=== PATIENT | male | born 1935 | race Caucasian/White ===

== ENCOUNTER → 2017-06-16 | Day surgery (SDC) | payer OTHER ==
[2017-05-12 09:24] VITALS: Ht 172.7 cm; Wt 84.1 kg
[~2017-06-16] VITALS: Ht 172.7 cm; Wt 84.1 kg
[~2017-06-16] MED LIST: 500ML BSS 0.3ML EPI 1:1000PF IRRIG ONE; ACETAMINOPHEN 325 MG TAB PO PRN; AMOX875T PO; AMVISC PLUS 0.8ML SYRINGE INT OCU ONE; ASPI-461 PO; ATROPINE SULFATE 0.1 MG/ML 5ML SYR IV PRN; BRIMONIDINE TART 0.2% OP SOLN PER DROP CHARGE ONE; BSS FLUSH ONE; CHOL1CAP57 PO; DICL0.1S OPR; ENDOCOAT 0.85ML SYRINGE INT OCU ONE; EpHEDrine SULFATE INJ 50 MG/ML AMP IV PRN; EpINEphrine INJ 1MG/ML AMP 1 MG/ML AMP ONE; FLM4 PO; LACTATED RINGER'S 1000ML 500 ML IV SCH; LEVO25TA5 PO; LIDOCAINE 4% OP SOLN DROP CHARGE ONE; LIDOCAINE 4% OP SOLN DROP CHARGE OPL SCH; LIDOCAINE HCL 1% MPF 2 ML VIAL ONE; LISI-725 PO; METO50TA16 PO; MIDAZOLAM HCL 1 MG/ML 2ML VIAL ONE; MIX: 3ML BSS AND 1ML EPI(PF) TOP ONE; MOXIFLOXACIN OPH SOLN PER DROP CHARGE ONE; NTRGSL/4 UT; POLYSOL3 OPL; POLYSOL4 OPB; POVIDONE-IODINE OP SOLN 30 ML BTL ONE; PRED1SUS3 OPL; PROPARACAINE 0.5% OP SOLN PER DROP CHARGE OPL SCH; SIMV80TA2 PO; TOBRAMYCIN/DEXAMETHASONE OPH OINT PER APPLN CHARGE ONE
[2017-06-16] MEDS: PHENYLEPHRINE HCL 2.5% OP SOLN PER DROP CHARGE OPL SCH ×2 (12:36→12:41)
[2017-06-16] MEDS: TROPICAMIDE 1% OP SOLN PER DROP CHARGE OPL SCH ×2 (12:37→12:42)
[2017-06-16] MEDS: CYCLOPENTOLATE HCL 1% OP SOLN PER DROP CHARGE OPL SCH ×2 (12:38→12:43)
[2017-06-16] MEDS: KETOROLAC 0.5% OP SOLN PER DROP CHARGE OPL SCH ×2 (12:39→12:44)
[2017-06-16] MEDS: MOXIFLOXACIN OPH SOLN PER DROP CHARGE OPL SCH ×2 (12:40→12:50)
--- NOTE | 2017-06-16 13:24 | History & Physical Bridge - [place] ---
H&P Re-Evaluation Bridge Note: I have examined the patient, reviewed the History & Physical and in the interval since the performance of the History & Physical I have noted the following changes of clinical significance: No changes noted
[2017-06-16 14:21] VITALS: TEMP 36.3
--- NOTE | 2017-06-16 14:21 | Discharge Instructions-SurgCtr ---
Discharge Instructions Date of Service Jun 16, 2017. Visit Reason for Visit: Cataract Left Eye Discharge Discharge Diagnosis / Problem: cataract left eye Discharge Goals Goal(s): Improve function Activity Recommendations Activity Limitations: per Instructions/Follow-up section Lifting Limitations: no more than 5 pounds Anesthesia . Post Anesthesia Instructions: If you have had General Anesthesia or IV Sedation: * Do not drive today. * Resume driving when surgeon permits. * Do not make important decisions or sign legal documents today. * Call surgeon for: 1. Temperature elevations greater than 101 degrees F. 2. Uncontrollable pain. 3. Excessive bleeding. 4. Persistent nausea and vomiting. 5. Medication intolerance (nausea, vomiting or rash). * For nausea and vomiting use only clear liquids such as: tea, soda, bouillon until nausea subsides, then gradually increase diet as tolerated. * If you have any concerns or questions, call your surgeon's office. If physician is unavailable and it is an emergency, call 911 or go to the nearest emergency room. . Instructions / Follow-Up Instructions / Follow-Up ACTIVITY RECOMMENDATIONS: * Light activities * You may walk outside, read, watch television. * Mild irritation and blurred vision are common for the first few days, redness around the white part of the eye is common. MEDICATIONS: Resume previous medications unless instructed otherwise by your surgeon. Eye drops (today and tomorrow): Polytrim - one drop in operative eye every 2 hours while awake Prednisolone 1% - one drop in operative eye every 2 hours while awake Diclofenac - one drop operative eye 4 times daily SPECIAL CARE INSTRUCTIONS: * If any problems or concerns, please call Dr. Vo's office at . * Keep plastic shield taped over eye to sleep at night. * Keep plastic shield taped over eye except to administer eye drops. * Keep plastic shield on until office visit the following day. FOLLOW UP VISIT: Follow-up with Dr. Vo in the [place] office as scheduled. If not already scheduled, please call the office at . Diet Recommendations Home Diet: resume previous diet Procedures Procedures Performed: Left Cataract Phacoemulsification With Intraocular Lens Implant Pending Studies Studies pending at discharge: no Medical Emergencies . Who to Call and When: Medical Emergencies: If at any time you feel your situation is an emergency, please call 911 immediately. . Non-Emergent Contact Non-Emergency issues call your: New Car Inspector . . "Provider Documentation" section prepared by Kirill Vo. .
--- NOTE | 2017-06-16 14:24 | [facility] Operative Report ---
Operative Report Operative Date Jun 16, 2017. Pre-Operative Diagnosis Left Eye Cataract Post-Operative Diagnosis same Procedure(s) Performed Left Cataract Phacoemulsification With Intraocular Lens Implant Surgeon Dr. Lynda Vo Boardmarker Surgeon(s) 0 Estimated Blood Loss 0 Findings cataract left eye Fluids (cc crystalloids) see anesthesia record Specimens none Drains none Anesthesia local with sedation Complication(s) None Disposition Recovery Room / PACU Implants [id number] 22.0 Indications decreased vision left eye Description of Procedure After informed consent was obtained in the holding area the patient was wheeled back to the operating room where cardiac monitoring leads and oxygen by nasal cannula was administered by Anesthesia. Gentle IV sedation was given, and the patient's left eye was prepped and draped in usual sterile fashion. A wire lid speculum was placed into the left eye and the operating microscope was swung into position. Using 0.12 forceps and a Supersharp blade a paracentesis port was made 2 o'clock hours away from the 3 o'clock position of the patient's left eye. 1% non-preserved Lidocaine was then injected into the anterior chamber for anesthesia. A 2.0 mm keratotome blade was then used to make a shelved clear corneal incision at the 3 o'clock position of the left eye. Amvisc was injected into the anterior chamber and a cystotome and Utrata forceps were used to perform a curvilinear capsulorrhexis. BSS on a hydrodissection cannula was used to hydrodissect the lens nucleus away from the capsular bag. The phacoemulsification handpiece was then used in a stop and chop fashion to remove the lens nucleus. A mixture of Nonpreserved epi and bss was injected into the eye to aid in pupillary dilation in this floppy iris patient. The irrigation and aspiration handpiece was then used to remove the residual cortical material. Amvisc was injected into the capsular bag and anterior chamber and a [employer]ch [employer] Lomb MX60 22.0 Diopter intraocular lens was injected into the capsular bag. Irrigation and aspiration handpiece was used to remove the residual viscoelastic material. The wounds were hydrated and noted to be watertight. The wire lid speculum was removed from the eye. Vigamox, Brimonidine, and TobraDex ointment were placed on the eye and it was shielded. It should be noted that EndoCoat was used extensively during the case to protect the cornea endothelium. DISPOSITION: The patient tolerated the procedure well and was wheeled to the post anesthesia care unit in stable condition. I attest to the content of the Intraoperative Record and any orders documented therein. Any exceptions are noted below. I attest to the content of the Intraoperative Record and any orders documented therein. Any exceptions are noted below.
[2017-06-16 14:39] VITALS: BP 159/85; PULSE 65; O2SAT 100
--- NOTE | 2017-06-16 14:45 | Anesthesia Progress Nt - [facility] ---
Anesthesia Post Op Note Date & Time Jun 16, 2017 at 14:45 Vital Signs Pain Intensity: 0 Vital Signs Past 12 Hours Date Time Temp Pulse Resp B/P (MAP) Pulse Ox O2 Delivery O2 Flow Rate FiO2 06/16/17 14:39 65 16 159/85 (109) 100 Room Air 06/16/17 14:21 36.3 54 16 123/74 (90) 98 Room Air 06/16/17 12:30 36.5 60 18 157/96 (116) 96 Room Air Notes Mental Status: alert / awake / arousable, participated in evaluation Pt Amnestic to Procedure: Yes Nausea / Vomiting: adequately controlled Pain: adequately controlled Airway Patency, RR, SpO2: stable & adequate BP & HR: stable & adequate Hydration State: stable & adequate Anesthetic Complications: no major complications apparent
== END | disposition home or self-care (01) ==
LOC: X.SURG 12:14
PROVIDERS: ATTEND Ophthalmology
DX: H26.9 Unspecified cataract (principal); I10 Essential (primary) hypertension; I25.10 Atherosclerotic heart disease of native coronary artery without angina pectoris; I25.2 Old myocardial infarction; I73.9 Peripheral vascular disease, unspecified; Z90.89 Acquired absence of other organs; Z68.28 Body mass index [BMI] 28.0-28.9, adult

== ENCOUNTER 2019-02-20 21:40 | Observation (INO) ==
[2019-02-20] MEDS ORDERED: NITROGLYCERIN 2% OINTMENT 30GM TUBE EXT STA (22:22)
[2019-02-20 22:42] LABS: Basophils # (auto) 0.01 K/uL (0-0.2); Basophils % (auto) 0.2 %; Eosinophils # (auto) 0.06 K/uL (0-0.5); Eosinophils % (auto) 0.9 %; Hematocrit (blood only) 32.9 % (42-52); Hemoglobin 11.1 g/dL (14.0-18.0); Immature Granulocytes # (auto) 0.02 K/uL (0.00-0.02); Immature Granulocytes % (auto) 0.3 %; Lymphocytes # (auto) 1.19 K/uL (1.2-3.4); Lymphocytes % (auto) 18.3 %; Mean Corpuscular Hgb Conc 33.7 g/dL (32-36); Mean Platelet Volume 10.5 fL (7.4-10.4); Monocytes # (auto) 0.72 K/uL (0.11-0.59); Neutrophils # (auto) 4.52 K/uL (1.4-6.5); Neutrophils % (auto) 69.3 %; Platelet Count 211 K/uL (130-400); RDW Coefficient of Variation 13.3 % (11.5-14.5); RDW Standard Deviation 41.3 fL (36.4-46.3); Red Blood Count 3.87 M/uL (4.7-6.1); White Blood Count 6.52 K/uL (4.8-10.8)
[2019-02-20 22:49] LABS: Albumin Level 3.1 gm/dl (3.4-5.0); BUN Creatinine Ratio 13.5 (10-20); Calcium 8.5 mg/dl (8.5-10.1); Creatinine Clr Calc Pharmacy 23.7 ml/min; Est GFR (African American) 27.8; Potassium 3.7 mmol/L (3.5-5.1)
[2019-02-20 22:54] LABS: Albumin Globulin Ratio 0.8 (0.9-2); Bilirubin,Total 0.4 mg/dl (0.2-1); Globulin 3.8 gm/dl (2.5-4.0); Total Protein 6.9 gm/dl (6.4-8.2); Troponin I 0.021 ng/ml (0-0.045)
--- NOTE | 2019-02-20 23:03 | XRay Report ---
SINGLE VIEW CHEST CLINICAL HISTORY: Atypical chest pain. FINDINGS: 2 AP, portable, upright chest radiographs are obtained. No prior studies are available for comparison at the time of dictation. The examination is degraded by portable technique and patient ro tation. The heart is enlarged and there is atherosclerotic calcification of the thoracic aorta. The pulmonary vasculature is noncongested. Enlargement of the central pulmonary arteries suggests pulmona ry artery hypertension. There is mild bibasilar scarring/atelectasis. No airspace consolidation or la rge pleural effusion is identified. No pneumothorax is seen. The skeletal structures are osteopenic. The bony thorax is grossly intact. IMPRESSION: Cardiomegaly with no acute cardiopulmonary abnormality. Electronically signed by: Jevon Tovar M.D. 02/20/2019 11:01 PM
[2019-02-21] MEDS ORDERED: POLYETHYLENE (MIRALAX) 17 GM PACK PO PRN (01:37)
[2019-02-21] MEDS ORDERED: NITROGLYCERIN SL 0.4 MG/TAB TAB SL PRN ×2 (01:37)
[2019-02-21] MEDS ORDERED: ONDANSETRON INJ 2 MG/ML 2 ML VIAL IV PRN (01:37)
[2019-02-21] MEDS ORDERED: ACETAMINOPHEN 325 MG TAB PO PRN (01:37)
--- NOTE | 2019-02-21 01:46 | Emergency Department Note ---
Entered by Renetta English acting as a scribe for Galileo Eng MD ED Provider Note CHIEF COMPLAINT: Chest pain HISTORY OF PRESENT ILLNESS: The patient is a 83 year old male who presents to the Emergency Room with complaints of substernal chest pain that began this evening after he got out of the shower. He notes that the pain is dull, rating it as a 1/10 in severity. The patient complains of SOB and lower extremity swelling. Pt denies LOC, headache, fevers, chills, diaphoresis, visual changes, neck pain, chest pain, nausea, vomiting, abdominal pain, back pain, melena, hematochezia, urinary symptoms, numbness, weakness, lymphadenopathy, rash, or other complaints. The patient denies any radiation of the pain. 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 He complains of recent congestion, noting that he is currently on antibiotics. The patient denies any recent long trips or travel. REVIEW OF SYSTEMS: See HPI for pertinent positives and negatives. A total of ten systems were reviewed and were otherwise negative. PMHx/PSHx: Cardiac stents, abdominal aortic aneurysm SOCIAL HISTORY: Patient lives at home. PHYSICAL EXAM: GENERAL: Awake, alert, well-appearing, in no distress HENT: Normocephalic, atraumatic. Oropharynx unremarkable. EYES: PERRL. Normal conjunctiva. Sclera non-icteric. NECK: Inspection normal. Non-tender. Supple. No nuchal rigidity. FROM. No masses. RESPIRATORY: Clear to auscultation. No wheezes. No rales. Normal respiratory effort. CARDIAC: Normal rate. Normal rhythm. No murmurs. No rubs. Extremities warm and well perfused. Pulses equal. No JVD. GI: Soft, non-distended. No tenderness to palpation. No rebound or guarding. No masses. RECTAL: Deferred. MUSCULOSKELETAL: Atraumatic. Chest examination reveals no tenderness. The back is symmetrical on inspection without obvious abnormality. There is no CVA tenderness to palpation. No joint edema. LOWER EXTREMITIES: Calves are equal size bilaterally and non-tender. 1+ edema bilaterally. No discoloration. NEURO: Normal sensorium. No sensory or motor deficits noted. SKIN: No rash or jaundice noted. EMERGENCY DEPARTMENT COURSE: 2211: Past medical records reviewed. The patient was evaluated in room A11B, and a complete history and physical examination were performed. 2201: I reassessed the patient, and he stated that he feels well. 2213: I spoke with Dr. Deshpande, [facility] hospitalist, about the patients case. He will further evaluate the patient. MEDICAL DECISION MAKING: Triage Nursing notes reviewed and agree them. Additional history obtained from the family. The patient's history was concerning for chest pain. Differential diagnosis: Etiologies such as cardiac ischemia, aortic dissection, pulmonary embolism, pneumonia, pneumothorax, musculoskeletal, infections, pericarditis, myocarditis, esophageal rupture, gastrointestinal, as well as others were entertained. Physical examination: As above. ER treatment provided: Cardiac monitoring Nitropaste On reassessment the patient felt better. Diagnostic interpretation by me: The electrocardiogram was negative for pathologic change. The labs revealed an unremarkable CBC and chemistry panel except for an elevated creatinine. Troponin within normal limits although not 0. Imaging studies: Chest x-ray negative for acute disease. The patient has a strong cardiac history given his previous stents. He had ch est pain this evening that was concerning. He will need further management in the hospital. Consultation: A consultation was placed with the [facility] hospitalist. The case was discussed and diagnostics were reviewed. The patient was evaluated in the ER for further treatment. IMPRESSION: Substernal chest pain PLAN: Evaluation by hospitalist The scribe's documentation has been prepared under my direction and personally reviewed by me in its entirety. I confirm that the note above accurately reflects all work, treatment, procedures, and medical decision making performed by me. Impression & Plan Substernal chest pain Past Med/Surg History Medical History Aortic aneurysm, abdominal Surgical History H/O heart artery stent Social History Feels Safe at Home: Yes Smoking Status: Never smoker Results & Data Vital Signs Vital Signs - 24 hr 02/20/19 21:52 02/20/19 22:00 02/20/19 22:29 Temperature 36.8 C Temperature Source Oral Sepsis Recent Fever Within 48 Hours No Sepsis Action Taken by Nursing No Action Required Pulse Rate 100 H 83 Pulse Rate from SpO2 Sensor 83 Respiratory Rate 18 27 H Respiratory Effort / Characteristics Non-Labored Respiratory Depth Normal Blood Pressure 186/89 H 160/85 H Blood Pressure Mean 121 110 Pulse Oximetry 95 96 96 Oxygen Delivery Method Room Air Room Air Room Air 02/20/19 22:30 02/20/19 23:00 Temperature Temperature Source Sepsis Recent Fever Within 48 Hours Sepsis Action Taken by Nursing Pulse Rate 78 72 Pulse Rate from SpO2 Sensor 78 Respiratory Rate 21 37 H Respiratory Effort / Characteristics Respiratory Depth Blood Pressure 159/75 H 157/72 H Blood Pressure Mean 103 100 Pulse Oximetry 97 Oxygen Delivery Method Room Air Home Medications Current Medication List: was personally reviewed by me Laboratory Data Attestation: I reviewed the patient's lab results. Result diagrams: 02/20/19 21:55 02/20/19 21:55 Lab Results 02/20/19 02/20/19 Range/Units 21:55 21:55 WBC 6.52 (4.8-10.8) K/uL RBC 3.87 L (4.7-6.1) M/uL Hgb 11.1 L (14.0-18.0) g/dL Hct 32.9 L (42-52) % MCV 85.0 (80-100) fL MCH 28.7 (25-34) pg MCHC 33.7 (32-36) g/dL RDW Std Deviation 41.3 (36.4-46.3) fL RDW Coeff of Collins 13.3 (11.5-14.5) % Plt Count 211 (130-400) K/uL MPV 10.5 H (7.4-10.4) fL Immature Gran % (Auto) 0.3 % Neut % (Auto) 69.3 % Lymph % (Auto) 18.3 % [place] % (Auto) 11.0 % Eos % (Auto) 0.9 % Baso % (Auto) 0.2 % Immature Gran # (Auto) 0.02 (0.00-0.02) K/uL Neut # (Auto) 4.52 (1.4-6.5) K/uL Lymph # (Auto) 1.19 L (1.2-3.4) K/uL [place] # (Auto) 0.72 H (0.11-0.59) K/uL Eos # (Auto) 0.06 (0-0.5) K/uL Baso # (Auto) 0.01 (0-0.2) K/uL Sodium 141 (136-145) mmol/L Potassium 3.7 (3.5-5.1) mmol/L Chloride 108 H (98-107) mmol/L Carbon Dioxide 26 (21-32) mmol/L Anion Gap 8.0 (3-11) BUN 32 H (7-18) mg/dl Creatinine 2.39 H (0.6-1.4) mg/dl Est Cr Clr Drug Dosing 23.7 ml/min Est GFR ( Amer) 27.8 Est GFR (Non-Af Amer) 24.0 BUN/Creatinine Ratio 13.5 (10-20) Glucose 190 H (70-99) mg/dl Calcium 8.5 (8.5-10.1) mg/dl Total Bilirubin 0.4 (0.2-1) mg/dl AST 25 (15-37) U/L ALT 27 (12-78) U/L Alkaline Phosphatase 79 (45-117) U/L Troponin I 0.021 (0-0.045) ng/ml Total Protein 6.9 (6.4-8.2) gm/dl Albumin 3.1 L (3.4-5.0) gm/dl Globulin 3.8 (2.5-4.0) gm/dl Albumin/Globulin Ratio 0.8 L (0.9-2) Lipase 324 (73-393) U/L Administered Medications Discontinued Medications Nitroglycerin (Nitro-Bid 2%) 0.5 inch EXT NOW STA Stop: 02/20/19 22:23 Last Admin: 02/20/19 22:38 Dose: 0.5 inch Documented by: [id number] Imaging Data Radiologist's Impression: Radiology results as stated below per my review and the radiologist's interpretation: SINGLE VIEW CHEST CLINICAL HISTORY: Atypical chest pain. FINDINGS: 2 AP, portable, upright chest radiographs are obtained. No prior studies are available for comparison at the time of dictation. The examination is degraded by portable technique and patient rotation. The heart is enlarged and there is atherosclerotic calcification of the thoracic aorta. The pulmonary vasculature is noncongested. Enlargement of the central pulmonary arteries suggests pulmonary artery hypertension. There is mild bibasilar scarring/atelectasis. No airspace consolidation or large pleural effusion is identified. No pneumothorax is seen. The skeletal structures are osteopenic. The bony thorax is grossly intact. IMPRESSION: Cardiomegaly with no acute cardiopulmonary abnormality. Electronically signed by: Jevon Tovar M.D. 02/20/2019 11:01 PM ECG Data Attestation: I personally reviewed and interpreted this ECG as follows: Indication: chest pain Rate (beats per minute): 89 Rhythm: normal sinus Findings: + other (left axis deviation) and + LBBB; no PVC and no ST elevation Comparison ECG Date: from (09/02/18) Change: no significant change (LBBB is not new) Blood Pressure Blood Pressure Findings: Elevated blood pressure Blood Pressure Disposition: further management by hospitalist Discharge Plan Visit Data Chief Complaint: Chest Pain Stated Complaint: CHEST PAIN ED Provider: Galileo Eng Discharge Problem: Substernal chest pain Patient Disposition: Being Evaluated by Hospitalist Discharge Instructions Interventions: ED Discharge Assessment Last Done: 02/21/19 00:56 The scribe's documentation has been prepared under my direction and personally reviewed by me in its entirety. I confirm that the note above accurately reflects all work, treatment, procedures, and medical decision making performed by me.
[2019-02-21] MEDS ORDERED: Heparin Adult LOW DOSE Wt-Based Dextrose 5% 25,000 units/500 mL IV SCH (03:30)
[2019-02-21] MEDS: Heparin IV Low Dose *NO* Bolus IV SCH ×2 (03:30→03:31)
[2019-02-21 03:46] LABS: Partial Thromboplastin Time 26.8 Seconds (21.0-31.0)
--- NOTE | 2019-02-21 06:11 | History and Physical Report ---
DATE OF ADMISSION: 02/21/2019 CHIEF COMPLAINT: Chest pain. HISTORY OF PRESENT ILLNESS: This is an 83-year-old male with past medical history significant for CAD status post stent, abdominal aortic aneurysm status post repair, chronic kidney disease stage IV, hypertension, chronic left bundle branch block, peripheral vascular disease, prediabetes, hypothyroidism, hyperlipidemia, generalized osteoarthritis, recently having unsteady gait, presents with chest pain. The patient recently saw on 02/16/2019 family doctor for probable sinus infection. He was started on Biaxin and that seems to be getting better. At that time he also has ambulatory dysfunction. Family doctor thought the patient might have had stroke and ordered MRI scan, but that was not scheduled yet. The patient's ambulatory disorder is slightly better. He is walking without any help, but has to drag his legs and on Friday evening 9:00 p.m. after shower, he started to have chest pain all over the chest about 8/10 in severity, pressure like feeling. Not associated with any shortness of breath, no nausea, no sweating, no dizziness. It slowly subsided on its own and when he came to the ER the pain started to come back and was given nitro paste and the patient is chest pain free. Denies any headaches, no blurred vision, no earache, no sore throat, no difficulty swallowing. Appetite is okay, sleeping okay. No abdominal pain. Normal bowel and bladder movements. No burning micturition. No black stools or blood in the stools. No cough, no fevers. Currently, resting comfortable and hemodynamically stable. ALLERGIES: No known drugs. PAST MEDICAL HISTORY: As mentioned above. PAST SURGICAL HISTORY: Cardiac catheterization, colonoscopy, status post stent placement, endovascular repair of abdominal aortic aneurysm in 2016, appendectomy, tonsillectomy and inguinal hernia repair. MEDICATIONS: The patient currently on clarithromycin 500 mg p.o. b.i.d., Nitrostat 0.4 mg sublingual p.r.n., Flomax 0.4 mg p.o. daily, levothyroxine 25 mcg p.o. daily, vitamin D 1000 units p.o. daily, aspirin 81 mg p.o. daily, metoprolol tartrate 25 mg once daily in a.m. and Zocor 80 mg p.o. daily. FAMILY HISTORY: Significant for father at age of 70. Mother at age of 91. SOCIAL HISTORY: and lives with his . Former smoker, quit in 1986. Alcohol occasional. No drug use. REVIEW OF SYMPTOMS: As per HPI. Rest of review of symptoms negative. PHYSICAL EXAMINATION: GENERAL: The patient is of moderate build, not in acute distress. VITAL SIGNS: Temperature 36.8, pulse 72, respiratory rate 21, blood pressure 157/72, oxygen 97% on room air. HEENT: No pallor, no icterus. Pupils equal, round, and reactive to light. Extraocular muscles intact. NECK: No JVD, no neck masses, no carotid bruit. CARDIOVASCULAR: S1, S2 heard, regular rate and rhythm, no murmur, no gallop. RESPIRATORY SYSTEM: Normal AP diameter. No accessory muscle use. No wheezing, no crackles. ABDOMEN: Soft, bowel sounds present. Nontender. No distention. CENTRAL NERVOUS SYSTEM: Cranial nerves II-XII grossly intact. Coordination of movements normal. No pronator drift. EXTREMITIES: No edema, no erythema. LABORATORY DATA: WBC 6.5, hemoglobin 11.1, hematocrit 32.9, platelets 211. Sodium 141, potassium 3.7, chloride 108, bicarbonate 26, BUN 32, creatinine 2.39, serum glucose 190, calcium 8.5, total bilirubin 0.4, AST 25, ALT 27, alkaline phosphatase is 79. Troponin I 0.02, lipase 324. Chest x-ray: Cardiomegaly with no acute cardiopulmonary findings. EKG: Normal sinus rhythm, rate of 89, left bundle branch block. ASSESSMENT AND PLAN: This is an 83-year-old male who presents with chest pain. 1. Chest pain, rule out acute coronary syndrome, history of coronary artery disease status post stent. Initial workup is negative. EKG has chronic left bundle branch block. We will do serial cardiac enzymes, echocardiogram. Monitor and observe in tele floor. Consult Cardiology and keep n.p.o. until seen by Cardiology. 2. History of coronary artery disease status post stent. Continue home medication of aspirin, metoprolol and Lipitor. 3. Ambulatory dysfunction,Having it for some time now. There is question of stroke, cerebrovascular accident. Family doctor ordered MRI, but is not schedule yet. We will get a CT of the head. The patient is already on aspirin and statin. We will follow the CAT scan. 4. 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 We will check CPK levels. 5. History of sinus infection. The patient is started on Biaxin, but seems its contraindicated with statin. We will change to Augmentin. 6. CKD stage 4.MO? Baseline Cr 2.1 . presented with Cr 2.3. Will follow repeat labs. 7. Hyperlipidemia. Continue statin for now. 8. Hypothyroidism. Continue levothyroxine. 9. Benign prostatic hypertrophy. Continue Flomax. 10. Peripheral vascular disease, on aspirin and statin. 11. Prediabetes. Current n.p.o. We will check his HbA1c levels. 12. Status post abdominal aortic aneurysm repair . 13. Deep venous thrombosis prophylaxis. Sequential compression devices for now. 14. Disposition: Observation in tele floor. Expect to discharge home and follow with his family doctor. PT and OT prior to discharge. Social Service to help with discharge planning. Addendum: Patient next troponin was 0.4. Asymptomatic. Starting on low dose iV heparin for now. MTDD
[2019-02-21] MEDS ORDERED: LEVOTHYROXINE SODIUM 25 MCG TABLET PO SCH (06:30)
--- NOTE | 2019-02-21 06:56 | CT Scan Report ---
CT head/brain wo con CLINICAL HISTORY: Strokelike symptoms COMPARISON STUDY: No previous studies for comparison. TECHNIQUE: Axial CT of the brain is performed from the vertex to the skull base. IV contrast was not administered for this examination. A dose lowering technique was utilized adhering to the principles of ALARA. CT DOSE: 614.27 mGy.cm FINDINGS: No intra or extra-axial mass lesions are visualized. There is no CT evidence of acute cortical infarc tion. There is no evidence of midline shift. There is no acute hemorrhage. No calvarial fractures ar e visualized. There are minor white matter hypodensities likely on a small vessel basis. There is moderate ventricular prominence, likely secondary to volume loss There is mucosal thickening/fluid within both maxillary sinuses. There is a small amount of fluid in the sphenoid sinus. Multiple ethmoid sinuses are opacified. IMPRESSION: 1. No acute intracranial findings 2. Moderate paranasal sinus disease Electronically signed by: Osmany Fong M.D. 02/21/2019 6:54 AM
[2019-02-21 07:47] LABS: Basophils # (auto) 0.01 K/uL (0-0.2); Basophils % (auto) 0.2 %; Eosinophils # (auto) 0.07 K/uL (0-0.5); Eosinophils % (auto) 1.1 %; Hematocrit (blood only) 28.9 % (42-52); Immature Granulocytes # (auto) 0.01 K/uL (0.00-0.02); Immature Granulocytes % (auto) 0.2 %; Lymphocytes # (auto) 1.34 K/uL (1.2-3.4); Lymphocytes % (auto) 21.2 %; Mean Corpuscular Hgb Conc 34.6 g/dL (32-36); Mean Corpuscular Volume 85.3 fL (80-100); Mean Platelet Volume 10.3 fL (7.4-10.4); Monocytes # (auto) 0.83 K/uL (0.11-0.59); Monocytes % (auto) 13.1 %; Neutrophils # (auto) 4.06 K/uL (1.4-6.5); Neutrophils % (auto) 64.2 %; Platelet Count 178 K/uL (130-400); RDW Coefficient of Variation 13.4 % (11.5-14.5); RDW Standard Deviation 41.5 fL (36.4-46.3); Red Blood Count 3.39 M/uL (4.7-6.1); White Blood Count 6.32 K/uL (4.8-10.8)
[2019-02-21] MEDS ORDERED: AMOXICILLIN/CLAVULANATE 500 MG TAB PO SCH (08:00)
[2019-02-21 08:04] LABS: BUN Creatinine Ratio 14.4 (10-20); Calcium 8.4 mg/dl (8.5-10.1); Creatinine Clr Calc Pharmacy 26.8 ml/min; Est GFR (African American) 32.7; Est GFR (Non-African American) 28.2; Magnesium 2.3 mg/dl (1.8-2.4); Potassium 3.7 mmol/L (3.5-5.1)
[2019-02-21] MEDS ORDERED: METOPROLOL TARTRATE 25 MG TAB PO SCH (09:00)
[2019-02-21] MEDS ORDERED: CYANOCOBALAMIN 500 MCG TABLET (VITAMIN B-12) PO SCH (09:00)
[2019-02-21] MEDS ORDERED: CHOLECALCIFEROL 1,000 UNITS TAB PO SCH (09:00)
[2019-02-21] MEDS ORDERED: TAMSULOSIN HCL 0.4 MG CAP PO SCH (09:00)
[2019-02-21] MEDS ORDERED: ASPIRIN 81 MG ECTAB PO SCH (09:00)
[2019-02-21 10:33] LABS: Partial Thromboplastin Ratio 1.9
[2019-02-21 10:34] LABS: Partial Thromboplastin Time 50.8 Seconds (21.0-31.0)
--- NOTE | 2019-02-21 13:52 | Consultation Report ---
DATE OF CONSULTATION: 02/21/2019 INPATIENT CARDIOLOGY CONSULTATION CONSULTATION REQUESTED BY: Mariano Deshpande MD. REASON FOR CONSULTATION: Chest pain. HISTORY OF PRESENT ILLNESS: Mr. Valencia is an 83-year-old gentleman who only recently established with our cardiology practice in [place] after moving back to the area. He presented to [facility] late in the evening of 02/20/2019 with complaints of lower extremity weakness and chest pain. The patient states that he has been having a lot of issues with lower extremity weakness lately and has been seen by his family physician and a workup has begun. He states he was started on antibiotic and his weakness actually improved. On the evening of 02/20/2019, the patient took a shower and getting out of the shower, he noticed his legs were dragging a little bit more and he developed chest discomfort. He described it as a pressure sensation radiating underneath his bilateral breasts. He states it was rather severe in nature and he called his and sat down. He denied any associated symptoms with it. Specifically, denied any associated diaphoresis, shortness of breath, nausea, lightheadedness, dizziness, or syncope. He took 2 sublingual nitroglycerin at home without relief and came into the Emergency Department. Upon arrival, his initial troponin was unremarkable. His EKG showed a chronic left bundle branch block without change. He was started on nitroglycerin paste without improvement, but he states that the discomfort slowly resolved later on in the evening, but again reiterates that the nitroglycerin did not help at all. He has not had any recurrence of the discomfort since and his main concern today is his ongoing leg weakness. PAST SURGICAL HISTORY: 1. PCI to the LAD in 1997 in the setting of anterior wall myocardial infarction. 2. AAA repair. 3. Colonoscopies. 4. Appendectomy. 5. Hernia repair. 6. Tonsillectomy as a child. MEDICAL ILLNESSES: 1. Coronary artery disease, status post PCI to the LAD with a resultant LAD distribution scar. 2. Mild ischemic cardiomyopathy. 3. Hypertension. 4. Hyperlipidemia. 5. Chronic left bundle branch block. 6. Abdominal aortic aneurysm, status post repair. 7. Stage III-IV chronic kidney disease. 8. Peripheral vascular disease. FAMILY HISTORY: Noncontributory. SOCIAL HISTORY: The patient is a former smoker, quit in 1996. Denies any alcohol or recreational drug use. REVIEW OF SYSTEMS: As per HPI, all other review of systems reviewed and negative at this time. ALLERGIES: No known drug allergies. MEDICATIONS AN OUTPATIENT: 1. Aspirin 81 mg daily. 2. Metoprolol tartrate 25 mg daily. 3. Simvastatin 80 mg daily. 4. Flomax. 5. Levoxyl. PHYSICAL EXAMINATION: VITAL SIGNS: Temperature 36.5, pulse 61, respiratory rate 12, blood pressure 115/73. GENERAL: Awake, alert, oriented x3, in no acute distress. HEENT: Normocephalic, atraumatic. Pupils equal, round, reactive to light and accommodation. Extraocular muscles intact. Anicteric sclerae. Moist mucous membranes. NECK: No JVD, no bruit. CARDIOVASCULAR: Regular. Positive S4. Normal S1 and S2. No S3. 3/6 mid to late systolic ejection murmur greatest at the right sternal border second intercostal space with radiation to the bilateral carotids. No rubs. PULMONARY: Clear to auscultation bilaterally. No rales, rhonchi, or wheezing. ABDOMEN: Bowel sounds x4, soft. No rebound, guarding, or tenderness. No organomegaly. EXTREMITIES: No clubbing, cyanosis or edema. +2 pedal pulses bilaterally. SKIN: Warm and dry. MUSCULOSKELETAL: Deep palpation of his bilateral sternal borders was able to reproduce pain; however, he states it feels a little different than the pain that brought him into the Emergency Department. TEST RESULTS: A 2D echocardiogram was read as no new wall motion abnormalities compared to myocardial perfusion scan from 06/17/2013, mildly dilated LV chamber size with moderate concentric LVH, mildly reduced LV systolic function, EF 40%-45%, akinesis and wall thinning of the mid to apical anterior septal, anterior and anterolateral wright along with apical inferior wall consistent with old LAD infarct. Grade 1 diastolic dysfunction, moderate aortic valve sclerosis without stenosis, mild aortic regurgitation, mild mitral regurgitation, severe left atrial enlargement. Laboratory studies of significance shows sodium 142, potassium 3.7, BUN 30, creatinine 2.1, initial troponin of 0.02, then 0.5, then 1. CPK of 155. A 12-lead EKG performed in the Emergency Department independently reviewed at this time shows normal sinus rhythm at 89 beats per minute, left bundle branch block with left axis deviation. No significant change compared to previous studies. IMPRESSION: 1. Chest pain. 2. Minimal troponin elevation in the setting of chronic kidney disease, nonischemic. 3. Mild ischemic cardiomyopathy, unchanged since 2013. 4. Gait abnormalities. 5. Chronic left bundle branch block. RECOMMENDATIONS: It was my pleasure to see Mr. Valencia in consultation today. From a cardiac standpoint, I believe the patient's chest pain is musculoskeletal in nature given the fact that he has been having leg weakness and having to support himself to walk with his arms. The pain was somewhat reproducible on examination and his echocardiogram shows unchanged wall motion abnormalities since 2013. So, at this time, I will discontinue his heparin and I believe the most prudent course of action will be to complete an ischemic workup as an outpatient with an outpatient Lexiscan nuclear stress test. Otherwise, he will be continued on his current doses of aspirin and metoprolol. I agree the statin should be held at this time given the leg weakness; however, doubt that he is suffering from any myalgias. He will then need a cardiac followup in approximately 2-4 weeks. Otherwise, it is okay to discharge the patient home from a cardiac standpoint.
--- NOTE | 2019-02-21 14:06 | Hospitalist Progress Note ---
Date of Service February 21, 2019 Assessment & Plan (1) Substernal chest pain: Presented with reproducible chest wall discomfort, no exertional dyspnea on exertion or orthopnea no palpitation Echocardiogram shows no new wall motion abnormality compared to prior myocardial perfusion scan on 06/17/2013 Appreciate input from cardiology No evidence of acute coronary symptoms, no evidence of angina No change in medication recommended Stable to be discharged home with current meds Outpatient follow-up with cardiology, patient follows with Dr. Marmolejo, Cardiac nuclear Lexiscan stress test will be scheduled in outpatient (2) Elevated troponin: Mild elevation of troponin, without any acute change of EKG: Chronic LBBB No evidence of angina No new wall motion abnormality noted in echo, evidence of prior LAD distribution TN scar Echocardiogram 02/21/2019: No new wall motion abnormalities compared to myocardial perfusion scan from 06/17/2013. Mildly dilated LV chamber size with moderate concentric LVH. Mildly reduced LV systolic function, EF 40-45% A kinases and wall thickening of the mid to apical anteroseptal, anterior and anterolateral wright along with apical inferior wall, consistent with old LAD infarct. Grade 1 diastolic dysfunction. Aortic valve sclerosis moderate, without significant aortic valvular stenosis. Mild aortic regurgitation Mild mitral regurgitation. Severe left atrial enlargement. Troponin 0 [id number] In the setting of CKD stage III4 Appreciate input from cardiology No evidence of ACS No cardiac intervention indicated IV heparin discontinued Stable to be discharged home, Outpatient Lexiscan cardiac nuclear stress test will be scheduled (3) Coronary artery disease: History of coronary artery disease, with PCI to LAD in 1987 in the setting of anterior wall TN with resulted LAD distribution scar (4) Ambulatory dysfunction: Report of shuffling gait, loss of balance and fall few weeks ago CT head noncontrast shows no acute change Patient noted to be ambulating independently room, no loss of balance, or shuffling gait noted Patient will benefit with home physical therapy Uses a cane occasionally Recommend to use rolling walker for added balance Prescription for rolling walker given to patient Management made for home health and home physical therapy (5) Sinusitis, acute: Incidental finding in his CT head noncontrast study patient denies of any headache No fever Started on Augmentin, complete 5 days course (6) Benign hypertension with CKD (chronic kidney disease) stage III: Creatinine at baseline (7) Hypertension: Blood pressure stable continue outpatient meds CODE STATUS: Full code DVT prophylaxis: Subcu heparin Disposition: Stable to be discharged home today, Hospital follow-up scheduled with family physician in a week Cardiology follow-up in 4 to 6-week Patient will have outpatient cardiac stress test Subjective No complaint of chest pain or shortness of breath, Ambulating independently in the room, no loss of balance, no shuffling gait noted No complaint of shortness of breath of orthopnea Eager to be discharged home today Patient was evaluated by cardiology earlier, Stable to be discharged home from cardiology standpoint, Patient will have outpatient cardiology follow-up and nuclear stress test scheduled in few weeks Physical Exam Constitutional: WD/WN, vitals as above no acute distress Eyes: PERRL, conjunctivae normal, anicteric sclerae ENMT: external ear and nose normal, oropharynx normal Neck: trachea midline, no thyromegaly Respiratory: normal respiratory effort, lungs clear to auscultation Cardiovascular: RRR, no murmur, no edema Gastrointestinal (Abdomen): normal bowel sounds, soft, nontender, no h epatosplenomegaly Musculoskeletal: no cyanosis or clubbing, extremities motor strength 5/5 Skin: no rashes, warm and dry Neurologic: PERRL, EOMI, accommodation nl, no face palsy, no dysarthria Psychiatric: A+Ox3, euthymic affect Results & Data Vital Signs (Past 12 Hours) Vital Signs Temp Pulse Resp BP Pulse Ox 02/21/19 12:00 36.5 C 61 18 115/73 95 02/21/19 04:10 36.5 C 69 18 120/57 [address] head noncontrast: IMPRESSION: 1. No acute intracranial findings 2. Moderate paranasal sinus disease Medications Administered Current Inpatient Medications Acetaminophen (Tylenol) 650 mg PO Q4H PRN PRN Reason: Pain or Fever Stop: 03/23/19 01:36 Amoxicillin/Clavulanate Potassium (Augmentin 500mg) 1 tab PO BIDM [facility] Stop: 03/03/19 07:59 Last Admin: 02/21/19 08:56 Dose: 1 tab Documented by: Aspirin (Ecotrin Ectab) 81 mg PO QAM [facility] Stop: 03/23/19 08:59 Last Admin: 02/21/19 08:57 Dose: 81 mg Documented by: Cyanocobalamin (Vitamin B-12) 1,000 mcg PO DAILY [facility] Stop: 03/23/19 08:59 Last Admin: 02/21/19 08:57 Dose: 1,000 mcg Documented by: Levothyroxine Sodium (Synthroid) 25 mcg PO DAILYBB [facility] Stop: 03/23/19 06:29 Last Admin: 02/21/19 06:16 Dose: 25 mcg Documented by: Metoprolol Tartrate (Lopressor) 50 mg PO DAILY [facility] Stop: 03/23/19 08:59 Last Admin: 02/21/19 08:57 Dose: 50 mg Documented by: Nitroglycerin (Nitrostat) 0.4 mg SL UD PRN PRN Reason: Chest Pain Stop: 03/23/19 01:36 Polyethylene Glycol (Miralax Powder Packet) 17 gm PO DAILY PRN PRN Reason: Constipation Stop: 03/23/19 01:36 Simvastatin (Zocor) 80 mg PO PM [facility] Stop: 03/23/19 20:59 Tamsulosin HCl (Flomax) 0.4 mg PO DAILY [facility] Stop: 03/23/19 08:59 Last Admin: 02/21/19 08:58 Dose: 0.4 mg Documented by: Vitamin D (Vitamin D3) 1,000 units PO DAILY [facility] Stop: 03/23/19 08:59 Last Admin: 02/21/19 08:58 Dose: 1,000 units Documented by: (1) Sinusitis, acute Recurrence: not specified as recurrent Sinusitis location: pansinusitis Qualified Code(s): J01.40 - Acute pansinusitis, unspecified (2) Coronary artery disease Associated angina: without angina Coronary Disease-Associated Artery/Lesion type: [place] artery [place] vs. transplanted heart: [place] heart Qualified Code(s): I25.10 - Atherosclerotic heart disease of [place] coronary artery without angina pectoris (3) Hypertension Hypertension type: essential hypertension Qualified Code(s): I10 - Essential (primary) hypertension
--- NOTE | 2019-02-21 16:02 | Discharge Summary ---
Date of Service February 21, 2019 Principal Diagnosis Chest pain, noncardiac, ambulatory dysfunction, CKD stage III, sinusitis-acute Discharge Exam Constitutional WD/WN, vitals as above no acute distress Eyes PERRL, conjunctivae normal, anicteric sclerae ENMT external ear and nose normal, oropharynx normal Neck trachea midline, no thyromegaly Respiratory normal respiratory effort, lungs clear to auscultation Cardiovascular RRR, no murmur, no edema Gastrointestinal (Abdomen) normal bowel sounds, soft, nontender, no hepatosplenomegaly Musculoskeletal no cyanosis or clubbing, extremities motor strength 5/5 Skin no rashes, warm and dry Neurologic PERRL, EOMI, accommodation nl, no face palsy, no dysarthria Psychiatric A+Ox3, euthymic affect Discharge Data Allergies Allergy/AdvReac Type Severity Reaction Status Date / Time No Known Allergies Allergy Unverified 02/20/19 23:34 Consultations 02/20/19 23:10 ED Decision to Admit Stat 02/21/19 01:37 Consult Case Management - Discharge Planning Routine 02/21/19 08:00 Consult Cardiology Routine Ordered Studies 02/21/19 01:37 CT head/brain wo con Urgent Hospital Course (1) Substernal chest pain: Presented with reproducible chest wall discomfort, no exertional dyspnea on exertion or orthopnea no palpitation Echocardiogram shows no new wall motion abnormality compared to prior myocardial perfusion scan on 06/17/2013 Appreciate input from cardiology No evidence of acute coronary symptoms, no evidence of angina No change in medication recommended Stable to be discharged home with current meds Outpatient follow-up with cardiology, patient follows with Dr. Marmolejo, Cardiac nuclear Lexiscan stress test will be scheduled in outpatient (2) Elevated troponin: Mild elevation of troponin, without any acute change of EKG: Chronic LBBB No evidence of angina No new wall motion abnormality noted in echo, evidence of prior LAD distribution [place] scar Echocardiogram 02/21/2019: No new wall motion abnormalities compared to myocardial perfusion scan from 06/17/2013. Mildly dilated LV chamber size with moderate concentric LVH. Mildly reduced LV systolic function, EF 40-45% A kinases and wall thickening of the mid to apical anteroseptal, anterior and anterolateral wright along with apical inferior wall, consistent with old LAD infarct. Grade 1 diastolic dysfunction. Aortic valve sclerosis moderate, without significant aortic valvular stenosis. Mild aortic regurgitation Mild mitral regurgitation. Severe left atrial enlargement. Troponin 0 [id number] In the setting of CKD stage III4 Appreciate input from cardiology No evidence of ACS No cardiac intervention indicated IV heparin discontinued Stable to be discharged home, Outpatient Lexiscan cardiac nuclear stress test will be scheduled (3) Coronary artery disease: History of coronary artery disease, with PCI to LAD in 1987 in the setting of anterior wall MD with resulted LAD distribution scar (4) Ambulatory dysfunction: Report of shuffling gait, loss of balance and fall few weeks ago CT head noncontrast shows no acute change Patient noted to be ambulating independently room, no loss of balance, or shuffling gait noted Patient will benefit with home physical therapy Uses a cane occasionally Recommend to use rolling walker for added balance Prescription for rolling walker given to patient Management made for home health and home physical therapy (5) Sinusitis, acute: Incidental finding in his CT head noncontrast study patient denies of any headache No fever Started on Augmentin, complete 5 days course (6) Benign hypertension with CKD (chronic kidney disease) stage III: Creatinine at baseline (7) Hypertension: Blood pressure stable continue outpatient meds CODE STATUS: Full code DVT prophylaxis: Subcu heparin Disposition: Stable to be discharged home today, Hospital follow-up scheduled with family physician in a week Cardiology follow-up in 4 to 6-week Patient will have outpatient cardiac stress test Total Time Total Time Spent Total Time Spent (In Minutes): Approximate 35 minutes Total Time Includes: Examination of the Patient, Discharge Planning and Medication Reconciliation Discharge Plan Discharge Items Patient Disposition: Home - Home Health Services Reason For Visit: CHEST PAIN Discharge Diagnosis: Substernal chest pain: Noncardiac/fall/ambulatory dysfunction, acute sinusitis Discharge Goals: Decrease discomfort and Diagnostic testing Activity: Resume your previous activity Non-emergency contact: Primary Care Provider Call non-emergency contact if: you have any medication questions Follow-up/Referrals: Reagan Marmolejo DO [[employer]] - 03/29/19 8:45 am Mika Hemhpill DO [Primary Care Provider] - 02/26/19 11:05 am Diet: Carb Consistent or DM2 and Heart Healthy Addtl Provider Instructions: Hospital follow-up with Dr. Hemphill on February 26, 2019 at 11:05 AM Cardiology follow-up with Dr. Marmolejo on March 29, 2019 at 8:45 AM You will need outpatient nuclear cardiac stress test, cardiology office will schedule you the appointment New medications: Augmentin(amoxicillin/clavulanate ) 1 tablet by mouth twice daily for 5 days for acute sinusitis noted in CT head Prescriptions: New amoxicillin-pot clavulanate 500-125 mg Tablet 1 tab PO BIDM 5 Days Qty: 10 RF: 0 Continued aspirin 81 mg tablet,delayed release (DR/EC) 81 mg PO QAM RF: 0 levothyroxine 25 mcg tablet 25 mcg PO DAILY RF: 0 metoprolol tartrate 25 mg tablet 50 mg PO DAILY RF: 0 cholecalciferol (vitamin D3) [Vitamin D3] 1,000 unit Tablet 1,000 unit PO DAILY RF: 0 clarithromycin 500 mg Tablet 500 mg PO BID RF: 0 cyanocobalamin (vitamin B-12) [Vitamin B-12] 1,000 mcg Tablet 1,000 mcg PO DAILY RF: 0 simvastatin 80 mg Tablet 80 mg PO PM RF: 0 tamsulosin 0.4 mg Capsule 0.4 mg PO DAILY RF: 0 nitroglycerin [Nitrostat] 0.4 mg Tablet, Sublingual 0.4 mg sublingual UD PRN (Reason: Chest Pain) RF: 0 Stand-Alone Forms: [facility] Discharge Orders: Discharge Order (Routine); Ordered 02/21/19 Ordered By: Emily Tolentino Admission Data Admit Date/Time: 02/21/19 00:37 Attending Provider: Emily Tolentino Admit Provider: Mariano Deshpande Primary Care Provider: Miak Hemphill Other Providers: Mariano Deshpande ; Attila Santos ; Reagan Marmolejo ; Lazaro Taylor ; Crescencio Snyder ; Adonis Rouse ; Greg Ames ; Vanessa Jauregui ; Ashleigh Rodrigues ; [facility], [facility],Home Health Service: Telemetry Medical Other Interventions: Discharge Summary Assessment (RN) Last Done: 02/21/19 15:47
[2019-02-21] MEDS ORDERED: SIMVASTATIN 80 MG TAB PO SCH (21:00)
[2019-02-22 06:48] LABS: Estimated Average Glucose 128 mg/dl; Hemoglobin A1C 6.1 % (4.5-5.6)
== END 2019-02-21 16:33 | disposition home health service (06) ==
LOC: 2W 21:50 → ED 21:50 → 2W 02-21 00:56

== ENCOUNTER 2019-07-26 03:22 | Observation (INO) ==
[2019-07-26 03:59] LABS: Basophils # (auto) 0.01 K/uL (0-0.2); Basophils % (auto) 0.1 %; Eosinophils % (auto) 1.4 %; Hematocrit (blood only) 31.6 % (42-52); Hemoglobin 10.5 g/dL (14.0-18.0); Immature Granulocytes # (auto) 0.03 K/uL (0.00-0.02); Immature Granulocytes % (auto) 0.4 %; Lymphocytes # (auto) 1.97 K/uL (1.2-3.4); Lymphocytes % (auto) 27.1 %; Mean Corpuscular Hemoglobin 29.4 pg (25-34); Mean Corpuscular Hgb Conc 33.2 g/dL (32-36); Mean Corpuscular Volume 88.5 fL (80-100); Mean Platelet Volume 10.6 fL (7.4-10.4); Monocytes # (auto) 0.78 K/uL (0.11-0.59); Monocytes % (auto) 10.7 %; Neutrophils # (auto) 4.38 K/uL (1.4-6.5); Neutrophils % (auto) 60.3 %; Platelet Count 195 K/uL (130-400); RDW Coefficient of Variation 13.3 % (11.5-14.5); RDW Standard Deviation 43.1 fL (36.4-46.3); Red Blood Count 3.57 M/uL (4.7-6.1); White Blood Count 7.27 K/uL (4.8-10.8)
[2019-07-26] MEDS ORDERED: SODIUM CHLORIDE 0.9% 500 ML IV ONE (03:59)
[2019-07-26] MEDS ORDERED: SODIUM CHLORIDE 0.9% 500 ML IV SCH (04:00)
[2019-07-26 04:06] LABS: Alanine Aminotransferase 22 U/L (12-78); Albumin Level 3.1 gm/dl (3.4-5.0); Aspartate Aminotransferase 14 U/L (15-37); BUN Creatinine Ratio 13.5 (10-20); Blood Urea Nitrogen 31 mg/dl (7-18); Calcium 8.9 mg/dl (8.5-10.1); Carbon Dioxide 28 mmol/L (21-32); Chloride 108 mmol/L (98-107); Est GFR (African American) 29.6; Est GFR (Non-African American) 25.5; Glucose 147 mg/dl (70-99); Lipase 282 U/L (73-393); Potassium 3.6 mmol/L (3.5-5.1); Sodium 142 mmol/L (136-145)
[2019-07-26 04:11] LABS: Albumin Globulin Ratio 0.9 (0.9-2); Alkaline Phosphatase 71 U/L (45-117); Bilirubin,Total 0.3 mg/dl (0.2-1); Globulin 3.4 gm/dl (2.5-4.0); Total Protein 6.5 gm/dl (6.4-8.2); Troponin I 0.023 ng/ml (0-0.045)
[2019-07-26 04:13] LABS: iSTAT Creatinine 2.2 mg/dl (0.6-1.3); iSTAT Hemoglobin 9.2 g/dl (14.0-18.0); iSTAT Ionized Calcium 1.17 mmol/l (1.12-1.32); iSTAT Potassium 3.4 mEq/L (3.3-5.0)
[2019-07-26] MEDS ORDERED: OPTIRAY 320 125ml IV PRN (04:32)
[2019-07-26] MEDS ORDERED: fentaNYL citrate 100 MCG/2 ML VIAL IV STA (04:49)
[2019-07-26] MEDS ORDERED: LEVOTHYROXINE SODIUM 25 MCG TABLET PO SCH (06:30)
--- NOTE | 2019-07-26 07:01 | XRay Report ---
SINGLE VIEW CHEST CLINICAL HISTORY: Atypical chest pain. FINDINGS: An AP, portable, upright chest radiograph is compared to study dated 02/20/2019. The examina tion is degraded by portable technique and patient rotation. The heart is enlarged noting atheroscler otic calcification of the thoracic aorta. The pulmonary vasculature is noncongested. Enlargement of t he central pulmonary arteries suggests pulmonary artery hypertension. There is elevation of the left hemidiaphragm and bibasilar atelectasis. No airspace consolidation, large pleural effusion, or pneumo thorax is seen. The skeletal structures are osteopenic. The bony thorax is grossly intact. No evidenc e of intraperitoneal free air is seen below the diaphragm. IMPRESSION: Cardiomegaly with no acute cardiopulmonary abnormality. Electronically signed by: Jevon Tovar M.D. 07/26/2019 7:00 AM
--- NOTE | 2019-07-26 07:14 | Emergency Department Note ---
Entered by Ta Ann acting as a scribe for Palmira Stallworth DO History of Present Illness General Chief complaint: Chest Pain Stated complaint: Chest Pain Time Seen by Provider: 07/26/19 03:28 Source: patient and other (nurse) History of Present Illness Onset (ago): day(s) (0200 this morning) Location: abdomen (upper) Pain Consistency: + constant Quality: + other (pressure) Associated symptoms: + other (Positive for chest pain and diaphoresis. Negative or SOB, nausea, headache, cough, fever, and chills.) The patient is an 83 year old male who presents to the emergency department with complaints of constant upper abdominal pain beginning at 0200 this morning. The patient states that he woke up this morning at 0200 with chest pain and upper abdominal pain. He notes that it felt like gas pain. Per nurse, the patient received 324mg Aspirin and 3 doses of nitroglycerin with no relief of his symptoms. The patient reports that his pain feels more like a pressure now. He also complains of diaphoresis. He denies any SOB, nausea, headache, cough, fever, and chills. He states that he has a history of an NE and a previous abdominal aortic aneurysm repair. He notes that he has had an appendectomy. He reports that he does not drink alcohol. The patient states that he recently started taking AREDS Home Medications Home Medications Medication Instructions Recorded Confirmed Type aspirin 81 mg PO QAM 02/20/19 07/26/19 History cholecalciferol (vitamin D3) 1,000 unit PO DAILY 02/20/19 07/26/19 History [Vitamin D3] levothyroxine 25 mcg PO DAILY 02/20/19 07/26/19 History nitroglycerin [Nitrostat] 0.4 mg SUBLINGUAL UD PRN 02/20/19 07/26/19 History simvastatin 80 mg PO PM 02/20/19 07/26/19 History tamsulosin 0.4 mg PO DAILY 02/20/19 07/26/19 History metoprolol succinate [Toprol XL] 25 mg PO DAILY 07/26/19 07/26/19 History vit C,E-Nf-ftjal-lutein-zeaxan 1 tab PO AMPM 07/26/19 07/26/19 History [PreserVision AREDS-2] Allergies Allergy/AdvReac Type Severity Reaction Status Date / Time No Known Allergies Allergy Unverified 07/26/19 04:22 Past Med/Surg History Medical History (Updated 07/26/19 @ 05:26 by Ta Ann) Aortic aneurysm, abdominal Benign hypertension with CKD (chronic kidney disease) stage III Coronary artery disease Hypertension Myocardial infarction Surgical History (Updated 07/26/19 @ 03:40 by Ta Ann) H/O heart artery stent History of abdominal aortic aneurysm repair History of appendectomy Family History (Updated 07/26/19 @ 03:41 by Ta Ann) Other No significant family history Social History (Updated 07/26/19 @ 03:41 by Ta Ann) Preferred Language: Brazilian Communication Ability: Effective [employer] Required: No Beliefs That Will Affect Care: None marital status: Current Living Situation: Spouse Feels Safe at Home: Yes Smoking Status: Former smoker Hx Alcohol Use: No Hx Substance Use: No Review of Systems See HPI for pertinent positives & negatives. and A total of 10 systems reviewed and were otherwise negative Physical Exam Vital Signs Vital Signs - 24 hr 07/26/19 03:28 07/26/19 04:21 07/26/19 04:30 Temperature 36.5 C Temperature Source Oral Pulse Rate 56 L 61 62 Pulse Rate from SpO2 Sensor 56 L 61 60 Respiratory Rate 20 20 19 Respiratory Effort / Characteristics Non-Labored Spontaneous Respiratory Depth Normal Respiratory Pattern Regular Blood Pressure 123/60 131/63 141/72 H Blood Pressure Mean 76 90 107 Blood Pressure Position Sitting Pulse Oximetry 93 97 97 Oxygen Delivery Method Room Air Room Air Room Air Sepsis Recent Fever Within 48 Hours No Sepsis New/Unexplained Change in Mental Status No Sepsis Action Taken by Nursing No Action Required 07/26/19 04:40 07/26/19 05:00 07/26/19 05:30 Temperature Temperature Source Pulse Rate 63 57 L Pulse Rate from SpO2 Sensor 63 57 L Respiratory Rate 16 14 Respiratory Effort / Characteristics Respiratory Depth Respiratory Pattern Blood Pressure 129/65 131/68 Blood Pressure Mean 90 89 Blood Pressure Position Pulse Oximetry 98 94 98 Oxygen Delivery Method Room Air Room Air Room Air Sepsis Recent Fever Within 48 Hours Sepsis New/Unexplained Change in Mental Status Sepsis Action Taken by Nursing 07/26/19 06:00 07/26/19 06:30 Temperature Temperature Source Pulse Rate 60 63 Pulse Rate from SpO2 Sensor 60 63 Respiratory Rate 17 18 Respiratory Effort / Characteristics Respiratory Depth Respiratory Pattern Blood Pressure 133/65 136/62 Blood Pressure Mean 97 91 Blood Pressure Position Pulse Oximetry 97 98 Oxygen Delivery Method Room Air Room Air Sepsis Recent Fever Within 48 Hours Sepsis New/Unexplained Change in Mental Status Sepsis Action Taken by Nursing HEENT: Head - normocephalic and atraumatic Pupils are equal, round, and reactive to light. Extraocular eye muscles are intact, and sclera are anicteric. Nose - moist nasal mucosa without discharge. Mouth - moist buccal mucosa. Oropharynx is nonerythematous and there is no tonsillar exudate or edema noted. Neck: Supple; no JVD, nuchal rigidity, cervical lymphadenopathy, or auscultated bruits. Heart: Regular rate and rhythm. There is a normal S1 and S2 with no murmurs, clicks, or gallops appreciated. Lungs: Clear to auscultation bilaterally with no wheezes, rales, or rhonchi. Abdomen: Soft, nondistended, with good bowel sounds. There are no palpable pulsatile masses or hepatosplenomegaly. There is no guarding, rigidity, or rebound noted. Epigastric pain with palpation. Extremities: No evidence of cyanosis, clubbing, or edema. There are easily palpable peripheral pulses. Skin: warm and dry with good turgor and no rashes, pale. Course Course 0330: The patient was evaluated in room A11. A complete history and physical examination were performed. Nursing notes and previous electronic medical records were reviewed. IV lock was established and labs were drawn as above. I- STAT labs were performed and his creatinine was at baseline. The patient will go for CT scan of the chest, abdomen, and pelvis to evaluate the aorta. 0403: I rechecked the patient. I reviewed concerns with him and his family who are at bedside. 0442: Sodium Chloride 500 mls @ 999 mls/hr IV 0454: Sodium Chloride 500 mls @ 999 mls/hr IV. the patient complained of increasing gastric abdominal pain. I ordered fentanyl Citrate 50mcg IV 0519: Upon reevaluation, the patient is stable. He feels better after fentanyl. I discussed the findings and the treatment plan with the patient. He expresses agreement and understanding. I spoke with Dr. Deshpande of the [facility]. The patient will be evaluated for further management. 0551: The patient's rhythm strip looked different on the monitor. Nursing will repeat the patient's EKG. Consultations Consultation #1: I reviewed the patient's case with Dr. Deshpadne - [facility]. He will evaluate the patient for further management. Time: 05:19 Administered Medications Sodium Chloride (Nss) 500 mls @ 125 mls/hr IV .Q4H ALEXANDER Stop: 08/25/19 03:59 Last Admin: 07/26/19 04:54 Dose: 125 mls/hr Documented by: [id number] Ioversol (Optiray 320 125ml) 125 ml IV ONCE PRN PRN Reason: Interaction Checking Stop: 07/30/19 04:31 Last Admin: 07/26/19 04:33 Dose: 118 ml Documented by: [id number] Discontinued Medications Fentanyl Citrate (Fentanyl Citrate) 50 mcg IV NOW STA Stop: 07/26/19 04:50 Last Admin: 07/26/19 04:54 Dose: 50 mcg Documented by: [id number] Sodium Chloride (Nss) 500 mls @ 999 mls/hr IV .Q31M ONE Stop: 07/26/19 04:29 Last Infusion: 07/26/19 05:35 Dose: 0 mls/hr Documented by: [id number] Admin: 07/26/19 04:42 Dose: 999 mls/hr Documented by: [id number] Medical Decision Making Differential Diagnosis Differential diagnoses include: SBO, pancreatitis, perforated viscus, abdominal aortic dissection, and gastritis. Medical Records Attestation: I reviewed the patient's medical records. Home Medications Current Medication List: was personally reviewed by me Laboratory Data Attestation: I reviewed the patient's lab results. Result diagrams: 07/26/19 03:31 07/26/19 03:31 Lab Results 07/26/19 07/26/19 07/26/19 Range/Units 03:31 03:31 03:57 WBC 7.27 (4.8-10.8) K/uL RBC 3.57 L (4.7-6.1) M/uL Hgb 10.5 L (14.0-18.0) g/dL POC Hgb 9.2 L (14.0-18.0) g/dl Hct 31.6 L (42-52) % POC Hct 27 L (42-52) % MCV 88.5 (80-100) fL MCH 29.4 (25-34) pg MCHC 33.2 (32-36) g/dL RDW Std Deviation 43.1 (36.4-46.3) fL RDW Coeff of Collins 13.3 (11.5-14.5) % Plt Count 195 (130-400) K/uL MPV 10.6 H (7.4-10.4) fL Immature Gran % (Auto) 0.4 % Neut % (Auto) 60.3 % Lymph % (Auto) 27.1 % [place] % (Auto) 10.7 % Eos % (Auto) 1.4 % Baso % (Auto) 0.1 % Immature Gran # (Auto) 0.03 H (0.00-0.02) K/uL Neut # (Auto) 4.38 (1.4-6.5) K/uL Lymph # (Auto) 1.97 (1.2-3.4) K/uL [place] # (Auto) 0.78 H (0.11-0.59) K/uL Eos # (Auto) 0.10 (0-0.5) K/uL Baso # (Auto) 0.01 (0-0.2) K/uL POC Sodium 141 (135-144) mEq/L Sodium 142 (136-145) mmol/L POC Potassium 3.4 (3.3-5.0) mEq/L Potassium 3.6 (3.5-5.1) mmol/L POC Chloride 105 (101-112) mEq/L Chloride 108 H (98-107) mmol/L Carbon Dioxide 28 (21-32) mmol/L POC Total CO2 25 (24-31) mEq/l Anion Gap 6.0 (3-11) POC Anion Gap 16.0 (16-25) mmol/L POC BUN 29 H (7-18) mg/dl BUN 31 H (7-18) mg/dl Creatinine 2.27 H (0.6-1.4) mg/dl POC Creatinine 2.2 H (0.6-1.3) mg/dl Est Cr Clr Drug Dosing Not Reportable Est GFR ( Amer) 29.6 Est GFR (Non-Af Amer) 25.5 BUN/Creatinine Ratio 13.5 (10-20) Glucose 147 H (70-99) mg/dl POC Glucose (other) 166 H (70-99) mg/dl Calcium 8.9 (8.5-10.1) mg/dl POC Ioniz Calcium Gerber 1.17 (1.12-1.32) mmol/l Total Bilirubin 0.3 (0.2-1) mg/dl AST 14 L (15-37) U/L ALT 22 (12-78) U/L Alkaline Phosphatase 71 (45-117) U/L Troponin I 0.023 (0-0.045) ng/ml Total Protein 6.5 (6.4-8.2) gm/dl Albumin 3.1 L (3.4-5.0) gm/dl Globulin 3.4 (2.5-4.0) gm/dl Albumin/Globulin Ratio 0.9 (0.9-2) Lipase 282 (73-393) U/L Imaging Data Attestation: I personally reviewed and interpreted this imaging study as follows: My Impression: CHEST X-RAY: No free air under diaphragm. Widened mediastinum with tortuous aorta. Radiologist's Impression: Radiology results as stated below per my review and the radiologist's interpretation: CT chest without contrast: The lungs are clear. No pleural effusion. Unremarkable appearance of the remainder of the soft tissues. No acute osseous abnormality. CTA chest: Normal caliber aorta without acute aortic syndrome. No pulmonary embolism. Advanced coronary artery calcifications. Cardiomegaly. Radiologist: Daquan Browne MD. CTA ABDOMEN & PELVIS With Contrast: Infrarenal abdominal aortic aneurysm measuring 5.3 x 6.2 cm status post aortobiliac endograft repair. Stent is widely patent. No visualized endoleak. Mild stenosis in the proximal celiac and SMA. Occluded ANGELA with distal reconstitution. Moderate stenosis at the origin of the right profunda. Moderate volume stool within the rectum and sigmoid colon. Correlate for impaction. No mucosal inflammatory changes. Sigmoid diverticulosis. Cholelithiasis without cholecystitis. Radiologist: Daquan Browne MD. ECG Data Attestation: I personally reviewed and interpreted this ECG as follows: Indication: + chest pain Rate (beats per minute): 54 Rhythm: + sinus bradycardia ECG Intervals/blocks: + First degree AV block and + Left bundle branch block Comparison ECG Date: from (02/20/2019) Change: no significant change Additional Comments: EKG #2: Normal sinus, 61, 1st degree AV block, LBBB, no acute change. Blood Pressure Blood Pressure Findings: Elevated blood pressure Blood Pressure Disposition: further management by hospitalist TONY Narrative The patient is an 83 year old male who presents to the emergency department with complaints of constant upper abdominal pain beginning at 0200 this morning. The patient explains that he felt fine before going to bed. He awoke with sudden severe epigastric abdominal pain that was radiating into his chest. He had some associated nausea and severe diaphoresis. The patient took 2 nitroglycerin at home with no relief of his symptoms. Patient has a history of an abdominal aortic aneurysm with stent placement. Chest x-ray showed a tortuous aorta with a widened mediastinum although the patient was somewhat rotated on exam. He went for angiogram of the chest, abdomen/pelvis. There were no new acute findings with regards to the aorta. The patient did have a significant fecal impaction. The patient states that he started taking medication recently for his macular degeneration which causes him to become constipated. The patient's EKG was unchanged from previous EKGs. Troponin was negative. Lipase was normal. I discussed the case with the hospitalist because of the epigastric pain that radiated into the mid chest. I felt the patient will require further evaluation and to rule out an acute ischemic cardiac event. The patient had moderate relief of his symptoms after receiving IV fentanyl. He remained hemodynamically stable while here in the emergency department. Impression & Plan Epigastric pain, Substernal chest pain, Fecal impaction Discharge Plan Visit Data *Final* Discharge Date/Time: 07/26/19 06:44 Chief Complaint: Chest Pain Stated Complaint: Chest Pain ED Provider: Palmira Stallworth Discharge Problem: Epigastric pain, Substernal chest pain, Fecal impaction Patient Disposition: Admitted As Inpatient Discharge Instructions Interventions: ED Discharge Assessment Last Done: 07/26/19 06:44 The scribe's documentation has been prepared under my direction and personally reviewed by me in its entirety. I confirm that the note above accurately reflec ts all work, treatment, procedures, and medical decision making performed by me.
[2019-07-26] MEDS ORDERED: ACETAMINOPHEN 325 MG TAB PO PRN (07:16)
[2019-07-26] MEDS ORDERED: MoRPHine SULFATE 4 MG/ML 1 ML CARP\\VIAL IV PRN (07:16)
[2019-07-26] MEDS ORDERED: POLYETHYLENE (MIRALAX) 17 GM PACK PO PRN (07:16)
[2019-07-26] MEDS ORDERED: ONDANSETRON INJ 2 MG/ML 2 ML VIAL IV PRN (07:16)
[2019-07-26] MEDS ORDERED: NITROGLYCERIN SL 0.4 MG/TAB TAB SL PRN (07:16)
--- NOTE | 2019-07-26 07:23 | CT Scan Report ---
CHEST, ABDOMEN, AND PELVIS CTA for AORTIC DISSECTION CT DOSE: 1568.15 mGy.cm HISTORY: Epigastric pain. eval for aortic dissection TECHNIQUE: Multiaxial CT images of the chest, abdomen, pelvis were performed both before and after th e intravenous administration of contrast to evaluate the aorta. Maximal intensity projection images w ere also obtained. A dose lowering technique was utilized adhering to the principles of ALARA. COMPARISON STUDY: None. FINDINGS: Noncontrast imaging through the chest shows no evidence for an intramural hematoma within t he thoracic aorta. Normal caliber thoracic aorta with no evidence for dissection. The heart is mildly enlarged. 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 Advanced coronary artery calcific ations are noted. The central pulmonary arteries are patent. No pleural or pericardial effusions. No suspicious lytic or blastic osseous lesions. Normal esophagus. No mediastinal or hilar lymphadenopath y. No pneumothorax. Calcified granuloma within the base of the left lower lobe. There are calcified l eft hilar lymph nodes. A few scattered small linear densities within the lungs suggestive of scarring or subsegmental atelectasis. Status post aortobiiliac stent graft repair of abdominal aortic aneurysm. No evidence for endoleak. T he proximal ANGELA is occluded with distal reconstitution. Mild narrowing at the takeoff of the celiac a nd superior mesenteric arteries. The aneurysm sac currently measures 6.0 x 5.0 cm. No hepatic or sple nehemiah masses. A few punctate calcified granulomas within the spleen. The adrenal glands and pancreas ar e unremarkable. Multiple gallstones are noted with the largest in the neck measuring 1.8 cm. No gallb ladder wall thickening. Moderate bilateral cortical renal thinning. No hydronephrosis. No retroperito aydee lymphadenopathy. There is a 3 mm stone within the right posterior bladder. This is adjacent to t he ureterovesical junction. However, no evidence for obstruction. No bladder wall thickening. The pro state gland is mildly enlarged. Colonic diverticulosis. No evidence for diverticulitis. No bowel wall thickening or obstruction. Moderate stool within the colon. No suspicious lytic or blastic osseous l esions. No pneumoperitoneum. No pneumatosis. IMPRESSION: 1. No evidence for an aortic dissection. 2. Status post aortobiiliac stent graft repair of an abdominal aortic aneurysm. No evidence for endol eak. The aneurysm sac measures 6.0 x 5.0 cm. 3. Cholelithiasis. 4. Mild cardiomegaly. 5. A 3 mm stone within the right posterior bladder. No ureteral stones. No hydronephrosis. 6. Additional findings as described above. Electronically signed by: Sunny Chavez M.D. 07/26/2019 7:22 AM
[2019-07-26] MEDS ORDERED: HEPARIN SODIUM/DEXTROSE 25,000 UNITS/500 ML BAG IV SCH (07:45)
[2019-07-26] MEDS ORDERED: CHOLECALCIFEROL 1,000 UNITS TAB PO SCH (09:00)
[2019-07-26] MEDS ORDERED: CEROVITE ADV FORMULA TAB PO SCH (09:00)
[2019-07-26] MEDS ORDERED: TAMSULOSIN HCL 0.4 MG CAP PO SCH (09:00)
[2019-07-26] MEDS ORDERED: METOPROLOL SUCC 25MG EXT REL TAB PO SCH (09:00)
[2019-07-26] MEDS ORDERED: ASPIRIN 81 MG ECTAB PO SCH (09:00)
--- NOTE | 2019-07-26 09:00 | History and Physical Report ---
DATE OF ADMISSION: 07/26/2019 CHIEF COMPLAINT: Chest pain. HISTORY OF PRESENT ILLNESS: This is an 83-year-old male with past medical history significant for CAD, status post stent to the LAD, chronic kidney disease stage IV, hypertension, chronic left bundle branch block, peripheral vascular disease, hypothyroidism, hyperlipidemia, prediabetes, generalized osteoarthritis, status post abdominal aortic aneurysm repair, unsteady gait. Lives with his , comes in because of chest pain. He woke up at around 2:00 a.m. with significant pain in his lower part of the chest and epigastric region. No radiation. Pressure-like feeling. Was diffusely sweating. He took 2 nitroglycerins at home that did not relieve the pain. He came to the ER and he was given fentanyl and the pain is almost gone, but still has some mild discomfort in the lower part of the chest. In the ER, because of history of aortic aneurysm and because of significant pain, CTA of the chest, abdomen and pelvis was done; unofficial report, no aortic dissection. Currently resting comfortably and hemodynamically stable. Initial EKG with no significant change, but repeat EKG showed some T-wave inversions in the inferior leads. The patient has no nausea, no shortness of breath, no cough. Has some dry mouth. Has macular degeneration. No headaches, no lightheadedness, no earache, no runny nose, no sore throat. Appetite is okay. No difficulty swallowing. No abdominal pain. He says he was taking some mgdl-yms-hmvblje medication for his macular degeneration which is causing some constipation. He moved his bowels yesterday, which was hard, but brown in color, no blood in stools or black stools, no hematuria, no burning. Normal bladder movements. Has some swelling in the lower extremities, which is chronic. Has some ambulatory dysfunction, he walks slowly without any help in the house. ALLERGIES: No known drug allergies. PAST MEDICAL HISTORY: As mentioned above. PAST SURGICAL HISTORY: Cardiac cath, status post stent placement, abdominal aortic aneurysm repair, colonoscopy, tonsillectomy, appendectomy, inguinal hernia repair. MEDICATIONS: The patient is on multivitamins with minerals 2 capsules daily, Toprol-XL 25 mg p.o. daily, nitroglycerin p.r.n., Flomax 0.4 mg p.o. daily, levothyroxine 25 mcg p.o. daily, vitamin D 1000 units p.o. daily, aspirin 81 mg p.o. daily, Zocor 80 mg p.o. daily. FAMILY HISTORY: Significant for father had CABG, suicide. Mother had macular degeneration. Maternal grandfather had stroke. Uncle had heart disorder, abdominal aortic aneurysm repair and alcoholism. SOCIAL HISTORY: . Former smoker, quit in 1986. Alcohol occasional. No drug use. REVIEW OF SYMPTOMS: As per HPI. Rest of the review of systems is negative. PHYSICAL EXAMINATION: GENERAL: The patient is of moderate build, not in acute distress. VITAL SIGNS: Temperature 36.5, pulse 60, respiratory rate 17, blood pressure 133/65, oxygen 97% on room air. HEENT: No pallor, no icterus. Pupils equal, round, and reactive to light. NECK: No JVD, no neck masses, no carotid bruits. CARDIOVASCULAR: S1, S2 heard, regular rate and rhythm, no murmur, no gallop. RESPIRATORY SYSTEM: Normal AP diameter. No accessory muscle use. No wheezing, no crackles. ABDOMEN: Soft, bowel sounds present, nontender. No distention. CENTRAL NERVOUS SYSTEM: Cranial nerves II-XII grossly intact. Nonfocal. EXTREMITIES: +1 pedal edema present, no erythema seen. LABORATORIES DATA: WBC 7.2, hemoglobin 10.5, hematocrit 31.6, platelets 195. Sodium 142, potassium 3.6, chloride 108, bicarbonate 28, BUN 31, creatinine 2.2, serum glucose 147, calcium 8.9, total bilirubin 0.3, AST 14, ALT 22, alkaline phosphatase 71. Troponin I 0.023. Lipase 282. Chest x-ray: No acute findings. CT of the chest, abdomen and pelvis, official reading pending. EKG: Initial EKG showed sinus rhythm with first degree AV block at a rate of 61, left bundle branch block, no significant change from previous EKG. Repeat EKG shows sinus bradycardia with first degree AV block at a rate of 54, left bundle branch block, T-wave inversion in the inferior leads. ASSESSMENT AND PLAN: This is an 83-year-old male who presents with chest pain. 1. Chest pain in the lower part of the chest with diaphoresis, not relieved by nitroglycerin. Received fentanyl in the Emergency Room, currently improved, but still with some chest discomfort. Initial EKG is unremarkable. Repeat EKG showed some T-wave inversions in the inferior leads and has chronic left bundle branch block. Continue his home medications of aspirin, statin and Toprol-XL. We will start him on IV heparin. Follow serial cardiac enzymes and echocardiogram. We will keep him n.p.o. and consult cardiology for further recommendations and follow echocardiogram. 2. Coronary artery disease, status post stent. Continue his Toprol-XL, simvastatin and aspirin. 3. Hypothyroidism. Continue Synthroid. 4. Hyperlipidemia. Continue statin. 5. Benign prostatic hypertrophy. Continue Flomax. 6. Chronic kidney disease stage IV, baseline creatinine 2.1, currently creatinine of 2.2. We will follow the laboratories. 7. Prediabetes, currently n.p.o. We will follow HbA1c levels. 8. Hypertension, on Toprol-XL. We will monitor the blood pressure. 9. Peripheral vascular disease, on aspirin and statin. 10. Deep venous thrombosis prophylaxis, on IV heparin. DISPOSITION: Monitor on tele floor. Level 1, full code. MTDD
[2019-07-26] MEDS: Heparin IV Low Dose *NO* Bolus IV SCH ×2 (09:45→09:46)
--- NOTE | 2019-07-26 10:18 | Cardiology Consultation ---
Date of Consultation July 26, 2019 Assessment & Plan (1) Epigastric pain: Improved after 2 large BMs Negative cardiac enzymes x2 EKG with knonw chronic LBBB, unchnaged. 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 Marmolejo. Likely discharge later today pending hospitalist evaluation Supervising Physician Co-Signing Physician Notes Cardiology Attending Note: I personally performed a history and physical examination on the patient. Case discussed with Ciarra Jauregui PA-C. Agree with her findings , assessment , and plan with additions as docummented. Pt states feels much improved since having two bowel movements. Data: Echo , chronic LAD scar , LVEF 35-40%. EKG: chronic LBBB. Trop: negative Impression: No anginal , non cardiac epigastric discomfort. CKD. h/o AAA repair Recommendations: Stable for discharge on TRACTOR OPERATOR cardiac medications. No additional cardiac testing at present. Will need BMP in 48 hrs as outpt for follow up of renal function given contrast received for CTA results to PCP. History of Present Illness Reason for Consultation: Chest pain Requesting Physician: Dr. Bonilla Attending Physician: Dr. Marmolejo History of Present Illness Patient is an 83-year-old male known to [facility] cardiology, following with Dr. Reagan Marmolejo as an outpatient with history of coronary artery disease status post acute anterior wall CO in 1997 treated with a bare-metal stent to the mid LAD, prior echo in January 2019 with area of scar to the anterior wall with mildly reduced LV systolic function at 40-45%. Nuclear stress testing in February 2019 demonstrated area of old scar without inducible ischemia. He has known chronic LBBB, hypertension, dyslipidemia, and 6.2 cm AAA treated with endovascular repair with stent graft in 05/2016 at [facility]. Patient reports he was in normal state of health until awakening from sleep last night around 2 AM with epigastric pain, shortness of breath and diaphoresis. He tried taking 2 sublingual nitro without improvement. EMS was summoned by family. He was transported to the emergency department for evaluation. On arrival EKG was completed which demonstrated chronic known left bundle branch block with first-degree AV block without significant change. Initial cardiac enzymes were negative. Patient started on heparin drip due to concerns for NSTEMI. He underwent CT scan of of abdomen and chest due to known AAA repair. No endovascular leak noted. After admission patient reports he had 2 large bowel movements with improvement in his epigastric pain and discomfort. Repeat cardiac enzymes also negative this morning. At time of consult, patient reports mild "tenderness" in the epigastric region but improved from admission. NO chest pain or SOB. No sense of palpitations or tachypalpitations. No dizziness, syncope or near syncope. No orthopnea PND or edema. Family by his side. He voices no complaints at this time. Allergies Allergy/AdvReac Type Severity Reaction Status Date / Time No Known Allergies Allergy Unverified 07/26/19 04:22 Home Medications Home Medications Medication Instructions Recorded Confirmed Type aspirin 81 mg PO QAM 02/20/19 07/26/19 History cholecalciferol (vitamin D3) 1,000 unit PO DAILY 02/20/19 07/26/19 History [Vitamin D3] levothyroxine 25 mcg PO DAILY 02/20/19 07/26/19 History nitroglycerin [Nitrostat] 0.4 mg SUBLINGUAL UD PRN 02/20/19 07/26/19 History simvastatin 80 mg PO PM 02/20/19 07/26/19 History tamsulosin 0.4 mg PO DAILY 02/20/19 07/26/19 History metoprolol succinate [Toprol XL] 25 mg PO DAILY 07/26/19 07/26/19 History vit C,Y-Kv-nbghy-lutein-zeaxan 1 tab PO AMPM 07/26/19 07/26/19 History [PreserVision AREDS-2] Patient History Social History (Updated 07/26/19 @ 03:41 by Ta Ann) Preferred Language: Kiswahili Communication Ability: Effective Distribution Supervisor Required: No Beliefs That Will Affect Care: None marital status: Current Living Situation: Spouse and Family Other Information That Helps Us Care for You: No Feels Safe at Home: Yes Safety Concerns: Feels Safe At This Time Smoking Status: Never smoker Hx Alcohol Use: Yes Alcohol type: wine Hx Substance Use: No Physical Exam 2 Constitutional: WD/WN, vitals as above ENMT: external ear and nose normal, oropharynx normal Neck: normal visual inspection Respiratory: normal respiratory effort, lungs clear to auscultation Cardiovascular: RRR, no murmur, no edema Gastrointestinal (Abdomen): Inspection/Auscultation: normal bowel sounds Percussion/Palpation: + abdomen tender (mild epigastric tenderness) Neurologic: PERRL, EOMI, accommodation nl, no face palsy, no dysarthria Psychiatric: A+Ox3, euthymic affect Results & Data Vital Signs (Past 12 Hours) Vital Signs Temp Pulse Pulse Resp BP BP Pulse Ox 07/26/19 07:18 71 07/26/19 07:14 36.4 C L 73 20 153/90 H 98 07/26/19 06:30 63 18 136/62 98 07/26/19 06:00 60 17 133/65 97 07/26/19 05:30 57 L 14 131/68 98 07/26/19 05:00 63 16 129/65 94 07/26/19 04:40 98 07/26/19 04:30 62 19 141/72 H 97 07/26/19 04:21 61 20 131/63 97 07/26/19 03:28 36.5 C 56 L 20 123/60 93 Laboratory Results 07/26/19 07/26/19 07/26/19 Range/Units 08:10 03:57 03:31 WBC (4.8-10.8) K/uL RBC (4.7-6.1) M/uL Hgb (14.0-18.0) g/dL POC Hgb 9.2 L (14.0-18.0) g/dl Hct (42-52) % POC Hct 27 L (42-52) % MCV (80-100) fL MCH (25-34) pg MCHC (32-36) g/dL RDW Std Deviation (36.4-46.3) fL RDW Coeff of Collins (11.5-14.5) % Plt Count (130-400) K/uL MPV (7.4-10.4) fL Immature Gran % (Auto) % Neut % (Auto) % Lymph % (Auto) % [place] % (Auto) % Eos % (Auto) % Baso % (Auto) % Immature Gran # (Auto) (0.00-0.02) K/uL Neut # (Auto) (1.4-6.5) K/uL Lymph # (Auto) (1.2-3.4) K/uL [place] # (Auto) (0.11-0.59) K/uL Eos # (Auto) (0-0.5) K/uL Baso # (Auto) (0-0.2) K/uL POC Sodium 141 (135-144) mEq/L Sodium 142 (136-145) mmol/L POC Potassium 3.4 (3.3-5.0) mEq/L Potassium 3.6 (3.5-5.1) mmol/L POC Chloride 105 (101-112) mEq/L Chloride 108 H (98-107) mmol/L Carbon Dioxide 28 (21-32) mmol/L POC Total CO2 25 (24-31) mEq/l Anion Gap 6.0 (3-11) POC Anion Gap 16.0 (16-25) mmol/L POC BUN 29 H (7-18) mg/dl BUN 31 H (7-18) mg/dl Creatinine 2.27 H (0.6-1.4) mg/dl POC Creatinine 2.2 H (0.6-1.3) mg/dl Est Cr Clr Drug Dosing Not Reportable Est GFR ( Amer) 29.6 Est GFR (Non-Af Amer) 25.5 BUN/Creatinine Ratio 13.5 (10-20) Glucose 147 H (70-99) mg/dl POC Glucose (other) 166 H (70-99) mg/dl Calcium 8.9 (8.5-10.1) mg/dl POC Ioniz Calcium Gerber 1.17 (1.12-1.32) mmol/l Total Bilirubin 0.3 (0.2-1) mg/dl AST 14 L (15-37) U/L ALT 22 (12-78) U/L Alkaline Phosphatase 71 (45-117) U/L Troponin I < 0.015 0.023 (0-0.045) ng/ml Total Protein 6.5 (6.4-8.2) gm/dl Albumin 3.1 L (3.4-5.0) gm/dl Globulin 3.4 (2.5-4.0) gm/dl Albumin/Globulin Ratio 0.9 (0.9-2) Lipase 282 (73-393) U/L 07/26/19 Range/Units 03:31 WBC 7.27 (4.8-10.8) K/uL RBC 3.57 L (4.7-6.1) M/uL Hgb 10.5 L (14.0-18.0) g/dL POC Hgb (14.0-18.0) g/dl Hct 31.6 L (42-52) % POC Hct (42-52) % MCV 88.5 (80-100) fL MCH 29.4 (25-34) pg MCHC 33.2 (32-36) g/dL RDW Std Deviation 43.1 (36.4-46.3) fL RDW Coeff of Collins 13.3 (11.5-14.5) % Plt Count 195 (130-400) K/uL MPV 10.6 H (7.4-10.4) fL Immature Gran % (Auto) 0.4 % Neut % (Auto) 60.3 % Lymph % (Auto) 27.1 % [place] % (Auto) 10.7 % Eos % (Auto) 1.4 % Baso % (Auto) 0.1 % Immature Gran # (Auto) 0.03 H (0.00-0.02) K/uL Neut # (Auto) 4.38 (1.4-6.5) K/uL Lymph # (Auto) 1.97 (1.2-3.4) K/uL [place] # (Auto) 0.78 H (0.11-0.59) K/uL Eos # (Auto) 0.10 (0-0.5) K/uL Baso # (Auto) 0.01 (0-0.2) K/uL POC Sodium (135-144) mEq/L Sodium (136-145) mmol/L POC Potassium (3.3-5.0) mEq/L Potassium (3.5-5.1) mmol/L POC Chloride (101-112) mEq/L Chloride (98-107) mmol/L Carbon Dioxide (21-32) mmol/L POC Total CO2 (24-31) mEq/l Anion Gap (3-11) POC Anion Gap (16-25) mmol/L POC BUN (7-18) mg/dl BUN (7-18) mg/dl Creatinine (0.6-1.4) mg/dl POC Creatinine (0.6-1.3) mg/dl Est Cr Clr Drug Dosing Est GFR ( Amer) Est GFR (Non-Af Amer) BUN/Creatinine Ratio (10-20) Glucose (70-99) mg/dl POC Glucose (other) (70-99) mg/dl Calcium (8.5-10.1) mg/dl POC Ioniz Calcium Gerber (1.12-1.32) mmol/l Total Bilirubin (0.2-1) mg/dl AST (15-37) U/L ALT (12-78) U/L Alkaline Phosphatase (45-117) U/L Troponin I (0-0.045) ng/ml Total Protein (6.4-8.2) gm/dl Albumin (3.4-5.0) gm/dl Globulin (2.5-4.0) gm/dl Albumin/Globulin Ratio (0.9-2) Lipase (73-393) U/L Diagnostic Findings Telemetry reviewed - NSR with PVC's. No arrhythmias EKG on arrival to ER 07/26: Sinus bradycardia with 1st degree A-V block Left bundle branch block Repeat EKG on 07/26 Sinus rhythm with 1st degree A-V block Left axis deviation Left bundle branch block Chest x-ray completed on admission, report reviewed: IMPRESSION: Cardiomegaly with no acute cardiopulmonary abnormality. Abdominal and chest CT report reviewed: IMPRESSION: 1. No evidence for an aortic dissection. 2. Status post aortobiiliac stent graft repair of an abdominal aortic aneurysm. No evidence for endoleak. The aneurysm sac measures 6.0 x 5.0 cm. 3. Cholelithiasis. 4. Mild cardiomegaly. 5. A 3 mm stone within the right posterior bladder. No ureteral stones. No hydronephrosis. 6. Additional findings as described above. Medications Administered Current Inpatient Medications Acetaminophen (Tylenol) 650 mg PO Q4H PRN PRN Reason: Pain or Fever Stop: 08/25/19 07:15 Aspirin ([facility]rin [facility]ctab) [facility] Stop: 08/25/19 08:59 Last Admin: 07/26/19 08:00 Dose: 81 mg Documented by: Heparin Sodium/Dextrose (Heparin Sodium/Dextrose) 25,000 units in 500 mls @ 17 mls/hr IV .Q24H [facility]; Protocol Stop: 08/25/19 07:44 Last Admin: 07/26/19 08:01 Dose: 850 units/hr, 17 mls/hr Documented by: Levothyroxine Sodium (Synthroid) 25 mcg PO DAILYBB [facility] Stop: 08/25/19 06:29 Last Admin: 07/26/19 08:00 Dose: 25 mcg Documented by: Metoprolol Succinate (Toprol Xl) 25 mg PO DAILY [facility] Stop: 08/25/19 08:59 Last Admin: 07/26/19 07:59 Dose: 25 mg Documented by: Morphine Sulfate (Morphine Sulfate) 3 mg IV Q3H PRN PRN Reason: Pain Stop: 08/09/19 07:15 Multivitamins/Minerals (Multivitamin W/ Minerals Tab) 1 tab PO BID [facility] Stop: 08/25/19 08:59 Last Admin: 07/26/19 08:00 Dose: 1 tab Documented by: Nitroglycerin (Nitrostat) 0.4 mg SL UD PRN PRN Reason: Chest Pain Stop: 08/25/19 07:15 Ondansetron HCl (Zofran) 4 mg IV Q6H PRN PRN Reason: Nausea Stop: 08/25/19 07:15 Polyethylene Glycol (Miralax Powder Packet) 17 gm PO DAILY PRN PRN Reason: Constipation Stop: 08/25/19 07:15 Simvastatin (Zocor) 80 mg PO PM [facility] Stop: 08/25/19 20:59 Tamsulosin HCl (Flomax) 0.4 mg PO DAILY [facility] Stop: 08/25/19 08:59 Last Admin: 07/26/19 08:00 Dose: 0.4 mg Documented by: Vitamin D (Vitamin D3) 1,000 units PO DAILY [facility] Stop: 08/25/19 08:59 Last Admin: 07/26/19 07:59 Dose: 1,000 units Documented by: (1) Coronary artery disease Associated angina: without angina Coronary Disease-Associated Artery/Lesion type: k[place]ia artery [place] vs. transplanted heart: kashia heart Qualified Code(s): I25.10 - Atherosclerotic heart disease of kashia coronary artery without angina pectoris (2) Hypertension Hypertension type: essential hypertension Qualified Code(s): I10 - Essential (primary) hypertension
--- NOTE | 2019-07-26 14:30 | Discharge Summary ---
Date of Service July 26, 2019 Admission HPI Per Admitting Provider his is an 83-year-old male with past medical history significant for CAD, status post stent to the LAD, chronic kidney disease stage IV, hypertension, chronic left bundle branch block, peripheral vascular disease, hypothyroidism, hyperlipidemia, prediabetes, generalized osteoarthritis, status post abdominal aortic aneurysm repair, unsteady gait. Lives with his , comes in because of chest pain. He woke up at around 2:00 a.m. with significant pain in his lower part of the chest and epigastric region. No radiation. Pressure-like feeling. Positive for diffuse sweating. He took 2 nitroglycerins at home that did not relieve the pain. He came to the ER and he was given fentanyl and the pain is almost gone, but still has some mild discomfort in the lower part of the chest. In the ER, because of history of aortic aneurysm and because of significant pain, CTA of the chest, abdomen and pelvis was done; unofficial report, no aortic dissection. Currently resting comfortably and hemodynamically stable. Initial EKG with no significant change, but repeat EKG showed some T-wave inversions in the inferior leads. The patient has no nausea, no shortness of breath, no cough. Has some dry mouth. Has macular degeneration. No headaches, no lightheadedness, no earache, no runny nose, no sore throat. Appetite is okay. No difficulty swallowing. No abdominal pain. He says he was taking some [id number] medication for his ____ is causing some constipation. He moved his bowels yesterday, which was little odd, but brown in color, no blood in stools or black stools, no hematuria, no burning. Normal bladder movements. Has some swelling in the lower extremities, which is chronic. Has some ambulatory dysfunction, but he walks slowly without any help in the house. Admission Exam Per Admitting Provider GENERAL: The patient is of moderate build, not in acute distress. VITAL SIGNS: Temperature 36.5, pulse 60, respiratory rate 17, blood pressure 133/65, oxygen 97% on room air. HEENT: No pallor, no icterus. Pupils equal, round, and reactive to light. NECK: No JVD, no neck masses, no carotid bruits. CARDIOVASCULAR: S1, S2 heard, regular rate and rhythm, no murmur, no gallop. RESPIRATORY SYSTEM: Normal AP diameter. No accessory muscle use. No wheezing, no crackles. ABDOMEN: Soft, bowel sounds present, nontender. No distention. CENTRAL NERVOUS SYSTEM: Cranial nerves II-XII grossly intact. Nonfocal. EXTREMITIES: +1 pedal edema present, no erythema seen. Principal Diagnosis Epigastric pain Discharge Exam General: Well nourished, no acute distress Eyes: PERRL, conjunctivae normal, EOM intact bilaterally ENMT: External ear and nose normal, oropharynx normal Neck: Normal visual inspection, no tracheal deviation, no swelling noted Respiratory: Normal respiratory effort, no respiratory distress, lungs clear to auscultation, no crackles and no wheezes Cardiovascular: Pulse is RRR. S1 S2. no edema Gastrointestinal (Abdomen): Abdomen is not distended, soft, non-tender to palpation, no guarding, no palpable hepatosplenomegaly, normal bowel sounds Genitourinary: No CVA tenderness Skin: No rash noted on gross inspection, No ulcers noted Neurologic: Alert and oriented x 3, No focal weakness, sensation grossly intact Psychiatric: Alert and oriented x 3, euthymic affect, no depressed affect Discharge Data Allergies Allergy/AdvReac Type Severity Reaction Status Date / Time No Known Allergies Allergy Unverified 07/26/19 04:22 Consultations 07/26/19 05:19 ED Decision to Admit Stat 07/26/19 07:16 Consult Case Management - Discharge Planning Routine 07/26/19 08:00 Consult Cardiology Routine Ordered Studies 07/26/19 03:56 CT angio abdomen pelvis w con Urgent CT angio chest dissec wo/w con Urgent 1. No evidence for an aortic dissection. 2. Status post aortobiiliac stent graft repair of an abdominal aortic aneurysm. No evidence for endoleak. The aneurysm sac measures 6.0 x 5.0 cm. 3. Cholelithiasis. 4. Mild cardiomegaly. 5. A 3 mm stone within the right posterior bladder. No ureteral stones. No hydronephrosis. Hospital Course (1) Epigastric pain: Likely GI related Resolved completely after bowel movement Troponins were negative EKG showed chronic LBBB Echo unchanged from prior CT dissection study was negative for dissection (2) Hypertension: Controlled Continue home medications (3) Coronary artery disease: Continue home aspirin and statin (4) CKD (chronic kidney disease) stage 4, GFR 15-29 ml/min: Cr stable at baseline Need repeat BMP in 2 days to monitor kidney function considering patient got contrast with CT dissection study Total Time Total Time Spent Total Time Spent (In Minutes): 20 Total Time Includes: Examination of the Patient, Discharge Planning, Medication Reconciliation and Communication With Other Providers Discharge Plan Discharge Items Patient Disposition: Home - Self-Care Reason For Visit: Chest Pain Discharge Diagnosis: Epigastric pain Condition on Discharge: Good Activity: Resume your previous activity Non-emergency contact: Primary Care Provider Call non-emergency contact if: you have any medication questions Follow-up/Referrals: Mika Ortiz DO [Primary Care Provider] - Diet: Heart Healthy Ambulatory Orders: Basic Metabolic Panel (Routine) Timeframe: 2 Days Location: Determined by Patient Ordered By: Mary Wright Attending Provider Instructions: Mr Valencia. You came to the hospital complaining of chest pain. Due to your cardiac and aneurysm history, you were extensively evaluated for possible heart attack or dissection. These were negative and your chest pain resolved after bowel movement. Please do the test BMP (Basic metabolic panel) to monitor your kidney function as you got contrast with the CT scan. 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 Continue your home medications. It was a pleasure taking care of you. Pending Studies at Discharge: No Stand-Alone Forms: [employer], Smoking Cessation Medications and DC Order Prescriptions: Continued aspirin 81 mg tablet,delayed release (DR/EC) 81 mg PO QAM RF: 0 levothyroxine 25 mcg tablet 25 mcg PO DAILY RF: 0 cholecalciferol (vitamin D3) [Vitamin D3] 1,000 unit Tablet 1,000 unit PO DAILY RF: 0 simvastatin 80 mg Tablet 80 mg PO PM RF: 0 tamsulosin 0.4 mg Capsule 0.4 mg PO DAILY RF: 0 nitroglycerin [Nitrostat] 0.4 mg Tablet, Sublingual 0.4 mg sublingual UD PRN (Reason: Chest Pain) RF: 0 PreserVision AREDS-2 [id number] xv-mqhn-[id number]-mg capsule 1 tab PO AMPM RF: 0 metoprolol succinate [Toprol XL] 25 mg Tablet Extended Release 24 Hr 25 mg PO DAILY RF: 0 Discharge Orders: Discharge Order (Routine); Ordered 07/26/19 Ordered By: Mary Lopez Admission Data Admit Date/Time: 07/26/19 06:29 Attending Provider: Mary Lopez I. Admit Provider: Mariano Deshpande Primary Care Provider: Mika Ortiz Other Providers: Emily Tolentino ; Mariano Deshpande ; Reagan Marmolejo Other Interventions: Discharge Summary Assessment (RN) Last Done: 07/26/19 14:41 DC Date/Time DO NOT enter until pt leaves facility: 07/26/19 15:50
[2019-07-26] MEDS ORDERED: SIMVASTATIN 80 MG TAB PO SCH (21:00)
== END 2019-07-26 15:50 | disposition home or self-care (01) ==
LOC: ED 03:22 → 2E 03:22 → SUATTDRO 06:29 → 2E 06:44

== ENCOUNTER 2022-01-12 03:41 | Inpatient (IN) ==
[2022-01-12] MEDS ORDERED: ONDANSETRON INJ 2 MG/ML 2 ML VIAL IV STA (03:57)
[2022-01-12] MEDS ORDERED: fentaNYL citrate 100 MCG/2 ML VIAL IV STA ×2 (03:57→04:41)
[2022-01-12 04:13] LABS: Basophils # (auto) 0.01 K/uL (0-0.2); Basophils % (auto) 0.1 %; Eosinophils # (auto) 0.07 K/uL (0-0.5); Eosinophils % (auto) 0.8 %; Hematocrit (blood only) 30.1 % (42-52); Hemoglobin 10.1 g/dL (14.0-18.0); Immature Granulocytes # (auto) 0.04 K/uL (0.00-0.02); Immature Granulocytes % (auto) 0.4 %; Lymphocytes # (auto) 1.24 K/uL (1.2-3.4); Lymphocytes % (auto) 13.9 %; Mean Corpuscular Hemoglobin 29.7 pg (25-34); Mean Corpuscular Hgb Conc 33.6 g/dL (32-36); Mean Corpuscular Volume 88.5 fL (80-100); Mean Platelet Volume 10.4 fL (7.4-10.4); Monocytes # (auto) 0.81 K/uL (0.11-0.59); Monocytes % (auto) 9.1 %; Neutrophils # (auto) 6.75 K/uL (1.4-6.5); Neutrophils % (auto) 75.7 %; Platelet Count 201 K/uL (130-400); RDW Coefficient of Variation 13.7 % (11.5-14.5); RDW Standard Deviation 44.7 fL (36.4-46.3); White Blood Count 8.92 K/uL (4.8-10.8)
[2022-01-12] MEDS ORDERED: NITROGLYCERIN SL 0.4 MG/TAB TAB SL STA (04:30)
--- NOTE | 2022-01-12 05:00 | Emergency Department Note ---
Impression & Plan Chest pain, midsternal Admit to the [facility] service ED Provider Note NAME: QUINCY SKELTON AGE: 86 SEX: M ARRIVES VIA: Ambulance INFORMANT: Patient EMS ED PROVIDER(S): Palmira Stallworth DO CHIEF COMPLAINT: Midsternal chest heaviness PLAN: Disposition: Admit to the [facility] service Condition: [Good] MEDICAL DECISION MAKING: This is an 86-year-old male patient who awoke from sleep with midsternal chest heaviness. The patient took his own nitroglycerin at home with no relief of his discomfort. EMS provided subsequent nitroglycerin and aspirin with some relief to his pain. Upon presentation to the ER, he still had discomfort and was provided IV fentanyl and additional nitroglycerin. Patient's EKG showed no evidence of ischemia and the troponin was negative. However, I remain concerned about the patient's presentation and he will be evaluated by the [facility] service. Triage Nursing notes reviewed and agree with them. Prior medical records reviewed Vital Signs: reviewed and remarkable for bradycardia which the patient states is not unusual for him. Differential diagnosis: Aortic dissection, NSTEMI, STEMI, GERD, cardiac dysrhythmia ER treatment provided: IV fentanyl IV Zofran Sublingual nitroglycerin IV fentanyl Diagnostics interpreted by me: ECG: Sinus bradycardia at a rate of 50 with a first-degree AV block and left bundle branch block. There are deep T wave inversions in leads I, aVL, V5, and V6. This is unchanged from previous EKGs other than the rate is slightly slower. Cardiac Monitoring: Sinus bradycardia at a rate of 47 Laboratory studies: See below Imaging studies: As per my interpretation Portable chest x-ray: The aorta appears tortuous but there are no acute pulmonary findings. This chest x-ray was compared to previous x-rays and is unchanged. HPI: 86/M arrives for evaluation of midsternal chest heaviness. The patient woke from sleep at 1:30 AM with heaviness in his mid sternum that he rated as an 8/10. He denies having symptoms like this in the past. He took 2 sublingual nitroglycerin with no improvement in his symptoms. He called 911. Upon EMS arrival, they administered 1 additional nitroglycerin and gave 4 baby aspirin. This did not relieve the patient's symptoms. He was transported here for evaluation. ROS: See above HPI for pertinent positives & negatives. A total of 10 systems reviewed and were otherwise negative. PAST MEDICAL HISTORY:See Below PAST SURGICAL HISTORY:See Below FAMILY HISTORY:See Below SOCIAL HISTORY:See Below HOME MEDICATIONS:See list ALLERGIES:None VITALS:See Below PHYSICAL EXAMINATION: HEENT: Head - normocephalic and atraumatic Pupils are equal, round, and reactive to light. Extraocular eye muscles are intact, and sclera are anicteric. Nose - moist nasal mucosa without discharge. Mouth - moist buccal mucosa. Oropharynx is nonerythematous and there is no tonsillar exudate or edema noted. Neck: Supple; no JVD or cervical lymphadenopathy Heart: Bradycardic rate with a regular rhythm. there is a normal S1 and S2 with no murmurs, clicks, or gallops appreciated. Lungs: Clear to auscultation bilaterally with no wheezes, rales, or rhonchi. Abdomen: Soft, completely nontender, nondistended, with good bowel sounds. There are no palpable pulsatile masses or hepatosplenomegaly. There is no guarding, rigidity, or rebound noted. Extremities: No evidence of cyanosis, clubbing, or edema. There are easily palpable peripheral pulses. Skin: Pale, warm and dry with good turgor and no rashes. ED COURSE: Times/Reassessments: 345: The patient was evaluated in room A9. A complete history and physical was performed. Laboratory studies were drawn as above. An order was placed for continuous cardiac monitoring. The patient was in a sinus bradycardia at a rate of 47. A twelve-lead EKG was obtained. Patient had a portable chest x-ray performed which was unremarkable. The patient was given IV fentanyl and IV Zofran for the pain. This took the pain from an 8 down to a 6 out of 10. The patient then was given 1 sublingual nitroglycerin which did not affect his discomfort in his chest at all. He was then given an additional dose of IV fentanyl. This significantly reduced the patient's chest discomfort. I discussed the case with the [facility] hospitalist and they will evaluate for further management. Palmira Stallworth DO Past Med/Surg History Medical History Chronic back pain CKD (chronic kidney disease) stage 4, GFR 15-29 ml/min follows with Dr. Collins Coronary artery disease follows with Dr. Marmolejo GERD (gastroesophageal reflux disease) HLD (hyperlipidemia) Hypertension Hypothyroidism Macular degeneration Myocardial infarction 1987 Osteoarthritis Prediabetes Surgical History H/O heart artery stent x 1 History of AAA (abdominal aortic aneurysm) repair 2016 History of appendectomy History of cardiac catheterization 1987 - [place] - 1 stent History of colonoscopy Family History Other No family history of adverse response to anesthesia No significant family history Social History Smoking Status: Never smoker Second Hand Exposure: No; Hx Alcohol Use: No Hx Substance Use: No Preferred Language: Egyptian 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 Beliefs That Will Affect Care: None marital status: Current Living Situation: Spouse Feels Safe at Home: Yes Safety Concerns: Feels Safe At This Time Assistive Devices: Cane and Walker Allergies Allergies Allergy/AdvReac Type Severity Reaction Status Date / Time No Known Allergies Allergy Verified 07/10/21 12:52 Home Meds Home Medications Medication Instructions Recorded Confirmed aspirin 81 mg tablet,delayed 81 mg PO QAM 02/20/19 01/12/22 release cholecalciferol (vitamin D3) 25 1,000 unit PO QAM 02/20/19 01/12/22 mcg (1,000 unit) tablet (Vitamin D3) levothyroxine 25 mcg tablet 25 mcg PO QAM 02/20/19 01/12/22 nitroglycerin 0.4 mg sublingual 0.4 mg SUBLINGUAL UD PRN 02/20/19 01/12/22 tablet (Nitrostat) simvastatin 80 mg tablet 80 mg PO PM 02/20/19 01/12/22 tamsulosin 0.4 mg capsule 0.4 mg PO QAM 02/20/19 01/12/22 metoprolol succinate 25 mg 25 mg PO QAM 07/26/19 01/12/22 tablet,extended release 24 hr (Toprol XL) lutein 20 mg tablet 20 mg PO QAM 03/14/21 01/12/22 omeprazole 20 mg capsule,delayed 20 mg PO QAM 03/14/21 01/12/22 release polyethylene glycol 3350 17 gram 17 g PO QAM 03/14/21 01/12/22 oral powder packet (Miralax) furosemide 20 mg tablet 20 mg PO DAILY PRN 01/12/22 01/12/22 miconazole nitrate 2 % topical 1 applic TOPICAL BID 01/12/22 01/12/22 powder vitamin K2 100 mcg capsule 100 mcg PO DAILY 01/12/22 01/12/22 Results & Data (ED) Vital Signs Vital Signs - 24 hr 01/12/22 15:12 Temperature 36.6 C Temperature Source Oral Pulse Rate [Right Finger] 56 L Respiratory Rate 16 Blood Pressure [Left Arm] 122/61 Blood Pressure Mean [Left Arm] 81 Blood Pressure Position [Left Arm] Lying Pulse Oximetry 95 Oxygen Delivery Method Room Air Laboratory Data Result diagrams: 01/13/22 07:08 01/13/22 07:08 Lab Results 01/12/22 01/12/22 01/12/22 Range/Units 03:46 03:46 03:46 WBC 8.92 (4.8-10.8) K/uL RBC 3.40 L (4.7-6.1) M/uL Hgb 10.1 L (14.0-18.0) g/dL Hct 30.1 L (42-52) % MCV 88.5 (80-100) fL MCH 29.7 (25-34) pg MCHC 33.6 (32-36) g/dL RDW Std Deviation 44.7 (36.4-46.3) fL RDW Coeff of Collins 13.7 (11.5-14.5) % Plt Count 201 (130-400) K/uL MPV 10.4 (7.4-10.4) fL Immature Gran % (Auto) 0.4 % Neut % (Auto) 75.7 % Lymph % (Auto) 13.9 % Isabella % (Auto) 9.1 % Eos % (Auto) 0.8 % Baso % (Auto) 0.1 % Neut # (Auto) 6.75 H (1.4-6.5) K/uL Lymph # (Auto) 1.24 (1.2-3.4) K/uL Isabella # (Auto) 0.81 H (0.11-0.59) K/uL Eos # (Auto) 0.07 (0-0.5) K/uL Baso # (Auto) 0.01 (0-0.2) K/uL Immature Gran # (Auto) 0.04 H (0.00-0.02) K/uL APTT (21.0-31.0) Seconds PTT Ratio Sodium 138 (136-145) mmol/L Potassium 3.8 (3.5-5.1) mmol/L Chloride 107 (98-107) mmol/L Carbon Dioxide 23 (21-32) mmol/L Anion Gap 8 (3-11) BUN 39 H (6-23) mg/dl Creatinine 3.29 H (0.6-1.4) mg/dl Est Cr Clr Drug Dosing 15.3 ml/min Est GFR ( Amer) 18.5 ml/min Est GFR (Non-Af Amer) 16.0 ml/min BUN/Creatinine Ratio 11.9 (10-20) Glucose 150 H (70-99(Fasting)) mg/dl Calcium 8.6 (8.5-10.1) mg/dl Magnesium (1.7-2.4) mg/dl Total Bilirubin 0.3 (0.2-1.0) mg/dl AST 12 L (13-39) U/L ALT 10 (7-52) U/L Alkaline Phosphatase 51 (34-104) U/L Troponin I High Sens 19.2 (0-20) pg/ml Total Protein 5.9 L (6.0-8.3) gm/dl Albumin 3.4 (3.4-5.0) gm/dl Globulin 2.5 (2.5-4.0) gm/dl Albumin/Globulin Ratio 1.4 (0.9-2) Lipase 47 (11-82) U/L TSH (0.300-4.500) uIu/ml Free T4 (0.61-1.60) ng/dl SARS-CoV-2, RNA, NAAT (NEGATIVE) 01/12/22 01/12/22 01/12/22 Range/Units 03:46 03:46 03:46 WBC (4.8-10.8) K/uL RBC (4.7-6.1) M/uL Hgb (14.0-18.0) g/dL Hct (42-52) % MCV (80-100) fL MCH (25-34) pg MCHC (32-36) g/dL RDW Std Deviation (36.4-46.3) fL RDW Coeff of Collins (11.5-14.5) % Plt Count (130-400) K/uL MPV (7.4-10.4) fL Immature Gran % (Auto) % Neut % (Auto) % Lymph % (Auto) % Isabella % (Auto) % Eos % (Auto) % Baso % (Auto) % Neut # (Auto) (1.4-6.5) K/uL Lymph # (Auto) (1.2-3.4) K/uL Isabella # (Auto) (0.11-0.59) K/uL Eos # (Auto) (0-0.5) K/uL Baso # (Auto) (0-0.2) K/uL Immature Gran # (Auto) (0.00-0.02) K/uL APTT 22.2 (21.0-31.0) Seconds PTT Ratio 0.8 Sodium (136-145) mmol/L Potassium (3.5-5.1) mmol/L Chloride (98-107) mmol/L Carbon Dioxide (21-32) mmol/L Anion Gap (3-11) BUN (6-23) mg/dl Creatinine (0.6-1.4) mg/dl Est Cr Clr Drug Dosing ml/min Est GFR ( Amer) ml/min Est GFR (Non-Af Amer) ml/min BUN/Creatinine Ratio (10-20) Glucose (70-99(Fasting)) mg/dl Calcium (8.5-10.1) mg/dl Magnesium 2.0 (1.7-2.4) mg/dl Total Bilirubin (0.2-1.0) mg/dl AST (13-39) U/L ALT (7-52) U/L Alkaline Phosphatase (34-104) U/L Troponin I High Sens (0-20) pg/ml Total Protein (6.0-8.3) gm/dl Albumin (3.4-5.0) gm/dl Globulin (2.5-4.0) gm/dl Albumin/Globulin Ratio (0.9-2) Lipase (11-82) U/L TSH 4.590 H (0.300-4.500) uIu/ml Free T4 1.09 (0.61-1.60) ng/dl SARS-CoV-2, RNA, NAAT (NEGATIVE) 01/12/22 01/12/22 Range/Units 04:05 07:18 WBC (4.8-10.8) K/uL RBC (4.7-6.1) M/uL Hgb (14.0-18.0) g/dL Hct (42-52) % MCV (80-100) fL MCH (25-34) pg MCHC (32-36) g/dL RDW Std Deviation (36.4-46.3) fL RDW Coeff of Collins (11.5-14.5) % Plt Count (130-400) K/uL MPV (7.4-10.4) fL Immature Gran % (Auto) % Neut % (Auto) % Lymph % (Auto) % Isabella % (Auto) % Eos % (Auto) % Baso % (Auto) % Neut # (Auto) (1.4-6.5) K/uL Lymph # (Auto) (1.2-3.4) K/uL Isabella # (Auto) (0.11-0.59) K/uL Eos # (Auto) (0-0.5) K/uL Baso # (Auto) (0-0.2) K/uL Immature Gran # (Auto) (0.00-0.02) K/uL APTT (21.0-31.0) Seconds PTT Ratio Sodium (136-145) mmol/L Potassium (3.5-5.1) mmol/L Chloride (98-107) mmol/L Carbon Dioxide (21-32) mmol/L Anion Gap (3-11) BUN (6-23) mg/dl Creatinine (0.6-1.4) mg/dl Est Cr Clr Drug Dosing ml/min Est GFR ( Amer) ml/min Est GFR (Non-Af Amer) ml/min BUN/Creatinine Ratio (10-20) Glucose (70-99(Fasting)) mg/dl Calcium (8.5-10.1) mg/dl Magnesium (1.7-2.4) mg/dl Total Bilirubin (0.2-1.0) mg/dl AST (13-39) U/L ALT (7-52) U/L Alkaline Phosphatase (34-104) U/L Troponin I High Sens 18.5 (0-20) pg/ml Total Protein (6.0-8.3) gm/dl Albumin (3.4-5.0) gm/dl Globulin (2.5-4.0) gm/dl Albumin/Globulin Ratio (0.9-2) Lipase (11-82) U/L TSH (0.300-4.500) uIu/ml Free T4 (0.61-1.60) ng/dl SARS-CoV-2, RNA, NAAT NEGATIVE (NEGATIVE) Administered Medications Acetaminophen (Acetaminophen 325 Mg Tab) 650 mg PO Q4H PRN PRN Reason: Pain or Fever Stop: 02/11/22 06:12 Last Admin: 01/12/22 23:28 Dose: 650 mg Documented by: [id number] Admin: 01/12/22 13:37 Dose: 650 mg Documented by: [id number] Aspirin (Aspirin 81 Mg Ectab) [facility] [place]: 02/11/22 08:59 Last Admin: 01/13/22 08:32 Dose: 81 mg Documented by: [id number] Admin: 01/12/22 08:57 Dose: 81 mg Documented by: [id number] Calcium Carbonate (Calcium Carbonate 500 Mg Chewable Tab) 1,500 mg PO BID PRN PRN Reason: Indigestion Stop: 02/11/22 11:24 Last Admin: 01/12/22 11:47 Dose: 1,500 mg Documented by: [id number] Sodium Chloride (Nss 1000ml) 1,000 mls @ 50 mls/hr IV .Q20H [facility] Stop: 01/14/22 10:14 Last Admin: 01/12/22 18:41 Dose: 50 mls/hr Documented by: [id number] Piperacillin Sod/Tazobactam (Sod 3.375 gm/ Dextrose) 115 mls @ 28.75 mls/hr IV Q12H [facility]; Protocol Stop: 01/23/22 03:59 Last Infusion: 01/13/22 08:31 Dose: 0 mls/hr Documented by: [id number] Admin: 01/13/22 04:20 Dose: 28.8 mls/hr Documented by: [id number] Levothyroxine Sodium (Levothyroxine Sodium 25 Mcg Tablet) [facility] Stop: 02/11/22 08:59 Last Admin: 01/13/22 05:20 Dose: 25 mcg Documented by: [id number] Admin: 01/12/22 09:54 Dose: 25 mcg Documented by: [id number] Pantoprazole Sodium (Pantoprazole 40 Mg Tab) 40 mg PO [facility] Stop: 02/11/22 08:59 Last Admin: 01/13/22 08:32 Dose: 40 mg Documented by: [id number] Admin: 01/12/22 08:57 Dose: 40 mg Documented by: [id number] Polyethylene Glycol (Polyethylene (Miralax) 17 Gm Pack) 17 gm PO [facility] Stop: 02/11/22 08:59 Last Admin: 01/12/22 08:57 Dose: 17 gm Documented by: [id number] Simvastatin (Simvastatin 80 Mg Tab) 80 mg PO PM [facility] Stop: 02/11/22 20:59 Last Admin: 01/12/22 19:51 Dose: 80 mg Documented by: [id number] Tamsulosin HCl (Tamsulosin Hcl 0.4 Mg Cap) 0.4 mg PO [facility] Stop: 02/11/22 08:59 Last Admin: 01/13/22 08:32 Dose: 0.4 mg Documented by: [id number] Admin: 01/12/22 08:57 Dose: 0.4 mg Documented by: [id number] Discontinued Medications Atropine Sulfate (Atropine Sulfate 0.1 Mg/Ml 10ml Syr) 1 mg IV NOW STA Stop: 01/12/22 06:08 Last Admin: 01/12/22 06:41 Dose: Not Given Documented by: [id number] Bupivacaine HCl (Bupivacaine 0.5 % 5 Mg/1 Ml Mpf 30ml Vial) Confirm Administered Dose 30 ml .ROUTE .STK-MED ONE Stop: 01/13/22 12:22 Last Admin: 01/13/22 13:24 Dose: 15 ml Documented by: [id number] Fentanyl Citrate (Fentanyl Citrate 100 Mcg/2 Ml Vial) 50 mcg IV NOW STA Stop: 01/12/22 03:58 Last Admin: 01/12/22 04:01 Dose: 50 mcg Documented by: [id number] Fentanyl Citrate (Fentanyl Citrate 100 Mcg/2 Ml Vial) 50 mcg IV NOW STA Stop: 01/12/22 04:42 Last Admin: 01/12/22 04:53 Dose: 50 mcg Documented by: [id number] Heparin Sodium (Porcine) (Heparin Sod 5,000 Unit/0.5 Ml Vial) 5,000 units SQ Q8 [facility] Stop: 01/13/22 01:59 Last Admin: 01/12/22 21:32 Dose: 5,000 units Documented by: [id number] Admin: 01/12/22 14:05 Dose: 5,000 units Documented by: [id number] Albumin Human (Albumin 25% 100 Ml) 25 gm in 100 mls @ 50 mls/hr IV ONE ONE Stop: 01/12/22 07:24 Last Infusion: 01/12/22 08:52 Dose: 0 mls/hr Documented by: [id number] Admin: 01/12/22 05:48 Dose: 50 mls/hr Documented by: [id number] Piperacillin Sod/Tazobactam (Sod 3.375 gm/ Dextrose) 115 mls @ 230 mls/hr IV NOW ONE; Protocol Stop: 01/12/22 19:18 Last Infusion: 01/12/22 20:32 Dose: 0 mls/hr Documented by: [id number] Admin: 01/12/22 19:48 Dose: 230 mls/hr Documented by: [id number] Acetaminophen (Ofirmev) 1,000 mg in 100 mls @ 400 mls/hr IV NOW ONE Stop: 01/13/22 13:42 Last Admin: 01/13/22 12:45 Dose: 400 mls/hr Documented by: [id number] Miscellaneous ( Floseal Hemostatic Matrix 10ml) 10 ml TOP ONCE ONE Stop: 01/13/22 13:15 Last Admin: 01/13/22 13:14 Dose: 10 ml Documented by: [id number] Nitroglycerin (Nitroglycerin Sl 0.4 Mg/Tab Tab) 0.4 mg SL NOW STA Stop: 01/12/22 04:31 Last Admin: 01/12/22 04:34 Dose: 0.4 mg Documented by: [id number] Ondansetron HCl (Ondansetron Inj 2 Mg/Ml 2 Ml Vial) 4 mg IV NOW STA Stop: 01/12/22 03:58 Last Admin: 01/12/22 04:00 Dose: 4 mg Documented by: [id number] Oxycodone HCl (Oxycodone Hcl Ir 5 Mg Tab (Immediate Release)) 5 mg PO NOW STA Stop: 01/12/22 06:08 Last Admin: 01/12/22 06:48 Dose: Not Given Documented by: [id number] Potassium Chloride (Potassium Chloride Crtab 20 Meq Tabcr) 20 meq PO NOW STA Stop: 01/12/22 05:24 Last Admin: 01/12/22 05:48 Dose: 20 meq Documented by: [id number] Tramadol HCl (Tramadol Hcl 50 Mg Tablet) 25 mg PO NOW STA Stop: 01/12/22 06:12 Last Admin: 01/12/22 06:46 Dose: 25 mg Documented by: [id number] Discharge Plan Visit Data Chief Complaint: Chest Pain ED Provider: Palmira Stallworth Discharge Problem: Chest pain, midsternal Patient Disposition: Admitted As Inpatient Discharge Instructions Interventions: ED Discharge Assessment Last Done: 01/12/22 07:58
[2022-01-12 05:05] LABS: Albumin Globulin Ratio 1.4 (0.9-2); Albumin Level 3.4 gm/dl (3.4-5.0); BUN Creatinine Ratio 11.9 (10-20); Bilirubin,Total 0.3 mg/dl (0.2-1.0); Calcium 8.6 mg/dl (8.5-10.1); Creatinine Clr Calc Pharmacy 15.3 ml/min; Est GFR (African American) 18.5 ml/min; Globulin 2.5 gm/dl (2.5-4.0); Potassium 3.8 mmol/L (3.5-5.1); Total Protein 5.9 gm/dl (6.0-8.3)
[2022-01-12] MEDS ORDERED: POTASSIUM CHLORIDE CRTAB 20 MEQ TABCR PO STA (05:23)
[2022-01-12] MEDS ORDERED: ALBUMIN 25% 100 mL 25 GM/100 ML VIAL IV ONE (05:25)
--- NOTE | 2022-01-12 05:59 | History & Physical Report ---
Date of Service January 12, 2022 Assessment & Plan (1) Substernal chest pain: Plan: Somewhat atypical given incomplete response to nitro ? Symptomatic bradycardia (heart rate noted to be 40s at the ER) Rule out ACS, hx CAD status post stent chronic systolic heart failure (EF 35 to 40%, TTE 2020), some signs of fluid retention Leg swelling secondary to above rule out DVT chronic LBBB AAA status post surgery hypertension, stable hyperlipidemia on statin Rx CRI, creatinine at baseline chronic anemia, hemoglobin at baseline prediabetes, hemoglobin A1c of 5.8 2020 past tobacco abuse OBS PCU Follow troponin TTE, cardiology consult Re: Chest pain, hx CAD, bradycardia Hold beta-vasu for now Atropine as needed for symptomatic bradycardia LE venous Dopplers rule out DVT Update hemoglobin A1c DVT prophylaxis. Heparin subcu Full code Patient requesting updates from providers. Ms. Bob Valencia, contact #[phone]. Text document was generated using [employer] voice recognition software. It may contain grammatical or spelling errors. Kindly contact undersigned for clarification of any documentation item in question. History of Present Illness Chief Complaint: Chest pain Primary Care Provider: Mika Ortiz DO History obtained from patient, family, and records. Medical history significant for chronic systolic heart failure (EF 35 to 40%, TTE 2020), CAD status post stent, chronic LBBB, AAA status post surgery, hypertension, hyperlipidemia, CRI (baseline creatinine 3), chronic anemia (baseline hemoglobin 10-11), prediabetes, BPH, past tobacco abuse. Last confinement January 2019 for noncardiac chest pain. Patient woke up from sleep around 2 AM with substernal heaviness without radiation. Some shortness of breath with diaphoresis. No cough symptoms. Chest pain not pleuritic. Different from heart attack before which was more of back pain as per patient. Legs more swollen than usual 2 days ago. No relief with nitroglycerin intake at home. No recent tick bites. Incomplete relief with Fentanyl and nitroglycerin administration by EMS and at the ER. 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 Allergies Allergy/AdvReac Type Severity Reaction Status Date / Time No Known Allergies Allergy Verified 07/10/21 12:52 Home Medications Medication Instructions Recorded Confirmed Type aspirin 81 mg tablet,delayed 81 mg PO QAM 02/20/19 01/12/22 History release cholecalciferol (vitamin D3) 25 1,000 unit PO QAM 02/20/19 01/12/22 History mcg (1,000 unit) tablet (Vitamin D3) levothyroxine 25 mcg tablet 25 mcg PO QAM 02/20/19 01/12/22 History nitroglycerin 0.4 mg sublingual 0.4 mg SUBLINGUAL UD PRN 02/20/19 01/12/22 History tablet (Nitrostat) simvastatin 80 mg tablet 80 mg PO PM 02/20/19 01/12/22 History tamsulosin 0.4 mg capsule 0.4 mg PO QAM 02/20/19 01/12/22 History metoprolol succinate 25 mg 25 mg PO QAM 07/26/19 01/12/22 History tablet,extended release 24 hr (Toprol XL) lutein 20 mg tablet 20 mg PO QAM 03/14/21 01/12/22 History omeprazole 20 mg capsule,delayed 20 mg PO QAM 03/14/21 01/12/22 History release polyethylene glycol 3350 17 gram 17 g PO QAM 03/14/21 01/12/22 History oral powder packet (Miralax) furosemide 20 mg tablet 20 mg PO DAILY PRN 01/12/22 01/12/22 History miconazole nitrate 2 % topical 1 applic TOPICAL BID 01/12/22 01/12/22 History powder vitamin K2 100 mcg capsule 100 mcg PO DAILY 01/12/22 01/12/22 History Past Med/Surg History Medical History Chronic back pain CKD (chronic kidney disease) stage 4, GFR 15-29 ml/min follows with Dr. Collins Coronary artery disease follows with Dr. Marmolejo GERD (gastroesophageal reflux disease) HLD (hyperlipidemia) Hypertension Hypothyroidism Macular degeneration Myocardial infarction 1987 Osteoarthritis Prediabetes Surgical History H/O heart artery stent x 1 History of AAA (abdominal aortic aneurysm) repair 2016 History of appendectomy History of cardiac catheterization 1987 - [place] - 1 stent History of colonoscopy Family History Other No family history of adverse response to anesthesia No significant family history Social History Smoking Status: Never smoker Second Hand Exposure: No; Hx Alcohol Use: No Hx Substance Use: No Preferred Language: Bulgarian Communication Ability: Effective 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 Beliefs That Will Affect Care: None marital status: Current Living Situation: Spouse Feels Safe at Home: Yes Safety Concerns: Feels Safe At This Time Assistive Devices: Cane and Walker Review of Systems Review of Systems: As per HPI, all other systems reviewed and negative Physical Exam Physical Exam: GENERAL: Slightly uncomfortable, no respiratory distress SKIN: Pallor, warm HEENT: Alopecia, pale palpebral conjunctivae, no ptosis, dry buccal mucosa NECK : Supple, no tenderness CHEST : CTA, no tenderness HEART : Bradycardic, no obvious murmurs ABDOMEN: Some distention, nontender EXTREMITIES : Minimal LE swelling, no LE tenderness, no other conspicuous deformities noted NEUROLOGIC : Coherent, no facial asymmetry, no other gross focality Results & Data Results & Data ([facility]) Vital Signs (Past 12 Hours) Vital Signs Temp Pulse Resp BP Pulse Ox 01/12/22 05:30 44 L 18 127/53 L 100 01/12/22 05:00 51 L 16 123/66 97 01/12/22 04:39 47 L 16 141/62 H 99 01/12/22 04:30 45 L 18 123/44 L 99 01/12/22 04:15 87 L 01/12/22 04:08 95 01/12/22 04:00 48 L 20 122/63 98 01/12/22 03:45 36.6 C 46 L 18 134/62 97 Laboratory Results Laboratory Results WBC 8.92 K/uL (4.8-10.8) 01/12/22 03:46 RBC 3.40 M/uL (4.7-6.1) L 01/12/22 03:46 Hgb 10.1 g/dL (14.0-18.0) L 01/12/22 03:46 Hct 30.1 % (42-52) L 01/12/22 03:46 MCV 88.5 fL (80-100) 01/12/22 03:46 MCH 29.7 pg (25-34) 01/12/22 03:46 MCHC 33.6 g/dL (32-36) 01/12/22 03:46 RDW Std Deviation 44.7 fL (36.4-46.3) 01/12/22 03:46 RDW Coeff of Collins 13.7 % (11.5-14.5) 01/12/22 03:46 Plt Count 201 K/uL (130-400) 01/12/22 03:46 MPV 10.4 fL (7.4-10.4) 01/12/22 03:46 Immature Gran % (Auto) 0.4 % 01/12/22 03:46 Neut % (Auto) 75.7 % 01/12/22 03:46 Lymph % (Auto) 13.9 % 01/12/22 03:46 Gillespie % (Auto) 9.1 % 01/12/22 03:46 Eos % (Auto) 0.8 % 01/12/22 03:46 Baso % (Auto) 0.1 % 01/12/22 03:46 Neut # (Auto) 6.75 K/uL (1.4-6.5) H 01/12/22 03:46 Lymph # (Auto) 1.24 K/uL (1.2-3.4) 01/12/22 03:46 Gillespie # (Auto) 0.81 K/uL (0.11-0.59) H 01/12/22 03:46 Eos # (Auto) 0.07 K/uL (0-0.5) 01/12/22 03:46 Baso # (Auto) 0.01 K/uL (0-0.2) 01/12/22 03:46 Immature Gran # (Auto) 0.04 K/uL (0.00-0.02) H 01/12/22 03:46 Sodium 138 mmol/L (136-145) 01/12/22 03:46 Potassium 3.8 mmol/L (3.5-5.1) 01/12/22 03:46 Chloride 107 mmol/L (98-107) 01/12/22 03:46 Carbon Dioxide 23 mmol/L (21-32) 01/12/22 03:46 Anion Gap 8 (3-11) 01/12/22 03:46 BUN 39 mg/dl (6-23) H 01/12/22 03:46 Creatinine 3.29 mg/dl (0.6-1.4) H 01/12/22 03:46 Est Cr Clr Drug Dosing 15.3 ml/min 01/12/22 03:46 Est GFR ( Amer) 18.5 ml/min 01/12/22 03:46 Est GFR (Non-Af Amer) 16.0 ml/min 01/12/22 03:46 BUN/Creatinine Ratio 11.9 (10-20) 01/12/22 03:46 Glucose 150 mg/dl (70-99(Fasting)) H 01/12/22 03:46 Calcium 8.6 mg/dl (8.5-10.1) 01/12/22 03:46 Total Bilirubin 0.3 mg/dl (0.2-1.0) 01/12/22 03:46 AST 12 U/L (13-39) L 01/12/22 03:46 ALT 10 U/L (7-52) 01/12/22 03:46 Alkaline Phosphatase 51 U/L (34-104) 01/12/22 03:46 Troponin I High Sens 19.2 pg/ml (0-20) 01/12/22 03:46 Total Protein 5.9 gm/dl (6.0-8.3) L 01/12/22 03:46 Albumin 3.4 gm/dl (3.4-5.0) 01/12/22 03:46 Globulin 2.5 gm/dl (2.5-4.0) 01/12/22 03:46 Albumin/Globulin Ratio 1.4 (0.9-2) 01/12/22 03:46 Lipase 47 U/L (11-82) 01/12/22 03:46 SARS-CoV-2, RNA, NAAT NEGATIVE (NEGATIVE) 01/12/22 04:05 Diagnostic Findings Chest x-ray as per my interpretation cardiomegaly, atelectasis EKG as per my interpretation : Rate 50, sinus bradycardia, 1 AVB, LAD, LAFB, LBBB
[2022-01-12 06:03] LABS: Partial Thromboplastin Ratio 0.8; Partial Thromboplastin Time 22.2 Seconds (21.0-31.0)
[2022-01-12] MEDS ORDERED: oxyCODONE HCL IR 5 MG TAB (IMMEDIATE RELEASE) PO STA (06:07)
[2022-01-12] MEDS ORDERED: ATROPINE SULFATE 0.1 MG/ML 10ML SYR IV STA (06:07)
[2022-01-12] MEDS ORDERED: traMADol HCL 50 MG TABLET PO STA (06:11)
[2022-01-12] MEDS ORDERED: traMADol HCL 50 MG TABLET PO PRN (06:13)
[2022-01-12] MEDS ORDERED: HYDROmorphone INJ 0.5 MG/0.5 ML SYR IV PRN (06:13)
[2022-01-12] MEDS ORDERED: PROMETHAZINE HCL 6.25 MG in SODIUM CHLORIDE 0.9% 50 ML IV PRN (06:13)
[2022-01-12 06:23] LABS: Thyroid Stimulating Hormone 4.59 uIu/ml (0.300-4.500)
[2022-01-12] MEDS ORDERED: ATROPINE SULFATE 0.1 MG/ML 10ML SYR IV PRN (06:40)
--- NOTE | 2022-01-12 07:28 | XRay Report ---
XR chest 1V portable CLINICAL HISTORY: Midsternal chest pain. COMPARISON STUDY: Chest radiograph and chest CT July 26, 2019. FINDINGS: Lung volumes are mildly diminished, unchanged. No pneumothorax or pleural effusion is noted . Cardiomegaly is similar to prior exam. There is no evidence for pulmonary edema. Linear left midlun g opacity is unchanged and reflects scarring or atelectasis. Apparent right infrahilar opacity is sim ilar to prior exam. This likely reflects pulmonary vessels. There has been no change in appearance of the chest. IMPRESSION: No acute cardiopulmonary findings. No change in appearance of the chest. ACT 112: Negative or not required by law. Electronically signed by: Antonio Ly M.D. 01/12/2022 7:26 AM
[2022-01-12] MEDS: TAMSULOSIN HCL 0.4 MG CAP PO SCH (08:57)
[2022-01-12] MEDS: ASPIRIN 81 MG ECTAB PO SCH (08:57)
[2022-01-12] MEDS: POLYETHYLENE (MIRALAX) 17 GM PACK PO SCH (08:57)
[2022-01-12] MEDS: PANTOprazole 40 MG TAB PO SCH (08:57)
--- NOTE | 2022-01-12 08:59 | Cardiology Consultation ---
Date of Consultation January 12, 2022 Assessment & Plan (1) CKD (chronic kidney disease) stage 4, GFR 15-29 ml/min: (2) Atypical chest pain: (3) Abdominal pain: (4) Constipation: I believe this is likely noncardiac chest pain. Despite having hours and hours of discomfort his cardiac markers are negative. EKG shows his baseline left bundle branch block. He is heading for ultrasound of his lower extremities to rule out DVT. You may want to consider imaging of the abdomen such as a CT or ultrasound as well. History of Present Illness Attending Physician: Renato Arellano MD History of Present Illness This is an 86-year-old male patient with a previous cardiac history as outlined below. He has been in his usual state of health and feeling well. He is active around his apartment building and has not experienced any activity related chest pain or unusual shortness of breath. He went to bed last night feeling well and then awoke early this morning with abdominal pain. Mostly upper quadrants. No real chest pain. No shortness of breath. No nausea or vomiting. No change in bowel habits. He did take 1 sublingual nitroglycerin at home with no relief. He presented to the emergency department and was admitted. He has had more or less continuous bilateral upper abdominal pain which at times radiates into his lower abdomen. Despite having hours of chest pain his cardiac markers are negative. His EKG shows an old left bundle branch block and no other new changes. He is mildly anemic which is most likely due to chronic stage IV kidney disease. Cardiology History / Problem list: CAD with acute anterior wall ME in 1997 treated at [facility] with a Multilink bare metal stent in the mid LAD Hypertension Hyperlipidemia LBBB 6.2 cm AAA treated with endovascular repair with a Medtronic stent graft in May, in [place] Stage IV CKD Allergies Allergy/AdvReac Type Severity Reaction Status Date / Time No Known Allergies Allergy Verified 07/10/21 12:52 Home Medications Medication Instructions Recorded Confirmed Type aspirin 81 mg tablet,delayed 81 mg PO QAM 02/20/19 01/12/22 History release cholecalciferol (vitamin D3) 25 1,000 unit PO QAM 02/20/19 01/12/22 History mcg (1,000 unit) tablet (Vitamin D3) levothyroxine 25 mcg tablet 25 mcg PO QAM 02/20/19 01/12/22 History nitroglycerin 0.4 mg sublingual 0.4 mg SUBLINGUAL UD PRN 02/20/19 01/12/22 History tablet (Nitrostat) simvastatin 80 mg tablet 80 mg PO PM 02/20/19 01/12/22 History tamsulosin 0.4 mg capsule 0.4 mg PO QAM 02/20/19 01/12/22 History metoprolol succinate 25 mg 25 mg PO QAM 07/26/19 01/12/22 History tablet,extended release 24 hr (Toprol XL) lutein 20 mg tablet 20 mg PO QAM 03/14/21 01/12/22 History omeprazole 20 mg capsule,delayed 20 mg PO QAM 03/14/21 01/12/22 History release polyethylene glycol 3350 17 gram 17 g PO QAM 03/14/21 01/12/22 History oral powder packet (Miralax) furosemide 20 mg tablet 20 mg PO DAILY PRN 01/12/22 01/12/22 History miconazole nitrate 2 % topical 1 applic TOPICAL BID 01/12/22 01/12/22 History powder vitamin K2 100 mcg capsule 100 mcg PO DAILY 01/12/22 01/12/22 History Patient History Medical History Chronic back pain CKD (chronic kidney disease) stage 4, GFR 15-29 ml/min follows with Dr. Collins Coronary artery disease follows with Dr. Marmolejo GERD (gastroesophageal reflux disease) HLD (hyperlipidemia) Hypertension Hypothyroidism Macular degeneration Myocardial infarction 1987 Osteoarthritis Prediabetes Surgical History H/O heart artery stent x 1 History of AAA (abdominal aortic aneurysm) repair 2015 History of appendectomy History of cardiac catheterization 1987 - [place] - 1 stent History of colonoscopy Family History Other No family history of adverse response to anesthesia No significant family history Social History Smoking Status: Never smoker Second Hand Exposure: No; Hx Alcohol Use: No Hx Substance Use: No Preferred Language: Tristanian Communication Ability: Effective Cafe [employer] Required: No Beliefs That Will Affect Care: None marital status: Current Living Situation: Spouse Feels Safe at Home: Yes Safety Concerns: Feels Safe At This Time Assistive Devices: Cane and Walker Review of Systems Review of Systems: Review of Systems: See HPI for pertinent positives. All other 10 point review of systems are negative. Physical Exam Physical Exam: General: no acute distress and stated age Head: normocephalic, no masses, lesions, tenderness or abnormalities Eyes: conjunctiva are pink and non-injected, sclera clear Neck: supple, no adenopathy, no bruits, normal jugular venous pulse, no hepatojugular reflux Chest: normal shape and normal respiratory effort Lungs: clear to auscultation and percussion Cardiac Exam: - regular rate & rhythm, no murmurs gallops or rubs - normal S1, normal S2 Pulses: 2(+) throughout Abdomen: abdomen soft, non-tender, no abnormal masses and no hepatosplenomegaly Musculoskeletal: no gait disturbance, no joint inflammation, no deforming arthritis Extremities: no edema and no cyanosis Neuro: grossly normal exam Results & Data ([facility]) Vital Signs (Past 12 Hours) Vital Signs Temp Pulse Pulse Resp BP BP Pulse Ox 01/12/22 08:19 36.4 C L 50 L 18 146/71 H 100 01/12/22 07:58 49 L 17 100 01/12/22 07:50 48 L 16 100 01/12/22 07:40 63 19 100 01/12/22 07:31 46 L 16 142/60 H 100 01/12/22 07:30 46 L 18 99 01/12/22 07:20 50 L 20 100 01/12/22 07:11 49 L 16 145/58 H 100 01/12/22 07:10 57 L 27 H 100 01/12/22 07:00 48 L 17 145/58 H 100 01/12/22 06:50 52 L 15 98 01/12/22 06:30 55 L 18 153/76 H 100 01/12/22 06:02 66 20 143/52 H 100 01/12/22 05:30 44 L 18 127/53 L 100 01/12/22 05:00 51 L 16 123/66 97 01/12/22 04:39 47 L 16 141/62 H 99 01/12/22 04:30 45 L 18 123/44 L 99 01/12/22 04:15 87 L 01/12/22 04:08 95 01/12/22 04:00 48 L 20 122/63 98 01/12/22 03:45 36.6 C 46 L 18 134/62 97 Laboratory Results Laboratory Results - last 24 hr 01/12/22 01/12/22 01/12/22 03:46 03:46 03:46 WBC 8.92 RBC 3.40 L Hgb 10.1 L Hct 30.1 L MCV 88.5 MCH 29.7 MCHC 33.6 RDW Std Deviation 44.7 RDW Coeff of Collins 13.7 Plt Count 201 MPV 10.4 Immature Gran % (Auto) 0.4 Neut % (Auto) 75.7 Lymph % (Auto) 13.9 Reagan % (Auto) 9.1 Eos % (Auto) 0.8 Baso % (Auto) 0.1 Neut # (Auto) 6.75 H Lymph # (Auto) 1.24 Reagan # (Auto) 0.81 H Eos # (Auto) 0.07 Baso # (Auto) 0.01 Immature Gran # (Auto) 0.04 H APTT PTT Ratio Sodium 138 Potassium 3.8 Chloride 107 Carbon Dioxide 23 Anion Gap 8 BUN 39 H Creatinine 3.29 H Est Cr Clr Drug Dosing 15.3 Est GFR ( Amer) 18.5 Est GFR (Non-Af Amer) 16.0 BUN/Creatinine Ratio 11.9 Glucose 150 H Estimat Average Glucose Hemoglobin A1c Calcium 8.6 Magnesium Total Bilirubin 0.3 AST 12 L ALT 10 Alkaline Phosphatase 51 Troponin I High Sens 19.2 Total Protein 5.9 L Albumin 3.4 Globulin 2.5 Albumin/Globulin Ratio 1.4 Lipase 47 TSH Free T4 SARS-CoV-2, RNA, NAAT 01/12/22 01/12/22 01/12/22 03:46 03:46 03:46 WBC RBC Hgb Hct MCV MCH MCHC RDW Std Deviation RDW Coeff of Collins Plt Count MPV Immature Gran % (Auto) Neut % (Auto) Lymph % (Auto) Reagan % (Auto) Eos % (Auto) Baso % (Auto) Neut # (Auto) Lymph # (Auto) Reagan # (Auto) Eos # (Auto) Baso # (Auto) Immature Gran # (Auto) APTT 22.2 PTT Ratio 0.8 Sodium Potassium Chloride Carbon Dioxide Anion Gap BUN Creatinine Est Cr Clr Drug Dosing Est GFR ( Amer) Est GFR (Non-Af Amer) BUN/Creatinine Ratio Glucose Estimat Average Glucose Hemoglobin A1c Calcium Magnesium 2.0 Total Bilirubin AST ALT Alkaline Phosphatase Troponin I High Sens Total Protein Albumin Globulin Albumin/Globulin Ratio Lipase TSH 4.590 H Free T4 1.09 SARS-CoV-2, RNA, NAAT 01/12/22 01/12/22 01/12/22 04:05 07:18 Unknown WBC RBC Hgb Hct MCV MCH MCHC RDW Std Deviation RDW Coeff of Collins Plt Count MPV Immature Gran % (Auto) Neut % (Auto) Lymph % (Auto) Reagan % (Auto) Eos % (Auto) Baso % (Auto) Neut # (Auto) Lymph # (Auto) Reagan # (Auto) Eos # (Auto) Baso # (Auto) Immature Gran # (Auto) APTT PTT Ratio Sodium Potassium Chloride Carbon Dioxide Anion Gap BUN Creatinine Est Cr Clr Drug Dosing Est GFR ( Amer) Est GFR (Non-Af Amer) BUN/Creatinine Ratio Glucose Estimat Average Glucose Pending Hemoglobin A1c Pending Calcium Magnesium Total Bilirubin AST ALT Alkaline Phosphatase Troponin I High Sens 18.5 Total Protein Albumin Globulin Albumin/Globulin Ratio Lipase TSH Free T4 SARS-CoV-2, RNA, NAAT NEGATIVE Medications Administered Current Inpatient Medications Acetaminophen (Acetaminophen 325 Mg Tab) 650 mg PO Q4H PRN PRN Reason: Pain or Fever Stop: 02/11/22 06:12 Aspirin (Aspirin 81 Mg Ectab) 81 mg PO QAM [facility] Stop: 02/11/22 08:59 Last Admin: 01/12/22 08:57 Dose: 81 mg Documented by: Atropine Sulfate (Atropine Sulfate 0.1 Mg/Ml 10ml Syr) 1 mg IV Q3M PRN PRN Reason: symptomatic bradycardia Stop: 02/11/22 06:39 Heparin Sodium (Porcine) (Heparin Sod 5,000 Unit/0.5 Ml Vial) 5,000 units SQ Q8 [facility] Stop: 02/11/22 13:59 Hydromorphone HCl (Hydromorphone Inj 0.5 Mg/0.5 Ml Syr) 0.25 mg IV Q3H PRN PRN Reason: Pain Stop: 01/26/22 06:12 Promethazine HCl 6.25 mg/ (Sodium Chloride) 50.25 mls @ 201 mls/hr IV Q6H PRN PRN Reason: Nausea And Vomiting Stop: 02/11/22 06:12 Levothyroxine Sodium (Levothyroxine Sodium 25 Mcg Tablet) [facility] 02/11/22 08:59 Last Admin: 01/12/22 09:54 Dose: 25 mcg Documented by: Pantoprazole Sodium (Pantoprazole 40 Mg Tab) [facility] Stop: 02/11/22 08:59 Last Admin: 01/12/22 08:57 Dose: 40 mg Documented by: Polyethylene Glycol (Polyethylene (Miralax) 17 Gm Pack) [facility] Stop: 02/11/22 08:59 Last Admin: 01/12/22 08:57 Dose: 17 gm Documented by: Simvastatin (Simvastatin 80 Mg Tab) 80 mg PO PM [facility] Stop: 02/11/22 20:59 Tamsulosin HCl (Tamsulosin Hcl 0.4 Mg Cap) 0.4 mg [facility] Stop: 02/11/22 08:59 Last Admin: 01/12/22 08:57 Dose: 0.4 mg Documented by: Tramadol HCl (Tramadol Hcl 50 Mg Tablet) 25 - 50 mg PO Q4H PRN PRN Reason: Pain Stop: 02/11/22 06:12
[2022-01-12 09:35] LABS: T4 Free Thyroxine 1.09 ng/dl (0.61-1.60)
[2022-01-12] MEDS: LEVOTHYROXINE SODIUM 25 MCG TABLET PO SCH (09:54)
--- NOTE | 2022-01-12 10:35 | Ultrasound Report ---
BILATERAL LOWER EXTREMITY VENOUS DOPPLER CLINICAL HISTORY: Bilateral leg swelling. Evaluate for deep venous thrombus. COMPARISON STUDY: No previous studies for comparison. TECHNIQUE: Sonography of the deep venous system of the bilateral lower extremities was performed. Co mpression and augmentation were evaluated. FINDINGS: The bilateral common femoral, superficial femoral and popliteal veins were compressible. A ugmentation was normal. Flow was shown within the deep calf vessels. IMPRESSION: No evidence of deep venous thrombus within the bilateral lower extremities. ACT 112: Negative or not required by law. Electronically signed by: Antonio Ly M.D. 01/12/2022 10:33 AM
[2022-01-12 10:39] LABS: Estimated Average Glucose 123 mg/dl; Hemoglobin A1C 5.9 % (4.5-5.6)
[2022-01-12] MEDS ORDERED: CALCIUM CARBONATE 500 MG CHEWABLE TAB PO PRN (11:25)
--- NOTE | 2022-01-12 13:19 | Electrocardiogram Report ---
Test Reason : Blood Pressure : / mmHG Vent. Rate : 050 BPM Atrial Rate : 050 BPM P-R Int : 266 ms QRS Dur : 160 ms QT Int : 490 ms P-R-T Axes : 079 -45 167 degrees QTc Int : 446 ms Sinus bradycardia with 1st degree A-V block Left axis deviation Left bundle branch block Abnormal ECG When compared with ECG of 26-MAR-2021 11:21, No significant change was found Confirmed by Tiago Nguyen ([id number]) on 01/12/2022 1:19:04 PM Referred By: REFERRED SELF Confirmed By:Tiago Nguyen
--- NOTE | 2022-01-12 13:25 | Electrocardiogram Report ---
Test Reason : Blood Pressure : / mmHG Vent. Rate : 050 BPM Atrial Rate : 050 BPM P-R Int : 246 ms QRS Dur : 168 ms QT Int : 514 ms P-R-T Axes : 083 -35 188 degrees QTc Int : 468 ms Sinus bradycardia with 1st degree A-V block Left axis deviation Left bundle branch block Abnormal ECG When compared with ECG of 12-JAN-2022 03:45, (unconfirmed) No significant change was found Confirmed by Tiago Nguyen ([id number]) on 01/12/2022 1:25:30 PM Referred By: REFERRED SELF Confirmed By:Tiago Nguyen
[2022-01-12] MEDS: ACETAMINOPHEN 325 MG TAB PO PRN ×2 (13:37→23:28)
[2022-01-12] MEDS: HEPARIN SOD 5,000 UNIT/0.5 ML VIAL SQ SCH ×2 (14:05→21:32)
--- NOTE | 2022-01-12 16:31 | Hospitalist Progress Note ---
Date of Service January 12, 2022 Assessment & Plan (1) Atypical chest pain: Plan: 86 yo M w/ PMH of chronic systolic heart failure (EF 35 to 40%, TTE 2020), CAD status post stent, chronic LBBB, AAA status post surgery, hypertension, hyperlipidemia, CRI (baseline creatinine 3), chronic anemia (baseline hemoglobin 10-11), prediabetes, BPH, past tobacco abuse Presented 01/12 to our ED w/ upper belly discomfort w/o radiation a/w some SOB w/ diaphoresis. Incomplete relief with Fentanyl and nitroglycerin administration by EMS and at the ER. He is being managed for the following: #. Atypical chest pain Patient presents with upper belly discomfort/pain 01/12 [see above] Troponin trends negative. Admitting EKG with no acute ST or T changes, significant for sinus bradycardia (50 bpm) with first-degree AV block. Admitting echo: EF 35 to 40%, mild to moderate MR. Admitting CXR: No acute findings. Discussed with cardiology, less likely cardiac origin. Tums trial, CTAP ??, Follow-up imaging. c/t monitor tele. #. Sinus bradycardia Presenting EKG, see above Continue to monitor over telemetry, discussed with cardiology. Atropine for symptomatic sinus bradycardia. Holding beta-vasu for now. #. Other chronic medical conditions: HFrEF, chronic LBBB, AAA status post surgery, HTN, HLD, CKD, chronic anemia, prediabetes, past tobacco abuse Continue with/resume home meds as and when appropriate. Lasix as needed for swelling. DVT prophylaxis. Heparin subcu Full code Patient Ms. Bob Valencia, contact #[phone]. Admission and Anticipated Discharge Date Admission Date: January 12, 2022 Subjective Patient was seen and examined at bedside as a follow-up of her typical chest pain and bradycardia. Patient was lying in bed, on room air, NAD, reports ongoing upper belly pain, denies any headache or dizziness or feeling of heart racing. Patient reports eating okay. Patient denies any belly pain or acute changes in bowel or bladder habit. Physical Exam Physical Exam: GENERAL: Alert and oriented x3. NAD, on RA. HEENT: No pallor, no icterus. Pupils equal, round and reactive to light. Oral mucosa moist. NECK: No JVD, no neck masses. HEART: S1 and S2 heard. Regular rate and rhythm. No murmur, no gallop. RESPIRATORY SYSTEM: Normal AP diameter. No accessory muscle use. No wheezing, no crackles. ABDOMEN: Soft, bowel sounds present, nontender, no distention. CENTRAL NERVOUS SYSTEM: No facial droop. Speech is clear. Obeys simple commands. Moves extremities. EXTREMITIES: Trace edema, no erythema seen. Results & Data Results & Data ([facility]) Vital Signs (Past 12 Hours) Vital Signs Temp Pulse Pulse Resp BP BP Pulse Ox 01/12/22 15:12 36.6 C 56 L 16 122/61 95 01/12/22 13:42 36.3 C L 53 L 18 139/74 98 01/12/22 08:19 36.4 C L 50 L 18 146/71 H 100 01/12/22 07:58 49 L 17 100 01/12/22 07:50 48 L 16 100 01/12/22 07:40 63 19 100 01/12/22 07:31 46 L 16 142/60 H 100 01/12/22 07:30 46 L 18 99 01/12/22 07:20 50 L 20 100 01/12/22 07:11 49 L 16 145/58 H 100 01/12/22 07:10 57 L 27 H 100 01/12/22 07:00 48 L 17 145/58 H 100 01/12/22 06:50 52 L 15 98 01/12/22 06:30 55 L 18 153/76 H 100 01/12/22 06:02 66 20 143/52 H 100 01/12/22 05:30 44 L 18 127/53 L 100 01/12/22 05:00 51 L 16 123/66 97 01/12/22 04:39 47 L 16 141/62 H 99 01/12/22 04:30 45 L 18 123/44 L 99
--- NOTE | 2022-01-12 18:04 | CT Scan Report ---
CT OF THE ABDOMEN AND PELVIS WITHOUT CONTRAST CLINICAL HISTORY: Upper abdominal pain. COMPARISON STUDY: CTA of the abdomen and pelvis July 26, 2019 TECHNIQUE: Axial images of the abdomen and pelvis were obtained without IV contrast. Images were revi ewed in the axial, sagittal, and coronal planes. Automated exposure control was utilized for the joe dy. A dose lowering technique was utilized adhering to the principles of ALARA. FINDINGS: Lung bases are unremarkable. No pneumatosis, free air or portal venous gas is present. Ther e is trace perihepatic ascites. There are several calcified gallstones within the gallbladder neck. A small amount of pericholecystic stranding and fluid is present. This finding is new since prior CT. No significant biliary ductal dilatation is identified on this unenhanced exam. Nodularity of the devin er surface suggests cirrhosis There are calcific granulomas within the spleen. No hydronephrosis is p resent. Moderate bilateral renal cortical thinning is present. Unenhanced images of the adrenal gland s and pancreas are unremarkable. The appendix is not visualized. Note is made of extensive colonic di verticulosis without evidence for acute diverticulitis. Aortoiliac endovascular stent graft is in ameena ce. This is suboptimally assessed on this unenhanced exam however aneurysm sac size is similar to CTA of July 26, 2019, measuring 6.1 x 5.2 cm. There is no evidence for rupture. No lymphadenopathy is present. No suspicious osseous lesions are present. Prostate is enlarged. IMPRESSION: 1. Findings suggestive of acute cholecystitis. Findings discussed with Dr. Zamorano at time of dictation . 2. Status post aorto iliac stent graft placement. No change in aneurysm sac size. No rupture. 3. Extensive colonic diverticulosis. No evidence for acute diverticulitis. ACT 112: Negative or not required by law. Electronically signed by: Antonio Ly M.D. 01/12/2022 6:02 PM
[2022-01-12] MEDS: SODIUM CHLORIDE 0.9% 1000ML 1,000 ML IV SCH (18:41)
[2022-01-12] MEDS ORDERED: PIPERACILLIN/TAZOBACTAM 3.375 GM in DEXTROSE 5% 100 ML IV ONE (18:49)
--- NOTE | 2022-01-12 19:00 | Surgery Consultation ---
Date of Consultation January 12, 2022 Assessment & Plan (1) Acute cholecystitis: Patient with evidence of acute cholecystitis Consistent with his atypical chest pain He is at risk for developing necrotizing cholecystitis Best course is to proceed with laparoscopic cholecystectomy in the next 24 to 48 hours Plan will be tomorrow morning if possible We will keep him n.p.o. and he is on IV antibiotics I have discussed this with his History of Present Illness Attending Physician: Iqra Zamorano MD History of Present Illness 86-year-old male who was admitted to the hospital with substernal chest pain which was somewhat atypical and found to have acute cholecystitis His CT scan shows a dilated thickened gallbladder with stones in the neck of the gallbladder and stranding All consistent with acute cholecystitis Patient's white blood cell count is normal his LFTs are normal his creatinine is 3.29 and has a history of chronic kidney disease He has been seen by cardiology who felt that this was noncardiac in origin and actually felt it may be his gallbladder Allergies Allergy/AdvReac Type Severity Reaction Status Date / Time No Known Allergies Allergy Verified 07/10/21 12:52 Home Medications Medication Instructions Recorded Confirmed Type aspirin 81 mg tablet,delayed 81 mg PO QAM 02/20/19 01/12/22 History release cholecalciferol (vitamin D3) 25 1,000 unit PO QAM 02/20/19 01/12/22 History mcg (1,000 unit) tablet (Vitamin D3) levothyroxine 25 mcg tablet 25 mcg PO QAM 02/20/19 01/12/22 History nitroglycerin 0.4 mg sublingual 0.4 mg SUBLINGUAL UD PRN 02/20/19 01/12/22 History tablet (Nitrostat) simvastatin 80 mg tablet 80 mg PO PM 02/20/19 01/12/22 History tamsulosin 0.4 mg capsule 0.4 mg PO QAM 02/20/19 01/12/22 History metoprolol succinate 25 mg 25 mg PO QAM 07/26/19 01/12/22 History tablet,extended release 24 hr (Toprol XL) lutein 20 mg tablet 20 mg PO QAM 03/14/21 01/12/22 History omeprazole 20 mg capsule,delayed 20 mg PO QAM 03/14/21 01/12/22 History release polyethylene glycol 3350 17 gram 17 g PO QAM 03/14/21 01/12/22 History oral powder packet (Miralax) furosemide 20 mg tablet 20 mg PO DAILY PRN 01/12/22 01/12/22 History miconazole nitrate 2 % topical 1 applic TOPICAL BID 01/12/22 01/12/22 History powder vitamin K2 100 mcg capsule 100 mcg PO DAILY 01/12/22 01/12/22 History Patient History Medical History Chronic back pain CKD (chronic kidney disease) stage 4, GFR 15-29 ml/min follows with Dr. Collins Coronary artery disease follows with Dr. Marmolejo GERD (gastroesophageal reflux disease) HLD (hyperlipidemia) Hypertension Hypothyroidism Macular degeneration Myocardial infarction 1987 Osteoarthritis Prediabetes Surgical History H/O heart artery stent x 1 History of AAA (abdominal aortic aneurysm) repair 2015 History of appendectomy History of cardiac catheterization 1987 - [place] - stent History of colonoscopy Family History Other No family history of adverse response to anesthesia No significant family history Social History Smoking Status: Never smoker Second Hand Exposure: No; Hx Alcohol Use: No Hx Substance Use: No Preferred Language: Andorran Communication Ability: Effective Email Marketer Required: No Beliefs That Will Affect Care: None marital status: Current Living Situation: Spouse Feels Safe at Home: Yes Safety Concerns: Feels Safe At This Time Assistive Devices: Cane and Walker Review of Systems Review of Systems: All systems reviewed & are unremarkable except as noted in HPI & below Physical Exam Physical Exam: His abdomen is relatively soft he does have some discomfort to deep palpation in the upper abdomen Constitutional: well nourished; no acute distress Eyes: + anicteric sclerae Respiratory: normal respiratory effort; no respiratory distress Cardiovascular: Rate/Rhythm: regular rate Gastrointestinal (Abdomen): Inspection/Auscultation: abdomen not distended Musculoskeletal: Head/Neck/Chest: head atraumatic Skin: no rashes, warm and dry Neurologic: awake Results & Data ([facility]) Vital Signs (Past 12 Hours) Vital Signs Temp Pulse Pulse Resp BP BP Pulse Ox 01/12/22 15:12 36.6 C 56 L 16 122/61 95 01/12/22 13:42 36.3 C L 53 L 18 139/74 98 01/12/22 08:19 36.4 C L 50 L 18 146/71 H 100 01/12/22 07:58 49 L 17 100 01/12/22 07:50 48 L 16 100 01/12/22 07:40 63 19 100 01/12/22 07:31 46 L 16 142/60 H 100 01/12/22 07:30 46 L 18 99 01/12/22 07:20 50 L 20 100 01/12/22 07:11 49 L 16 145/58 H 100 01/12/22 07:10 57 L 27 H 100 01/12/22 07:00 48 L 17 145/58 H 100 Laboratory Results I reviewed his laboratories Diagnostic Findings I reviewed his imaging studies PG Care Time/CCT Total # of Minutes Spent Total Time Spent with Patient: Total time spent is greater than 50% in coordination of care (as documented) at patient's floor/unit and/or counseling patient: Coding Level of Care Code 93623 Initial Inpt Care Lvl 3 Diagnoses Acute cholecystitis K81.0
[2022-01-12] MEDS: SIMVASTATIN 80 MG TAB PO SCH (19:51)
[2022-01-12] MEDS ORDERED: PIPERACILL/TAZOBAC CONSULT ACTIVE PRN (20:00)
[2022-01-13] MEDS: PIPERACILLIN/TAZOBACTAM 3.375 GM in DEXTROSE 5% 100 ML IV SCH ×2 (04:20→16:48)
[2022-01-13] MEDS: LEVOTHYROXINE SODIUM 25 MCG TABLET PO SCH (05:20)
--- NOTE | 2022-01-13 06:33 | Surgery Progress Note ---
Date of Service January 13, 2022 Assessment & Plan (1) Acute cholecystitis: Plan: Patient stable overnight No acute changes Plan for laparoscopic cholecystectomy today Continue IV antibiotics Admission and Anticipated Discharge Date Admission Date: January 12, 2022 Results & Data ([facility]) Vital Signs (Past 12 Hours) Vital Signs Temp Pulse Pulse Resp BP Pulse Ox 01/13/22 04:02 36.7 C 65 16 147/79 H 94 01/13/22 00:03 62 01/12/22 23:25 37.2 C 68 16 147/74 H 95 01/12/22 19:13 36.9 C 62 18 154/81 H 95 PG Care Time/CCT Total # of Minutes Spent Total Time Spent with Patient: Total time spent is greater than 50% in coordination of care (as documented) at patient's floor/unit and/or counseling patient: Coding Level of Care Code None Diagnoses Acute cholecystitis K81.0
[2022-01-13 07:28] LABS: Hematocrit (blood only) 32.6 % (42-52); Hemoglobin 10.8 g/dL (14.0-18.0); Mean Corpuscular Hemoglobin 29.8 pg (25-34); Mean Corpuscular Hgb Conc 33.1 g/dL (32-36); Mean Corpuscular Volume 89.8 fL (80-100); Mean Platelet Volume 10.6 fL (7.4-10.4); Platelet Count 181 K/uL (130-400); RDW Coefficient of Variation 13.8 % (11.5-14.5); RDW Standard Deviation 45.6 fL (36.4-46.3); Red Blood Count 3.63 M/uL (4.7-6.1); White Blood Count 14.43 K/uL (4.8-10.8)
[2022-01-13 07:58] LABS: ALC (manual) 0.88 K/uL (1.2-3.4); ANC (manual) 12.67 K/uL (1.4-6.5); BUN Creatinine Ratio 11.5 (10-20); Calcium 9.2 mg/dl (8.5-10.1); Est GFR (African American) 19.6 ml/min; Est GFR (Non-African American) 16.9 ml/min; Lymphocytes # (manual) 0.88 K/uL (1.2-3.4); Lymphocytes % (manual) 6.1 %; Monocytes # (manual) 0.88 K/uL (0.11-0.59); Monocytes % (manual) 6.1 %; Neutrophils # (manual) 12.67 K/uL (1.4-6.5); Neutrophils % (manual) 87.8 %; Potassium 4.4 mmol/L (3.5-5.1)
[2022-01-13] MEDS: ASPIRIN 81 MG ECTAB PO SCH (08:32)
[2022-01-13] MEDS: TAMSULOSIN HCL 0.4 MG CAP PO SCH (08:32)
[2022-01-13] MEDS: POLYETHYLENE (MIRALAX) 17 GM PACK PO SCH ×2 (08:32→16:49)
[2022-01-13] MEDS: PANTOprazole 40 MG TAB PO SCH (08:32)
--- NOTE | 2022-01-13 09:21 | Cardiology Progress Note ---
Date of Service January 13, 2022 Assessment & Plan (1) CKD (chronic kidney disease) stage 4, GFR 15-29 ml/min: (2) Atypical chest pain: (3) Abdominal pain: (4) Constipation: (5) Acute cholecystitis: Plan: Surgical note appreciated. The patient is to have surgery later this morning for acute cholecystitis. The patient has no ongoing cardiac issues and is currently optimally medically managed. For the past 24 hours on telemetry he has had no significant arrhythmias. He should proceed with surgery. Admission and Anticipated Discharge Date Admission Date: January 12, 2022 Subjective The patient is waiting for surgery today. No current cardiac complaints. Review of Systems Review of Systems: Review of Systems: See HPI for pertinent positives. All other 10 point review of systems are negative. Physical Exam Physical Exam: General: no acute distress and stated age Head: normocephalic, no masses, lesions, tenderness or abnormalities Eyes: conjunctiva are pink and non-injected, sclera clear Neck: supple, no adenopathy, no bruits, normal jugular venous pulse, no hepatojugular reflux Chest: normal shape and normal respiratory effort Lungs: clear to auscultation and percussion Cardiac Exam: - regular rate & rhythm, no murmurs gallops or rubs - normal S1, normal S2 Pulses: 2(+) throughout Abdomen: abdomen soft, non-tender, no abnormal masses and no hepatosplenomegaly Musculoskeletal: no gait disturbance, no joint inflammation, no deforming arthritis Extremities: no edema and no cyanosis Neuro: grossly normal exam Results & Data ([facility]) Vital Signs (Past 12 Hours) Vital Signs Temp Pulse Pulse Resp BP Pulse Ox 01/13/22 07:39 36.9 C 65 17 149/76 H 97 01/13/22 04:02 36.7 C 65 16 147/79 H 94 01/13/22 00:03 62 01/12/22 23:25 37.2 C 68 16 147/74 H 95 Laboratory Results Laboratory Results - last 24 hr 01/12/22 01/12/22 01/13/22 03:46 Unknown 07:08 WBC 14.43 H RBC 3.63 L Hgb 10.8 L Hct 32.6 L MCV 89.8 MCH 29.8 MCHC 33.1 RDW Std Deviation 45.6 RDW Coeff of Collins 13.8 Plt Count 181 MPV 10.6 H Neutrophils % (Manual) 87.8 Lymphocytes % (Manual) 6.1 Monocytes % (Manual) 6.1 Neutrophils # (Manual) 12.67 H Total Absolute Neuts 12.67 H Lymphocytes # (Manual) 0.88 L Total Abs Lymphocytes 0.88 L Monocytes # (Manual) 0.88 H Sodium Potassium Chloride Carbon Dioxide Anion Gap BUN Creatinine Est Cr Clr Drug Dosing Est GFR ( Amer) Est GFR (Non-Af Amer) BUN/Creatinine Ratio Glucose Estimat Average Glucose 123 Hemoglobin A1c 5.9 H Calcium Free T4 1.09 01/13/22 07:08 WBC RBC Hgb Hct MCV MCH MCHC RDW Std Deviation RDW Coeff of Collins Plt Count MPV Neutrophils % (Manual) Lymphocytes % (Manual) Monocytes % (Manual) Neutrophils # (Manual) Total Absolute Neuts Lymphocytes # (Manual) Total Abs Lymphocytes Monocytes # (Manual) Sodium 138 Potassium 4.4 Chloride 106 Carbon Dioxide 25 Anion Gap 7 BUN 36 H Creatinine 3.14 H Est Cr Clr Drug Dosing 16.0 Est GFR ( Amer) 19.6 Est GFR (Non-Af Amer) 16.9 BUN/Creatinine Ratio 11.5 Glucose 127 H Estimat Average Glucose Hemoglobin A1c Calcium 9.2 Free T4 Medications Administered Current Inpatient Medications Acetaminophen (Acetaminophen 325 Mg Tab) 650 mg PO Q4H PRN PRN Reason: Pain or Fever Stop: 02/11/22 06:12 Last Admin: 01/12/22 23:28 Dose: 650 mg Documented by: Aspirin (Aspirin 81 Mg Ectab) 81 mg PO QAM ALEXANDER Stop: 02/11/22 08:59 Last Admin: 01/13/22 08:32 Dose: 81 mg Documented by: Atropine Sulfate (Atropine Sulfate 0.1 Mg/Ml 10ml Syr) 1 mg IV Q3M PRN PRN Reason: symptomatic bradycardia Stop: 02/11/22 06:39 Calcium Carbonate (Calcium Carbonate 500 Mg Chewable Tab) 1,500 mg PO BID PRN PRN Reason: Indigestion Stop: 02/11/22 11:24 Last Admin: 01/12/22 11:47 Dose: 1,500 mg Documented by: Hydromorphone HCl (Hydromorphone Inj 0.5 Mg/0.5 Ml Syr) 0.25 mg IV Q3H PRN PRN Reason: Pain Stop: 01/26/22 06:12 Promethazine HCl 6.25 mg/ (Sodium Chloride) 50.25 mls @ 201 mls/hr IV Q6H PRN PRN Reason: Nausea And Vomiting Stop: 02/11/22 06:12 Sodium Chloride (Nss 1000ml) 1,000 mls @ 50 mls/hr IV .Q20H [facility] Stop: 01/14/22 10:14 Last Admin: 01/12/22 18:41 Dose: 50 mls/hr Documented by: Piperacillin Sod/Tazobactam (Sod 3.375 gm/ Dextrose) 115 mls @ 28.75 mls/hr IV Q12H [facility]; Protocol Stop: 01/23/22 03:59 Last Infusion: 01/13/22 08:31 Dose: Infused Documented by: Levothyroxine Sodium (Levothyroxine Sodium 25 Mcg Tablet) 25 mcg PO DAILYBB [facility] Stop: 02/11/22 08:59 Last Admin: 01/13/22 05:20 Dose: 25 mcg Documented by: Miscellaneous Information (Piperacill/Tazobac Consult Active) 1 ea N/A UD PRN PRN Reason: Consult Stop: 02/11/22 19:59 Pantoprazole Sodium (Pantoprazole 40 Mg Tab) [facility] Stop: 02/11/22 08:59 Last Admin: 01/13/22 08:32 Dose: 40 mg Documented by: Polyethylene Glycol (Polyethylene (Miralax) 17 Gm Pack) 17 gm PO QAM [facility] Stop: 02/11/22 08:59 Last Admin: 01/13/22 08:32 Dose: 17 gm Documented by: Simvastatin (Simvastatin 80 Mg Tab) 80 mg PO PM [facility] Stop: 02/11/22 20:59 Last Admin: 01/12/22 19:51 Dose: 80 mg Documented by: Tamsulosin HCl (Tamsulosin Hcl 0.4 Mg Cap) 0.4 mg PO QAM [facility] Stop: 02/11/22 08:59 Last Admin: 01/13/22 08:32 Dose: 0.4 mg Documented by: Tramadol HCl (Tramadol Hcl 50 Mg Tablet) 25 - 50 mg PO Q4H PRN PRN Reason: Pain Stop: 02/11/22 06:12
[2022-01-13] MEDS ORDERED: DEXAMETHASONE SOD INJ 4 MG/ML VIAL ONE (10:48)
[2022-01-13] MEDS ORDERED: PROPOFOL IV EMULSION 10 MG/ML 20 ML VIAL IV ONE (10:48)
[2022-01-13] MEDS ORDERED: fentaNYL citrate 100 MCG/2 ML VIAL ONE ×2 (10:48→13:10)
[2022-01-13] MEDS ORDERED: ROCURONIUM BROMIDE 10 MG/ML 5 ML VIAL IV ONE (10:48)
[2022-01-13] MEDS ORDERED: ONDANSETRON INJ 2 MG/ML 2 ML VIAL ONE (10:48)
[2022-01-13] MEDS ORDERED: LIDOCAINE 2% 2 ML VIAL/AMP(20MG/ML) INFIL ONE (10:48)
[2022-01-13] MEDS ORDERED: ACETAMINOPHEN 1000 MG/100 ML IV IV ONE (12:05)
[2022-01-13] MEDS ORDERED: BUPIVACAINE 0.5 % 5 MG/1 ML MPF 30ML VIAL ONE (12:21)
--- NOTE | 2022-01-13 12:28 | Anesthesiology Consultation ---
Date of Service January 13, 2022 Assessment & Plan ASA ASA3 Proposed Anesthesia Anesthesia Type: General Risk / Benefits Reviewed With: PT / POA / Parent / Guardian, Accepts Plan and Informed Consent Obtained History Surgery Operation Date: 01/13/22 10:00 Proposed Procedures p Laparoscopic Cholecystectomy - Rafi Gann MD, FACS Height/Weight Height: 5 ft 8 in Weight: 75.2 kg Allergies Allergy/AdvReac Type Severity Reaction Status Date / Time No Known Allergies Allergy Verified 07/10/21 12:52 Medications Home Medications Medication Instructions Recorded Confirmed Last Taken aspirin 81 mg tablet,delayed 81 mg PO QAM 02/20/19 01/12/22 06/13/21 release cholecalciferol (vitamin D3) 25 1,000 unit PO QAM 02/20/19 01/12/22 06/13/21 mcg (1,000 unit) tablet (Vitamin D3) levothyroxine 25 mcg tablet 25 mcg PO QAM 02/20/19 01/12/22 06/13/21 nitroglycerin 0.4 mg sublingual 0.4 mg SUBLINGUAL UD PRN 02/20/19 01/12/22 Unknown tablet (Nitrostat) simvastatin 80 mg tablet 80 mg PO PM 02/20/19 01/12/22 06/12/21 tamsulosin 0.4 mg capsule 0.4 mg PO QAM 02/20/19 01/12/22 06/13/21 metoprolol succinate 25 mg 25 mg PO QAM 07/26/19 01/12/22 06/13/21 tablet,extended release 24 hr (Toprol XL) lutein 20 mg tablet 20 mg PO QAM 03/14/21 01/12/22 06/13/21 omeprazole 20 mg capsule,delayed 20 mg PO QAM 03/14/21 01/12/22 06/13/21 release polyethylene glycol 3350 17 gram 17 g PO QAM 03/14/21 01/12/22 06/13/21 oral powder packet (Miralax) furosemide 20 mg tablet 20 mg PO DAILY PRN 01/12/22 01/12/22 Unknown miconazole nitrate 2 % topical 1 applic TOPICAL BID 01/12/22 01/12/22 Unknown powder vitamin K2 100 mcg capsule 100 mcg PO DAILY 01/12/22 01/12/22 Unknown Active Medications Generic Name Dose Route Start Last Admin Trade Name Freq PRN Reason Stop Dose Admin Acetaminophen 650 mg 01/12/22 06:13 01/12/22 23:28 Acetaminophen 325 Mg Tab PO 02/11/22 06:12 650 mg Q4H PRN Administration Pain or Fever Aspirin 81 mg 01/12/22 09:00 01/13/22 08:32 Aspirin 81 Mg Ectab PO 02/11/22 08:59 81 mg QAM ALEXANDER Administration Calcium Carbonate 1,500 mg 01/12/22 11:25 01/12/22 11:47 Calcium Carbonate 500 Mg Chewable Tab PO 02/11/22 11:24 1,500 mg BID PRN Administration Indigestion Sodium Chloride 1,000 mls @ 50 mls/hr 01/12/22 18:15 01/12/22 18:41 Nss 1000ml IV 01/14/22 10:14 50 mls/hr .Q20H ALEXANDER Administration Piperacillin Sod/Tazobactam 115 mls @ 28.75 mls/hr 01/13/22 04:00 01/13/22 08:31 Sod 3.375 gm/ Dextrose IV 01/23/22 03:59 Infused Q12H ALEXANDER Infusion Protocol Levothyroxine Sodium 25 mcg 01/12/22 09:00 01/13/22 05:20 Levothyroxine Sodium 25 Mcg Tablet PO 02/11/22 08:59 25 mcg DAILYBB ALEXANDER Administration Pantoprazole Sodium 40 mg 01/12/22 09:00 01/13/22 08:32 Pantoprazole 40 Mg Tab PO 02/11/22 08:59 40 mg QAM ALEXANDER Administration Polyethylene Glycol 17 gm 01/12/22 09:00 01/12/22 08:57 Polyethylene (Miralax) 17 Gm Pack PO 02/11/22 08:59 17 gm QAM ALEXANDER Administration Simvastatin 80 mg 01/12/22 21:00 01/12/22 19:51 Simvastatin 80 Mg Tab PO 02/11/22 20:59 80 mg PM ALEXANDER Administration Tamsulosin HCl 0.4 mg 01/12/22 09:00 01/13/22 08:32 Tamsulosin Hcl 0.4 Mg Cap PO 02/11/22 08:59 0.4 mg QAM ALEXANDER Administration NPO Date Last Intake of Fluids: 01/13/22 Time Last Intake of Fluids: 00:00 Date Last Intake of Solids: 01/13/22 Time Last Intake of Solids: 00:00 Past Medical History Medical History Chronic back pain CKD (chronic kidney disease) stage 4, GFR 15-29 ml/min follows with Dr. Collins Coronary artery disease follows with Dr. Marmolejo GERD (gastroesophageal reflux disease) HLD (hyperlipidemia) Hypertension Hypothyroidism Macular degeneration Myocardial infarction 1987 Osteoarthritis Prediabetes Exercise / Class Metabolic Activity II 4-5 Yardwork/Stairs/Walk up hill Past Family History Family History Other No family history of adverse response to anesthesia No significant family history Past Surgical History Surgical History H/O heart artery stent x 1 History of AAA (abdominal aortic aneurysm) repair 2015 History of appendectomy History of cardiac catheterization 1987 - [place] - 1 stent History of colonoscopy Past Anesthesia History No Hx of Anesthesia Complications and No Family Hx of Anesthesia Complications History of PONV No Hx of PONV and No Hx of Motion Sickness Social History Smoking Status: Never smoker Hx Alcohol Use: No Alcohol type: wine alcohol intake frequency: holidays/special occasions only Hx Substance Use: No substance use type: does not use Review of Systems denies fever/cough/ colds/ chest pain/ SOB/ LEVAR denies LEVAR Physical Exam Vital Signs Last Vital Signs Temp 37.5 C 01/13/22 11:42 Pulse 80 01/13/22 11:42 Resp 18 01/13/22 11:42 BP 150/69 H 01/13/22 11:42 Pulse Ox 98 01/13/22 11:42 ENMT Mouth: no TMJ abnormality and no dentition abnormality Thyromental Distance: > or= 3.5 Finger Breadths Mallampati Class: II Neck neck extension not limited Respiratory normal respiratory effort; no respiratory distress Auscultation: lungs clear to auscultation bilaterally Cardiovascular Rate/Rhythm: regular rate and regular rhythm Neurologic moves all extremities Psychiatric Orientation: alert and oriented x 3 Testing Laboratory Results 01/13/22 07:08 01/13/22 07:08 APTT 22.2 Seconds (21.0-31.0) 01/12/22 03:46 Hemoglobin A1c 5.9 % (4.5-5.6) H 01/12/22 Unknown
[2022-01-13] MEDS ORDERED: ONDANSETRON INJ 2 MG/ML 2 ML VIAL IV PRN ×2 (12:29→14:48)
[2022-01-13] MEDS ORDERED: fentaNYL citrate 100 MCG/2 ML VIAL IV PRN (12:29)
[2022-01-13] MEDS ORDERED: ATROPINE SULFATE 0.1 MG/ML 10ML SYR IV PRN (12:29)
[2022-01-13] MEDS ORDERED: ePHEDrine sulfate 50 MG/ML AMP IV PRN (12:29)
[2022-01-13] MEDS ORDERED: HYDROmorphone INJ 2 MG/ML SYR/VIAL IV PRN (12:29)
[2022-01-13] MEDS ORDERED: NEOSTIGMINE METHYLSULFATE 1 MG/ML 10ML VIAL ONE (13:11)
[2022-01-13] MEDS ORDERED: GLYCOPYRROLATE 0.2 MG/ML VIAL ONE (13:11)
[2022-01-13] MEDS ORDERED: FLOSEAL HEMOSTATIC MATRIX 10ML TOP ONE (13:14)
[2022-01-13] MEDS ORDERED: ACETAMINOPHEN 1,000 MG/100 ML VIAL IV ONE (13:28)
--- NOTE | 2022-01-13 13:28 | Post Operative Brief Note ---
PG Immediate Post Op with CF Date of Surgery January 13, 2022 Pre & Post Diagnosis Operation Date: 01/13/22 10:00 Pre-Op Diagnosis: Acute cholecystitis Post-Op Diagnosis: Acute Gangrenous cholecystitis, adhesions I identified the patient and participated in the time-out.: Yes Procedure Operation Date: 01/13/22 10:00 Actual Procedures p Laparoscopic Cholecystectomy(Not Applicable) - Rafi Gann MD, FACS And lysis of adhesions Surgeon Rafi Gann MD, FACS [employer] Mariama Campos Estimated Blood Loss 10 Findings Consistent with Post-Op Diagnosis Patient had chronic adhesions and gangrenous/necrotizing cholecystitis Specimens Specimen Description: permanent specimen: A) Gallbladder Drains Hayes Catheter and Piero-Singh Drain (15fr)
--- NOTE | 2022-01-13 14:17 | Anesthesiology Progress Note ---
Date of Service January 13, 2022 Anesthesia Post Procedure Vital Signs Vital Signs: Temp Pulse Pulse Pulse Pulse Resp BP 01/13/22 14:15 76 14 143/58 H 01/13/22 14:05 36.9 C 77 12 129/54 L 01/13/22 13:55 75 14 144/60 H 01/13/22 13:45 76 12 148/60 H 01/13/22 13:38 36.5 C 79 12 153/69 H 01/13/22 11:42 37.5 C 80 18 150/69 H 01/13/22 07:39 36.9 C 65 17 149/76 H 01/13/22 04:02 36.7 C 65 16 147/79 H 01/13/22 00:03 62 01/12/22 23:25 37.2 C 68 16 147/74 H 01/12/22 19:13 36.9 C 62 18 154/81 H 01/12/22 15:12 36.6 C 56 L 16 122/61 Pulse Ox 01/13/22 14:15 95 01/13/22 14:05 95 01/13/22 13:55 99 01/13/22 13:45 99 01/13/22 13:38 99 01/13/22 11:42 98 01/13/22 07:39 97 01/13/22 04:02 94 01/13/22 00:03 01/12/22 23:25 95 01/12/22 19:13 95 01/12/22 15:12 95 Pain Intensity Back: Pain Intensity: 5 Medial Chest: Pain Intensity: 4 Transfer of Care Handoff Completed per policy Notes Mental Status: alert / awake / arousable and participated in evaluation Patient Amnestic to Procedure: Yes Nausea / Vomiting: adequately controlled Pain: adequately controlled Airway Patency, RR, SpO2: stable & adequate BP & HR: stable & adequate Hydration State: stable & adequate Anesthetic Complications: no major complications apparent and Pt Satisfied with anesthetic care
[2022-01-13] MEDS ORDERED: oxyCODONE HCL IR 5 MG TAB (IMMEDIATE RELEASE) PO PRN (14:48)
[2022-01-13] MEDS ORDERED: MoRPHine SULFATE 2 MG/ML CARP IV PRN (14:48)
[2022-01-13] MEDS ORDERED: PROMETHAZINE HCL 12.5 MG in SODIUM CHLORIDE 0.9% 50 ML IV PRN (14:48)
[2022-01-13] MEDS ORDERED: ACETAMINOPHEN 325 MG TAB PO PRN (14:48)
--- NOTE | 2022-01-13 16:29 | Operative Report (OR) ---
DATE OF OPERATION: 01/13/2022. NAME OF OPERATION: Laparoscopic cholecystectomy with lysis of adhesions. STAFF SURGEON: Rafi Gann MD. GOAT DRIVER: Sourav Campos PA-C. ANESTHESIA: General. DESCRIPTION OF PROCEDURE: The patient was brought in the operating room and placed on the operating table in supine position. Pneumatic stockings, Hayes catheter and orogastric tube were placed. His abdomen was prepped and draped in the usual fashion. A 0.5% plain Marcaine was used to anesthetize a ll incisions. Incision was made above the umbilicus, carrying dissection down to the fascia, placing a Veress needle producing pneumoperitoneum. 11 mm port placed in this level and under visualization, three 5 mm ports were placed, one cephalad and two laterally. My assistant operations manager helped with prepping, dr aping, removal of the gallbladder, lysis of adhesions and closure of the wounds. The gallbladder was identified. There were dense adhesions to the gallbladder from the omentum. These were chronic adh esions. The gallbladder was also gangrenous. It was aspirated of bile, which was sludge-like. The a dhesions were taken down. Dissection carried out to the ashley hepatis, identifying the cystic duct a nd cystic artery. These were clipped and transected, then the gallbladder dissected away from the li allison bed in the usual fashion; however, it was very edematous and acutely inflamed. Gallbladder was pl aced in an Endobag. After appropriate hemostasis and irrigation, FloSeal was placed into the subhepa tic space and then a 15 round Piero-Singh drain placed through the lateral 5 mm port site into the subhepatic space. The drain was secured using 3-0 nylon suture. Using a 5 mm scope, the gallbladder was placed initially into an Endobag and then the Endobag removed through the umbilical site. I did have to enlarge the umbilical fascial defect to remove the large gallbladder. The fascia at the umbi licus then closed using 0 PDS suture. All ports were removed and then the skin reapproximated using 4-0 nylon suture. A drain was placed to suction bulb. The patient was transferred to the [facility] in stable condition. Job ID: [id number]
[2022-01-13] MEDS: SODIUM CHLORIDE 0.9% 1000ML 1,000 ML IV SCH (16:55)
--- NOTE | 2022-01-13 19:20 | Hospitalist Progress Note ---
Date of Service January 13, 2022 Assessment & Plan (1) Atypical chest pain: Plan: 86 yo M w/ PMH of chronic systolic heart failure (EF 35 to 40%, TTE 2020), CAD status post stent, chronic LBBB, AAA status post surgery, hypertension, hyperlipidemia, CRI (baseline creatinine 3), chronic anemia (baseline hemoglobin 10-11), prediabetes, BPH, past tobacco abuse Presented 01/12 to our ED w/ upper belly discomfort w/o radiation a/w some SOB w/ diaphoresis. Incomplete relief with Fentanyl and nitroglycerin administration by EMS and at the ER. He is being managed for the following: #. Atypical chest pain #. Acute gangrenous cholecystitis Patient presents with upper belly discomfort/pain 01/12 [see above] Troponin trends negative. Admitting EKG with no acute ST or T changes, significant for sinus bradycardia (50 bpm) with first-degree AV block. Admitting echo: EF 35 to 40%, mild to moderate MR. Admitting CXR: No acute findings. Patient seen and examined prior to OT, patient doing well with no complaints. Status post lap crow by Dr. Gann [01/13/2022] Continue with Zosyn 01/12. #. Sinus bradycardia Presenting EKG, see above Continue to monitor over telemetry, discussed with cardiology 01/12. Atropine for symptomatic sinus bradycardia. Holding beta-vasu for now. Heart rate is improving. #. Other chronic medical conditions: HFrEF, chronic LBBB, AAA status post surgery, HTN, HLD, CKD, chronic anemia, prediabetes, past tobacco abuse Continue with/resume home meds as and when appropriate. Lasix as needed for swelling. DVT prophylaxis. Heparin subcu Full code Patient Ms. Bob Valencia, contact #[phone]. Admission and Anticipated Discharge Date Admission Date: January 12, 2022 Subjective Patient was seen and examined at bedside as a follow-up of atypical chest pain/acute cholecystitis and bradycardia. Patient was lying in bed, on room air, NAD, reports improvement in his belly pain, n.p.o. for surgery today, denies any headache or dizziness or feeling of heart racing. Patient denies any belly pain or acute changes in bowel or bladder habit. Physical Exam Physical Exam: GENERAL: Alert and oriented x3. NAD, on RA. HEENT: No pallor, no icterus. Pupils equal, round and reactive to light. Oral mucosa moist. NECK: No JVD, no neck masses. HEART: S1 and S2 heard. Regular rate and rhythm. No murmur, no gallop. RESPIRATORY SYSTEM: Normal AP diameter. No accessory muscle use. No wheezing, no crackles. ABDOMEN: Soft, bowel sounds present, nontender, no distention. CENTRAL NERVOUS SYSTEM: No facial droop. Speech is clear. Obeys simple commands. Moves extremities. EXTREMITIES: Trace edema, no erythema seen. Results & Data Results & Data ([facility]) Vital Signs (Past 12 Hours) Vital Signs Temp Pulse Pulse Resp BP BP Pulse Ox 01/13/22 18:00 65 18 123/66 98 01/13/22 17:00 71 110/55 L 97 01/13/22 16:30 64 18 124/66 95 01/13/22 16:00 67 18 121/65 96 01/13/22 15:30 62 18 116/62 94 01/13/22 15:15 64 18 120/63 90 01/13/22 14:56 63 18 132/66 96 01/13/22 14:37 36.4 C L 63 18 146/68 H 93 01/13/22 14:15 76 14 143/58 H 95 01/13/22 14:05 36.9 C 77 12 129/54 L 95 01/13/22 13:55 75 14 144/60 H 99 01/13/22 13:45 76 12 148/60 H 99 01/13/22 13:38 36.5 C 79 12 153/69 H 99 01/13/22 11:42 37.5 C 80 18 150/69 H 98 01/13/22 07:39 36.9 C 65 17 149/76 H 97
[2022-01-13] MEDS: SIMVASTATIN 80 MG TAB PO SCH (20:42)
[2022-01-14] MEDS: PIPERACILLIN/TAZOBACTAM 3.375 GM in DEXTROSE 5% 100 ML IV SCH ×2 (03:15→16:42)
--- NOTE | 2022-01-14 05:53 | Surgery Progress Note ---
Date of Service January 14, 2022 Assessment & Plan (1) Status post laparoscopic cholecystectomy: Plan: Patient with necrotizing/gangrenous cholecystitis Taking no pain medication Drain serosanguineousexpected Advance diet as tolerated Should ambulate as much as possible Continue IV antibiotics and then p.o. antibiotics for 7 to 10 days total Likely will need 1-2 additional days in the hospital possibly longer To regular floor when okay with medical team Admission and Anticipated Discharge Date Admission Date: January 12, 2022 Results & Data ([facility]) Vital Signs (Past 12 Hours) Vital Signs Temp Pulse Resp BP BP Pulse Ox 01/14/22 03:17 36.6 C 72 18 139/64 94 01/13/22 23:43 36.9 C 68 17 133/62 94 01/13/22 22:00 62 135/68 97 01/13/22 21:00 62 127/66 97 01/13/22 20:00 63 18 134/60 97 01/13/22 18:00 65 18 123/66 98 PG Care Time/CCT Total # of Minutes Spent Total Time Spent with Patient: Total time spent is greater than 50% in coordination of care (as documented) at patient's floor/unit and/or counseling patient: Coding Level of Care Code None Diagnoses Status post laparoscopic cholecystectomy Z90.49
[2022-01-14 05:54] LABS: Eosinophils # (auto) 0.01 K/uL (0-0.5); Eosinophils % (auto) 0.1 %; Hematocrit (blood only) 29.5 % (42-52); Hemoglobin 9.7 g/dL (14.0-18.0); Immature Granulocytes # (auto) 0.03 K/uL (0.00-0.02); Immature Granulocytes % (auto) 0.3 %; Lymphocytes # (auto) 0.69 K/uL (1.2-3.4); Lymphocytes % (auto) 6.1 %; Mean Corpuscular Hemoglobin 29.3 pg (25-34); Mean Corpuscular Hgb Conc 32.9 g/dL (32-36); Mean Corpuscular Volume 89.1 fL (80-100); Mean Platelet Volume 10.7 fL (7.4-10.4); Monocytes # (auto) 1.29 K/uL (0.11-0.59); Monocytes % (auto) 11.3 %; Neutrophils # (auto) 9.35 K/uL (1.4-6.5); Neutrophils % (auto) 82.2 %; Platelet Count 170 K/uL (130-400); RDW Coefficient of Variation 13.9 % (11.5-14.5); RDW Standard Deviation 45.9 fL (36.4-46.3); Red Blood Count 3.31 M/uL (4.7-6.1); White Blood Count 11.37 K/uL (4.8-10.8)
[2022-01-14 06:17] LABS: BUN Creatinine Ratio 11.5 (10-20); Calcium 8.8 mg/dl (8.5-10.1); Creatinine Clr Calc Pharmacy 15.6 ml/min; Est GFR (African American) 18.9 ml/min; Est GFR (Non-African American) 16.3 ml/min
[2022-01-14] MEDS: LEVOTHYROXINE SODIUM 25 MCG TABLET PO SCH (06:22)
[2022-01-14 06:52] LABS: Albumin Globulin Ratio 1.3 (0.9-2); Albumin Level 3.2 gm/dl (3.4-5.0); Bilirubin Direct 0.2 mg/dl (0-0.2); Bilirubin,Total 0.9 mg/dl (0.2-1.0); Globulin 2.4 gm/dl (2.5-4.0); Magnesium 1.9 mg/dl (1.7-2.4); Phosphorus 3.5 mg/dl (2.5-4.9); Total Protein 5.6 gm/dl (6.0-8.3)
[2022-01-14] MEDS: POLYETHYLENE (MIRALAX) 17 GM PACK PO SCH (09:00)
[2022-01-14] MEDS: DOCUSATE SODIUM/SENNA 50/8.6MG TAB PO SCH ×2 (09:01→20:43)
[2022-01-14] MEDS: ASPIRIN 81 MG ECTAB PO SCH (09:01)
[2022-01-14] MEDS: TAMSULOSIN HCL 0.4 MG CAP PO SCH (09:01)
[2022-01-14] MEDS: PANTOprazole 40 MG TAB PO SCH (09:01)
[2022-01-14] MEDS: HEPARIN SOD 5,000 UNIT/0.5 ML VIAL SQ SCH ×2 (09:01→20:43)
[2022-01-14] MEDS ORDERED: MAGNESIUM SULFATE / D5W 1 GM/100 ML BAG IV ONE (12:59)
[2022-01-14] MEDS ORDERED: METOPROLOL SUCC 25MG EXT REL TAB PO SCH (13:00)
[2022-01-14] MEDS ORDERED: METOPROLOL TARTRATE 1 MG/ML VIAL IV PRN (13:16)
--- NOTE | 2022-01-14 16:03 | Electrocardiogram Report ---
Test Reason : Blood Pressure : / mmHG Vent. Rate : 089 BPM Atrial Rate : 089 BPM P-R Int : 202 ms QRS Dur : 160 ms QT Int : 404 ms P-R-T Axes : 071 -41 122 degrees QTc Int : 491 ms Sinus rhythm with occasional , and consecutive Premature ventricular complexes Left axis deviation Left bundle branch block Abnormal ECG When compared with ECG of 12-JAN-2022 09:26, Premature ventricular complexes are now Present OK interval has decreased Vent. rate has increased BY 39 BPM Confirmed by Tiago Nguyen ([id number]) on 01/14/2022 4:03:25 PM Referred By: REFERRED SELF Confirmed By:Tiago Nguyen
--- NOTE | 2022-01-14 17:46 | Hospitalist Progress Note ---
Date of Service January 14, 2022 Assessment & Plan (1) Atypical chest pain: Plan: 86 yo M w/ PMH of chronic systolic heart failure (EF 35 to 40%, TTE 2020), CAD status post stent, chronic LBBB, AAA status post surgery, hypertension, hyperlipidemia, CRI (baseline creatinine 3), chronic anemia (baseline hemoglobin 10-11), prediabetes, BPH, past tobacco abuse Presented 01/12 to our ED w/ upper belly discomfort w/o radiation a/w some SOB w/ diaphoresis. Incomplete relief with Fentanyl and nitroglycerin administration by EMS and at the ER. He is being managed for the following: #. Atypical chest pain #. Acute gangrenous cholecystitis Patient presents with upper belly discomfort/pain 01/12 [see above] Troponin trends negative. Admitting EKG with no acute ST or T changes, significant for sinus bradycardia (50 bpm) with first-degree AV block. Admitting echo: EF 35 to 40%, mild to moderate MR. Admitting CXR: No acute findings. Patient seen and examined prior to OT, patient doing well with no complaints. Status post lap crow by Dr. Gann [01/13/2022]. MOving bowel, tolerating diet. Continue with Zosyn 01/12. 10 days of ATB. #. Sinus bradycardia #. Afib Rvr on 01/14, likely post operative event, resolved on its own, card aware. Presenting EKG, see above Continue to monitor over telemetry, discussed with cardiology 01/12. Will resume beta-vasu and continue to monitor. Monitor for need for dose adjustment. Heart rate is improving. #. Other chronic medical conditions: HFrEF, chronic LBBB, AAA status post surgery, HTN, HLD, CKD, chronic anemia, prediabetes, past tobacco abuse Continue with/resume home meds as and when appropriate. Lasix as needed for swelling. DVT prophylaxis. Heparin subcu Full code Patient Ms. Bob Valencia, contact #[phone]. Admission and Anticipated Discharge Date Admission Date: January 12, 2022 Subjective Patient was seen and examined at bedside as a follow-up of atypical chest pain/acute cholecystitis and bradycardia. Patient was lying in bed, on room air, NAD, reports improvement in his belly pain,s/p lap crow 01/13, denies any headache or dizziness or feeling of heart racing. Patient denies any belly pain or acute changes in bowel or bladder habit. Later in the noon, RN paged for AFib RVR, pt had afib w/ rvr upto 140s, started 1245 hrs, converted back to NSR 1327 hrs prior to iv metoprolol dose. Mag replaced. EKG reviewed. Physical Exam Physical Exam: GENERAL: Alert and oriented x3. NAD, on RA. HEENT: No pallor, no icterus. Pupils equal, round and reactive to light. Oral mucosa moist. NECK: No JVD, no neck masses. HEART: S1 and S2 heard. Regular rate and rhythm. No murmur, no gallop. RESPIRATORY SYSTEM: Normal AP diameter. No accessory muscle use. No wheezing, no crackles. ABDOMEN: Soft, bowel sounds present, nontender, no distention. CENTRAL NERVOUS SYSTEM: No facial droop. Speech is clear. Obeys simple commands. Moves extremities. EXTREMITIES: Trace edema, no erythema seen. Results & Data Results & Data ([facility]) Vital Signs (Past 12 Hours) Vital Signs Temp Pulse Resp BP Pulse Ox 01/14/22 15:08 36.9 C 81 19 167/63 H 95 01/14/22 12:13 37.1 C 79 20 136/61 95 01/14/22 08:10 36.7 C 73 21 150/66 H 95
[2022-01-14] MEDS: SIMVASTATIN 80 MG TAB PO SCH (20:43)
[2022-01-15] MEDS: PIPERACILLIN/TAZOBACTAM 3.375 GM in DEXTROSE 5% 100 ML IV SCH (04:11)
[2022-01-15] MEDS: LEVOTHYROXINE SODIUM 25 MCG TABLET PO SCH (05:48)
--- NOTE | 2022-01-15 06:15 | Surgery Progress Note ---
Date of Service January 15, 2022 Assessment & Plan (1) Status post laparoscopic cholecystectomy: Plan: Patient with gangrenous cholecystitis Patient had some oozing from his surgical incisions-he is on baby aspirin and subcu heparin He has bruising of his abdominal wall-we will DC the subcu heparin Monitor his wounds-May need a suture depending on his progress We will DC his Hayes catheter Patient appears to be very weak and may need additional days in the hospital a nd/or extended care to gain strength Prior to going home Can be discharged to [facility] when okay with medicine Continue IV antibiotics and drain Admission and Anticipated Discharge Date Admission Date: January 12, 2022 Results & Data ([facility]) Vital Signs (Past 12 Hours) Vital Signs Temp Pulse Pulse Resp BP BP Pulse Ox 01/15/22 04:29 36.9 C 71 16 134/65 95 01/15/22 01:04 73 01/15/22 00:00 37.0 C 76 16 137/70 94 01/14/22 20:49 37.1 C 71 16 164/67 H 95 PG Care Time/CCT Total # of Minutes Spent Total Time Spent with Patient: Total time spent is greater than 50% in coordination of care (as documented) at patient's floor/unit and/or counseling patient: Coding Level of Care Code None Diagnoses Status post laparoscopic cholecystectomy Z90.49
[2022-01-15 06:56] LABS: Hematocrit (blood only) 28.7 % (42-52); Hemoglobin 9.8 g/dL (14.0-18.0); Mean Corpuscular Hgb Conc 34.1 g/dL (32-36); Mean Corpuscular Volume 87.8 fL (80-100); Mean Platelet Volume 10.5 fL (7.4-10.4); Platelet Count 169 K/uL (130-400); RDW Coefficient of Variation 13.6 % (11.5-14.5); RDW Standard Deviation 44.3 fL (36.4-46.3); Red Blood Count 3.27 M/uL (4.7-6.1); White Blood Count 8.67 K/uL (4.8-10.8)
[2022-01-15 07:19] LABS: BUN Creatinine Ratio 10.3 (10-20); Calcium 8.9 mg/dl (8.5-10.1); Creatinine Clr Calc Pharmacy 14.8 ml/min; Est GFR (African American) 17.7 ml/min; Est GFR (Non-African American) 15.3 ml/min; Magnesium 2.2 mg/dl (1.7-2.4); Potassium 3.7 mmol/L (3.5-5.1)
[2022-01-15] MEDS: METOPROLOL SUCC 25MG EXT REL TAB PO SCH (08:51)
[2022-01-15] MEDS: POLYETHYLENE (MIRALAX) 17 GM PACK PO SCH (08:51)
[2022-01-15] MEDS: PANTOprazole 40 MG TAB PO SCH (08:51)
[2022-01-15] MEDS: ASPIRIN 81 MG ECTAB PO SCH (08:51)
[2022-01-15] MEDS: DOCUSATE SODIUM/SENNA 50/8.6MG TAB PO SCH ×2 (08:51→20:24)
[2022-01-15] MEDS: TAMSULOSIN HCL 0.4 MG CAP PO SCH (08:51)
--- NOTE | 2022-01-15 11:30 | Cardiology Progress Note ---
Date of Service January 15, 2022 Assessment & Plan (1) CKD (chronic kidney disease) stage 4, GFR 15-29 ml/min: (2) Atypical chest pain: (3) Abdominal pain: (4) Constipation: (5) Acute cholecystitis: (6) PAF (paroxysmal atrial fibrillation): Plan: The patient had a brief run of atrial fibrillation yesterday which was asymptomatic. I would continue with beta-vasu. I would not anticoagulate this patient post discharge. Continue aspirin 81 mg daily. Admission and Anticipated Discharge Date Admission Date: January 12, 2022 Subjective The patient is still recovering from his surgery but doing well. Review of Systems Review of Systems: Review of Systems: See HPI for pertinent positives. All other 10 point review of systems are negative. Physical Exam Physical Exam: General: no acute distress and stated age Head: normocephalic, no masses, lesions, tenderness or abnormalities Eyes: conjunctiva are pink and non-injected, sclera clear Neck: supple, no adenopathy, no bruits, normal jugular venous pulse, no hepatojugular reflux Chest: normal shape and normal respiratory effort Lungs: clear to auscultation and percussion Cardiac Exam: - regular rate & rhythm, no murmurs gallops or rubs - normal S1, normal S2 Pulses: 2(+) throughout Abdomen: abdomen soft, non-tender, no abnormal masses and no hepatosplenomegaly Musculoskeletal: no gait disturbance, no joint inflammation, no deforming arthritis Extremities: no edema and no cyanosis Neuro: grossly normal exam Results & Data ([facility]) Vital Signs (Past 12 Hours) Vital Signs Temp Pulse Pulse Resp BP BP Pulse Ox 01/15/22 08:01 36.8 C 63 19 124/65 95 01/15/22 07:26 70 01/15/22 04:29 36.9 C 71 16 134/65 95 01/15/22 01:04 73 01/15/22 00:00 37.0 C 76 16 137/70 94 Laboratory Results Laboratory Results - last 24 hr 01/14/22 01/14/22 01/15/22 13:52 19:58 06:35 WBC 8.67 RBC 3.27 L Hgb 9.8 L Hct 28.7 L MCV 87.8 MCH 30.0 MCHC 34.1 RDW Std Deviation 44.3 RDW Coeff of Collins 13.6 Plt Count 169 MPV 10.5 H Sodium Potassium Chloride Carbon Dioxide Anion Gap BUN Creatinine Est Cr Clr Drug Dosing Est GFR ( Amer) Est GFR (Non-Af Amer) BUN/Creatinine Ratio Glucose Calcium Magnesium Troponin I High Sens 30.3 H D 38.0 H 01/15/22 06:35 WBC RBC Hgb Hct MCV MCH MCHC RDW Std Deviation RDW Coeff of Collins Plt Count MPV Sodium 135 L Potassium 3.7 Chloride 105 Carbon Dioxide 24 Anion Gap 6 BUN 35 H Creatinine 3.41 H Est Cr Clr Drug Dosing 14.8 Est GFR ( Amer) 17.7 Est GFR (Non-Af Amer) 15.3 BUN/Creatinine Ratio 10.3 Glucose 115 H Calcium 8.9 Magnesium 2.2 Troponin I High Sens Medications Administered Current Inpatient Medications Acetaminophen (Acetaminophen 325 Mg Tab) 650 mg PO Q4H PRN PRN Reason: Pain Stop: 02/12/22 14:47 Amoxicillin/Clavulanate Potassium (Amoxicillin/Clavulanate 250 Mg Tab) [facility] [place]: 01/25/22 16:59 Aspirin (Aspirin 81 Mg Ectab) 81 [facility] Stop: 02/11/22 08:59 Last Admin: 01/15/22 08:51 Dose: 81 mg Documented by: Atropine Sulfate (Atropine Sulfate 0.1 Mg/Ml 10ml Syr) 1 mg IV Q3M PRN PRN Reason: symptomatic bradycardia Stop: 02/11/22 06:39 Calcium Carbonate (Calcium Carbonate 500 Mg Chewable Tab) 1,500 mg PO BID PRN PRN Reason: Indigestion Stop: 02/11/22 11:24 Last Admin: 01/12/22 11:47 Dose: 1,500 mg Documented by: Hydromorphone HCl (Hydromorphone Inj 0.5 Mg/0.5 Ml Syr) 0.25 mg IV Q3H PRN PRN Reason: Severe Pain (7, 8, 9, 10) Stop: 01/26/22 06:12 Promethazine HCl 6.25 mg/ (Sodium Chloride) 50.25 mls @ 201 mls/hr IV Q6H PRN PRN Reason: Nausea And Vomiting Stop: 02/11/22 06:12 Promethazine HCl 12.5 mg/ (Sodium Chloride) 50.5 mls @ 204 mls/hr IV Q6H PRN PRN Reason: Nausea And Vomiting Stop: 02/12/22 14:47 Levothyroxine Sodium (Levothyroxine Sodium 25 Mcg Tablet) [facility] Stop: 02/11/22 08:59 Last Admin: 01/15/22 05:48 Dose: 25 mcg Documented by: Metoprolol Succinate (Metoprolol Succ 25mg Ext Rel Tab) [facility] Stop: 02/14/22 08:59 Last Admin: 01/15/22 08:51 Dose: 25 mg Documented by: Metoprolol Tartrate (Metoprolol Tartrate 1 Mg/Ml Vial) 5 mg IV Q5M PRN PRN Reason: HR>100 Stop: 02/13/22 13:15 Morphine Sulfate (Morphine Sulfate 2 Mg/Ml Carp) 2 mg IV Q3HWA PRN PRN Reason: MODERATE Pain (Scale 4,5,6) Stop: 01/27/22 14:47 Ondansetron HCl (Ondansetron Inj 2 Mg/Ml 2 Ml Vial) 4 mg IV Q6H PRN PRN Reason: Nausea And Vomiting Stop: 02/12/22 14:47 Oxycodone HCl (Oxycodone Hcl Ir 5 Mg Tab (Immediate Release)) 5 - 10 mg PO Q4HWA PRN PRN Reason: Pain Stop: 01/27/22 14:47 Pantoprazole Sodium (Pantoprazole 40 Mg Tab) [facility] Stop: 02/11/22 08:59 Last Admin: 01/15/22 08:51 Dose: 40 mg Documented by: Polyethylene Glycol (Polyethylene (Miralax) 17 Gm Pack) 17 gm PO [facility] Stop: 02/11/22 08:59 Last Admin: 01/15/22 08:51 Dose: 17 gm Documented by: Senna/Docusate Sodium (Docusate Sodium/Senna 50/8.6mg Tab) 1 tab PO BID [facility] Stop: 02/13/22 08:59 Last Admin: 01/15/22 08:51 Dose: 1 tab Documented by: Simvastatin (Simvastatin 80 Mg Tab) 80 mg PO PM [facility] Stop: 02/11/22 20:59 Last Admin: 01/14/22 20:43 Dose: 80 mg Documented by: Tamsulosin HCl (Tamsulosin Hcl 0.4 Mg Cap) 0.[facility] Stop: 02/11/22 08:59 Last Admin: 01/15/22 08:51 Dose: 0.4 mg Documented by: Tramadol HCl (Tramadol Hcl 50 Mg Tablet) 25 - 50 mg PO Q4H PRN PRN Reason: Pain Stop: 02/11/22 06:12
--- NOTE | 2022-01-15 17:49 | Hospitalist Progress Note ---
Date of Service January 15, 2022 Assessment & Plan (1) Atypical chest pain: Plan: 86 yo M w/ PMH of chronic systolic heart failure (EF 35 to 40%, TTE 2020), CAD status post stent, chronic LBBB, AAA status post surgery, hypertension, hyperlipidemia, CRI (baseline creatinine 3), chronic anemia (baseline hemoglobin 10-11), prediabetes, BPH, past tobacco abuse Presented 01/12 to our ED w/ upper belly discomfort w/o radiation a/w some SOB w/ diaphoresis. Incomplete relief with Fentanyl and nitroglycerin administration by EMS and at the ER. He is being managed for the following: #. Atypical chest pain #. Acute gangrenous cholecystitis Patient presents with upper belly discomfort/pain 01/12 [see above] Troponin trends negative. Admitting EKG with no acute ST or T changes, significant for sinus bradycardia (50 bpm) with first-degree AV block. Admitting echo: EF 35 to 40%, mild to moderate MR. Admitting CXR: No acute findings. Patient seen and examined prior to OT, patient doing well with no complaints. Status post lap crow by Dr. Gann [01/13/2022]. MOving bowel, tolerating diet. Continue with Zosyn 01/12--> Augmentin 01/15. 10 days of ATB. #. Sinus bradycardia #. Afib Rvr on 01/14, likely post operative event, resolved on its own, card aware. Presenting EKG, see above Continue to monitor over telemetry, discussed with cardiology 01/12. Resumed beta-vasu and continue to monitor. Monitor for need for dose adjustment. Heart rate is improving. d/w cardion 01/15. No Anticoagulation for now. #. Other chronic medical conditions: HFrEF, chronic LBBB, AAA status post surgery, HTN, HLD, CKD, chronic anemia, prediabetes, past tobacco abuse Continue with/resume home meds as and when appropriate. Lasix as needed for swelling. DVT prophylaxis. Heparin subcu Full code PT/OT, CM to assist w/ DC planning. Patient Ms. Bob Valencia, contact #[phone]. Admission and Anticipated Discharge Date Admission Date: January 12, 2022 Subjective Patient was seen and examined at bedside as a follow-up of atypical chest pain/acute cholecystitis and bradycardia. Patient was lying in bed, on room air, NAD, reports improvement in his belly pain,s/p lap crow 01/13, denies any headache or dizziness or feeling of heart racing. Patient denies any belly pain or acute changes in bowel or bladder habit. Physical Exam Physical Exam: GENERAL: Alert and oriented x3. NAD, on RA. HEENT: No pallor, no icterus. Pupils equal, round and reactive to light. Oral mucosa moist. NECK: No JVD, no neck masses. HEART: S1 and S2 heard. Regular rate and rhythm. No murmur, no gallop. RESPIRATORY SYSTEM: Normal AP diameter. No accessory muscle use. No wheezing, no crackles. ABDOMEN: Soft, bowel sounds present, nontender, no distention. CENTRAL NERVOUS SYSTEM: No facial droop. Speech is clear. Obeys simple commands. Moves extremities. EXTREMITIES: Trace edema, no erythema seen. Results & Data Results & Data ([facility]) Vital Signs (Past 12 Hours) Vital Signs Temp Pulse Pulse Resp BP Pulse Ox 01/15/22 16:00 103 H 01/15/22 15:55 36.5 C 64 18 127/75 96 01/15/22 11:28 36.6 C 66 19 119/67 96 01/15/22 08:01 36.8 C 63 19 124/65 95 01/15/22 07:26 70
[2022-01-15] MEDS: AMOXICILLIN/CLAVULANATE 250 MG TAB PO SCH (18:22)
[2022-01-15] MEDS: SIMVASTATIN 80 MG TAB PO SCH (20:25)
[2022-01-16] MEDS: LEVOTHYROXINE SODIUM 25 MCG TABLET PO SCH (05:47)
[2022-01-16 08:05] LABS: Hemoglobin 9.8 g/dL (14.0-18.0); Mean Corpuscular Hemoglobin 29.8 pg (25-34); Mean Corpuscular Hgb Conc 33.8 g/dL (32-36); Mean Corpuscular Volume 88.1 fL (80-100); Mean Platelet Volume 10.4 fL (7.4-10.4); Platelet Count 203 K/uL (130-400); RDW Coefficient of Variation 13.5 % (11.5-14.5); RDW Standard Deviation 43.5 fL (36.4-46.3); Red Blood Count 3.29 M/uL (4.7-6.1); White Blood Count 7.85 K/uL (4.8-10.8)
--- NOTE | 2022-01-16 08:35 | Surgery Progress Note ---
Date of Service January 16, 2022 Assessment & Plan (1) Status post laparoscopic cholecystectomy: Plan: Patient with history of gangrenous cholecystitis Drain is serous He has had urinary retention with some blood I discussed this with urology and we will have a Hayes placed and they will evaluate him Most likely he will go home with a Hayes He actually may need extended care-we will need to evaluate him for ability to go home Continue IV antibiotics for now, regular diet Discharge when medically stable-we will likely remove his drain prior to discharge Admission and Anticipated Discharge Date Admission Date: January 12, 2022 Results & Data ([facility]) Vital Signs (Past 12 Hours) Vital Signs Temp Pulse Pulse Resp BP BP Pulse Ox 01/16/22 08:30 36.9 C 73 18 153/77 H 96 01/16/22 07:00 66 01/16/22 03:00 36.5 C 72 16 147/72 H 96 01/15/22 23:42 36.9 C 70 18 129/75 96 PG Care Time/CCT Total # of Minutes Spent Total Time Spent with Patient: Total time spent is greater than 50% in coordination of care (as documented) at patient's floor/unit and/or counseling patient: Coding Level of Care Code None Diagnoses Status post laparoscopic cholecystectomy Z90.49
[2022-01-16 08:37] LABS: BUN Creatinine Ratio 11.2 (10-20); Calcium 8.9 mg/dl (8.5-10.1); Creatinine Clr Calc Pharmacy 14.5 ml/min; Est GFR (African American) 17.3 ml/min; Est GFR (Non-African American) 14.9 ml/min; Phosphorus 3.2 mg/dl (2.5-4.9); Potassium 4.1 mmol/L (3.5-5.1)
[2022-01-16] MEDS: METOPROLOL SUCC 25MG EXT REL TAB PO SCH (08:38)
[2022-01-16] MEDS: ASPIRIN 81 MG ECTAB PO SCH (08:38)
[2022-01-16] MEDS: POLYETHYLENE (MIRALAX) 17 GM PACK PO SCH (08:38)
[2022-01-16] MEDS: AMOXICILLIN/CLAVULANATE 250 MG TAB PO SCH ×2 (08:38→16:57)
[2022-01-16] MEDS: DOCUSATE SODIUM/SENNA 50/8.6MG TAB PO SCH ×2 (08:38→20:27)
[2022-01-16] MEDS: PANTOprazole 40 MG TAB PO SCH (08:38)
[2022-01-16] MEDS: TAMSULOSIN HCL 0.4 MG CAP PO SCH (08:38)
--- NOTE | 2022-01-16 08:48 | Urology Consultation ---
Date of Consultation January 16, 2022 Assessment & Plan (1) Postoperative urinary retention: 86-year-old male with postoperative urinary retention status post laparoscopic cholecystectomy Recommend placing indwelling Hayes catheter after patient was straight cathed twice. Urology will set up outpatient follow-up for a void trial. Recommend starting Flomax 0.4 mg daily if safe from medical standpoint Discussed with patient that this is common postoperatively and expect that he will be able to pass a void trial but if he does not we can discuss further options Urology to sign off. Please call with questions or concerns History of Present Illness Reason for Consultation: Postoperative urinary retention Attending Physician: Tessie Roy MD History of Present Illness 86-year-old male who was admitted to the hospital on 01/12/2022. CT scan showed evidence of acute cholecystitis. Dr. Gann performed a laparoscopic cholecystectomy on 01/13/2022. Postoperatively, patient required straight catheterization x2. Hayes catheter was placed on 01/16/2022. Urology was consulted for management. I independently reviewed his CT scan which did not show any large prostate. There is no hydronephrosis. Review of labs shows a creatinine of 3.48 today which is roughly around his baseline over recent days and is up from a previous value of 2.2 back in 2019. The patient reports no previous history of any urinary symptoms or urinary retention. Allergies Allergy/AdvReac Type Severity Reaction Status Date / Time No Known Allergies Allergy Verified 07/10/21 12:52 Home Medications Medication Instructions Recorded Confirmed Type aspirin 81 mg tablet,delayed 81 mg PO QAM 02/20/19 01/12/22 History release cholecalciferol (vitamin D3) 25 1,000 unit PO QAM 02/20/19 01/12/22 History mcg (1,000 unit) tablet (Vitamin D3) levothyroxine 25 mcg tablet 25 mcg PO QAM 02/20/19 01/12/22 History nitroglycerin 0.4 mg sublingual 0.4 mg SUBLINGUAL UD PRN 02/20/19 01/12/22 History tablet (Nitrostat) simvastatin 80 mg tablet 80 mg PO PM 02/20/19 01/12/22 History tamsulosin 0.4 mg capsule 0.4 mg PO QAM 02/20/19 01/12/22 History metoprolol succinate 25 mg 25 mg PO QAM 07/26/19 01/12/22 History tablet,extended release 24 hr (Toprol XL) lutein 20 mg tablet 20 mg PO QAM 03/14/21 01/12/22 History omeprazole 20 mg capsule,delayed 20 mg PO QAM 03/14/21 01/12/22 History release polyethylene glycol 3350 17 gram 17 g PO QAM 03/14/21 01/12/22 History oral powder packet (Miralax) furosemide 20 mg tablet 20 mg PO DAILY PRN 01/12/22 01/12/22 History miconazole nitrate 2 % topical 1 applic TOPICAL BID 01/12/22 01/12/22 History powder vitamin K2 100 mcg capsule 100 mcg PO DAILY 01/12/22 01/12/22 History Patient History Medical History (Updated 01/16/22 @ 09:07 by Suraj Cornelius MD) Chronic back pain CKD (chronic kidney disease) stage 4, GFR 15-29 ml/min follows with Dr. Collins Coronary artery disease follows with Dr. Marmolejo GERD (gastroesophageal reflux disease) HLD (hyperlipidemia) Hypertension Hypothyroidism Macular degeneration Myocardial infarction 1987 Osteoarthritis Prediabetes Surgical History (Updated 01/14/22 @ 12:25 by Yasmeen Dale RN) H/O heart artery stent x 1 History of AAA (abdominal aortic aneurysm) repair 2015 History of appendectomy History of cardiac catheterization 1987 - [place] - stent History of colonoscopy Hx laparoscopic cholecystectomy (01/13/22) Laparoscopic cholecystectomy with lysis of adhesions. Dr. Gann 01/13/2022 Family History Other No family history of adverse response to anesthesia No significant family history Social History Smoking Status: Never smoker Second Hand Exposure: No; Hx Alcohol Use: No Hx Substance Use: No Preferred Language: Sami Communication Ability: Effective Utility Tractor Operator Required: No Beliefs That Will Affect Care: None marital status: Current Living Situation: Spouse Feels Safe at Home: Yes Safety Concerns: Feels Safe At This Time Assistive Devices: Cane and Walker Review of Systems Review of Systems: 14 point review of systems negative outside of what is li sted above in HPI Physical Exam Physical Exam: General: Alert and oriented, no acute distress HEENT: Normocephalic, mucous membranes moist Pulmonary: Nonlabored respirations Abdomen: Nondistended. VIVEK drain with minimal serosanguineous output : Circumcised phallus with orthotopic meatus. Extremities: Moves all 4 spontaneously Neuro: No gross deficits Skin: Warm, dry, no rashes noted Results & Data ([facility]) Vital Signs (Past 12 Hours) Vital Signs Temp Pulse Pulse Resp BP BP Pulse Ox 01/16/22 08:30 36.9 C 73 18 153/77 H 96 01/16/22 07:00 66 01/16/22 03:00 36.5 C 72 16 147/72 H 96 01/15/22 23:42 36.9 C 70 18 129/75 96 PG Care Time/CCT Total # of Minutes Spent Total Time Spent with Patient: Total time spent is greater than 50% in coordination of care (as documented) at patient's floor/unit and/or counseling patient: [place] [address] Inpt Consult Level 2 Patient Type New Diagnoses Postoperative urinary retention N99.89; R33.8
--- NOTE | 2022-01-16 16:14 | Hospitalist Progress Note ---
Date of Service January 16, 2022 Assessment & Plan (1) Atypical chest pain: Plan: 86 yo M w/ PMH of chronic systolic heart failure (EF 35 to 40%, TTE 2020), CAD status post stent, chronic LBBB, AAA status post surgery, hypertension, hyperlipidemia, CRI (baseline creatinine 3), chronic anemia (baseline hemoglobin 10-11), prediabetes, BPH, past tobacco abuse Presented 01/12 to our ED w/ upper belly discomfort w/o radiation a/w some SOB w/ diaphoresis. Incomplete relief with Fentanyl and nitroglycerin administration by EMS and at the ER. He is being managed for the following: #. Atypical chest pain #. Acute gangrenous cholecystitis Patient presents with upper belly discomfort/pain 01/12 [see above] Troponin trends negative. Admitting EKG with no acute ST or T changes, significant for sinus bradycardia (50 bpm) with first-degree AV block. Admitting echo: EF 35 to 40%, mild to moderate MR. Admitting CXR: No acute findings. Patient seen and examined prior to OT, patient doing well with no complaints. Status post lap crow by Dr. Gann [01/13/2022]. Moving bowel, tolerating diet. Continue with Zosyn 01/12--> Augmentin 01/15. 10 days of ATB. Clinically much better Appreciate surgery input and recommendation Likely to have drain removed tomorrow and discharge following that We will get PT and OT evaluation #. Sinus bradycardia #. Afib Rvr on 01/14, likely post operative event, resolved on its own, card aware. Presenting EKG, see above Continue to monitor over telemetry, discussed with cardiology 01/12. Resumed beta-vasu and continue to monitor. Monitor for need for dose adjustment. Heart rate is improving. d/w cardion 01/15. No Anticoagulation for now. Remains asymptomatic without any further cardiac events #. Other chronic medical conditions: HFrEF, chronic LBBB, AAA status post surgery, HTN, HLD, CKD, chronic anemia, prediabetes, past tobacco abuse Continue with/resume home meds as and when appropriate. Lasix as needed for swelling. DVT prophylaxis. Heparin subcu Full code PT/OT, CM to assist w/ DC planning. Patient Ms. Bob Valencia, contact #[phone]. Admission and Anticipated Discharge Date Admission Date: January 12, 2022 Subjective 01/16/2022 The patient was seen and examined in telemetry unit He has been feeling much better without any significant symptoms Remains generally weak and lethargic Did not have any more bloody arrhythmias Review of Systems Review of Systems: All systems reviewed and are unremarkable except as noted below Physical Exam Physical Exam: Sitting on a chair without any acute distress Constitutional: well developed, well nourished, + ill appearing and + obese Eyes: PERRL, conjunctivae normal, anicteric sclerae ENMT: external ear and nose normal, oropharynx normal Neck: trachea midline, no thyromegaly Respiratory: no respiratory distress Auscultation: lungs clear to auscultation bilaterally Cardiovascular: Rate/Rhythm: regular rate and regular rhythm; not bradycardic Heart Sounds: normal S1 and normal S2; no murmur Extremities: no edema Gastrointestinal (Abdomen): Inspection/Auscultation: abdomen normal to inspection and normal bowel sounds Percussion/Palpation: abdomen soft; abdomen nontender Musculoskeletal: No acute arthritis in any joint Neurologic: Alert awake and oriented x3 Results & Data Results & Data ([facility]) Vital Signs (Past 12 Hours) Vital Signs Temp Pulse Pulse Resp BP Pulse Ox 01/16/22 15:48 36.5 C 69 18 154/73 H 98 01/16/22 12:00 36.7 C 67 18 122/67 97 01/16/22 08:30 36.9 C 73 18 153/77 H 96 01/16/22 07:00 66 Laboratory Results Short CBC 01/16/22 Range/Units 07:51 WBC 7.85 (4.8-10.8) K/uL Hgb 9.8 L (14.0-18.0) g/dL Hct 29.0 L (42-52) % Plt Count 203 (130-400) K/uL BMP 01/16/22 07:51 Sodium 137 Potassium 4.1 Chloride 105 Carbon Dioxide 26 BUN 39 H Creatinine 3.48 H Glucose 108 H Calcium 8.9 Medications Administered Current Inpatient Medications Acetaminophen (Acetaminophen 325 Mg Tab) 650 mg PO Q4H PRN PRN Reason: Pain Stop: 02/12/22 14:47 Amoxicillin/Clavulanate Potassium (Amoxicillin/Clavulanate 250 Mg Tab) 1 tab PO BIDM ALEXANDER Stop: 01/25/22 16:59 Last Admin: 01/16/22 08:38 Dose: 1 tab Documented by: Aspirin (Aspirin 81 Mg Ectab) 81 mg PO [facility] Stop: 02/11/22 08:59 Last Admin: 01/16/22 08:38 Dose: 81 mg Documented by: Atropine Sulfate (Atropine Sulfate 0.1 Mg/Ml 10ml Syr) 1 mg IV Q3M PRN PRN Reason: symptomatic bradycardia Stop: 02/11/22 06:39 Calcium Carbonate (Calcium Carbonate 500 Mg Chewable Tab) 1,500 mg PO BID PRN PRN Reason: Indigestion Stop: 02/11/22 11:24 Last Admin: 01/12/22 11:47 Dose: 1,500 mg Documented by: Hydromorphone HCl (Hydromorphone Inj 0.5 Mg/0.5 Ml Syr) 0.25 mg IV Q3H PRN PRN Reason: Severe Pain (7, 8, 9, 10) Stop: 01/26/22 06:12 Promethazine HCl 6.25 mg/ (Sodium Chloride) 50.25 mls @ 201 mls/hr IV Q6H PRN PRN Reason: Nausea And Vomiting Stop: 02/11/22 06:12 Promethazine HCl 12.5 mg/ (Sodium Chloride) 50.5 mls @ 204 mls/hr IV Q6H PRN PRN Reason: Nausea And Vomiting Stop: 02/12/22 14:47 Levothyroxine Sodium (Levothyroxine Sodium 25 Mcg Tablet) 25 mcg PO [facility] Stop: 02/11/22 08:59 Last Admin: 01/16/22 05:47 Dose: 25 mcg Documented by: Metoprolol Succinate (Metoprolol Succ 25mg Ext Rel Tab) 25 mg PO [facility] Stop: 02/14/22 08:59 Last Admin: 01/16/22 08:38 Dose: 25 mg Documented by: Metoprolol Tartrate (Metoprolol Tartrate 1 Mg/Ml Vial) 5 mg IV Q5M PRN PRN Reason: HR>100 Stop: 02/13/22 13:15 Morphine Sulfate (Morphine Sulfate 2 Mg/Ml Carp) 2 mg IV Q3HWA PRN PRN Reason: MODERATE Pain (Scale 4,5,6) Stop: 01/27/22 14:47 Ondansetron HCl (Ondansetron Inj 2 Mg/Ml 2 Ml Vial) 4 mg IV Q6H PRN PRN Reason: Nausea And Vomiting Stop: 02/12/22 14:47 Oxycodone HCl (Oxycodone Hcl Ir 5 Mg Tab (Immediate Release)) 5 - 10 mg PO Q4HWA PRN PRN Reason: Pain Stop: 01/27/22 14:47 Pantoprazole Sodium (Pantoprazole 40 Mg Tab) 40 mg PO QAM [facility] Stop: 02/11/22 08:59 Last Admin: 01/16/22 08:38 Dose: 40 mg Documented by: Polyethylene Glycol (Polyethylene (Miralax) 17 Gm Pack) 17 gm PO QAM [facility] Stop: 02/11/22 08:59 Last Admin: 01/16/22 08:38 Dose: Not Given Documented by: Senna/Docusate Sodium (Docusate Sodium/Senna 50/8.6mg Tab) 1 tab PO BID [facility] Stop: 02/13/22 08:59 Last Admin: 01/16/22 08:38 Dose: Not Given Documented by: Simvastatin (Simvastatin 80 Mg Tab) 80 mg PO PM [facility] Stop: 02/11/22 20:59 Last Admin: 01/15/22 20:25 Dose: 80 mg Documented by: Tamsulosin HCl (Tamsulosin Hcl 0.4 Mg Cap) 0.4 mg PO QAM [facility] Stop: 02/11/22 08:59 Last Admin: 01/16/22 08:38 Dose: 0.4 mg Documented by: Tramadol HCl (Tramadol Hcl 50 Mg Tablet) 25 - 50 mg PO Q4H PRN PRN Reason: Pain Stop: 02/11/22 06:12
[2022-01-16] MEDS: SIMVASTATIN 80 MG TAB PO SCH (20:27)
[2022-01-17] MEDS: LEVOTHYROXINE SODIUM 25 MCG TABLET PO SCH (05:36)
[2022-01-17 06:44] LABS: Basophils # (auto) 0.01 K/uL (0-0.2); Basophils % (auto) 0.1 %; Eosinophils # (auto) 0.11 K/uL (0-0.5); Eosinophils % (auto) 1.5 %; Hematocrit (blood only) 28.4 % (42-52); Hemoglobin 9.5 g/dL (14.0-18.0); Immature Granulocytes # (auto) 0.04 K/uL (0.00-0.02); Immature Granulocytes % (auto) 0.6 %; Lymphocytes # (auto) 0.79 K/uL (1.2-3.4); Lymphocytes % (auto) 11.1 %; Mean Corpuscular Hemoglobin 29.1 pg (25-34); Mean Corpuscular Hgb Conc 33.5 g/dL (32-36); Mean Corpuscular Volume 87.1 fL (80-100); Mean Platelet Volume 10.3 fL (7.4-10.4); Monocytes # (auto) 0.81 K/uL (0.11-0.59); Monocytes % (auto) 11.4 %; Neutrophils # (auto) 5.36 K/uL (1.4-6.5); Neutrophils % (auto) 75.3 %; Platelet Count 223 K/uL (130-400); RDW Coefficient of Variation 13.6 % (11.5-14.5); RDW Standard Deviation 43.7 fL (36.4-46.3); Red Blood Count 3.26 M/uL (4.7-6.1); White Blood Count 7.12 K/uL (4.8-10.8)
--- NOTE | 2022-01-17 06:52 | Surgery Progress Note ---
Date of Service January 17, 2022 Assessment & Plan (1) Status post laparoscopic cholecystectomy: Plan: Patient with history of gangrenous cholecystitis Drainage is serous-we will have drain removed today Patient with Hayes catheter to follow-up with urology Discharge when stable from medical standpoint Instructions in chart Admission and Anticipated Discharge Date Admission Date: January 12, 2022 Results & Data ([facility]) Vital Signs (Past 12 Hours) Vital Signs Temp Pulse Pulse Resp BP Pulse Ox 01/17/22 04:00 36.9 C 75 18 133/74 96 01/16/22 23:42 75 01/16/22 22:41 36.9 C 75 17 144/67 H 96 01/16/22 19:24 37.1 C 74 18 153/74 H 97 PG Care Time/CCT Total # of Minutes Spent Total Time Spent with Patient: Total time spent is greater than 50% in coordination of care (as documented) at patient's floor/unit and/or counseling patient: Coding Level of Care Code None Diagnoses Status post laparoscopic cholecystectomy Z90.49
[2022-01-17 07:02] LABS: BUN Creatinine Ratio 13.7 (10-20); Calcium 8.6 mg/dl (8.5-10.1); Creatinine Clr Calc Pharmacy 15.6 ml/min; Est GFR (Non-African American) 16.4 ml/min; Phosphorus 3.3 mg/dl (2.5-4.9); Potassium 3.8 mmol/L (3.5-5.1)
[2022-01-17] MEDS: METOPROLOL SUCC 25MG EXT REL TAB PO SCH (07:30)
[2022-01-17] MEDS: AMOXICILLIN/CLAVULANATE 250 MG TAB PO SCH (07:30)
[2022-01-17] MEDS: PANTOprazole 40 MG TAB PO SCH (07:30)
[2022-01-17] MEDS: POLYETHYLENE (MIRALAX) 17 GM PACK PO SCH (07:30)
[2022-01-17] MEDS: TAMSULOSIN HCL 0.4 MG CAP PO SCH (07:31)
[2022-01-17] MEDS: ASPIRIN 81 MG ECTAB PO SCH (07:31)
[2022-01-17] MEDS: DOCUSATE SODIUM/SENNA 50/8.6MG TAB PO SCH (07:31)
--- NOTE | 2022-01-17 13:08 | Hospitalist Progress Note ---
Date of Service January 17, 2022 Assessment & Plan (1) Atypical chest pain: Plan: 86 yo M w/ PMH of chronic systolic heart failure (EF 35 to 40%, TTE 2020), CAD status post stent, chronic LBBB, AAA status post surgery, hypertension, hyperlipidemia, CRI (baseline creatinine 3), chronic anemia (baseline hemoglobin 10-11), prediabetes, BPH, past tobacco abuse Presented 01/12 to our ED w/ upper belly discomfort w/o radiation a/w some SOB w/ diaphoresis. Incomplete relief with Fentanyl and nitroglycerin administration by EMS and at the ER. He is being managed for the following: #. Atypical chest pain #. Acute gangrenous cholecystitis Patient presents with upper belly discomfort/pain 01/12 [see above] Troponin trends negative. Admitting EKG with no acute ST or T changes, significant for sinus bradycardia (50 bpm) with first-degree AV block. Admitting echo: EF 35 to 40%, mild to moderate MR. Admitting CXR: No acute findings. Patient seen and examined prior to OT, patient doing well with no complaints. Status post lap crow by Dr. Gann [01/13/2022]. Moving bowel, tolerating diet. Continue with Zosyn 01/12--> Augmentin 01/15. 10 days of ATB. Clinically much better Appreciate surgery input and recommendation Likely to have drain removed tomorrow and discharge following that We will get PT and OT evaluation-recommended home He remains stable and denies any significant symptoms Will be discharged home this afternoon as per surgery #. Sinus bradycardia #. Afib Rvr on 01/14, likely post operative event, resolved on its own, card aware. Presenting EKG, see above Continue to monitor over telemetry, discussed with cardiology 01/12. Resumed beta-vasu and continue to monitor. Monitor for need for dose adjustment. Heart rate is improving. d/w cardion 01/15. No Anticoagulation for now. Remains asymptomatic without any further cardiac events #. Other chronic medical conditions: HFrEF, chronic LBBB, AAA status post surgery, HTN, HLD, CKD, chronic anemia, prediabetes, past tobacco abuse Continue with/resume home meds as and when appropriate. Lasix as needed for swelling. DVT prophylaxis. Heparin subcu Full code PT/OT, CM to assist w/ DC planning. Patient Ms. Bob Valencia, contact #[phone]. Admission and Anticipated Discharge Date Admission Date: January 12, 2022 Subjective 01/16/2022 The patient was seen and examined in telemetry unit He has been feeling much better without any significant symptoms Remains generally weak and lethargic Did not have any more bloody arrhythmias 01/17/2022 The patient was seen and examined in medical telemetry unit He has been feeling much better and the surgery drain is out He will be discharged home this afternoon Review of Systems Review of Systems: All systems reviewed and are unremarkable except as noted below Physical Exam Physical Exam: Sitting on a chair without any acute distress Constitutional: well developed, well nourished, + ill appearing and + obese Eyes: PERRL, conjunctivae normal, anicteric sclerae ENMT: external ear and nose normal, oropharynx normal Neck: trachea midline, no thyromegaly Respiratory: no respiratory distress Auscultation: lungs clear to auscultation bilaterally Cardiovascular: Rate/Rhythm: regular rate and regular rhythm; not bradycardic Heart Sounds: normal S1 and normal S2; no murmur Extremities: no edema Gastrointestinal (Abdomen): Inspection/Auscultation: abdomen normal to inspection and normal bowel sounds Percussion/Palpation: abdomen soft; abdomen nontender Musculoskeletal: No acute arthritis in any joint Neurologic: Alert, awake and oriented x3 Results & Data Results & Data ([facility]) Vital Signs (Past 12 Hours) Vital Signs Temp Pulse Resp BP BP Pulse Ox 01/17/22 10:54 36.6 C 79 145/72 H 95 01/17/22 08:13 36.7 C 71 18 127/65 93 01/17/22 04:00 36.9 C 75 18 133/74 96
--- NOTE | 2022-01-17 17:33 | Discharge Summary ---
Date of Service January 17, 2022 Admission HPI Per Admitting Provider History obtained from patient, family, and records. Medical history significant for chronic systolic heart failure (EF 35 to 40%, TTE 2020), CAD status post stent, chronic LBBB, AAA status post surgery, hypertension, hyperlipidemia, CRI (baseline creatinine 3), chronic anemia (baseline hemoglobin 10-11), prediabetes, BPH, past tobacco abuse. Last confinement January 2019 for noncardiac chest pain. Patient woke up from sleep around 2 AM with substernal heaviness without radiation. Some shortness of breath with diaphoresis. No cough symptoms. Chest pain not pleuritic. Different from heart attack before which was more of back pain as per patient. Legs more swollen than usual 2 days ago. No relief with nitroglycerin intake at home. No recent tick bites. Incomplete relief with Fentanyl and nitroglycerin administration by EMS and at the ER. 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 Admission Exam Per Admitting Provider Physical Exam: GENERAL: Slightly uncomfortable, no respiratory distress SKIN: Pallor, warm HEENT: Alopecia, pale palpebral conjunctivae, no ptosis, dry buccal mucosa NECK : Supple, no tenderness CHEST : CTA, no tenderness HEART : Bradycardic, no obvious murmurs ABDOMEN: Some distention, nontender EXTREMITIES : Minimal LE swelling, no LE tenderness, no other conspicuous deformities noted NEUROLOGIC : Coherent, no facial asymmetry, no other gross focality Principal Diagnosis Acute necrotizing cholecystitis Discharge Exam Sitting on a chair without any acute distress Constitutional well developed, well nourished, + ill appearing and + obese Eyes PERRL, conjunctivae normal, anicteric sclerae ENMT external ear and nose normal, oropharynx normal Neck trachea midline, no thyromegaly Respiratory no respiratory distress Auscultation: lungs clear to auscultation bilaterally Cardiovascular Rate/Rhythm: regular rate and regular rhythm; not bradycardic Heart Sounds: normal S1 and normal S2; no murmur Extremities: no edema Gastrointestinal (Abdomen) Inspection/Auscultation: abdomen normal to inspection and normal bowel sounds Percussion/Palpation: abdomen soft; abdomen nontender Discharge Data Allergies Allergy/AdvReac Type Severity Reaction Status Date / Time No Known Allergies Allergy Verified 07/10/21 12:52 Consultations 01/12/22 05:09 ED Decision to Admit Stat 01/12/22 08:19 Consult Cardiology Routine 01/12/22 18:02 Consult General Surgery Routine 01/16/22 08:20 Consult Urology Routine Procedures Performed Operation Date: 01/13/22 10:00 Actual Procedures p Laparoscopic Cholecystectomy(Not Applicable) - Rafi Gann MD, FACS Ordered Studies 01/12/22 05:58 US venous doppler LE BI Urgent 01/12/22 16:37 CT abd pelvis wo con Routine Hospital Course (1) Atypical chest pain: 86 yo M w/ PMH of chronic systolic heart failure (EF 35 to 40%, TTE 2020), CAD status post stent, chronic LBBB, AAA status post surgery, hypertension, hyperlipidemia, CRI (baseline creatinine 3), chronic anemia (baseline hemoglobin 10-11), prediabetes, BPH, past tobacco abuse Presented 01/12 to our ED w/ upper belly discomfort w/o radiation a/w some SOB w/ diaphoresis. Incomplete relief with Fentanyl and nitroglycerin administration by EMS and at the ER. He is being managed for the following: #. Atypical chest pain #. Acute gangrenous cholecystitis Patient presents with upper belly discomfort/pain 01/12 [see above] Troponin trends negative. Admitting EKG with no acute ST or T changes, significant for sinus bradycardia (50 bpm) with first-degree AV block. Admitting echo: EF 35 to 40%, mild to moderate MR. Admitting CXR: No acute findings. Patient seen and examined prior to OT, patient doing well with no complaints. Status post lap crow by Dr. Gann [01/13/2022]. Moving bowel, tolerating diet. Continue with Zosyn 01/12--> Augmentin 01/15. 10 days of ATB. Clinically much better Appreciate surgery input and recommendation Likely to have drain removed tomorrow and discharge following that We will get PT and OT evaluation-recommended home He remains stable and denies any significant symptoms Will be discharged home this afternoon as per surgery #. Sinus bradycardia #. Afib Rvr on 01/14, likely post operative event, resolved on its own, card aware. Presenting EKG, see above Continue to monitor over telemetry, discussed with cardiology 01/12. Resumed beta-vasu and continue to monitor. Monitor for need for dose adjustment. Heart rate is improving. d/w cardion 01/15. No Anticoagulation for now. Remains asymptomatic without any further cardiac events #. Other chronic medical conditions: HFrEF, chronic LBBB, AAA status post surgery, HTN, HLD, CKD, chronic anemia, prediabetes, past tobacco abuse Continue with/resume home meds as and when appropriate. Lasix as needed for swelling. DVT prophylaxis. Heparin subcu Full code PT/OT, CM to assist w/ DC planning. Patient Ms. Bob Valencia, contact #[phone]. Total Time Total Time Spent Total Time Spent (In Minutes): 35 minutes Discharge Plan Discharge Items Patient Disposition: Home - Home Health Services Reason For Visit: CP, BRADYCARDIA Discharge Diagnosis: Acute necrotizing cholecystitis Condition on Discharge: Fair Activity: As commented below Activity Comment: Light activity for 3 weeks Lifting: No more than 10 pounds Bathing Comment: May shower Exercise Comment: Weight 3 weeks Driving/Machine Use: 1 week Non-emergency contact: Primary Care Provider and Surgeon Call non-emergency contact if: your pain is not controlled, your temperature is above 101 and your wound has increased drainage Follow-up/Referrals: Rafi Gann MD, FACS [Physician] - Mika Ortiz DO [Primary Care Provider] - (Date & Time 01/22/2022 11:20 AM Provider Mika Ortiz DO Department Family Practice [facility] ) Suraj Cornelius MD [Physician] - ([facility] Urology Office will call you with an appt. [phone]) Diet: Regular Addtl Attending Provider Instructions: Please take precautions to avoid fall Please keep appointments with your healthcare providers; Your urologist office will call you with an appointment with an appointment as an outpatient SPECIAL CARE INSTRUCTIONS: * Cover incisions and change daily for comfort/drainage. * * Avoid constipation- * May Use Senokot S and Milk of Magnesium twice daily as directed on the package * May use ibuprofen for pain as tolerated. * Expect some swelling and bruising. Call your doctor if: * Temperature above 101 degrees * Pain not relieved by pain medicine ordered * There is increased drainage or redness from any incision * You have any unanswered questions or concerns [phone]. FOLLOW UP VISIT: If not already scheduled, please call the office for a follow-up visit. For next week-some suture removal OFFICE PHONE NUMBER: Dr. Gann Office Pending Studies at Discharge: No Stand-Alone Forms: My [facility] Worklight, Smoking Cessation Medications and DC Order Prescriptions: New amoxicillin-pot clavulanate 875-125 mg tablet 1 tab PO BID Qty: 10 RF: 0 hydrocodone-acetaminophen 5-325 mg tablet 1 tab PO Q4H PRN (Reason: pain) Qty: 20 RF: 0 Continued aspirin 81 mg tablet,delayed release (DR/EC) 81 mg PO QAM RF: 0 levothyroxine 25 mcg tablet 25 mcg PO QAM RF: 0 cholecalciferol (vitamin D3) [Vitamin D3] 1,000 unit Tablet 1,000 unit PO QAM RF: 0 simvastatin 80 mg Tablet 80 mg PO PM RF: 0 tamsulosin 0.4 mg Capsule 0.4 mg PO QAM RF: 0 nitroglycerin [Nitrostat] 0.4 mg Tablet, Sublingual 0.4 mg sublingual UD PRN (Reason: Chest Pain) RF: 0 metoprolol succinate [Toprol XL] 25 mg Tablet Extended Release 24 Hr 25 mg PO QAM RF: 0 polyethylene glycol 3350 [Miralax] 17 gram Powder In Packet 17 g PO QAM RF: 0 omeprazole 20 mg Capsule,Delayed Release(Dr/Ec) 20 mg PO QAM RF: 0 lutein 20 mg Tablet 20 mg PO QAM RF: 0 miconazole nitrate 2 % Powder 1 applic TOPICAL BID RF: 0 furosemide 20 mg tablet 20 mg PO DAILY PRN (Reason: swelling) RF: 0 vitamin K2 100 mcg Capsule 100 mcg PO DAILY RF: 0 Discharge Orders: Discharge Order (Routine); Ordered 01/17/22 Ordered By: Tessie Price/Other Patient Handouts: A1C Admission Data Admit Date/Time: 01/12/22 18:35 Attending Provider: Tessie Roy Admit Provider: Bonifacio Jones Primary Care Provider: Mika Ortiz Other Providers: Iqra Zamorano ; Bonifacio Jones ; Attila Santos ; Reagan Marmolejo ; Lazaro Taylor ; Crescencio Snyder ; Adonis Rouse ; Greg Ames ; Vanessa Jauregui ; Ashleigh Rodrigues ; Rina Bradford ; James Urbina ; Rafi Gann ; Suraj Cornelius. Other Interventions: Discharge Summary Assessment (RN) Last Done: 01/17/22 13:48
== END 2022-01-17 14:40 | disposition home or self-care (01) | DRG 418 ==
LOC: 2S 03:41 → ED 03:41 → SUATTDRO 06:11 → 2S 07:58 → SUATTDRO 18:35 → 2N 01-16 23:42
DX: R73.03 Prediabetes; Z87.891 Personal history of nicotine dependence; K59.00 Constipation, unspecified; K21.9 Gastro-esophageal reflux disease without esophagitis; K81.0 Acute cholecystitis; N18.4 Chronic kidney disease, stage 4 (severe); I50.22 Chronic systolic (congestive) heart failure; Z95.5 Presence of coronary angioplasty implant and graft; E78.5 Hyperlipidemia, unspecified; I44.0 Atrioventricular block, first degree; I48.91 Unspecified atrial fibrillation; R00.1 Bradycardia, unspecified; R33.8 Other retention of urine; I44.7 Left bundle-branch block, unspecified; I25.2 Old myocardial infarction; I13.0 Hypertensive heart and chronic kidney disease with heart failure and stage 1 through stage 4 chronic kidney disease, or unspecified chronic kidney disease; E03.9 Hypothyroidism, unspecified

== ENCOUNTER 2022-02-01 12:08 | Inpatient (IN) ==
--- NOTE | 2022-02-01 12:40 | Emergency Department Note ---
History of Present Illness General Chief complaint: Leg Injury/Pain Stated complaint: CANNOT WALK, FATIGUE, REF BY Time Seen by Provider: 02/01/22 12:20 Source: patient Mode of arrival: ambulatory Limitations: no limitations History of Present Illness Provider complaint: fatigue, nausea, weakness Onset (ago): day(s) 1 Associated symptoms: + loss of appetite, + malaise and + weakness; no chest pain, no cough, no fever/chills, no headaches or no shortness of breath Treatments prior to arrival: none This is an 86-year-old male presents emergency department complaining of increased fatigue, weakness, decreased appetite/nausea, and heaviness to his legs preventing him from walking that began yesterday and was worse today. 2 weeks ago patient underwent laparoscopic cholecystectomy by Dr. Gann for a gangrenous gallbladder. He states he was admitted for several days and then discharged with antibiotics. He did still have an indwelling Hayes catheter and abdominal drainage tube at that time. He states on Friday his Hayes catheter w as removed by urology and he has been urinating well since. He denies dysuria, frequency, or hematuria. He states he did have a large bowel movement this morning after being constipated for several days. He denies any overt abdominal pain, stating only that he has had intermittent twinges on the right but they are short-lived and resolve spontaneously. He denies overt paresthesias to the lower extremities describing that they are heavy which makes ambulation more difficult. Patient denies fevers, chills, chest pain, cough, shortness of breath. States he did complete the full course of postop antibiotics that were prescribed. Pt seen during a time of high acuity and national emergency pandemic while wearing PPE. Home Medications Medication Instructions Recorded Confirmed Type aspirin 81 mg tablet,delayed 81 mg PO QAM 02/20/19 02/01/22 History release cholecalciferol (vitamin D3) 25 1,000 unit PO QAM 02/20/19 02/01/22 History mcg (1,000 unit) tablet (Vitamin D3) levothyroxine 25 mcg tablet 25 mcg PO QAM 02/20/19 02/01/22 History nitroglycerin 0.4 mg sublingual 0.4 mg SUBLINGUAL UD PRN 02/20/19 02/01/22 History tablet (Nitrostat) simvastatin 80 mg tablet 80 mg PO PM 02/20/19 02/01/22 History tamsulosin 0.4 mg capsule 0.4 mg PO QAM 02/20/19 02/01/22 History metoprolol succinate 25 mg 25 mg PO QAM 07/26/19 02/01/22 History tablet,extended release 24 hr (Toprol XL) lutein 20 mg tablet 20 mg PO QAM 03/14/21 02/01/22 History omeprazole 20 mg capsule,delayed 20 mg PO QAM 03/14/21 02/01/22 History release polyethylene glycol 3350 17 gram 17 g PO QAM 03/14/21 02/01/22 History oral powder packet (Miralax) miconazole nitrate 2 % topical 1 applic TOPICAL BID 01/12/22 02/01/22 History powder vitamin K2 100 mcg capsule 100 mcg PO DAILY 01/12/22 02/01/22 History Allergies Allergy/AdvReac Type Severity Reaction Status Date / Time No Known Allergies Allergy Verified 02/01/22 13:24 Past Med/Surg History Medical History Chronic back pain CKD (chronic kidney disease) stage 4, GFR 15-29 ml/min follows with Dr. Collins Coronary artery disease follows with Dr. Marmolejo GERD (gastroesophageal reflux disease) HLD (hyperlipidemia) Hypertension Hypothyroidism Macular degeneration Myocardial infarction 1987 Osteoarthritis Prediabetes Surgical History H/O heart artery stent x 1 History of AAA (abdominal aortic aneurysm) repair 2016 History of appendectomy History of cardiac catheterization 1987 - [facility] - [facility] History of colonoscopy Hx laparoscopic cholecystectomy (01/13/22) Laparoscopic cholecystectomy with lysis of adhesions. Dr. Gann 01/13/2022 Family History Other No family history of adverse response to anesthesia No significant family history Social History Smoking Status: Never smoker Second Hand Exposure: No; Hx Alcohol Use: No Hx Substance Use: No Preferred Language: Spanish Communication Ability: Effective Visual Impairment: Limited Hearing Ability: Normal Senior Vice President & General Counsel Required: No Beliefs That Will Affect Care: None marital status: Current Living Situation: Spouse Other Information That Helps Us Care for You: No Feels Safe at Home: Yes Safety Concerns: Feels Safe At This Time Assistive Devices: Cane and Walker Review of Systems A total of 10 systems reviewed and were otherwise negative All systems reviewed & are unremarkable except as noted in HPI & below Physical Exam Vital Signs Vital Signs - 24 hr 02/01/22 12:12 02/01/22 12:59 02/01/22 14:09 Temperature 36.6 C Temperature Source Temporal Artery Scan Pulse Rate 86 Pulse Rate [Apical] 79 87 Pulse Rhythm [Apical] Regular Regular Pulse Strength [Apical] Normal Normal Respiratory Rate 20 15 16 Respiratory Effort / Characteristics Non-Labored Spontaneous Non-Labored Spontaneous Non-Labored Spontaneous Respiratory Depth Normal Normal Normal Respiratory Pattern Regular Regular Regular Blood Pressure 143/82 H Blood Pressure [Right Arm] 127/85 148/87 H Blood Pressure Mean 102 Blood Pressure Mean [Right Arm] 99 107 Blood Pressure Position [Right Arm] Lying Pulse Oximetry 97 95 98 Oxygen Delivery Method Room Air Room Air Room Air Sepsis Recent Fever Within 48 Hours No Sepsis New/Unexplained Change in Mental Status No Sepsis Action Taken by Nursing No Action Required 02/01/22 16:00 02/01/22 18:00 Temperature Temperature Source Pulse Rate Pulse Rate [Apical] 69 77 Pulse Rhythm [Apical] Regular Pulse Strength [Apical] Normal Respiratory Rate 18 22 Respiratory Effort / Characteristics Non-Labored Spontaneous Respiratory Depth Normal Respiratory Pattern Regular Blood Pressure Blood Pressure [Right Arm] 135/73 136/65 Blood Pressure Mean Blood Pressure Mean [Right Arm] 93 88 Blood Pressure Position [Right Arm] Lying Sitting Pulse Oximetry 99 98 Oxygen Delivery Method Room Air Room Air Sepsis Recent Fever Within 48 Hours Sepsis New/Unexplained Change in Mental Status Sepsis Action Taken by Nursing GENERAL: alert, well appearing, well nourished, no distress, non-toxic EYE EXAM: normal conjunctiva, PERRL and EOM's grossly intact OROPHARYNX: no exudate, no erythema, lips, buccal mucosa, and tongue normal and mucous membranes are moist NECK: supple, no nuchal rigidity, no adenopathy, non-tender LUNGS: Clear to auscultation. Normal chest wall mechanics, no w/r/r HEART: no murmurs, S1 normal and S2 normal ABDOMEN: abdomen soft, non-tender, normo-active bowel sounds, no masses, no rebound or guarding. Areas of resolving ecchymosis noted centrally. Several healing incisions are well-appearing, no dehiscence or drainage, no bleeding, no surrounding erythema BACK: Back is symmetrical on inspection and there is no deformity, no midline tenderness, no CVA tenderness. SKIN: no rashes and no bruising UPPER EXTREMITIES: upper extremities are grossly normal. FROM, nml pulses b/l. LOWER EXTREMITIES: No pitting edema. FROM, nml pulses b/l. NEURO EXAM: Normal sensorium, cranial nerves II-XII grossly intact, normal speech, no gross weakness of arms, no gross weakness of legs. Gross sensation intact. Course Course 1602: Updated on results. 1732: Updated again. Discussed condition and ambulatory trial. Administered Medications Aspirin (Aspirin 81 Mg Ectab) 81 mg PO [facility] Stop: 03/04/22 08:59 Last Admin: 02/02/22 09:01 Dose: 81 mg Documented by: [id number] Ceftriaxone Sodium 2,000 mg/ (Dextrose) 70 mls @ 100 mls/hr IV Q24H [facility]; Protocol Stop: 02/12/22 15:59 Last Infusion: 02/02/22 16:50 Dose: 0 mls/hr Documented by: [id number] Admin: 02/02/22 16:05 Dose: 100 mls/hr Documented by: [id number] Levothyroxine Sodium (Levothyroxine Sodium 25 Mcg Tablet) [facility]: 03/04/22 06:29 Last Admin: 02/02/22 06:19 Dose: 25 mcg Documented by: [id number] Metoprolol Succinate (Metoprolol Succ 25mg Ext Rel Tab) 25 mg PO [facility] Stop: 03/04/22 08:59 Last Admin: 02/02/22 09:01 Dose: 25 mg Documented by: [id number] Pantoprazole Sodium (Pantoprazole 40 Mg Tab) 40 mg PO [facility]; Protocol Stop: 03/04/22 08:59 Last Admin: 02/02/22 09:01 Dose: 40 mg Documented by: [id number] Simvastatin (Simvastatin 80 Mg Tab) 80 mg PO PM [facility] Stop: 03/03/22 22:01 Last Admin: 02/02/22 19:55 Dose: 80 mg Documented by: [id number] Admin: 02/01/22 22:53 Dose: 80 mg Documented by: [id number] Tamsulosin HCl (Tamsulosin Hcl 0.4 Mg Cap) [facility] [place] Stop: 03/04/22 08:59 Last Admin: 02/02/22 09:01 Dose: 0.4 mg Documented by: [id number] Vitamin D (Cholecalciferol 1,000 Units 25 Mcg Tab) 1,[facility] [place] Stop: 03/04/22 08:59 Last Admin: 02/02/22 09:01 Dose: 1,000 units Documented by: [id number] Discontinued Medications Sodium Chloride (Nss 1000ml) 1,000 mls @ 125 mls/hr IV .Q8H [facility] Stop: 03/03/22 12:44 Last Infusion: 02/02/22 09:05 Dose: 0 mls/hr Documented by: [id number] Admin: 02/02/22 04:28 Dose: 125 mls/hr Documented by: [id number] Infusion: 02/02/22 04:28 Dose: 125 mls/hr Documented by: [id number] Admin: 02/01/22 21:00 Dose: 125 mls/hr Documented by: [id number] Infusion: 02/01/22 20:58 Dose: 125 mls/hr Documented by: [id number] Admin: 02/01/22 12:58 Dose: 125 mls/hr Documented by: [id number] Ceftriaxone Sodium (Rocephin) 2,000 mg in 70 mls @ 140 mls/hr IV NOW STA Stop: 02/01/22 16:35 Last Infusion: 02/01/22 17:01 Dose: 0 mls/hr Documented by: [id number] Admin: 02/01/22 16:27 Dose: 140 mls/hr Documented by: [id number] Potassium Chloride (Potassium Chloride Crtab 20 Meq Tabcr) 40 meq PO NOW STA Stop: 02/01/22 22:14 Last Admin: 02/01/22 22:52 Dose: 40 meq Documented by: [id number] Potassium Chloride (Potassium Chloride Crtab 20 Meq Tabcr) 20 meq PO ONE ONE Stop: 02/02/22 08:09 Last Admin: 02/02/22 09:01 Dose: 20 meq Documented by: [id number] Medical Decision Making Differential Diagnosis Differential Diagnosis includes but is not limited to dehydration, stroke, anemia, hypoglycemia, hyponatremia, hypernatremia, urinary tract infection, pneumonia, bronchitis, sepsis, gastroenteritis, additional abdominal pathology, metabolic abnormalities and infections. Medical Records Attestation: I reviewed the patient's medical records. Home Medications Current Medication List: was personally reviewed by me Laboratory Data Attestation: I reviewed the patient's lab results. Result diagrams: 02/02/22 01:33 02/02/22 01:33 Lab Results 02/01/22 02/01/22 02/01/22 Range/Units 12:50 12:50 12:50 WBC 11.23 H (4.8-10.8) K/uL RBC 3.27 L (4.7-6.1) M/uL Hgb 9.6 L (14.0-18.0) g/dL Hct 28.6 L (42-52) % MCV 87.5 (80-100) fL MCH 29.4 (25-34) pg MCHC 33.6 (32-36) g/dL RDW Std Deviation 43.8 (36.4-46.3) fL RDW Coeff of Collins 13.5 (11.5-14.5) % Plt Count 242 (130-400) K/uL MPV 10.3 (7.4-10.4) fL Immature Gran % (Auto) 0.2 % Neut % (Auto) 86.7 % Lymph % (Auto) 3.4 % [place] % (Auto) 9.7 % Eos % (Auto) 0.0 % Baso % (Auto) 0.0 % Neut # (Auto) 9.74 H (1.4-6.5) K/uL Lymph # (Auto) 0.38 L (1.2-3.4) K/uL [place] # (Auto) 1.09 H (0.11-0.59) K/uL Eos # (Auto) 0.00 (0-0.5) K/uL Baso # (Auto) 0.00 (0-0.2) K/uL Immature Gran # (Auto) 0.02 (0.00-0.02) K/uL Sodium (136-145) mmol/L Potassium (3.5-5.1) mmol/L Chloride (98-107) mmol/L Carbon Dioxide (21-32) mmol/L Anion Gap (3-11) BUN (6-23) mg/dl Creatinine (0.6-1.4) mg/dl Est Cr Clr Drug Dosing ml/min Est GFR ( Amer) ml/min Est GFR (Non-Af Amer) ml/min BUN/Creatinine Ratio (10-20) Glucose (70-99(Fasting)) mg/dl Lactate 1.2 (0.4-2.0) mmol/L Calcium (8.5-10.1) mg/dl Magnesium (1.7-2.4) mg/dl Total Bilirubin (0.2-1.0) mg/dl AST (13-39) U/L ALT (7-52) U/L Alkaline Phosphatase (34-104) U/L Troponin I High Sens (0-20) pg/ml Total Protein (6.0-8.3) gm/dl Albumin (3.4-5.0) gm/dl Globulin (2.5-4.0) gm/dl Albumin/Globulin Ratio (0.9-2) Lipase (11-82) U/L Procalcitonin 1.23 H (0-0.5) ng/ml TSH (0.300-4.500) uIu/ml Urine Color Urine Appearance (Clear) Urine pH (4.5-7.5) Ur Specific [place] (1.000-1.030) Urine Protein (Negative) Urine Glucose (UA) (Negative) Urine Ketones (Negative) Urine Blood (Negative) Urine Nitrite (Negative) Urine Bilirubin (Negative) Urine Urobilinogen (Negative) Ur Leukocyte Esterase (Negative) Urine WBC (Auto) (0-5) /hpf Urine RBC (Auto) (0-4) /hpf U Hyaline Cast (Auto) (0-5) /lpf U Epithel Cells (Auto) (0-5) /lpf Urine Bacteria (Auto) (Negative) 02/01/22 02/01/22 02/01/22 Range/Units 12:50 12:50 14:30 WBC (4.8-10.8) K/uL RBC (4.7-6.1) M/uL Hgb (14.0-18.0) g/dL Hct (42-52) % MCV (80-100) fL MCH (25-34) pg MCHC (32-36) g/dL RDW Std Deviation (36.4-46.3) fL RDW Coeff of Collins (11.5-14.5) % Plt Count (130-400) K/uL MPV (7.4-10.4) fL Immature Gran % (Auto) % Neut % (Auto) % Lymph % (Auto) % [place] % (Auto) % Eos % (Auto) % Baso % (Auto) % Neut # (Auto) (1.4-6.5) K/uL Lymph # (Auto) (1.2-3.4) K/uL [place] # (Auto) (0.11-0.59) K/uL Eos # (Auto) (0-0.5) K/uL Baso # (Auto) (0-0.2) K/uL Immature Gran # (Auto) (0.00-0.02) K/uL Sodium 136 (136-145) mmol/L Potassium 3.3 L (3.5-5.1) mmol/L Chloride 105 (98-107) mmol/L Carbon Dioxide 22 (21-32) mmol/L Anion Gap 9 (3-11) BUN 31 H (6-23) mg/dl Creatinine 3.09 H (0.6-1.4) mg/dl Est Cr Clr Drug Dosing 16.2 ml/min Est GFR ( Amer) 20.0 ml/min Est GFR (Non-Af Amer) 17.2 ml/min BUN/Creatinine Ratio 10.0 (10-20) Glucose 132 H (70-99(Fasting)) mg/dl Lactate (0.4-2.0) mmol/L Calcium 9.0 (8.5-10.1) mg/dl Magnesium 1.8 (1.7-2.4) mg/dl Total Bilirubin 0.9 (0.2-1.0) mg/dl AST 13 (13-39) U/L ALT 11 (7-52) U/L Alkaline Phosphatase 75 (34-104) U/L Troponin I High Sens 56.1 H* D (0-20) pg/ml Total Protein 6.4 (6.0-8.3) gm/dl Albumin 3.5 (3.4-5.0) gm/dl Globulin 2.9 (2.5-4.0) gm/dl Albumin/Globulin Ratio 1.2 (0.9-2) Lipase 35 (11-82) U/L Procalcitonin (0-0.5) ng/ml TSH 1.590 (0.300-4.500) uIu/ml Urine Color Yellow Urine Appearance Cloudy A (Clear) Urine pH 5.0 (4.5-7.5) Ur Specific [place] 1.016 (1.000-1.030) Urine Protein 2+ H (Negative) Urine Glucose (UA) 1+ H (Negative) Urine Ketones Negative (Negative) Urine Blood 3+ H (Negative) Urine Nitrite Positive A (Negative) Urine Bilirubin Negative (Negative) Urine Urobilinogen Negative (Negative) Ur Leukocyte Esterase 2+ H (Negative) Urine WBC (Auto) >30 H (0-5) /hpf Urine RBC (Auto) 10-30 H (0-4) /hpf U Hyaline Cast (Auto) 5-10 H (0-5) /lpf U Epithel Cells (Auto) 0-5 (0-5) /lpf Urine Bacteria (Auto) 4+ H (Negative) Imaging Data Radiologist's Impression: Chest X-Ray 02/01/22 12:34 XR chest 1V portable HISTORY: 86 years-old Male weakness, s/p lap crow acute weakness status post cholecystectomy COMPARISON: Chest radiograph 01/12/2021 TECHNIQUE: Portable AP view of the chest FINDINGS: The cardiac silhouette is mildly enlarged. No pneumothorax, pleural effusion, airspace consolidation or overt pulmonary edema. Minimal linear subsegmental atelectasis/scarring of the lung bases and lateral left midlung. Degenerative changes of the shoulders and spine. Chronic right proximal humeral fracture deformity. IMPRESSION: No acute process. ACT 112: Negative or not required by law. The above report was generated using voice recognition software. It may contain grammatical, syntax or spelling errors. Electronically signed by: Darien Alfredo M.D. 02/01/2022 1:30 PM Abdomen/Pelvis CT 02/01/22 14:21 CT SCAN OF THE ABDOMEN AND PELVIS WITHOUT IV CONTRAST CLINICAL HISTORY: Right-sided abdominal pain status post cholecystectomy. COMPARISON STUDY: Abdominal CT dated 01/12/2022. TECHNIQUE: CT scan of the abdomen and pelvis is performed from the lung bases to the proximal femora. Images are reviewed in the axial, sagittal, and coronal planes. IV contrast was not administered for this examination. A dose lowering technique was utilized adhering to the principles of ALARA. CT DOSE: 452.53 mGy.cm FINDINGS: Lung bases: The heart is enlarged and without pericardial effusion. The coronary arteries are densely calcified. There is a tiny hiatal hernia. Emphysematous change is suggested. The lung bases are otherwise clear noting bibasilar scarring/atelectasis. Liver: The unenhanced liver is cirrhotic in morphology and heterogeneous in attenuation. There is nodularity of the hepatic surface contour. There is no intrahepatic biliary ductal dilatation. Gallbladder: Cholecystectomy clips are noted. There is a complex hyperdense fluid collection the gallbladder fossa measuring 4.8 x 3.2 cm in axial dimension. This is seen on image #115. There is minimal surrounding infiltration. Spleen: Normal in size and attenuation. There are numerous calcified splenic granulomas. Pancreas: The unenhanced pancreas is moderately atrophic and grossly unremarkable. Adrenal glands: Unremarkable. Kidneys: The unenhanced kidneys are atrophic and without hydronephrosis. There are no renal calculi identified. There is no evidence of contour deforming renal mass lesion. Abdominal vasculature: There is advanced atherosclerotic calcification of the abdominal aorta. An aortobiiliac stent graft is in place. The residual aneurysm sac measures 5.3 x 6.0 cm (AP x transverse). Bowel: There is moderate to advanced diverticulosis of left colon without CT evidence of acute diverticulitis. No bowel obstruction is identified. The appendix is not identified and reported surgically absent. Peritoneum: There is no intraperitoneal free air or abdominal ascites. Lymphadenopathy: None. Pelvic viscera: The prostate gland is enlarged and heterogeneous noting median lobe hypertrophy. The bladder wall is thickened and trabeculated indicating chronic outlet obstruction. There is pericystic infiltration is also significant luminal gas. Postsurgical changes noted in the right groin. Skeletal structures: The skeletal structures are osteopenic. There is moderate lumbosacral spondylosis. No lytic or blastic lesions are seen. IMPRESSION: 1. There is postoperative change from interval cholecystectomy when compared to 01/12/2022. 2. There is a 4.8 x 3.0 cm complex/hyperdense fluid collection the gallbladder fossa with mild surrounding infiltration. The appearance is most typical for a hematoma. A residual component of gallbladder is not excluded, and the sterility of this fluid cannot be assessed by imaging. Clinical correlation will be required. 3. The bladder wall is thickened and trabeculated indicating chronic outlet obstruction. There are foci of gas within the bladder lumen and mild surrounding infiltration. Correlate with clinical findings and urinalysis. 4. The patient is status post aortobiiliac stent graft repair of an abdominal aortic aneurysm. The residual aneurysm sac measures 5.3 x 6.0 cm. 5. Diverticulosis of the left colon without CT evidence of acute diverticulitis. 6. Additional findings as above. ACT 112: Negative or not required by law. Electronically signed by: Jevon Tovar M.D. 02/01/2022 2:59 PM ECG Data Attestation: I personally reviewed and interpreted this ECG as follows: Indication: + weakness Rate (beats per minute): 75 Rhythm: + normal sinus ECG Intervals/blocks: + First degree AV block, + Left bundle branch block and + Normal QT ECG [place]: + Left axis deviation ECG ST segments: + Nonspecific ST abnormalities MDM Narrative An order was placed for continuous cardiac monitoring. The monitor shows a rate of _76__ with _normal sinus__ rhythm. This is an 86-year-old male who presents due to concern for worsening weakness and difficulty walking. Patient describes her legs as heavy. Patient is 2 weeks status post laparoscopic cholecystectomy. Patient did have a Hayes catheter for several days post discharge however that was removed on Friday. Patient denied any difficulty urinating or having a bowel movement today. Labs are drawn and sent. Patient sent for repeat abdominal CT as a precaution. Small hematoma noted in the area of the surgery which I suspect is to be expected postop given his course. No evidence of active extravasation or bleeding. No evidence of abscess or evolving infection. Patient was afebrile and hemodynamically stable throughout. Patient found to have a urinary tract infection, likely due to recent indwelling Hayes catheter. Was started on IV Rocephin. Patient was given gentle IV fluid rehydration. While he reported feeling improved, he did still appear unsteady and was concerned he was a fall risk. Patient admitted for additional monitoring, PT/OT evaluation, and hydration. Patient was noted to have an elevated troponin, he denied any chest pain or shortness of breath. I suspect this is secondary to his chronic kidney disease. Impression & Plan Generalized weakness, Ambulatory dysfunction, Acute UTI (urinary tract infection), CKD (chronic kidney disease) Discharge Plan Visit Data Chief Complaint: Leg Injury/Pain Stated Complaint: CANNOT WALK, FATIGUE, REF BY ED Provider: Chanda Iyer Discharge Problem: Generalized weakness, Ambulatory dysfunction, Acute UTI (urinary tract infection), CKD (chronic kidney disease) Patient Disposition: Admitted As Inpatient Discharge Instructions Interventions: ED Discharge Assessment Last Done: 02/01/22 21:40 Discharge Problem: CKD (chronic kidney disease) Qualifiers: Chronic kidney disease stage: unspecified stage Qualified Code(s): N18.9 - Chronic kidney disease, unspecified
[2022-02-01] MEDS: SODIUM CHLORIDE 0.9% 1000ML 1,000 ML IV SCH ×2 (12:58→21:00)
[2022-02-01 13:17] LABS: Hematocrit (blood only) 28.6 % (42-52); Hemoglobin 9.6 g/dL (14.0-18.0); Mean Corpuscular Hemoglobin 29.4 pg (25-34); Mean Corpuscular Hgb Conc 33.6 g/dL (32-36); Mean Corpuscular Volume 87.5 fL (80-100); Mean Platelet Volume 10.3 fL (7.4-10.4); Platelet Count 242 K/uL (130-400); RDW Coefficient of Variation 13.5 % (11.5-14.5); RDW Standard Deviation 43.8 fL (36.4-46.3); Red Blood Count 3.27 M/uL (4.7-6.1); White Blood Count 11.23 K/uL (4.8-10.8)
[2022-02-01 13:32] LABS: Potassium 3.3 mmol/L (3.5-5.1)
--- NOTE | 2022-02-01 13:32 | XRay Report ---
XR chest 1V portable HISTORY: 86 years-old Male weakness, s/p lap crow acute weakness status post cholecystectomy COMPARISON: Chest radiograph 01/12/2021 TECHNIQUE: Portable AP view of the chest FINDINGS: The cardiac silhouette is mildly enlarged. No pneumothorax, pleural effusion, airspace consolidation or overt pulmonary edema. Minimal linear subsegmental atelectasis/scarring of the lung bases and late ral left midlung. Degenerative changes of the shoulders and spine. Chronic right proximal humeral fra cture deformity. IMPRESSION: No acute process. ACT 112: Negative or not required by law. The above report was generated using voice recognition software. It may contain grammatical, syntax o r spelling errors. Electronically signed by: Darien Alfredo M.D. 02/01/2022 1:30 PM
[2022-02-01 13:33] LABS: Albumin Globulin Ratio 1.2 (0.9-2); Albumin Level 3.5 gm/dl (3.4-5.0); Bilirubin,Total 0.9 mg/dl (0.2-1.0); Creatinine Clr Calc Pharmacy 16.2 ml/min; Est GFR (Non-African American) 17.2 ml/min; Globulin 2.9 gm/dl (2.5-4.0); Magnesium 1.8 mg/dl (1.7-2.4); Total Protein 6.4 gm/dl (6.0-8.3)
[2022-02-01 13:41] LABS: Troponin I High Sensitivity 56.1 pg/ml (0-20)
[2022-02-01 13:43] LABS: Immature Granulocytes # (auto) 0.02 K/uL (0.00-0.02); Immature Granulocytes % (auto) 0.2 %; Lymphocytes # (auto) 0.38 K/uL (1.2-3.4); Lymphocytes % (auto) 3.4 %; Monocytes # (auto) 1.09 K/uL (0.11-0.59); Monocytes % (auto) 9.7 %; Neutrophils # (auto) 9.74 K/uL (1.4-6.5); Neutrophils % (auto) 86.7 %
--- NOTE | 2022-02-01 15:00 | CT Scan Report ---
CT SCAN OF THE ABDOMEN AND PELVIS WITHOUT IV CONTRAST CLINICAL HISTORY: Right-sided abdominal pain status post cholecystectomy. COMPARISON STUDY: Abdominal CT dated 01/12/2022. TECHNIQUE: CT scan of the abdomen and pelvis is performed from the lung bases to the proximal femora. Images are reviewed in the axial, sagittal, and coronal planes. IV contrast was not administered for this examination. A dose lowering technique was utilized adhering to the principles of ALARA. CT DOSE: 452.53 mGy.cm FINDINGS: Lung bases: The heart is enlarged and without pericardial effusion. The coronary arteries are densely calcified. There is a tiny hiatal hernia. Emphysematous change is suggested. The lung bases are othe rwise clear noting bibasilar scarring/atelectasis. Liver: The unenhanced liver is cirrhotic in morphology and heterogeneous in attenuation. There is nod ularity of the hepatic surface contour. There is no intrahepatic biliary ductal dilatation. Gallbladder: Cholecystectomy clips are noted. There is a complex hyperdense fluid collection the gall bladder fossa measuring 4.8 x 3.2 cm in axial dimension. This is seen on image #115. There is minimal surrounding infiltration. Spleen: Normal in size and attenuation. There are numerous calcified splenic granulomas. Pancreas: The unenhanced pancreas is moderately atrophic and grossly unremarkable. Adrenal glands: Unremarkable. Kidneys: The unenhanced kidneys are atrophic and without hydronephrosis. There are no renal calculi i dentified. There is no evidence of contour deforming renal mass lesion. Abdominal vasculature: There is advanced atherosclerotic calcification of the abdominal aorta. An aor tobiiliac stent graft is in place. The residual aneurysm sac measures 5.3 x 6.0 cm (AP x transverse). Bowel: There is moderate to advanced diverticulosis of left colon without CT evidence of acute divert iculitis. No bowel obstruction is identified. The appendix is not identified and reported surgically absent. Peritoneum: There is no intraperitoneal free air or abdominal ascites. Lymphadenopathy: None. Pelvic viscera: The prostate gland is enlarged and heterogeneous noting median lobe hypertrophy. The bladder wall is thickened and trabeculated indicating chronic outlet obstruction. There is pericystic infiltration is also significant luminal gas. Postsurgical changes noted in the right groin. Skeletal structures: The skeletal structures are osteopenic. There is moderate lumbosacral spondylosi s. No lytic or blastic lesions are seen. IMPRESSION: 1. There is postoperative change from interval cholecystectomy when compared to 01/12/2022. 2. There is a 4.8 x 3.0 cm complex/hyperdense fluid collection the gallbladder fossa with mild surrou nding infiltration. The appearance is most typical for a hematoma. A residual component of gallbladde r is not excluded, and the sterility of this fluid cannot be assessed by imaging. Clinical correlatio n will be required. 3. The bladder wall is thickened and trabeculated indicating chronic outlet obstruction. There are fo ci of gas within the bladder lumen and mild surrounding infiltration. Correlate with clinical finding s and urinalysis. 4. The patient is status post aortobiiliac stent graft repair of an abdominal aortic aneurysm. The re sidual aneurysm sac measures 5.3 x 6.0 cm. 5. Diverticulosis of the left colon without CT evidence of acute diverticulitis. 6. Additional findings as above. ACT 112: Negative or not required by law. Electronically signed by: Jevon Tovar M.D. 02/01/2022 2:59 PM
[2022-02-01 15:53] LABS: Appearance Urine Cloudy (Clear); Bacteria Urine Automated 4+ (Negative); Bilirubin Urine Negative (Negative); Blood Urine 3+ (Negative); Color Urine Yellow; Epithelial Cell Urine Auto 0-5 /lpf (0-5); Glucose Urine UA 1+ (Negative); Ketones Urine Negative (Negative); Leukocyte Esterase Urine 2+ (Negative); Nitrite Urine Positive (Negative); Protein Urine 2+ (Negative); Specific Gravity Urine 1.016 (1.000-1.030); Urobilinogen Urine Negative (Negative); WBC Urine Automated >30 /hpf (0-5)
[2022-02-01] MEDS ORDERED: cefTRIAXone SODIUM 2,000 MG/70 ML BAG IV STA (16:06)
--- NOTE | 2022-02-01 18:24 | History & Physical Report ---
Date of Service February 01, 2022 Assessment & Plan (1) Ambulatory dysfunction: Plan: New onset weakness likely related to UTI. Will start antibiotics at this time and monitor for clinical improvement. Taper antibiotics pending clinical improvement and culture results. PT/OT to evaluate. (2) Postoperative upper abdominal pain: Plan: Although ER notes report this, patient denies having pain in this area. He is tolerating PO without nausea or vomiting but has a poor appetite, which may be attributable to #1. General surgery consulted to evaluate as this is post op site two weeks ago s/p lap crow with removal of gangrenous gallbladder and he now has imaging findings on CT scan consistent with a post-operative hematoma. Hold DVT prophylaxis at this time. (3) UTI (urinary tract infection): Plan: Rocephin started in ER. Cont this pending culture results and clinical improvement. No evidence of infection in abdominal site. (4) Elevated troponin: Plan: trend troponin overnight. Likely false elevation in setting of chronic renal failure. (5) Status post laparoscopic cholecystectomy: Plan: 2 weeks post op, healing well. Gen surg to eval CT abnormality (6) Postoperative urinary retention: Plan: resolved and clay catheter was removed Fri, symptoms began for him Tues. UTI likely related to catheter. Monitor for urinary retention as needed. Cont tamsulosin per home regimen. (7) CKD (chronic kidney disease) stage 4, GFR 15-29 ml/min: Plan: chronic, stable and at baseline. Cont to monitor renal function and renally dose meds/abx as needed. (8) Anemia: Plan: chronic, post op state contributing, CKD and multiple chronic medical conditions. Stable and no need for transfusion at this time. (9) DVT prophylaxis: Plan: SCDs, no DVT prophylaxis with possible hematoma Full Code Dispo-to telemetry. Laureen Messer DO [facility] Hospitalist History of Present Illness Chief Complaint: malaise, weakness Primary Care Provider: Mika Ortiz DO 86 yo M presents to the ER reporting increased fatigue, loss of appetite, malaise and generalized weakness and a heaviness in his legs that prevents him from walking. He underwent a lap crow two weeks ago and was discharged from the hospital on several days of antibiotics. He took all the abx. He also had a residual clay catheter that was present at discharge and removed on Friday by Urology. He has been urinating well since that time. Workup in the ER reveals a urinary tract infection without evidence of sepsis. This may have been related to recent clay catheter. Troponin is also elevated and will be trended. ROS reveals no chest pain or SOB. EKG reveals SR69 with a known LBBB. Creatinine is at baseline around 3. CBC is normal aside from a mildly elevated WBC count to 11K. BMP otherwise normal aside from low K at 3.3, which makes sense in setting of reduced PO intake recently. Imaging revealed is a 4.8 x 3.0 cm complex/hyperdense fluid collection the ga llbladder fossa with mild surrounding infiltration. The appearance is most typical for a hematoma. A residual component of gallbladder is not excluded, and the sterility of this fluid cannot be assessed by imaging. Clinical correlation will be required. Allergies Allergy/AdvReac Type Severity Reaction Status Date / Time No Known Allergies Allergy Verified 02/01/22 13:24 Home Medications Medication Instructions Recorded Confirmed Type aspirin 81 mg tablet,delayed 81 mg PO QAM 02/20/19 02/01/22 History release cholecalciferol (vitamin D3) 25 1,000 unit PO QAM 02/20/19 02/01/22 History mcg (1,000 unit) tablet (Vitamin D3) levothyroxine 25 mcg tablet 25 mcg PO QAM 02/20/19 02/01/22 History nitroglycerin 0.4 mg sublingual 0.4 mg SUBLINGUAL UD PRN 02/20/19 02/01/22 History tablet (Nitrostat) simvastatin 80 mg tablet 80 mg PO PM 02/20/19 02/01/22 History tamsulosin 0.4 mg capsule 0.4 mg PO QAM 02/20/19 02/01/22 History metoprolol succinate 25 mg 25 mg PO QAM 07/26/19 02/01/22 History tablet,extended release 24 hr (Toprol XL) lutein 20 mg tablet 20 mg PO QAM 03/14/21 02/01/22 History omeprazole 20 mg capsule,delayed 20 mg PO QAM 03/14/21 02/01/22 History release polyethylene glycol 3350 17 gram 17 g PO QAM 03/14/21 02/01/22 History oral powder packet (Miralax) miconazole nitrate 2 % topical 1 applic TOPICAL BID 01/12/22 02/01/22 History powder vitamin K2 100 mcg capsule 100 mcg PO DAILY 01/12/22 02/01/22 History Past Med/Surg History Medical History Chronic back pain CKD (chronic kidney disease) stage 4, GFR 15-29 ml/min follows with Dr. Collins Coronary artery disease follows with Dr. Marmolejo GERD (gastroesophageal reflux disease) HLD (hyperlipidemia) Hypertension Hypothyroidism Macular degeneration Myocardial infarction 1987 Osteoarthritis Prediabetes Surgical History H/O heart artery stent x 1 History of AAA (abdominal aortic aneurysm) repair 2015 History of appendectomy History of cardiac catheterization 1987 - [place] - stent History of colonoscopy Hx laparoscopic cholecystectomy (01/13/22) Laparoscopic cholecystectomy with lysis of adhesions. Dr. Gann 01/13/2022 Family History Other No family history of adverse response to anesthesia No significant family history Social History Smoking Status: Never smoker Second Hand Exposure: No; Hx Alcohol Use: No Hx Substance Use: No Preferred Language: Chinese Communication Ability: Effective Visual Impairment: Limited Hearing Ability: Normal [employer] Required: No Beliefs That Will Affect Care: None marital status: Current Living Situation: Spouse Feels Safe at Home: Yes Assistive Devices: Cane and Walker Review of Systems Review of Systems: All systems were reviewed and negative except as indicated in HPI above. Physical Exam Physical Exam: CONSTITUTIONAL: WNWD, vitals as above, generally well- appearing, NAD EYES: normal conjunctivae, no scleral icterus ENT: external ear and nose normal, MMM NECK: trachea midline, RESPIRATORY: clear to auscultation bilaterally, no crackles, rales or wheezes, normal respiratory effort CARDIOVASCULAR: regular rate and rhythm, S1 and 2 heard without murmurs, gallops or rubs, no JVD, no peripheral edema CHEST: inspection of chest was normal GASTROINTESTINAL: soft, nontender, ND, no guarding, there is some abdominal ecchymosis present centrally MUSCULOSKELETAL: strength 5/5 throughout, head is normocephalic and atraumatic SKIN: warm and dry NEUROLOGIC: patellar DTRs 2+ bilat. no facial palsy, no dysarthria. CN 2-12 grossly intact, no sensory deficit, normal cognition, normal speech, no tremor. No gross focal deficits. PSYCHIATRIC: alert cooperative and oriented to person, place and time. Euthymic mood, makes good eye contact, language grossly intact, recent and remote memory grossly intact. Results & Data Results & Data ([facility]) Vital Signs (Past 12 Hours) Vital Signs Temp Pulse Pulse Resp BP BP Pulse Ox 02/01/22 16:00 69 18 135/73 99 02/01/22 14:09 87 16 148/87 H 98 02/01/22 12:59 79 15 127/85 95 02/01/22 12:12 36.6 C 86 20 143/82 H 97 Laboratory Results Short CBC 02/01/22 Range/Units 12:50 WBC 11.23 H (4.8-10.8) K/uL Hgb 9.6 L (14.0-18.0) g/dL Hct 28.6 L (42-52) % Plt Count 242 (130-400) K/uL BMP 02/01/22 12:50 Sodium 136 Potassium 3.3 L Chloride 105 Carbon Dioxide 22 BUN 31 H Creatinine 3.09 H Glucose 132 H Calcium 9.0 Liver Function 02/01/22 Range/Units 12:50 Total Bilirubin 0.9 (0.2-1.0) mg/dl AST 13 (13-39) U/L ALT 11 (7-52) U/L Alkaline Phosphatase 75 (34-104) U/L Albumin 3.5 (3.4-5.0) gm/dl Urine 02/01/22 Range/Units 14:30 Urine Color Yellow Urine Appearance Cloudy A (Clear) Urine pH 5.0 (4.5-7.5) Ur Specific [place] 1.016 (1.000-1.030) Urine Protein 2+ H (Negative) Urine Glucose (UA) 1+ H (Negative) Diagnostic Findings Chest X-Ray 02/01/22 12:34 XR chest 1V portable HISTORY: 86 years-old Male weakness, s/p lap crow acute weakness status post cholecystectomy COMPARISON: Chest radiograph 01/12/2021 TECHNIQUE: Portable AP view of the chest FINDINGS: The cardiac silhouette is mildly enlarged. No pneumothorax, pleural effusion, airspace consolidation or overt pulmonary edema. Minimal linear subsegmental atelectasis/scarring of the lung bases and lateral left midlung. Degenerative changes of the shoulders and spine. Chronic right proximal humeral fracture deformity. IMPRESSION: No acute process. ACT 112: Negative or not required by law. The above report was generated using voice recognition software. It may contain grammatical, syntax or spelling errors. Electronically signed by: Darien Alfredo M.D. 02/01/2022 1:30 PM Abdomen/Pelvis CT 02/01/22 14:21 CT SCAN OF THE ABDOMEN AND PELVIS WITHOUT IV CONTRAST CLINICAL HISTORY: Right-sided abdominal pain status post cholecystectomy. COMPARISON STUDY: Abdominal CT dated 01/12/2022. TECHNIQUE: CT scan of the abdomen and pelvis is performed from the lung bases to the proximal femora. Images are reviewed in the axial, sagittal, and coronal planes. IV contrast was not administered for this examination. A dose lowering technique was utilized adhering to the principles of ALARA. CT DOSE: 452.53 mGy.cm FINDINGS: Lung bases: The heart is enlarged and without pericardial effusion. The coronary arteries are densely calcified. There is a tiny hiatal hernia. Emphysematous change is suggested. The lung bases are otherwise clear noting bibasilar scarring/atelectasis. Liver: The unenhanced liver is cirrhotic in morphology and heterogeneous in attenuation. There is nodularity of the hepatic surface contour. There is no intrahepatic biliary ductal dilatation. Gallbladder: Cholecystectomy clips are noted. There is a complex hyperdense fluid collection the gallbladder fossa measuring 4.8 x 3.2 cm in axial dimension. This is seen on image #115. There is minimal surrounding infiltration. Spleen: Normal in size and attenuation. There are numerous calcified splenic granulomas. Pancreas: The unenhanced pancreas is moderately atrophic and grossly unremarkable. Adrenal glands: Unremarkable. Kidneys: The unenhanced kidneys are atrophic and without hydronephrosis. There are no renal calculi identified. There is no evidence of contour deforming renal mass lesion. Abdominal vasculature: There is advanced atherosclerotic calcification of the abdominal aorta. An aortobiiliac stent graft is in place. The residual aneurysm sac measures 5.3 x 6.0 cm (AP x transverse). Bowel: There is moderate to advanced diverticulosis of left colon without CT evidence of acute diverticulitis. No bowel obstruction is identified. The appendix is not identified and reported surgically absent. Peritoneum: There is no intraperitoneal free air or abdominal ascites. Lymphadenopathy: None. Pelvic viscera: The prostate gland is enlarged and heterogeneous noting median lobe hypertrophy. The bladder wall is thickened and trabeculated indicating chronic outlet obstruction. There is pericystic infiltration is also significant luminal gas. Postsurgical changes noted in the right groin. Skeletal structures: The skeletal structures are osteopenic. There is moderate lumbosacral spondylosis. No lytic or blastic lesions are seen. IMPRESSION: 1. There is postoperative change from interval cholecystectomy when compared to 01/12/2022. 2. There is a 4.8 x 3.0 cm complex/hyperdense fluid collection the gallbladder fossa with mild surrounding infiltration. The appearance is most typical for a hematoma. A residual component of gallbladder is not excluded, and the sterility of this fluid cannot be assessed by imaging. Clinical correlation will be required. 3. The bladder wall is thickened and trabeculated indicating chronic outlet obstruction. There are foci of gas within the bladder lumen and mild surrounding infiltration. Correlate with clinical findings and urinalysis. 4. The patient is status post aortobiiliac stent graft repair of an abdominal aortic aneurysm. The residual aneurysm sac measures 5.3 x 6.0 cm. 5. Diverticulosis of the left colon without CT evidence of acute diverticulitis. 6. Additional findings as above. ACT 112: Negative or not required by law. Electronically signed by: Jevon Tovar M.D. 02/01/2022 2:59 PM Code Status & VTE Plan VTE Prophylaxis Plan VTE Prophylaxis will be ordered: Yes
[2022-02-01] MEDS ORDERED: POLYETHYLENE (MIRALAX) 17 GM PACK PO PRN (22:02)
[2022-02-01] MEDS ORDERED: ACETAMINOPHEN 325 MG TAB PO PRN (22:02)
[2022-02-01] MEDS ORDERED: NITROGLYCERIN SL 0.4 MG/TAB TAB SL PRN (22:02)
[2022-02-01] MEDS ORDERED: POTASSIUM CHLORIDE CRTAB 20 MEQ TABCR PO STA (22:13)
[2022-02-01] MEDS: SIMVASTATIN 80 MG TAB PO SCH (22:53)
[2022-02-02 02:11] LABS: Hematocrit (blood only) 27.7 % (42-52); Hemoglobin 9.2 g/dL (14.0-18.0); Mean Corpuscular Hemoglobin 29.4 pg (25-34); Mean Corpuscular Hgb Conc 33.2 g/dL (32-36); Mean Corpuscular Volume 88.5 fL (80-100); Mean Platelet Volume 10.5 fL (7.4-10.4); Platelet Count 220 K/uL (130-400); RDW Coefficient of Variation 13.6 % (11.5-14.5); RDW Standard Deviation 43.9 fL (36.4-46.3); Red Blood Count 3.13 M/uL (4.7-6.1); White Blood Count 6.81 K/uL (4.8-10.8)
[2022-02-02 02:38] LABS: BUN Creatinine Ratio 10.3 (10-20); Calcium 8.2 mg/dl (8.5-10.1); Creatinine Clr Calc Pharmacy 17.2 ml/min; Est GFR (African American) 21.5 ml/min; Est GFR (Non-African American) 18.5 ml/min; Potassium 3.5 mmol/L (3.5-5.1)
[2022-02-02 03:25] LABS: Troponin I High Sensitivity 64.6 pg/ml (0-20)
[2022-02-02] MEDS: SODIUM CHLORIDE 0.9% 1000ML 1,000 ML IV SCH (04:28)
[2022-02-02] MEDS: LEVOTHYROXINE SODIUM 25 MCG TABLET PO SCH (06:19)
--- NOTE | 2022-02-02 06:36 | Electrocardiogram Report ---
Test Reason : Blood Pressure : / mmHG Vent. Rate : 075 BPM Atrial Rate : 075 BPM P-R Int : 214 ms QRS Dur : 160 ms QT Int : 426 ms P-R-T Axes : 089 -51 137 degrees QTc Int : 475 ms Sinus rhythm with 1st degree A-V block Left axis deviation Left bundle branch block Abnormal ECG When compared with ECG of 14-JAN-2022 13:41, Premature ventricular complexes are no longer Present Confirmed by Malachi Miller ([id number]) on 02/02/2022 6:36:17 AM Referred By: REFERRED SELF Confirmed By:Malachi Miller
--- NOTE | 2022-02-02 07:52 | Surgery Consultation ---
Date of Consultation February 02, 2022 Assessment & Plan (1) Postoperative hematoma: -small hematoma without obvious abscess -no real postop complaints -WBC normal -discharge per medical team, +/- oral antibiotics but likely not needed History of Present Illness Attending Physician: Sourav Adams MD History of Present Illness This is an 86-year-old male admitted increased fatigue, weakness, decreased appetite/nausea, and heaviness to his legs preventing him from walking that began yesterday and was worse today.He is 2 weeks post=op from a laparoscopic cholecystectomy by Dr. Gann for a gangrenous gallbladder. He denies dysuria, frequency, or hematuria. He states he did have a large bowel movement this morning after being constipated for several days. He denies any overt abdominal pain, Patient denies fevers, chills, chest pain, cough, shortness of breath. A CT scan shows a small post-op hematoma in the gallbladder fossa, no obvious abscess. Allergies Allergy/AdvReac Type Severity Reaction Status Date / Time No Known Allergies Allergy Verified 02/01/22 13:24 Home Medications Medication Instructions Recorded Confirmed Type aspirin 81 mg tablet,delayed 81 mg PO QAM 02/20/19 02/01/22 History release cholecalciferol (vitamin D3) 25 1,000 unit PO QAM 02/20/19 02/01/22 History mcg (1,000 unit) tablet (Vitamin D3) levothyroxine 25 mcg tablet 25 mcg PO QAM 02/20/19 02/01/22 History nitroglycerin 0.4 mg sublingual 0.4 mg SUBLINGUAL UD PRN 02/20/19 02/01/22 History tablet (Nitrostat) simvastatin 80 mg tablet 80 mg PO PM 02/20/19 02/01/22 History tamsulosin 0.4 mg capsule 0.4 mg PO QAM 02/20/19 02/01/22 History metoprolol succinate 25 mg 25 mg PO QAM 07/26/19 02/01/22 History tablet,extended release 24 hr (Toprol XL) lutein 20 mg tablet 20 mg PO QAM 03/14/21 02/01/22 History omeprazole 20 mg capsule,delayed 20 mg PO QAM 03/14/21 02/01/22 History release polyethylene glycol 3350 17 gram 17 g PO QAM 03/14/21 02/01/22 History oral powder packet (Miralax) miconazole nitrate 2 % topical 1 applic TOPICAL BID 01/12/22 02/01/22 History powder vitamin K2 100 mcg capsule 100 mcg PO DAILY 01/12/22 02/01/22 History Patient History Medical History Chronic back pain CKD (chronic kidney disease) stage 4, GFR 15-29 ml/min follows with Dr. Collins Coronary artery disease follows with Dr. Marmolejo GERD (gastroesophageal reflux disease) HLD (hyperlipidemia) Hypertension Hypothyroidism Macular degeneration Myocardial infarction 1987 Osteoarthritis Prediabetes Surgical History H/O heart artery stent x 1 History of AAA (abdominal aortic aneurysm) repair 2015 History of appendectomy History of cardiac catheterization 1987 - [place] - stent History of colonoscopy Hx laparoscopic cholecystectomy (01/13/22) Laparoscopic cholecystectomy with lysis of adhesions. Dr. Gann 01/13/2022 Family History Other No family history of adverse response to anesthesia No significant family history Social History Smoking Status: Never smoker Second Hand Exposure: No; Hx Alcohol Use: No Hx Substance Use: No Preferred Language: Slovenian Communication Ability: Effective Visual Impairment: Limited Hearing Ability: Normal Still Photographer Required: No Beliefs That Will Affect Care: None marital status: Current Living Situation: Spouse Other Information That Helps Us Care for You: No Feels Safe at Home: Yes Safety Concerns: Feels Safe At This Time Assistive Devices: Cane and Walker Review of Systems Constitutional: no fever and no chills Eyes: no problem reported Ear, Nose, Mouth, Throat: no problem reported Respiratory: no cough and no dyspnea Cardiovascular: no chest pain Gastrointestinal: + nausea and + change in bowel habits (constipation, improving with BM yesterday); no abdominal pain and no vomiting Genitourinary: no dysuria or no difficulty urinating Musculoskeletal: no back pain Integumentary: + problem reported (ecchymosis around incisons and throughout body); no rash Neurologic: + localized weakness and + generalized weakness Endocrine: + fatigue Hematologic / Lymphatic: + easy bleeding and + easy bruising Physical Exam Constitutional: well developed and well nourished; no acute distress Eyes: PERRL, conjunctivae normal, anicteric sclerae ENMT: external ear and nose normal, oropharynx normal Neck: trachea midline Respiratory: normal respiratory effort, lungs clear to auscultation Cardiovascular: RRR, no murmur, no edema Gastrointestinal (Abdomen): Inspection/Auscultation: normal bowel sounds and + abdominal wall ecchymosis; + abdomen abnormal to inspection (ecchymosis) and abdomen not distended Percussion/Palpation: abdomen soft; abdomen nontender and no guarding Musculoskeletal: Head/Neck/Chest: normocephalic and head atraumatic Skin: no rashes, warm and dry Psychiatric: Orientation: alert and oriented x 3 Results & Data ([facility]) Vital Signs (Past 12 Hours) Vital Signs Temp Pulse Pulse Pulse Resp BP Pulse Ox 02/02/22 06:24 36.6 C 76 18 127/68 97 02/02/22 03:45 72 02/02/22 03:35 36.9 C 64 18 122/63 93 02/02/22 03:24 36.8 C 77 20 150/68 H 96 02/01/22 20:00 84 18 132/[address] SCAN OF THE ABDOMEN AND PELVIS WITHOUT IV CONTRAST CLINICAL HISTORY: Right-sided abdominal pain status post cholecystectomy. COMPARISON STUDY: Abdominal CT dated 01/12/2022. TECHNIQUE: CT scan of the abdomen and pelvis is performed from the lung bases to the proximal femora. Images are reviewed in the axial, sagittal, and coronal planes. IV contrast was not administered for this examination. A dose lowering technique was utilized adhering to the principles of ALARA. CT DOSE: 452.53 mGy.cm FINDINGS: Lung bases: The heart is enlarged and without pericardial effusion. The coronary arteries are densely calcified. There is a tiny hiatal hernia. Emphysematous change is suggested. The lung bases are otherwise clear noting bibasilar scarring/atelectasis. Liver: The unenhanced liver is cirrhotic in morphology and heterogeneous in attenuation. There is nodularity of the hepatic surface contour. There is no intrahepatic biliary ductal dilatation. Gallbladder: Cholecystectomy clips are noted. There is a complex hyperdense fluid collection the gallbladder fossa measuring 4.8 x 3.2 cm in axial dimension. This is seen on image #115. There is minimal surrounding infiltration. Spleen: Normal in size and attenuation. There are numerous calcified splenic granulomas. Pancreas: The unenhanced pancreas is moderately atrophic and grossly unremarkable. Adrenal glands: Unremarkable. Kidneys: The unenhanced kidneys are atrophic and without hydronephrosis. There are no renal calculi identified. There is no evidence of contour deforming renal mass lesion. Abdominal vasculature: There is advanced atherosclerotic calcification of the abdominal aorta. An aortobiiliac stent graft is in place. The residual aneurysm sac measures 5.3 x 6.0 cm (AP x transverse). Bowel: There is moderate to advanced diverticulosis of left colon without CT evidence of acute diverticulitis. No bowel obstruction is identified. The appendix is not identified and reported surgically absent. Peritoneum: There is no intraperitoneal free air or abdominal ascites. Lymphadenopathy: None. Pelvic viscera: The prostate gland is enlarged and heterogeneous noting median lobe hypertrophy. The bladder wall is thickened and trabeculated indicating chronic outlet obstruction. There is pericystic infiltration is also significant luminal gas. Postsurgical changes noted in the right groin. Skeletal structures: The skeletal structures are osteopenic. There is moderate lumbosacral spondylosis. No lytic or blastic lesions are seen. IMPRESSION: 1. There is postoperative change from interval cholecystectomy when compared to 01/12/2022. 2. There is a 4.8 x 3.0 cm complex/hyperdense fluid collection the gallbladder fossa with mild surrounding infiltration. The appearance is most typical for a hematoma. A residual component of gallbladder is not excluded, and the sterility of this fluid cannot be assessed by imaging. Clinical correlation will be required. 3. The bladder wall is thickened and trabeculated indicating chronic outlet obstruction. There are foci of gas within the bladder lumen and mild surrounding infiltration. Correlate with clinical findings and urinalysis. 4. The patient is status post aortobiiliac stent graft repair of an abdominal aortic aneurysm. The residual aneurysm sac measures 5.3 x 6.0 cm. 5. Diverticulosis of the left colon without CT evidence of acute diverticulitis. 6. Additional findings as above.
[2022-02-02] MEDS ORDERED: POTASSIUM CHLORIDE CRTAB 20 MEQ TABCR PO ONE (08:08)
[2022-02-02] MEDS: CHOLECALCIFEROL 1,000 UNITS 25 MCG TAB PO SCH (09:01)
[2022-02-02] MEDS: ASPIRIN 81 MG ECTAB PO SCH (09:01)
[2022-02-02] MEDS: METOPROLOL SUCC 25MG EXT REL TAB PO SCH (09:01)
[2022-02-02] MEDS: PANTOprazole 40 MG TAB PO SCH (09:01)
[2022-02-02] MEDS: TAMSULOSIN HCL 0.4 MG CAP PO SCH (09:01)
--- NOTE | 2022-02-02 15:22 | Hospitalist Progress Note ---
Date of Service February 02, 2022 Assessment & Plan (1) Ambulatory dysfunction: Plan: Likely due to generalized weakness secondary to infection Normal TSH PT OT Fall precautions (2) Postoperative upper abdominal pain: Plan: S/P laparoscopic cholecystectomy with removal of gangrenous gallbladder Postoperative hematoma No obvious abscess on CT --CT ABD:There is postoperative change from interval cholecystectomy when compared to 01/12/2022. There is a 4.8 x 3.0 cm complex/hyperdense fluid collection the gallbladder fossa with mild surrounding infiltration. The appearance is most typical for a hematoma. A residual component of gallbladder is not excluded, and the sterility of this fluid cannot be assessed by imaging. Clinical correlation will be required. The bladder wall is thickened and trabeculated indicating chronic outlet obstruction. There are foci of gas within the bladder lumen and mild surrounding infiltration. Correlate with clinical findings and urinalysis. The patient is status post aortobiiliac stent graft repair of an abdominal aortic aneurysm. The residual aneurysm sac measures 5.3 x 6.0 cm. Diverticulosis of the left colon without CT evidence of acute diverti culitis. -- Appreciate surgery input Pain is resolved Avoid anticoagulation for now (3) UTI (urinary tract infection): Plan: Likely related to Hayes catheter placed for urinary retention postoperatively Urine culture pending Continue empiric Rocephin (4) Elevated troponin: Plan: Troponin elevation in setting of chronic renal failure. Denies chest pain (5) Status post laparoscopic cholecystectomy: Plan: Management as above (6) Postoperative urinary retention: Plan: Resolved Bladder scan PRN Continue tamsulosin (7) CKD (chronic kidney disease) stage 4, GFR 15-29 ml/min: Plan: Chronic, stable Monitor renal function Avoid nephrotoxic agents as able (8) Anemia: Plan: chronic Likely multifactorial: Postoperative state, CKD, anemia of chronic disease, hematoma Monitor CBC (9) DVT prophylaxis: Plan: SCDs Re:Hematoma Code Status Full Code Admission and Anticipated Discharge Date Admission Date: February 01, 2022 Subjective Patient is seen and examined at bedside States feeling a lot better Admits to having minimal dysuria, generalized weakness Abdominal pain resolved Denies any chest pain, dyspnea, dizziness No other complaints Eager to get discharged Review of Systems Review of Systems: All systems reviewed & are unremarkable except as noted in Subjective Physical Exam Physical Exam: Physical Exam: Vitals signs as noted above General Appearance:Moderately built and nourished, no apparent distress Head: normocephalic, Atraumatic Eyes: normal inspection, EOMI Neck: supple, Trachea midline Respiratory/Chest: Decreased breath sounds, CTA, No accessory muscle use Cardiovascular: S1, S2, No murmur Abdomen/GI:Soft, Non tender, Bowel sounds present Extremities/Musculoskeletal:normal inspection, no edema Neurologic/Psych:AAOX3, grossly no focal neurological deficits Skin: normal color, warm Results & Data Results & Data ([facility]) Vital Signs (Past 12 Hours) Vital Signs Temp Pulse Pulse Resp BP Pulse Ox 02/02/22 15:03 66 02/02/22 14:49 36.7 C 71 18 114/64 96 02/02/22 07:51 69 02/02/22 06:24 36.6 C 76 18 127/68 97 02/02/22 03:45 72 02/02/22 03:35 36.9 C 64 18 122/63 93 02/02/22 03:24 36.8 C 77 20 150/68 H 96 Laboratory Results Short CBC 02/02/22 Range/Units 01:33 WBC 6.81 (4.8-10.8) K/uL Hgb 9.2 L (14.0-18.0) g/dL Hct 27.7 L (42-52) % Plt Count 220 (130-400) K/uL BMP 02/02/22 01:33 Sodium 136 Potassium 3.5 Chloride 108 H Carbon Dioxide 21 BUN 30 H Creatinine 2.91 H Glucose 104 H Calcium 8.2 L Urine 02/01/22 Range/Units 14:30 Urine Color Yellow Urine Appearance Cloudy A (Clear) Urine pH 5.0 (4.5-7.5) Ur Specific [place] 1.016 (1.000-1.030) Urine Protein 2+ H (Negative) Urine Glucose (UA) 1+ H (Negative)
[2022-02-02] MEDS ORDERED: cefTRIAXone SODIUM 2,000 MG in DEXTROSE 5% 50 ML IV SCH (16:00)
[2022-02-02] MEDS: SIMVASTATIN 80 MG TAB PO SCH (19:55)
[2022-02-03] MEDS: LEVOTHYROXINE SODIUM 25 MCG TABLET PO SCH (06:01)
[2022-02-03] MEDS: ASPIRIN 81 MG ECTAB PO SCH (07:51)
[2022-02-03] MEDS: PANTOprazole 40 MG TAB PO SCH (07:52)
[2022-02-03] MEDS: CHOLECALCIFEROL 1,000 UNITS 25 MCG TAB PO SCH (07:52)
[2022-02-03] MEDS: METOPROLOL SUCC 25MG EXT REL TAB PO SCH (07:52)
[2022-02-03] MEDS: TAMSULOSIN HCL 0.4 MG CAP PO SCH (07:53)
--- NOTE | 2022-02-03 08:56 | Surgery Progress Note ---
Date of Service February 03, 2022 Assessment & Plan (1) Postoperative hematoma: Plan: -no issues -no strenuous activity -doing wel-discharge per medical team -F/U with Dr Gann in 1-2 weeks Admission and Anticipated Discharge Date Admission Date: February 01, 2022 Subjective -doing well -no complaints Review of Systems Constitutional: no fever and no chills Respiratory: no cough and no dyspnea Cardiovascular: no chest pain Gastrointestinal: no abdominal pain, no nausea and no vomiting Genitourinary: no dysuria Integumentary: no rash and no lesions Neurologic: no localized weakness and no generalized weakness Physical Exam Constitutional: WD/WN, vitals as above Neck: trachea midline Respiratory: normal respiratory effort, lungs clear to auscultation Cardiovascular: RRR, no murmur, no edema Gastrointestinal (Abdomen): Inspection/Auscultation: abdomen normal to insp ection; abdomen not distended Percussion/Palpation: abdomen soft; abdomen nontender and no guarding Musculoskeletal: Head/Neck/Chest: normocephalic and head atraumatic Results & Data ([facility]) Vital Signs (Past 12 Hours) Vital Signs Temp Pulse Pulse Resp BP Pulse Ox 02/03/22 07:06 70 02/03/22 06:06 36.5 C 68 18 136/74 98 02/03/22 03:43 36.5 C 65 18 145/73 H 98 02/03/22 01:14 67 02/02/22 23:45 36.7 C 68 16 135/73 98
[2022-02-03 09:13] LABS: Hematocrit (blood only) 30.5 % (42-52); Hemoglobin 10.2 g/dL (14.0-18.0)
[2022-02-03 09:29] LABS: BUN Creatinine Ratio 11.5 (10-20); Calcium 8.9 mg/dl (8.5-10.1); Creatinine Clr Calc Pharmacy 16.2 ml/min; Est GFR (African American) 22.6 ml/min; Est GFR (Non-African American) 19.5 ml/min; Magnesium 1.8 mg/dl (1.7-2.4); Potassium 3.6 mmol/L (3.5-5.1)
[2022-02-03] MEDS ORDERED: cefTRIAXone SODIUM 2,000 MG in DEXTROSE 5% 50 ML IV SCH (10:00)
--- NOTE | 2022-02-03 12:42 | Hospitalist Progress Note ---
Date of Service February 03, 2022 Assessment & Plan (1) Ambulatory dysfunction: Plan: Likely due to generalized weakness secondary to infection Normal TSH PT OT eval requested Fall precautions (2) Postoperative upper abdominal pain: Plan: S/P laparoscopic cholecystectomy with removal of gangrenous gallbladder Postoperative hematoma No obvious abscess on CT --CT ABD:There is postoperative change from interval cholecystectomy when compared to 01/12/2022. There is a 4.8 x 3.0 cm complex/hyperdense fluid collection the gallbladder fossa with mild surrounding infiltration. The appearance is most typical for a hematoma. A residual component of gallbladder is not excluded, and the sterility of this fluid cannot be assessed by imaging. Clinical correlation will be required. The bladder wall is thickened and trabeculated indicating chronic outlet obstruction. There are foci of gas within the bladder lumen and mild surrounding infiltration. Correlate with clinical findings and urinalysis. The patient is status post aortobiiliac stent graft repair of an abdominal aortic aneurysm. The residual aneurysm sac measures 5.3 x 6.0 cm. Diverticulosis of the left colon without CT evidence of acute diverticulitis. -- Appreciate surgery input Pain is resolved Avoid anticoagulation for now Needs follow up with Surgery upon discharge (3) UTI (urinary tract infection): Plan: Likely related to Hayes catheter placed for urinary retention postoperatively Urine culture grew Serratia Continue Rocephin Day #2 Plan to transition to p.o. antibiotics upon discharge (4) Elevated troponin: Plan: Troponin elevation in setting of chronic renal failure. Denies chest pain (5) Status post laparoscopic cholecystectomy: Plan: Management as above (6) Postoperative urinary retention: Plan: Resolved Bladder scan PRN Continue tamsulosin (7) CKD (chronic kidney disease) stage 4, GFR 15-29 ml/min: Plan: Chronic, stable Monitor renal function Avoid nephrotoxic agents as able (8) Anemia: Plan: chronic Likely multifactorial: Postoperative state, CKD, anemia of chronic disease, hematoma Monitor CBC (9) DVT prophylaxis: Plan: SCDs Re:Hematoma Code Status Full Code Admission and Anticipated Discharge Date Admission Date: February 01, 2022 Subjective Patient is seen and examined at bedside Doing well today No new complaints Dysuria, generalized weakness resolved Denies any recurrence of abdominal pain Eager to get discharged Also denies any chest pain, dyspnea, dizziness, nausea, vomiting Review of Systems Review of Systems: All systems reviewed & are unremarkable except as noted in Subjective Physical Exam Physical Exam: Physical Exam: Vitals signs as noted above General Appearance:Moderately built and nourished, no apparent distress Head: normocephalic, Atraumatic Eyes: normal inspection, EOMI Neck: supple, Trachea midline Respiratory/Chest: Decreased breath sounds, CTA, No accessory muscle use Cardiovascular: S1, S2, No murmur Abdomen/GI:Soft, Non tender, Bowel sounds present Extremities/Musculoskeletal:normal inspection, no edema Neurologic/Psych:AAOX3, grossly no focal neurological deficits Skin: normal color, warm Results & Data Results & Data ([facility]) Vital Signs (Past 12 Hours) Vital Signs Temp Pulse Pulse Resp BP Pulse Ox 02/03/22 11:31 36.9 C 83 16 148/76 H 97 02/03/22 07:06 70 02/03/22 06:06 36.5 C 68 18 136/74 98 02/03/22 03:43 36.5 C 65 18 145/73 H 98 02/03/22 01:14 67 Laboratory Results Short CBC 02/03/22 Range/Units 08:41 Hgb 10.2 L (14.0-18.0) g/dL Hct 30.5 L (42-52) % BMP 02/03/22 08:41 Sodium 137 Potassium 3.6 Chloride 107 Carbon Dioxide 23 BUN 32 H Creatinine 2.79 H Glucose 139 H Calcium 8.9
--- NOTE | 2022-02-03 13:23 | Discharge Summary ---
Date of Service February 03, 2022 Admission HPI Per Admitting Provider 86 yo M presents to the ER reporting increased fatigue, loss of appetite, malaise and generalized weakness and a heaviness in his legs that prevents him from walking. He underwent a lap crow two weeks ago and was discharged from the hospital on several days of antibiotics. He took all the abx. He also had a residual clay catheter that was present at discharge and removed on Friday by Urology. He has been urinating well since that time. Workup in the ER reveals a urinary tract infection without evidence of sepsis. This may have been related to recent clay catheter. Troponin is also elevated and will be trended. ROS reveals no chest pain or SOB. EKG reveals SR69 with a known LBBB. Creatinine is at baseline around 3. CBC is normal aside from a mildly elevated WBC count to 11K. BMP otherwise normal aside from low K at 3.3, which makes sense in setting of reduced PO intake recently. Imaging revealed is a 4.8 x 3.0 cm complex/hyperdense fluid collection the gallbladder fossa with mild surrounding infiltration. The appearance is most typical for a hematoma. A residual component of gallbladder is not excluded, and the sterility of this fluid cannot be assessed by imaging. Clinical correlation will be required. Admission Exam Per Admitting Provider Physical Exam Physical Exam: CONSTITUTIONAL: WNWD, vitals as above, generally well- appearing, NAD EYES: normal conjunctivae, no scleral icterus ENT: external ear and nose normal, MMM NECK: trachea midline, RESPIRATORY: clear to auscultation bilaterally, no crackles, rales or wheezes, normal respiratory effort CARDIOVASCULAR: regular rate and rhythm, S1 and 2 heard without murmurs, gallops or rubs, no JVD, no peripheral edema CHEST: inspection of chest was normal GASTROINTESTINAL: soft, nontender, ND, no guarding, there is some abdominal ecchymosis present centrally MUSCULOSKELETAL: strength 5/5 throughout, head is normocephalic and atraumatic SKIN: warm and dry NEUROLOGIC: patellar DTRs 2+ bilat. no facial palsy, no dysarthria. CN 2-12 grossly intact, no sensory deficit, normal cognition, normal speech, no tremor. No gross focal deficits. PSYCHIATRIC: alert cooperative and oriented to person, place and time. Euthymic mood, makes good eye contact, language grossly intact, recent and remote memory grossly intact. Principal Diagnosis Urinary tract infection Postoperative hematoma Discharge Data Allergies Allergy/AdvReac Type Severity Reaction Status Date / Time No Known Allergies Allergy Verified 02/01/22 13:24 Consultations 02/01/22 17:55 ED Decision to Admit Stat 02/01/22 18:44 Consult General Surgery Routine Ordered Studies 02/01/22 14:21 CT abd pelvis wo con Stat Hospital Course (1) Ambulatory dysfunction: Likely due to generalized weakness secondary to infection Normal TSH PT OT eval requested Fall precautions (2) Postoperative upper abdominal pain: S/P laparoscopic cholecystectomy with removal of gangrenous gallbladder Postoperative hematoma No obvious abscess on CT --CT ABD:There is postoperative change from interval cholecystectomy when compared to 01/12/2022. There is a 4.8 x 3.0 cm complex/hyperdense fluid collection the gallbladder fossa with mild surrounding infiltration. The appearance is most typical for a hematoma. A residual component of gallbladder is not excluded, and the sterility of this fluid cannot be assessed by imaging. Clinical correlation will be required. The bladder wall is thickened and trabeculated indicating chronic outlet obstruction. There are foci of gas within the bladder lumen and mild surrounding infiltration. Correlate with clinical findings and urinalysis. The patient is status post aortobiiliac stent graft repair of an abdominal aortic aneurysm. The residual aneurysm sac measures 5.3 x 6.0 cm. Diverticulosis of the left colon without CT evidence of acute diverticulitis. -- Appreciate surgery input Pain is resolved Avoid anticoagulation for now Needs follow up with Surgery upon discharge (3) UTI (urinary tract infection): Likely related to Clay catheter placed for urinary retention postoperatively Urine culture grew Serratia Continue Rocephin Day #2 Plan to transition to p.o. antibiotics upon discharge (4) Elevated troponin: Troponin elevation in setting of chronic renal failure. Denies chest pain (5) Status post laparoscopic cholecystectomy: Management as above (6) Postoperative urinary retention: Resolved Bladder scan PRN Continue tamsulosin (7) CKD (chronic kidney disease) stage 4, GFR 15-29 ml/min: Chronic, stable Monitor renal function Avoid nephrotoxic agents as able (8) Anemia: chronic Likely multifactorial: Postoperative state, CKD, anemia of chronic disease, hematoma Monitor CBC (9) DVT prophylaxis: SCDs Re:Hematoma Code Status Full Code Total Time Total Time Spent Total Time Spent (In Minutes): 42 minutes Discharge Plan Discharge Items Patient Disposition: Home - Home Health Services Reason For Visit: LEG PAIN, UTI Discharge Diagnosis: Urinary tract infection Postoperative hematoma Activity: Per Instructions section Exercise/Sports: Gradually increase as tolerated Non-emergency contact: Primary Care Provider and Surgeon Call non-emergency contact if: you have any medication questions, your symptoms worsen, your pain is concerning for you and you have a fever Follow-up/Referrals: Mika Ortiz DO [Primary Care Provider] - Diet: Heart Healthy Addtl Attending Provider Instructions: Follow-up with your primary care physician in 1 week . Please call for appointment Follow-up with your Surgeon in 1-2 weeks --- Complete the antibiotic course: Cefdinir 300mg daily for 7 more days as prescribed. Seek immediate medical attention if your symptoms reoccur or worsen Please take all medications as instructed on discharge list below. Please call if you have any questions or problems. You can reach a [facility] hospitalist on duty at [facility] 24 hours a day by calling [phone] Pending Studies at Discharge: No Stand-Alone Forms: My [facility], Smoking Cessation Medications and DC Order Prescriptions: New cefdinir 300 mg capsule 300 mg PO DAILY Qty: 7 RF: 0 Continued aspirin 81 mg tablet,delayed release (DR/EC) 81 mg PO QAM RF: 0 levothyroxine 25 mcg tablet 25 mcg PO QAM RF: 0 cholecalciferol (vitamin D3) [Vitamin D3] 1,000 unit Tablet 1,000 unit PO QAM RF: 0 simvastatin 80 mg Tablet 80 mg PO PM RF: 0 tamsulosin 0.4 mg Capsule 0.4 mg PO QAM RF: 0 nitroglycerin [Nitrostat] 0.4 mg Tablet, Sublingual 0.4 mg sublingual UD PRN (Reason: Chest Pain) RF: 0 metoprolol succinate [Toprol XL] 25 mg Tablet Extended Release 24 Hr 25 mg PO QAM RF: 0 polyethylene glycol 3350 [Miralax] 17 gram Powder In Packet 17 g PO QAM RF: 0 omeprazole 20 mg Capsule,Delayed Release(Dr/Ec) 20 mg PO QAM RF: 0 lutein 20 mg Tablet 20 mg PO QAM RF: 0 miconazole nitrate 2 % Powder 1 applic TOPICAL BID RF: 0 vitamin K2 100 mcg Capsule 100 mcg PO DAILY RF: 0 Discharge Orders: Discharge Order (Routine); Ordered 02/03/22 Ordered By: Sourav Adams Admission Data Admit Date/Time: 02/01/22 18:10 Attending Provider: Sourav Adams Admit Provider: Laureen Messer Primary Care Provider: Mika Ortiz Other Providers: Adonis Rivers ; Laureen Messer
== END 2022-02-03 14:53 | disposition home health service (06) | DRG 690 ==
LOC: ED 12:08 → SUATTDRO 18:10 → 2N 18:10

== ENCOUNTER 2024-05-14 13:21 | Inpatient (IN) ==
[2024-05-14 14:53] LABS: Basophils # (auto) 0.01 K/uL (0.00-0.20); Basophils % (auto) 0.1 %; Eosinophils # (auto) 0.03 K/uL (0.00-0.50); Eosinophils % (auto) 0.4 %; Hematocrit (blood only) 31.3 % (42.0-52.0); Hemoglobin 10.5 g/dl (14.0-18.0); Immature Granulocytes # (auto) 0.03 K/uL (0.01-0.20); Immature Granulocytes % (auto) 0.4 %; Lymphocytes # (auto) 0.81 K/uL (1.20-3.40); Lymphocytes % (auto) 10.6 %; Mean Corpuscular Hemoglobin 30.5 pg (25.0-34.0); Mean Corpuscular Hgb Conc 33.5 g/dL (32.0-36.0); Monocytes # (auto) 0.88 K/uL (0.11-0.59); Monocytes % (auto) 11.5 %; Neutrophils # (auto) 5.87 K/uL (1.40-6.50); Platelet Count 179 K/uL (130-400); RDW Coefficient of Variation 14.1 % (11.5-14.5); Red Blood Count 3.44 M/uL (4.70-6.10); White Blood Count 7.63 K/ul (4.8-10.8)
[2024-05-14 15:10] LABS: Albumin Globulin Ratio 1.5 (0.9-2); Albumin Level 4.3 gm/dl (3.4-5.0); Bilirubin,Total 0.4 mg/dl (0.2-1.0); Calcium 9.3 mg/dl (8.6-10.3); Est GFR (African American) 12.8 ml/min; Globulin 2.8 gm/dl (2.5-4.0); Potassium 4.1 mmol/L (3.5-5.1); Total Protein 7.1 gm/dl (6.0-8.3)
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
[2024-05-14] MEDS: SODIUM CHLORIDE 0.9% 500 ML IV ONE (16:34)
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
--- NOTE | 2024-05-14 16:53 | CT Scan Report ---
HEAD CT NONCONTRAST CT DOSE: 625.8 mGy.cm HISTORY: confusion TECHNIQUE: Multiaxial CT images of the head were performed without the use of intravenous contrast. A utomated exposure control was utilized for this study. A dose lowering technique was utilized adheri ng to the principles of ALARA. Comparison: Head CT 02/21/2019. Findings: The paranasal sinuses and mastoid air cells are clear. The calvarium and skull base are int act. There is no mass, hematoma, midline shift, acute infarct. White matter hypodensity is nonspecifi c but suggestive of microvascular ischemic change. The ventricles and sulci demonstrate mild age-rela dell involutional changes. Impression: No acute intracranial abnormality. Atrophy and microvascular ischemic changes. ACT 112: Negative or not required by law. Electronically signed by: Sunny Chavez M.D. 05/14/2024 4:52 PM
[2024-05-14 16:59] LABS: Appearance Urine Clear (Clear); Bacteria Urine Automated None Seen (None Seen); Bilirubin Urine Negative (Negative); Blood Urine 1+ (Negative); Cast Urine Automated 0-2 /lpf (0-2); Color Urine Yellow; Epithelial Cell Urine Auto 0-2 /hpf (0-2); Glucose Urine UA Negative (Negative); Ketones Urine Negative (Negative); Leukocyte Esterase Urine Negative (Negative); Nitrite Urine Negative (Negative); Protein Urine 1+ (Negative); Specific Gravity Urine 1.008 (1.000-1.030); Urobilinogen Urine Negative (Negative); WBC Urine Automated 0-5 /hpf (0-5)
[2024-05-14 17:51] LABS: Creatinine Urine Random 26.8 mg/dl; Protein Creatinine Ratio Urine 1.3 (0-0.2); Total Protein Urine Random 33.5 mg/dl (0-11.9)
[2024-05-14 18:05] LABS: Thyroid Stimulating Hormone 2.195 uIu/ml (0.300-4.500)
[2024-05-14] MEDS: SODIUM CHLORIDE 0.9% 1,000 ML IV SCH (18:16)
[2024-05-14] MEDS ORDERED: POLYETHYLENE (MIRALAX) 17 GM PACK PO PRN (19:56)
[2024-05-14] MEDS ORDERED: ONDANSETRON INJ 2 MG/ML 2 ML VIAL IV PRN (19:56)
--- OUTSIDE RECORDS SUMMARY | 2024-05-14 20:36 | External Medical Summary | Summary of Care ---
Author Name Unknown Organization [facility] Address [address] [place] [address] Phone [phone] Care Team Providers Care Asbestos Surveyor Name Role Phone Julianna Jones Primary Care Provider + [phone] Encounter Details Date Type Department Care Team (Late st Contact Info) Description 05/08/2024 9:30 AM EDT Immunization Ancillary [facility] [address] [place] [address] [facility] Flu Shot Clinic [facility] [address] [place] [address] Arrived Allergies No known active allergiesdocumented as of this encounter (statuses as of 05/08/2024) Medications Medication Sig Dispensed Refills Start Date End Date Status ASPIRIN EC 81 MG PO TBECIndications:Coron venus atherosclerosis of [place] coronary artery Take 1 Tablet by mouth in the morning. 100 Tab 3 10/10/2014 Active cholecalciferol, VIT D3, (VITAMIN D3) 1000 UNITS TabletIndications:Vit canela D deficiency Take 1 Tablet by mouth in the morning. 10/19/2015 Active levothyroxine (LEVOXYL) 25 MCG TabletIndications:Hyp othyroidism, unspecified type Take 1 Tab by mouth daily. (at least 30 min prior to breakfast or other meds) 30 Tab 6 04/22/2016 Active tamsulosin (FLOMAX) 0.4 MG Capsule Take 1 Cap by mouth daily. 30 Cap 5 07/04/2016 Active omeprazole (PRILOSEC) 20 MG CPDRIndications:Gastr oesophageal reflux disease without esophagitis Take 1 Cap by mouth daily. 1 hour before the first meal of the day 30 Cap 5 07/28/2019 Active polyethylene glycol 3350 (MIRALAX) 255 gram powderIndications:Chr onic idiopathic constipation Take 17 g by mouth as needed for Constipation. Dissolve one heaping tablespoon in 8 ounces of water or juice. 1 Bottle 2 07/28/2019 Active Additional Information Patient taking differently:17 g Oral PRN, Constipation,Dissolve one heaping tablespoon in 8 ounces of water or juice.Takes every other day, Reported on 03/24/2024 Polyethyl Glycol-Propyl Glycol 0.4-0.3 % Ophthalmic Solution INSTILL ONE DROP IN BOTH EYES EVERY DAY FOR AMD 09/15/2020 Active Lutein 20 MG Oral Tablet Take 1 Capsule by mouth in the morning. Active Cyanocobalamin 500 MCG Oral Tablet Take 1 Tablet by mouth every other day. 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 30 Tablet 11 07/05/2022 Active Nitroglycerin 0.4 MG Sublingual Tablet Sublingual (Nitrostat)Indication s:Atherosclerosis of [place]at[place] coronary artery of [place] heart without angina pectoris Place 1 Tablet (0.4 mg) under the tongue as needed for Pain, Chest. May repeat 3 times. If chest pain continues, call 911. 25 Tablet 11 07/05/2022 Active Metoprolol Succinate ER 25 MG Oral Tablet Extended Release 24 Hour (Toprol XL)Indications:Athero sclerosis of [place] coronary artery of [place] heart without angina pectoris,HTN, goal below 130/80 One half tablet by mouth daily 45 Tablet 3 07/24/2022 Active Acetaminophen 500 MG Oral Capsule Take 2 Capsules by mouth 2 times a day. Active Finasteride 5 MG Oral Tablet (Proscar) Take 1 Tablet by mouth in the morning. 90 Tablet 3 10/08/2023 Active Furosemide 80 MG Oral Tablet (Lasix)Indications:Ki dney disease with fluid retention Take 1 Tablet by mouth in the morning. 30 Tablet 5 01/05/2024 Active documented as of this encounter (statuses as of 05/08/2024) Active Problems Problem Noted Date Diagnosed Date Ischemic cardiomyopathy 10/03/2023 HTN, goal below 130/80 10/03/2023 Abdominal aortic aneurysm (AAA) without rupture 11/15/2022 Spinal stenosis of lumbar re gion with neurogenic claudication 07/04/2022 End stage renal disease 06/20/2022 Paroxysmal atrial fibrillation 06/20/2022 Status post cholecystectomy 02/20/2022 Last Assessment & Plan: Postoperative pain/hematoma-pain has resolved. Constipation 02/20/2022 Last Assessment & Plan: Last BM yesterday. Reportedly normal. Currently taking stool softener and miralax daily. 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 No SOB. Last lasix dose last week for swelling in extremities. Today, edema in LE at baseline -Continue current medication regimen including Lasix 20 mg prn Prediabetes 02/16/2019 Primary osteoarthritis of both feet 05/19/2018 Acquired hypothyroidism 11/19/2017 Peripheral vascular disease 11/19/2017 S/P AAA repair 07/04/2016 LBBB (left bundle branch block) 07/01/2016 Presence of bare metal stent in LAD coronary art peace 06/28/2015 Dyslipidemia, goal LDL below 70 08/10/2009 Overview: Per Lipid Taxonomy. Old myocardial infarct 05/16/2002 Generalized osteoarthritis 05/16/2002 Overview: Ankles, hands Atherosclerosis of [place] co ronary artery of [place] heart without angina pectoris 05/07/2002 documented as of this encounter (statuses as of 05/08/2024) Resolved Problems Problem Noted Date Diagnosed Date Resolved Date Benign hypertension with CKD (chronic kidney disease) stage V 11/15/2022 03/17/2023 Abdominal aortic aneurysm (A AA) without rupture 11/15/2022 03/03/2023 Kidney disease, chronic, sta ge IV (GFR 15-29 ml/min) 04/24/2020 07/06/2020 Hypertensive heart and kidne y disease with chronic systolic congestive heart failure and stage 4 chronic kidney disease 07/28/2019 0 Overview: Duplicate. Benign hypertension with chr onic kidney disease, stage IV 05/03/2019 11/08/2019 Overview: Per CKD protocol More specific code in use. Hypertensive kidney disease with chronic kidney disease stage IV 02/16/2019 11/08/2019 Overview: More specific code in use. Unsteady gait 02/16/2019 11/08/2019 Overview: Acute. Benign hypertension with chr onic kidney disease, stage III 04/21/2017 05/07/2019 Overview: Per CKD protocol Angina pectoris 04/21/2017 11/19/2017 History of abdominal aortic aneurysm (AAA) 07/04/2016 11/19/2017 Overview: S/p repair Dyslipidemia 04/22/2016 06/07/2022 Kidney disease, chronic, sta ge III (GFR 30-59 ml/min) 10/10/2014 12/05/2017 Mixed dyslipidemia 04/10/2014 5 Screening for prostate cancer 06/28/2010 04/21/2017 Overview: 06/27/10: Discussed pros/cons of further screening - he decided to stop screening for prostate cancer History of colon polyps 06/27/201010/23 Overview: Colonoscopy 10/2010: normal - consider repeat 2015 but he will be 80 colonoscopy 2006 - TAP x 1 Historical. HTN, goal below 130/80 09/21/200911/15 Overview: Per HTN Taxonomy. CAD S/P AWMI 9/98 S/P PTCA/stent LAD 11/25/2007 11/08/2019 Overview: Followed by Dr. Chi Borjas. Kidney disease, chronic, sta ge III (GFR 30-59 ml/min) 10/27/2007 01/30/2011 Overview: GFR has remained >60 since 2007 Impaired fasting glucose 03/30/2007 ADVANCE DIRECTIVE INFORMATION 05/28/2005 02/16/2019 Overview: No, Advance Directive brochure given to patient at prior appointment. Chronic sinusitis 05/16/2002 01/30/2011 Calcaneal spur 05/16/2002 01/30/2011 HTN, goal below 140/90 09/21 Overview: Per HTN Taxonomy. PURE HYPERCHOLESTEROLEM 07/25 Overview: Per Lipid Taxonomy. Percutaneous transluminal co ronary angioplasty status 02/16/2019 documented as of this encounter (statuses as of 05/08/2024) Immunizations Name Administration Dates Next Due COVID-19 mRNA, LNP-s, No Pre serve, 2-Dose Series (Moderna) 10/20/2020,09/22/2020 COVID-19, MRNA-LNP, 23-24, P F, 30 MCG/0.3 mL, 12 YRS AND ABOVE, IM (PFIZER-Comirnaty) 01/30/2024 COVID-19, MRNA-LNP, 23-24, P F, 50 MCG/0.5 mL, 12 YRS AND ABOVE, IM (MODERNA-Spikevax) 08/07/2023 COVID-19, mRNA, LNP-s, PF, B ooster, 100mcg/0.5mg (Moderna) 06/25/2021 Pneumococcal Conjugate Vacc, 13 Valent (Prevnar) 04/22/2016 Pneumococcal Conjugate Vacci ne, 20-valent ([id number]) 03/21/2023 RSV Vac., Recomb, Adjuvant, PF,0.5 Ml (Arexvy) 09/17/2023 Seasonal Influenza, High Dos e, Trivalent, PF, IM (Fluzone HD) 05/08/2024 Seasonal Influenza, PF, 6 M & above, IM , (FluLaval or Fluzone) 05/13/2020,05/19/2018,06/07/2017 Seasonal Influenza, Quadriva lent Hd (Fluzone Hd) 05/10/2023,05/11/2022,05/12/2021 Seasonal Influenza, Quadriva lent, No Preserve, IM 06/03/2016,06/17/2015 Seasonal Influenza, Trivalen t, (IIV3), with Preserv, (Fluzone) 05/28/2014,06/07/2013,05/14/2012,2010,06/27/2010,05/30/2009,06/07/2008,1 ,05/27/2006 Seasonal Influenza, Trivalen t, Adjuvanted, 65+ YRS, PF, (Fluad) 05/24/2019 TD, Preservative Free 08/25/1996 TDAP (age 10 and older)(Boostrix) 07/02/2023,05/2013 Varicella Zoster Vaccine (Adult) 12/23/2012,01/2013 Zoster Vaccine Recombinant (Shingrix) 03/07/2020 ,09/16/2019 documented as of this encounter Social History Tobacco Use Types Packs/Day Years Used Date Smoking Tobacco: Former Pipe Smokeless Tobacco: Never Comments:Quit smoking 1997 Alcohol Use Standard Drinks/Week Comments Not Currently 1.7 (1 standard drink = 0.6 oz p ure alcohol) occasional AUDIT-C Answer Date Recorded Frequency of Alcohol Consumption 2-4 times a mon th 03/06/2020 Average Number of Drinks 1 or 2 020 Frequency of Binge Drinking Not on file 02/22 PHQ-2 Answer Date Recorded PHQ Adult Total Score 0 01/30/2024 Hunger Vital Sign Answer Date Recorded Within the past 12 months, y ou worried that your food would run out before you got the money to buy more. Never true 10/03/19 24 Within the past 12 months, t he food you bought just didn't last and you didn't have money to get more. Never true 10/03/2023 Childcare Answer Date Recorded Do you feel overwhelmed with taking care of a child, family member or friend? No 10/03/2023 Does your family need help f inding childcare? (Household - for ages 0-17 years) Not on file 10/03/2023 Clothing Answer Date Recorded Have you been unable to get clothing when it was really needed? No 10/03/2023 Is your family able to get c lothes or diapers when needed? (Household - for ages 0-17 years) Not on file 10/03/2023 Personal Safety Answer Date Recorded Do you feel unsafe or have concerns for your saf ety? No 10/03/2023 Do you have concerns for you r family's safety? (Household - for ages 0-17 years) Not on file 10/03/2023 Utilities Answer Date Recorded Do you have trouble paying y our heating, water, or electric bill? No 10/03/2023 Is your family able to pay t he heat, water, or electric bill? (Household - for ages 0-17 years) Not on file 10/03/2023 Does your family have access to good internet? (Household - for ages 0-17 years) Not on file 10/03/2023 Employment Status Answer Date Recorded Are you unemployed or without regular income? No 10/03/2023 Does the household have a [facility] hospit[facility] source of income? (Household - for ages 0-17 years) Not on file 10/03/2023 Social Connections Answer Date Recorded How often do you feel lonely or isolated from th ose around you? Never 10/03/2023 Financial Resource Strain Answer Date R ecorded Do you have any trouble payi ng for your medications, or do you think you might in the future? No 10/03/2023 Does your family have troubl e paying for medicine? (Household - for ages 0-17 years) Not on file 10/03/2023 Transportation Needs Answer Date Record ed READ ONLY Do you have troubl e getting a ride to medical visits or work? Never True 10/03/2023 Does your family have a hard time getting a ride to doctors visits? (Household - for ages 0-17 years) Not on file 10/03/2023 Has lack of transportation k ept you from medical appointments, meetings, work, or from getting things needed for daily living? Check all that apply. (Adult - for ages 18 years and over) Not on file 10/03/2023 Do you (or your family) have trouble finding or paying for a ride (transportation)? (Household - for ages 0-17 years) Not on file 10/03/2023 Housing Stability Answer Date Recorded Do you currently live in a s helter or have no steady place to sleep at night? No 10/03/2023 READ ONLY Do you think you a re at risk of becoming homeless? No 10/03/2023 Does your family worry about paying for your home or becoming homeless? (Household - for ages 0-17 years) Not on file 0 10/03/2023 Are you homeless or worried that you might be in the future? (Adult - for ages 18 years and over) Not on file Are you (or your family) jeanne eless or worried that you might be in the future? (Household - for ages 0-17 years) Not on file Food Insecurity Answer Date Recorded Do you need food for this week? No 10/03/2023 Are you able to get enough f ood for your family? (Household - for ages 0-17 years) Not on file 10/03/2023 Does your family need food t his week? (Household - for ages 0-17 years) Not on file 10/03/2023 Do you always have enough fo od for your family? (Household - for ages 0-17 years) Not on file 10/03/2023 Sex and Gender Information Value Date Recorded Sex Assigned at Male 11/17/2018 10:42 AM EDT Gender Identity Male 11/17/2018 10:42 AM EDT Sexual Orientation Straight 11/17/2018 10 :42 AM EDT Job Start Date Occupation Industry Not on file Not on file Not on file documented as of this encounter Functional Status Functional Status Response Date of Assess ment Are you deaf or do you have serious difficulty h earing? No 06/18/2016 Are you blind or do you have serious difficulty seeing, even when wearing glasses? No 06/18/2016 Do you have serious difficul ty walking or climbing stairs? (5 years old or older) No 06/18/2016 Do you have difficulty dress ing or bathing? (5 years old or older) No 06/18/2016 Because of a physical, menta l, or emotional condition, do you have difficulty doing errands alone such as visiting a doctor s office or shopping? (15 years old or older) No 06/18/20 16 Cognitive Status Response Date of Assessm ent Because of a physical, menta l, or emotional condition, do you have serious difficulty concentrating, remembering, or making decisions? (5 years old or older) No 06/18/2016 documented as of this encounter Plan of Treatment Upcoming Encounters Date Type Department Care Team (Late st Contact Info) Description 05/28/2024 9:30 AM EDT Imaging Vascular Lab, [facility]nd [facility] [address] [facility] [place] [address] 05/31/2024 3:00 PM EDT Office Visit Family Practice [address] [place] [address] [place] [address] Julianna Jones DO [address] [place] [address] 06/02/2024 12:10 PM EDT Office Visit Vascular Surgery, [facility] [address] [facility] [place] [address] Galileo Rey MD [address] [place] [address] 07/26/2024 11:00 AM EST Office Visit Cardiology, [facility] [address] [facility] [place] [address] Vanessa Jauregui PA-C [address] [place] [address] 09/16/2024 2:00 PM EST Office Visit Nephrology, [facility] [address] [place], [place] [address] Reza Whatley MD [address] [place] [address] 04/26/2025 11:45 AM EDT Office Visit Urology, [facility] [address] [place] [address] Kai Ponce MD [address] [place] [address] Health Maintenance Due Date Last Done Comments Adult Wellness Visit 03/06/2021 03/06/2020 COVID-19 Vaccine ( season) 2024 01/30/2024, 08/07/2023, 06/25/2021, Additional history exists Influenza Vaccine (FLU shot) (#1) 2024 05/08/2024, 05/10/2023, 05/11/2022, Additional history exists HbA1c 09/10/2024 09/10/2023, 10/24, 07/05/2022, Additional history exists TSH 09/10/2024 09/10/2023, 10/24, 12/17/2021, Additional history exists Depression Screening 01/29/2025 01/30/2024, 05/19/20 18 DTap/Tdap Vaccines (3 - Td or Tdap) 07/02/2033 07/02/2023, 03/03/2013, 04/18/2005, Additional history exists RETIRED - COLONOSCOPY-EVERY 5 YRS AGES 18-100 Discontinued 07/10/2015, 07/10/2015 Zoster Vaccines Completed 03/07/2020, 08/26, 12/23/2012, Additional history exists Pneumococcal Vaccine: 65+ Years Completed 03/21/2023, 04/22/2016, 04/08/2000 Albumin/Creatinine Ratio Discontinued 024, 09/10/2023, 04/03/2022, Additional history exists Nephrology Referral Discontinued 03/24/2024 HPV (Gardasil) Vaccine Aged Out No lo nger eligible based on patient's age to complete this topic Hepatitis B Vaccine Aged Out No longe r eligible based on patient's age to complete this topic MENINGOCOCCAL (MENACTRA/MENVEO) Aged Out No longer eligible based on patient's age to complete this topic documented as of this encounter Medical Devices Implanted Type Area Housekeeper And Laundry Assistant Device Identifier Shelf Expiration Date Model / Serial / Lot Graft Aaa Bif [id number] - [id number] Implanted:Qty: 1 on 06/18/2016 by Bill Georges [place] [facility] [place] Abdomen [employer] : VASCULAR 04/10/2018 [id number] / [id number] / Limb Contralat [id number] - [id number] Implanted:Qty: 1 on 06/18/2016 by Bill Georges MD [place] [facility] [place]: Abdomen [employer] : VASCULAR 02/23/2017 [id number] / [id number] / Limb Contralat [id number] - [id number] Implanted:Qty: 1 on 06/18/2016 by Bill Georges MD [place] [facility] [place]A: Abdomen [employer] : VASCULAR 05/20/2018 [id number] / [id number] / documented as of this encounter Advance Directives Documents on File Type Date Recorded Patient Operations Examiner Expl anation Advance Directives and Living Will 12/26/2022 ADVANCE DIRECTIVE / LIVING WILL Power of Bag Sealer 12/26/2022 POWER OF A [facility] * Full Code (Latest Code Status on File) Date Activated Date Inactivated Comments 06/18/2016 11:58 AM 06/20/2016 9:13 PM This orde r reflects the patients wishes and were consensually agreed upon. * Full Code Date Activated Date Inactivated Comments 06/18/2016 10:35 AM 06/18/2016 11:12 AM This ord er reflects the patients wishes and were consensually agreed upon. Healthcare Agents on File Name Relationship Healthcare Agent Relationshi p Communication Zaira Valencia Adult Child First Alternate Health Care Agent Bob Valencia Spouse Health Care Power of Attorn ey Care Teams Asbestos Surveyor Relationship Specialty Start Date End Date Julianna Jones DO [address] [place] [address] PCP - General Family Medicine 03/16/24 documented as of this encounter
--- OUTSIDE RECORDS SUMMARY | 2024-05-14 20:37 | External Medical Summary | Summary of Care ---
Author Name Unknown Organization [facility] Address [address] [place] [address] Phone [phone] Care Team Providers Care Revenue Stamp Cutter Name Role Phone Julianna Jones DO Primary Care Provider [phone] Reason for Visit * Reason Onset Date Comments Appointment 04/16/202404/16, 04/19 Encounter Details Date Type Department Care Team (Late st Contact Info) Description 04/16/2024 Telephone Family Practice [address], [place] [address] [place] [address] Julianna Jones [address] [place], [place] [phone] Appointment (04/16, 04/19) Allergies No known active allergiesdocumented as of this encounter (statuses as of 04/22/2024) Medications Medication Sig Dispensed Refills Start Date End Date Status ASPIRIN EC 81 MG PO TBECIndications:Coron venus atherosclerosis of [place] coronary artery Take 1 Tablet by mouth [...] MG Sublingual Tablet Sublingual (Nitrostat)Indication s:Atherosclerosis of [place] coronary artery of [place] heart without angina pectoris Place 1 Tablet (0.4 mg) under the tongue as needed for Pain, Chest. May repeat 3 times. If chest pain continues, call 911. 25 Tablet 11 07/05/2022 Active Metoprolol Succinate ER 25 MG Oral Tablet Extended Release 24 Hour (Toprol XL)Indications:Athero sclerosis of [place] coronary artery of [place] heart without angina pectoris,HTN, goal below 130/80 [...] as of this encounter (statuses as of 04/22/2024) Active Problems Problem Noted Date Diagnosed Date [...] osteoarthritis 05/16/2002 Overview: Ankles, hands Atherosclerosis of [place] co ronary artery of [place] heart without angina pectoris 05/07/2002 documented as of this encounter (statuses as of 04/22/2024) Resolved Problems Problem Noted Date Diagnosed Date [...] Overview: Per HTN Taxonomy. CAD S/P AWMI S/P PTCA/stent LAD 11/25/2007 11/08/2019 Overview: Followed [...] as of this encounter (statuses as of 04/22/2024) Immunizations Name Administration Dates Next Due COVID-19 [...] (Prevnar) 04/22/2016 Pneumococcal Conjugate Vacci ne, 20-valent ([id number]) 03/21/2023 Pneumococcal Polysaccharide PPV23 (Pneumovax) 04/08/2000 RSV Vac., Recomb, Adjuvant, PF,0.5 Ml (Arexvy) 09/17/2023 Seasonal Influenza, PF, 6 M & above, IM , (FluLaval or Fluzone) 05/13/2020,05/19/2018,06/07/2017 Seasonal Influenza, Quadriva lent Hd (Fluzone Hd) 05/10/2023,05/11/2022,05/12/2021 Seasonal Influenza, Quadriva lent, No Preserve, IM 06/03/2016,06/17/2015 Seasonal Influenza, Trivalen t, (IIV3), with Preserv, (Fluzone) 05/28/2014,06/07/2013,05/14/2012,05/22,06/27/2010,05/30/2009,06/07/2008 ,06/16/2007,05/27/2006,06/14/2005,05/25,07/07/2002,08/14/2000 Seasonal Influenza, Trivalen t, Adjuvanted, 65+ YRS, PF, (Fluad) 05/24/2019 TD, Preservative Free 04/18/2005,08/25/1996 TDAP (age 10 and older)(Boostrix) 07/02/2023,05/2013 Varicella [...] No 10/03/2023 Does the household have a re gular source of income? (Household - for ages [...] No 06/18/2016 documented as of this encounter Miscellaneous Notes * Telephone Encounter - Fatemeh Mcnally LPN - 04/22/2024 1:50 PM EDT Patient states that the tylenol, and this is helping. Will hold off for now. 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 We can consider PT and orthopedics if he has persistent pain. * Telephone Encounter - Fatemeh Mcnally LPN - 04/20/2024 1:05 PM EDT Called patient, states he had imaging done. Did go [facility]. [facility] did not give any medication. States today his neck is feeling better. Is taking OTC tylenol 500 mg two tablets twice daily. Thank you Please review imaging * Telephone Encounter - Fatemeh Mcnally LPN - 04/19/2024 2:43 PM EDT Called, line is busy, will continue to call patient. Thank you * Telephone Encounter - Fatemeh Watts RN - 04/16/2024 8:42 AM EDT Spoke with Dr Thompson-to call and ask further questions about the arm weakness. Pt and states it hurts to move his arm-when lifts arm hurts in back of neck. Has degenerative changes in C-spine noted in xray in 2011. Feel it may be a pinched nerve. Moving slower. Denies any problems with speech, vision, moving other body part. States they don't feel its stroke-like symptoms Dr Thompson recommends following at urgent care today-Dr Jones and xray not in office today. Pt/ notified and agreeable to going to urgent care. They will call on Friday to update Dr Jones. * Telephone Encounter - Fatemeh Watts RN - 04/16/2024 8:23 AM EDT Call to pt-spoke with -pt in bathroom. States started Friday not feeling well-back of his neck was hurting a lot and his arms. Denies any fever, n/v/d, cough, SOB, chest pain. Has some congestion and a little wheezing. Generalized weakness and not feeling well. Having trouble using his eft arm d/t weakness. He is eating and drinking. Told I would talk with Dr Thompson and would let her know his recommendations. * Telephone Encounter - Coby Tim OSA - 04/16/2024 8:12 AM EDT Not feeling well Arms hurt, neck hurts , just not feeling well Losing left arm, can't control Wants seen Please advise documented in this encounter Plan of Treatment Upcoming Encounters Date Type Department Care Team (Late st Contact Info) Description 05/28/2024 9:30 AM EDT Imaging Vascular Lab, [facility] 2nd Floor, [place] 132 [facility] [place] [address] 05/31/2024 3:00 PM EDT Office Visit Family Practice [address], [place] 293 [place] [address] Julianna Jones DO 293 [facility] [address] 06/02/2024 12:10 PM EDT Office Visit Vascular Surgery, [facility] 132 [facility] [place] [address] Galileo Rey MD [address] [place] [address] 07/26/2024 11:00 AM EST Office Visit Cardiology, [facility] 132 [facility] [place] [address] Vanessa Jauregui, PAEm[place] 132 [place] [address] 09/16/2024 2:00 PM EST Office Visit Nephrology, [facility] 200 [facility] [place] [address] Reza Whatley MD 200 [facility] [place] [address] 04/26/2025 11:45 AM EDT Office Visit Urology, [facility] 132 [facility] [place] [address] Kai Ponce MD 27 [place] [address] Health Maintenance Due Date Last Done Comments Adult Wellness Visit 03/06/2021 03/06/2020 Influenza Vaccine (FLU shot) (#1) 2024 05/10/2023, 05/11/2022, 05/12/2021, Additional history exists HbA1c 09/10/2024 09/10/2023, 10/24, [...] Discontinued 024, 09/10/2023, 04/03/2022, Additional history exists COVID-19 Vaccine Completed 01/30/2024, , 06/25/2021, Additional history exists Nephrology Referral Discontinued 03/24/2024 [...] this encounter Medical Devices Implanted Type Area Cook Specialty Foreign Food Device Identifier Shelf Expiration Date Model / Serial / Lot Graft Aaa Bif [id number] - [id number] Implanted:Qty: 1 on 06/18/2016 by Bill Georges MD at [place] [facility] [place]: Abdomen MEDTRONIC : VASCULAR 04/10/2018 [id number] 66E / [id number] / Limb Contralat [id number] - [id number] Implanted:Qty: 1 on 06/18/2016 by Bill Georges MD at [place] [facility] [place]/A: Abdomen MEDTRONIC : VASCULAR 02/23/2017 [id number] 24E / [id number] / Limb Contralat [id number] - [id number] Implanted:Qty: 1 on 06/18/2016 by Bill Georges MD at [place] [facility] [place] N/A: Abdomen MEDTRONIC : VASCULAR 05/20/2018 [id number] / [id number] / documented as of this encounter Advance Directives Documents on File Type Date Recorded Patient Minister Assistant Expl anation Advance Directives and Living Will 12/26/2022 ADVANCE DIRECTIVE / LIVING WILL Power of Twist Packer 12/26/2022 POWER OF A TTORNEY DURABLE HEALTH [...] Care Power of Attorn ey Care Teams Revenue Stamp Cutter Relationship Specialty Start Date End Date Julianna Jones DO [address] [place] [address] PCP - General Family Medicine 03/16/24 documented as of this encounter
--- OUTSIDE RECORDS SUMMARY | 2024-05-14 20:37 | External Medical Summary | Summary of Care ---
Author Name Unknown Organization [facility] Address [address] [place] [address] Phone [phone] Care Team Providers Care Airline Hostess Name Role Phone Julianna Jones DO Primary Care Provider [phone] Reason for Visit * Reason Onset Date Comments Appointment 04/16/202404/16, 04/19 Encounter Details Date Type Department Care Team (Late st Contact Info) Description 04/16/2024 Telephone Family Practice [address], [place] [address] [place] [address] Julianna Jones 293 [place], [place] [phone] Appointment (04/16, 04/19) Allergies No known active allergiesdocumented as of this encounter (statuses as of 04/22/2024) Medications Medication Sig Dispensed Refills Start Date End Date Status ASPIRIN EC 81 MG PO TBECIndications:Coron venus atherosclerosis of [place] coronary artery Take 1 Tablet by mouth [...] MG Sublingual Tablet Sublingual (Nitrostat)Indication s:Atherosclerosis of [place] coronary artery of [place] heart without angina pectoris Place 1 Tablet (0.4 mg) under the tongue as needed for Pain, Chest. May repeat 3 times. If chest pain continues, call 911. 25 Tablet 11 07/05/2022 Active Metoprolol Succinate ER 25 MG Oral Tablet Extended Release 24 Hour (Toprol XL)Indications:Athero sclerosis of [place] coronary artery of [place] heart without angina pectoris,HTN, goal below 130/80 [...] osteoarthritis 05/16/2002 Overview: Ankles, hands Atherosclerosis of [place] co ronary artery of [place] heart without angina pectoris 05/07/2002 documented as [...] (Prevnar) 04/22/2016 Pneumococcal Conjugate Vacci ne, 20-valent ([id number]) 03/21/2023 Pneumococcal Polysaccharide PPV23 (Pneumovax) 04/08/2000 RSV [...] encounter Miscellaneous Notes * Telephone Encounter - Julianna Jones DO - 04/22/2024 10:31 AM EDT Please let pt know: X-ray with severe degenerative disc disease of his cervical spine. We can consider PT and orthopedics if he has persistent pain. * Telephone Encounter - Fatemeh Mcnally LPN - 04/20/2024 1:05 PM EDT Called patient, states he had imaging done. Did go [facility]. [facility] did not give any medication. States [...] changes in C-spine noted in xray in 2012. Feel it may be a pinched nerve. Moving slower. Denies any problems with speech, vision, moving other body part. States they don't feel its stroke-like symptoms Dr Thompson recommends following at urgent care today-Dr Jones and xrvargas not in office today. Pt/ notified and [...] 05/28/2024 9:30 AM EDT Imaging Vascular Lab, [facility] 2nd [facility], [place] 132 [facility] [place] [address] 05/31/2024 3:00 PM EDT Office Visit Family Practice [address], [place] [facility] [address] Julianna Jones, [address] [place] [address] 06/02/2024 12:10 PM EDT Office Visit Vascular Surgery, [facility] 132 [place] [address] Galileo Rey MD [address] [place] [address] 07/26/2024 11:00 AM EST Office Visit Cardiology, [facility] 132 [place] [address] Vanessa Jauregui, PA-C 132 [place] [address] 09/16/2024 2:00 PM EST Office Visit Nephrology, [facility] 200 [facility] [place] [address] Reza Whatley MD 200 [facility] [place] [address] 04/26/2025 11:45 AM EDT Office Visit Urology, [facility] 132 [place] [address] Kai Ponce MD 27 [facility] [place] [address] Health Maintenance Due Date Last Done [...] this encounter Medical Devices Implanted Type Area Tooth Grinder Device Identifier Shelf Expiration Date Model / Serial / Lot Graft Aaa Bif [id number] - [id number] Implanted:Qty: 1 on 06/18/2016 by Bill Georges MD at [place] [facility] [place] N/A: Abdomen MEDTRONIC : VASCULAR 04/10/2018 [id number] 66E / [id number] / Limb Contralat [id number] - [id number] Implanted:Qty: 1 on 06/18/2016 by Bill Georges MD at [place] [facility] [place] N/A: Abdomen MEDTRONIC : VASCULAR 02/23/2017 [id number] 24E / [id number] / Limb Contralat [id number] - [id number] Implanted:Qty: 1 on 06/18/2016 by Bill Georges MD at [place] [facility] [place] N/A: Abdomen MEDTRONIC : VASCULAR 05/20/2018 [id number] 2E / [id number] / documented as of this encounter Advance Directives Documents on File Type Date Recorded Patient Bleacher Lard Expl anation Advance Directives and Living Will 12/26/2022 ADVANCE DIRECTIVE / LIVING WILL Power of Sixth Grade Teacher 12/26/2022 POWER OF A TTORNEY DURABLE HEALTH [...] Care Power of Attorn ey Care Teams Airline Hostess Relationship Specialty Start Date End Date Julianna Jones DO [address] [place] [address], [place] [address] PCP - General Family Medicine 03/16/24 documented as of this encounter
--- OUTSIDE RECORDS SUMMARY | 2024-05-14 20:37 | External Medical Summary | Summary of Care ---
Author Name Unknown Organization [facility] Address [address] [place] [address] Phone [phone] Care Team Providers Care Retail Store Clerk Name Role Phone Julianna Jones DO Primary Care Provider Reason for Visit * Reason Onset Date Comments Appointment 04/16/202404/16, 04/19 Encounter Details Date Type Department Care Team (Late st Contact Info) Description 04/16/2024 Telephone Family Practice [address], [place] [address] [place] [address] Julianna Jones 293 [place], [place] [phone] Appointment (04/16, 04/19) Allergies No known active allergiesdocumented as of this encounter (statuses as of 04/19/2024) Medications Medication Sig Dispensed Refills Start Date End Date Status ASPIRIN EC 81 MG PO TBECIndications:Coron venus atherosclerosis of [place] coronary artery Take 1 Tablet by mouth [...] MG Sublingual Tablet Sublingual (Nitrostat)Indication s:Atherosclerosis of [place] coronary artery of [place] heart without angina pectoris Place 1 Tablet (0.4 mg) under the tongue as needed for Pain, Chest. May repeat 3 times. If chest pain continues, call 911. 25 Tablet 11 07/05/2022 Active Metoprolol Succinate ER 25 MG Oral Tablet Extended Release 24 Hour (Toprol XL)Indications:Athero sclerosis of [place] coronary artery of [place] heart without angina pectoris,HTN, goal below 130/80 [...] as of this encounter (statuses as of 04/19/2024) Active Problems Problem Noted Date Diagnosed Date [...] osteoarthritis 05/16/2002 Overview: Ankles, hands Atherosclerosis of [place] co ronary artery of [place] heart without angina pectoris 05/07/2002 documented as of this encounter (statuses as of 04/19/2024) Resolved Problems Problem Noted Date Diagnosed Date [...] as of this encounter (statuses as of 04/19/2024) Immunizations Name Administration Dates Next Due COVID-19 [...] (Prevnar) 04/22/2016 Pneumococcal Conjugate Vacci ne, 20-valent ([id number]) 03/21/2023 Pneumococcal Polysaccharide PPV23 (Pneumovax) 04/08/2000 RSV Vac., Recomb, Adjuvant, PF,0.5 Ml (Arexvy) 09/17/2023 Seasonal Influenza, PF, 6 M & above, IM , (FluLaval or Fluzone) 05/13/2020,05/19/2018,06/07/2017 Seasonal Influenza, Quadriva lent Hd (Fluzone Hd) 05/10/2023,05/11/2022,05/12/2021 Seasonal Influenza, Quadriva lent, No Preserve, IM 06/03/2016,06/17/2015 Seasonal Influenza, Split, I IV3, With Preserve, Inj 05/28/2014,06/07/2013,05/14/2012,05/22,06/27/2010,05/30/2009,06/07/2008 ,06/16/2007,05/27/2006,06/14/2005,05/25,07/07/2002,08/14/2000 Seasonal Influenza, Trivalen t, Adjuvanted, 65+ yrs 05/24/2019 TD, Preservative Free 04/18/2005,08/25/1996 TDAP (age [...] of Alcohol Consumption 2-4 times a mon 03/06/2020 Average Number of Drinks 1 or [...] 05/28/2024 9:30 AM EDT Imaging Vascular Lab, [facility] 2nd [facility] 132 [facility] [place] [address] 05/31/2024 3:00 PM EDT Office Visit Family Practice [address] [place] [address] 293 [place] [address] Julianna Jones, 293 [place] [address] 06/02/2024 12:10 PM EDT Office Visit Vascular Surgery, [facility] 132 [facility] [address] Galileo Rey MD [address] [place] [address] 07/26/2024 11:00 AM EST Office Visit Cardiology, [facility] 132 [facility] [place] [address] Vanessa Jauregui PA-C 132 [facility] [place] [address] 09/16/2024 2:00 PM EST Office Visit Nephrology, [facility] [address] [place], [place] [address] Reza Whatley MD [address] [place] [address] 04/26/2025 11:45 AM EDT Office Visit Urology, [facility] [address] [place] [address] Kai Ponce MD 27 [place] [address] Health Maintenance Due Date Last Done Comments Adult Wellness Visit 03/06/2021 03/06/2020 Influenza Vaccine (FLU shot) (#1) 2024 05/10/2023, 05/11/2022, 05/12/2021, Additional history exists HbA1c 09/10/2024 09/10/2023, 10/24, 07/05/2022, Additional history exists TSH 09/10/2024 09/10/2023, 10/24, 12/17/2021, Additional history exists Depression Screening 01/29/2025 01/30/2024, 05/19/20 18 DTaP,Tdap,and Td Vaccines (3 - Td or Tdap) 07/02/2033 [...] this encounter Medical Devices Implanted Type Area Lead Operator Device Identifier Shelf Expiration Date Model / Serial / Lot Graft Aaa Bif [id number] - [id number] Implanted:Qty: 1 on 06/18/2016 by Bill Georges MD [place] [facility] [place]: Abdomen MEDTRONIC : VASCULAR 04/10/2018 [id number] 66E / [id number] / Limb Contralat [id number] - [id number] Implanted:Qty: 1 on 06/18/2016 by Bill Georges MD at [place] [facility] [place]A: Abdomen MEDTRONIC : VASCULAR 02/23/2017 [id number] 24E / [id number] / Limb Contralat [id number] - [id number] Implanted:Qty: 1 on 06/18/2016 by Bill Georges MD at [place] [facility] [place]/A: Abdomen MEDTRONIC : VASCULAR 05/20/2018 [id number] / [id number] / documented as of this encounter Advance Directives Documents on File Type Date Recorded Patient Therapy Administrative Assistant Expl anation Advance Directives and Living Will 12/26/2022 ADVANCE DIRECTIVE / LIVING WILL Power of Service Bar Cashier 12/26/2022 POWER OF A TTORNEY DURABLE HEALTH [...] Care Power of Attorn ey Care Teams Retail Store Clerk Relationship Specialty Start Date End Date Holenc, Julianna M, DO [address] [place] [address] PCP - General Family Medicine 03/16/24 documented as of this encounter
--- OUTSIDE RECORDS SUMMARY | 2024-05-14 20:37 | External Medical Summary | Summary of Care ---
Author Name Unknown Organization [facility] Address [address] [place] [address] Phone [phone] Care Team Providers Care Manual Arts Therapy Teacher Name Role Phone Julianna Jones DO Primary Care Provider Reason for Visit * Reason Onset Date Comments Appointment 04/16/202404/16, 04/19 Encounter Details Date Type Department Care Team (Late st Contact Info) Description 04/16/2024 Telephone Family Practice [address], [place] 293 [place] [address] Julianna Jones 293 [place], [place] [phone] Appointment (04/16, 04/19) Allergies No known active allergiesdocumented as of this encounter (statuses as of 04/22/2024) Medications Medication Sig Dispensed Refills Start Date End Date Status ASPIRIN EC 81 MG PO TBECIndications:Coron venus atherosclerosis of [place] coronary artery Take 1 Tablet by mouth [...] MG Sublingual Tablet Sublingual (Nitrostat)Indication s:Atherosclerosis of [place] coronary artery of [place] heart without angina pectoris Place 1 Tablet (0.4 mg) under the tongue as needed for Pain, Chest. May repeat 3 times. If chest pain continues, call 911. 25 Tablet 11 07/05/2022 Active Metoprolol Succinate ER 25 MG Oral Tablet Extended Release 24 Hour (Toprol XL)Indications:Athero sclerosis of [place] coronary artery of [place] heart without angina pectoris,HTN, goal below 130/80 [...] osteoarthritis 05/16/2002 Overview: Ankles, hands Atherosclerosis of [place] co ronary artery of [place] heart without angina pectoris 05/07/2002 documented as [...] (Prevnar) 04/22/2016 Pneumococcal Conjugate Vacci ne, 20-valent ([id number]) 03/21/2023 Pneumococcal Polysaccharide PPV23 (Pneumovax) 04/08/2000 RSV [...] Encounter - Julianna Jones DO - 04/22/2024 2:44 PM EDT Noted. * Telephone Encounter - Fatemeh Mcnally LPN [...] states he had imaging done. Did go [facility]. [facility] did not give any medication. States today [...] 05/28/2024 9:30 AM EDT Imaging Vascular Lab, [facility] 2nd Floor, [place] 132 [place] [address] 05/31/2024 3:00 PM EDT Office Visit Family Practice [address], [place] 293 [place] [address] Julianna Jones DO 293 [place] [address] 06/02/2024 12:10 PM EDT Office Visit Vascular Surgery, [facility] 132 [place] [address] Galileo Rey MD [address] [place] [address] 07/26/2024 11:00 AM EST Office Visit Cardiology, [facility] [address] [facility] [place] [address] Vanessa Jauregui PA-C 132 [facility] [place] [address] 09/16/2024 2:00 PM EST Office Visit Nephrology, [facility] [address] [place] [address] Reza Whatley MD [address] [place] [address] 04/26/2025 11:45 AM EDT Office Visit Urology, [facility] 132 [facility] [place] [address] Kai Ponce MD [address] [place] [address] Health Maintenance Due Date Last Done Comments [...] this encounter Medical Devices Implanted Type Area Space Officer Device Identifier Shelf Expiration Date Model / Serial / Lot Graft Aaa Bif [id number] - [id number] Implanted:Qty: 1 on 06/18/2016 by Bill Georges MD at [place] [facility] [place] N/A: Abdomen MEDTRONIC : VASCULAR 04/10/2018 [id number] 66E / [id number] / Limb Contralat [id number] - [id number] Implanted:Qty: 1 on 06/18/2016 by Bill Georges MD at OR [facility] [place] N/A: Abdomen MEDTRONIC : VASCULAR 02/23/2017 [id number] 24E / [id number] / Limb Contralat [id number] - [id number] Implanted:Qty: 1 on 06/18/2016 by Bill Georges MD at OR [facility] [place] N/A: Abdomen MEDTR[employer] : VASCULAR 05/20/2018 [id number] / [id number] / documented as of this encounter Advance Directives Documents on File Type Date Recorded Patient Stone Polisher Hand Expl anation Advance Directives and Living Will 12/26/2022 ADVANCE DIRECTIVE / LIVING WILL Power of Flight Hostess 12/26/2022 POWER OF A TTORNEY DURABLE HEALTH [...] Care Power of Attorn ey Care Teams Manual Arts Therapy Teacher Relationship Specialty Start Date End Date Julianna Jones DO [address] [place] [address], [place] [address] PCP - General Family Medicine 03/16/24 documented as of this encounter
--- OUTSIDE RECORDS SUMMARY | 2024-05-14 20:37 | External Medical Summary | Summary of Care ---
Author Name Unknown Organization [facility] Address [address] [place] [address] Phone [phone] Care Team Providers Care Inside Sales Director Name Role Phone Julianna Jones DO Primary Care Provider + [phone] Encounter Details Date Type Department Care Team (Late st Contact Info) Description 04/16/2024 Orders Only Radiology [facility] [address] [facility] [address] [place] [address] Requisition, External Radiology [address] [place] [address] Cervicalgia*; Muscular deconditioning Allergies No known active allergiesdocumented as of this encounter (statuses as of 04/16/2024) Medications Medication Sig Dispensed Refills Start Date End Date Status ASPIRIN EC 81 MG PO TBECIndications:Coron venus atherosclerosis of [place] coronary artery Take 1 Tablet by mouth [...] MG Sublingual Tablet Sublingual (Nitrostat)Indication s:Atherosclerosis of [place] coronary artery of [place] heart without angina pectoris Place 1 Tablet (0.4 mg) under the tongue as needed for Pain, Chest. May repeat 3 times. If chest pain continues, call 911. 25 Tablet 11 07/05/2022 Active Metoprolol Succinate ER 25 MG Oral Tablet Extended Release 24 Hour (Toprol XL)Indications:Athero sclerosis of [place] coronary artery of [place] heart without angina pectoris,HTN, goal below 130/80 [...] as of this encounter (statuses as of 04/16/2024) Active Problems Problem Noted Date Diagnosed Date [...] osteoarthritis 05/16/2002 Overview: Ankles, hands Atherosclerosis of [place] co ronary artery of sun'[place] heart without angina pectoris 05/07/2002 documented as of this encounter (statuses as of 04/16/2024) Resolved Problems Problem Noted Date Diagnosed Date [...] as of this encounter (statuses as of 04/16/2024) Immunizations Name Administration Dates Next Due COVID-19 [...] (Prevnar) 04/22/2016 Pneumococcal Conjugate Vacci ne, 20-valent ([id number]) 03/21/2023 RSV Vac., Recomb, Adjuvant, PF,0.5 Ml (Arexvy) 09/17/2023 Seasonal Influenza, PF, 6 M & above, IM , (FluLaval or Fluzone) 05/13/2020,05/19/2018,06/07/2017 Seasonal Influenza, Quadriva lent Hd (Fluzone Hd) 05/10/2023,05/11/2022,05/12/2021 Seasonal Influenza, Quadriva lent, No Preserve, IM 06/03/2016,06/17/2015 Seasonal Influenza, Split, I IV3, With Preserve, Inj 05/28/2014,06/07/2013,05/14/2012,2010,06/27/2010,05/30/2009,06/07/2008,1 ,05/27/2006 Seasonal Influenza, Trivalen t, Adjuvanted, 65+ yrs 05/24/2019 TD, Preservative Free 08/25/1996 TDAP (age [...] Frequency of Alcohol Consumption 2-4 times a fri03/06/2020 Average Number of Drinks 1 or 2 [...] No 10/03/2023 Does the household have a merit health central source of income? (Household - for ages [...] 05/28/2024 9:30 AM EDT Imaging Vascular Lab, [facility] 2nd Floor, [place] [address] [facility] [place] [address] 05/31/2024 3:00 PM EDT Office Visit Family Practice [address], [place] [address] [place] [address] Julianna Jones, 293 [place] [address] 06/02/2024 12:10 PM EDT Office Visit Vascular Surgery, [facility] [address] [facility] [place] [address] Galileo Rey MD [address] [place] [address] 07/26/2024 11:00 AM EST Office Visit Cardiology, [facility] 132 [facility] [place] [address] Vanessa Jauregui, [place] 132 [place] [address] 09/16/2024 2:00 PM EST Office Visit Nephrology, [facility] [address] [place] [address] Reza Whatley MD [address] [place] [address] 04/26/2025 11:45 AM EDT Office Visit Urology, [facility] 132 [facility] [place] [address] Kai Ponce MD [address] [place] [address] Pending Results Name Type Priority Associated Diagnoses Date /Time XR C SPINE 2-3 VIEWS Medical Imaging Routine Cervicalgia Muscular deconditioning 04/16/2024 12:52 PM EDT Health Maintenance Due Date Last Done Comments [...] this encounter Medical Devices Implanted Type Area Sql Programmer Analyst Device Identifier Shelf Expiration Date Model / Serial / Lot Graft Aaa Bif [id number] - [id number] Implanted:Qty: 1 on 06/18/2016 by [place] [facility] [place]: Abdomen [employer] : VASCULAR 04/10/2018 [id number] 66E / [id number] / Limb Contralat [id number] - [id number] Implanted:Qty: 1 on 06/18/2016 by Bill Georges MD [place] [facility] [place]A: Abdomen [employer] : VASCULAR 02/23/2017 [id number] 24E / [id number] / Limb Contralat [id number] - [id number] Implanted:Qty: 1 on 06/18/2016 by Bill Georges MD [place] [facility] [place]A: Abdomen [employer] : VASCULAR 05/20/2018 [id number] / [id number] / documented as of this encounter Visit Diagnoses Diagnosis Cervicalgia- Primary Muscular deconditioning Muscular wasting and disuse atrophy, not elsewhere classified documented in this encounter Advance Directives Documents on File Type Date Recorded Patient Mate Fishing Vessel Expl anation Advance Directives and Living Will 12/26/2022 ADVANCE DIRECTIVE / LIVING WILL Power of Ad Clerk 12/26/2022 POWER OF A TTORNEY DURABLE HEALTH [...] Care Power of Attorn ey Care Teams Inside Sales Director Relationship Specialty Start Date End Date Julianna Jones DO [address] [place] [address] PCP - General Family Medicine 03/16/24 documented as of this encounter
--- OUTSIDE RECORDS SUMMARY | 2024-05-14 20:37 | External Medical Summary | Summary of Care ---
Author Name Unknown Organization [facility] Address [address] [place] [address] Phone [phone] Care Team Providers Care Cashier Checker Name Role Phone Julianna Jones DO Primary Care Provider Reason for Visit * Reason Onset Date Comments Appointment 04/16/2024 Not feeling well Encounter Details Date Type Department Care Team (Late st Contact Info) Description 04/16/2024 Telephone Family Practice 65 [facility], [place] [address] [place] [address] Julianna Jones DO [address] [place], [place] [phone] Appointment (Not feeling well) Allergies No known active allergiesdocumented as of this encounter (statuses as of 04/19/2024) Medications Medication Sig Dispensed Refills Start Date End Date Status ASPIRIN EC 81 MG PO TBECIndications:Coron venus atherosclerosis of [place] coronary artery Take 1 Tablet by mouth [...] MG Sublingual Tablet Sublingual (Nitrostat)Indication s:Atherosclerosis of [place] coronary artery of [place] heart without angina pectoris Place 1 Tablet (0.4 mg) under the tongue as needed for Pain, Chest. May repeat 3 times. If chest pain continues, call 911. 25 Tablet 11 07/05/2022 Active Metoprolol Succinate ER 25 MG Oral Tablet Extended Release 24 Hour (Toprol XL)Indications:Athero sclerosis of [place] coronary artery of [place] heart without angina pectoris,HTN, goal below 130/80 [...] osteoarthritis 05/16/2002 Overview: Ankles, hands Atherosclerosis of [place] co ronary artery of [place] heart without angina pectoris 05/07/2002 documented as [...] (Prevnar) 04/22/2016 Pneumococcal Conjugate Vacci ne, 20-valent ([id number]) 03/21/2023 Pneumococcal Polysaccharide PPV23 (Pneumovax) 04/08/2000 RSV [...] 10/03/2023 Does the household have a re lar source of income? (Household - for ages [...] Miscellaneous Notes * Telephone Encounter - Fatemeh Watts RN [...] 05/28/2024 9:30 AM EDT [facility] 132 [facility] [place] [address] 05/31/2024 3:00 PM EDT Office Visit Family Practice [address], [place] 293 [place] [address] Julianna Jones DO 293 [place] [address] 06/02/2024 12:10 PM EDT Office Visit Vascular Surgery, [facility] [address] Galileo Rey MD [address] [place] [address] 07/26/2024 11:00 AM EST Office Visit Cardiology, [facility] [address] Vanessa Jauregui PA-C 132 [place] [address] 09/16/2024 2:00 PM EST Office Visit Nephrology, [place] [address] [place] [address] Reza Whatley MD 200 [facility] [place] [address] 04/26/2025 11:45 AM EDT Office Visit Urology, [facility] 132 [place] [address] Kai Ponce MD [address] [place] [address] [...] this encounter Medical Devices Implanted Type Area Polysom Tech Device Identifier Shelf Expiration Date Model / Serial / Lot Graft Aaa Bif [id number] - [id number] Implanted:Qty: 1 on 06/18/2016 by Bill Georges MD at [place] [facility] [place] N/A: Abdomen [employer] : VASCULAR 04/10/2018 [id number] 66E / [id number] / Limb Contralat [id number] - [id number] Implanted:Qty: 1 on 06/18/2016 by Bill Georges MD at [place] [facility] [place] N/A: Abdomen [employer] : VASCULAR 02/23/2017 [id number] 24E / [id number] / Limb Contralat [id number] - [id number] Implanted:Qty: 1 on 06/18/2016 by Bill Georges MD at [place] [facility] N/A: Abdomen [employer] : VASCULAR 05/20/2018 [id number] 2E / [id number] / documented as of this encounter Advance Directives Documents on File Type Date Recorded Patient Globe Mounter Expl anation Advance Directives and Living Will 12/26/2022 ADVANCE DIRECTIVE / LIVING WILL Power of Chief Librarian Extension Department 12/26/2022 POWER OF A TTORNEY DURABLE HEALTH [...] Care Power of Attorn ey Care Teams Cashier Checker Relationship Specialty Start Date End Date Julianna Jones DO [address] [place] [address] PCP - General Family Medicine 03/16/24 documented as of this encounter
--- OUTSIDE RECORDS SUMMARY | 2024-05-14 20:37 | External Medical Summary | Summary of Care ---
Author Name Unknown Organization [facility] Address [address] [place] [address] Phone [phone] Care Team Providers Care Adjuster Arbitrator Name Role Phone Julianna Jones DO Primary Care Provider Reason for Visit * Reason Onset Date Comments Appointment 04/16/202404/16, 04/19 Encounter Details Date Type Department Care Team (Late st Contact Info) Description 04/16/2024 Telephone Family Practice [address], [place] [address] [place] [address] Julianna Jones [address] [place], [place] [phone] Appointment (04/16, 04/19) Allergies No known active allergiesdocumented as of this encounter (statuses as of 04/20/2024) Medications Medication Sig Dispensed Refills Start Date End Date Status ASPIRIN EC 81 MG PO TBECIndications:Coron venus atherosclerosis of [place] coronary artery Take 1 Tablet by mouth [...] MG Sublingual Tablet Sublingual (Nitrostat)Indication s:Atherosclerosis of [place] coronary artery of [place] heart without angina pectoris Place 1 Tablet (0.4 mg) under the tongue as needed for Pain, Chest. May repeat 3 times. If chest pain continues, call 911. 25 Tablet 11 07/05/2022 Active Metoprolol Succinate ER 25 MG Oral Tablet Extended Release 24 Hour (Toprol XL)Indications:Athero sclerosis of [place] coronary artery of [place] heart without angina pectoris,HTN, goal below 130/80 [...] as of this encounter (statuses as of 04/20/2024) Active Problems Problem Noted Date Diagnosed Date [...] osteoarthritis 05/16/2002 Overview: Ankles, hands Atherosclerosis of [place] co ronary artery of [place] heart without angina pectoris 05/07/2002 documented as of this encounter (statuses as of 04/20/2024) Resolved Problems Problem Noted Date Diagnosed Date [...] as of this encounter (statuses as of 04/20/2024) Immunizations Name Administration Dates Next Due COVID-19 [...] (Prevnar) 04/22/2016 Pneumococcal Conjugate Vacci ne, 20-valent ([id number]) 03/21/2023 Pneumococcal Polysaccharide PPV23 (Pneumovax) 04/08/2000 RSV [...] states he had imaging done. Did go [facility]. [facility] did not give any medication. States [...] following at urgent care today-Dr Jones and cruz not in office today. Pt/ notified and [...] 05/28/2024 9:30 AM EDT Imaging Vascular Lab, [facility] 2nd [facility] [address] [place] [address] 05/31/2024 3:00 PM EDT Office Visit Family Practice 65 [facility], [place] 293 [place] [address] Julianna Jones DO 293 [place] [address] 06/02/2024 12:10 PM EDT Office Visit Vascular Surgery, [facility] [address] [place] [address] Galileo Rey MD [address] [place] [address] 07/26/2024 11:00 AM EST Office Visit Cardiology, [facility] 132 [facility] [place] [address] Vanessa Jauregui PA-C 132 [facility] [place] [address] 09/16/2024 2:00 PM EST Office Visit Nephrology, [facility] [address] [place] [address] Reza Whatley MD [address] [place] [address] 04/26/2025 11:45 AM EDT Office Visit Urology, [facility] 132 [facility] [place] [address] Kai Ponce MD [address] [place] [address] Health Maintenance Due Date Last Done Comments [...] this encounter Medical Devices Implanted Type Area [employer] Director Device Identifier Shelf Expiration Date Model / Serial / Lot Graft Aaa Bif [id number] - [id number] Implanted:Qty: 1 on 06/18/2016 by Bill Georges MD at [place] [facility] [place] N/A: Abdomen MED[employer] : VASCULAR 04/10/2018 [id number] 66E / [id number] / Limb Contralat [id number] - [id number] Implanted:Qty: 1 on 06/18/2016 by Bill Georges MD at [place] [facility] [place] N/A: Abdomen [employer] : VASCULAR 02/23/2017 [id number] 24E / [id number] / Limb Contralat [id number] - [id number] Implanted:Qty: 1 on 06/18/2016 by Bill Georges MD at [place] [facility] [place] N/A: Abdomen [employer] : VASCULAR 05/20/2018 [id number] 2E / [id number] / documented as of this encounter Advance Directives Documents on File Type Date Recorded Patient Telegraph Inspector Expl anation Advance Directives and Living Will 12/26/2022 ADVANCE DIRECTIVE / LIVING WILL Power of Biosecurity Officer 12/26/2022 POWER OF A TTORNEY DURABLE HEALTH [...] Care Power of Attorn ey Care Teams Adjuster Arbitrator Relationship Specialty Start Date End Date Julianna Jones DO [address] [place] [address] PCP - General Family Medicine 03/16/24 documented as of this encounter
[2024-05-14] MEDS: HEPARIN SOD 5,000 UNIT/0.5 ML VIAL SQ SCH (22:40)
[2024-05-14] MEDS: ACETAMINOPHEN 325 MG TAB PO PRN (23:41)
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
[2024-05-15] MEDS: LEVOTHYROXINE SODIUM 25 MCG TABLET PO SCH (05:38)
[2024-05-15 06:44] LABS: Basophils # (auto) 0.01 K/uL (0.00-0.20); Basophils % (auto) 0.2 %; Eosinophils # (auto) 0.08 K/uL (0.00-0.50); Eosinophils % (auto) 1.5 %; Hematocrit (blood only) 27.7 % (42.0-52.0); Hemoglobin 8.9 g/dl (14.0-18.0); Immature Granulocytes # (auto) 0.04 K/uL (0.01-0.20); Immature Granulocytes % (auto) 0.7 %; Lymphocytes # (auto) 1.25 K/uL (1.20-3.40); Lymphocytes % (auto) 22.9 %; Mean Corpuscular Hemoglobin 29.6 pg (25.0-34.0); Mean Corpuscular Hgb Conc 32.1 g/dL (32.0-36.0); Mean Platelet Volume 10.7 fL (9.4-12.4); Monocytes % (auto) 12.8 %; Neutrophils # (auto) 3.39 K/uL (1.40-6.50); Neutrophils % (auto) 61.9 %; Platelet Count 153 K/uL (130-400); RDW Coefficient of Variation 14.1 % (11.5-14.5); RDW Standard Deviation 47.7 fL (36.4-46.3); Red Blood Count 3.01 M/uL (4.70-6.10); White Blood Count 5.47 K/ul (4.8-10.8)
[2024-05-15 07:04] LABS: Albumin Globulin Ratio 1.4 (0.9-2); Albumin Level 3.4 gm/dl (3.4-5.0); BUN Creatinine Ratio 13.5 (10-20); Bilirubin,Total 0.5 mg/dl (0.2-1.0); Calcium 8.7 mg/dl (8.6-10.3); Creatinine Clr Calc Pharmacy 11.2 ml/min; Est GFR (African American) 13.2 ml/min; Est GFR (Non-African American) 11.4 ml/min; Globulin 2.5 gm/dl (2.5-4.0); Phosphorus 3.9 mg/dl (2.5-4.9); Potassium 3.8 mmol/L (3.5-5.1); Total Protein 5.9 gm/dl (6.0-8.3)
--- NOTE | 2024-05-15 07:55 | Nephrology Consultation ---
Date of Consultation May 15, 2024 Assessment & Plan (1) MO (acute kidney injury): stage 1 nonoliguric MO on CKD 5. slightly improved today at 4.3 from 4.4 admission creatinine. K acceptable as is volume status. blood and protein in urine; new today is 1.3 gm protienuria. No UTI concerns here. Possible that this is simply further CKD progression. -no evidence of nephrotic syndrome -no findings on u/s to explain change in function -daily bmp -current medications acceptable (2) CKD (chronic kidney disease) stage 5, GFR less than 15 ml/min: baseline creatinine 4-4.1 in 2023. for conservative management only, consistent with prior /well documented goals of care. -avoid IV contrast unless life/limb saving History of Present Illness Reason for Consultation: CKD 4/5 Requesting Physician: Dr Almeida Attending Physician: Sourav Adams MD History of Present Illness 88 y/o M whom I'm asked to see for CKD 4/5 was admitted yesterday for confusion and threatening behavior. PMH includes CAD s/p LAD stent, paroxysmal AF, ischemic cardiomyopathy, LBBB, HTN, PVD, AAA s/p 2016 repair, prediabetes, GERD, lumbar spinal stenosis, hypothyroidism, HL. His baseline creatinine in 2023 in [facility] is about 4 for a GFR of 14-15, or CKD 5; he has no proteinuria historically; he follows w/ Dr Whatley in CKD clinic and should his renal function worsen is for conservative management/no dialysis. He reports this to me today, which is consistent with Dr Whatley's February 2024 clinic note. The patient reportedly woke his on the day of admission and threatened to harm her. He has also reportedly had progressive confusion, memory problems, and concerns for depression. Psychiatry is evaluating the patient. on evaluation today midday, he denies n/v/d/c/abd pain, no sob or cough, no chest pain or palpitations; no new or worrisome voiding symptoms, no f/c, no edema; no rash or decreased po intake; no recent falls or acute illness. he tells me he did have more UOP yesterday/overnight than normal /previously. but else no changes. he had eaten his full midday meal and is eager to discuss his hospital discharge, for which I directed him to the hospitalist. He had 1/2 L NS in ER and another L overnight. Head CT showed no acute process. Allergies Allergy/AdvReac Type Severity Reaction Status Date / Time No Known Allergies Allergy Verified 04/16/24 11:09 Home Medications Medication Instructions Recorded Confirmed Type aspirin 81 mg tablet,delayed 81 mg PO QAM 02/20/19 05/14/24 History release levothyroxine 25 mcg tablet 25 mcg PO QAM 02/20/19 05/14/24 History nitroglycerin 0.4 mg sublingual 0.4 mg sublingual UD PRN Chest Pain 02/20/19 05/14/24 History tablet (Nitrostat) tamsulosin 0.4 mg capsule 0.4 mg PO QAM 02/20/19 05/14/24 History metoprolol succinate 25 mg 25 mg PO QAM 07/26/19 05/14/24 History tablet,extended release 24 hr (Toprol XL) omeprazole 20 mg capsule,delayed 20 mg PO QAM 03/14/21 05/14/24 History release polyethylene glycol 3350 17 gram 17 g PO QAM PRN Constipation 04/16/24 05/14/24 History oral powder packet (Miralax) atorvastatin 80 mg tablet 80 mg PO DAILY 05/14/24 05/14/24 History cholecalciferol (vitamin D3) 25 25 mcg PO DAILY 05/14/24 05/14/24 History mcg (1,000 unit) tablet (Vitamin D3) finasteride 5 mg tablet 5 mg PO DAILY 05/14/24 05/14/24 History furosemide 80 mg tablet 80 mg PO DAILY 05/14/24 05/14/24 History Patient History Medical History (Updated 05/15/24 @ 19:59 by Kaur Quiñones MD, PhD) CKD (chronic kidney disease) stage 5, GFR less than 15 ml/min Osteoarthritis Chronic back pain GERD (gastroesophageal reflux disease) Hypothyroidism Prediabetes Macular degeneration HLD (hyperlipidemia) Myocardial infarction 1987 Surgical History Hx laparoscopic cholecystectomy (01/13/22) Laparoscopic cholecystectomy with lysis of adhesions. Dr. Gann 01/13/2022 History of colonoscopy History of AAA (abdominal aortic aneurysm) repair 2015 H/O heart artery stent x 1 History of cardiac catheterization 1987 - [place] - 1 stent History of appendectomy Family History Other No family history of adverse response to anesthesia No significant family history Social History Smoking Status: Former smoker Tobacco Type: Cigarettes Second Hand Exposure: No; Do You Dip or Chew Tobacco: No; Hx Alcohol Use: No Hx Substance Use: No Preferred Language: Algerian Communication Ability: Effective Visual Impairment: Limited Hearing Ability: Normal Janitorial Account Manager Required: No Beliefs That Will Affect Care: None marital status: Current Living Situation: Spouse and Family Other Information That Helps Us Care for You: No Feels Safe at Home: Yes Safety Concerns: Feels Safe At This Time Assistive Devices: Cane, Glasses and Walker Review of Systems 2 Review of Systems: All systems reviewed & are unremarkable except as noted in HPI & below Physical Exam 2 Constitutional: well developed (sitting in bed on RA, alert, cooperative), well nourished and cooperative; no acute distress ENMT: Mouth: + dry oral mucous membranes Respiratory: normal respiratory effort Auscultation: lungs clear to auscultation bilaterally and + diminished lung sounds Cardiovascular: Rate/Rhythm: regular rate and regular rhythm Extremities: n o edema Gastrointestinal (Abdomen): Inspection/Auscultation: normal bowel sounds P ercussion/Palpation: abdomen soft; abdomen nontender Musculoskeletal: Extremities: strength 5/5 throughout Skin: no rashes, warm and dry Neurologic: mercado, fluent speech, no tremor Results & Data Vital Signs (Past 12 Hours) Vital Signs Temp Pulse Pulse Pulse Resp BP BP 05/15/24 07:30 63 05/15/24 03:09 36.4 C L 64 16 120/60 05/14/24 23:30 05/14/24 23:30 36.5 C 52 L 14 134/68 05/14/24 23:23 72 05/14/24 22:58 84 20 124/59 L 05/14/24 22:21 67 18 05/14/24 22:12 63 17 05/14/24 22:03 63 13 05/14/24 22:00 126/55 L 05/14/24 22:00 126/55 L 05/14/24 22:00 126/55 L 05/14/24 22:00 64 19 126/55 L 05/14/24 22:00 96 H 19 106/78 05/14/24 21:42 63 18 113/67 05/14/24 21:33 64 14 113/67 05/14/24 21:30 63 14 05/14/24 21:15 65 15 05/14/24 20:00 69 18 122/67 Pulse Ox O2 Del Method 05/15/24 07:30 05/15/24 03:09 97 Room Air 05/14/24 23:30 Room Air 05/14/24 23:30 96 Room Air 05/14/24 23:23 05/14/24 22:58 98 Room Air 05/14/24 22:21 98 05/14/24 22:12 97 05/14/24 22:03 97 05/14/24 22:00 05/14/24 22:00 05/14/24 22:00 05/14/24 22:00 97 05/14/24 22:00 97 Room Air 05/14/24 21:42 97 Room Air 05/14/24 21:33 98 05/14/24 21:30 98 05/14/24 21:15 99 05/14/24 20:00 99 Laboratory Results 05/15/24 05:57 05/15/24 05:57
[2024-05-15] MEDS: TAMSULOSIN HCL 0.4 MG CAP PO SCH (09:16)
[2024-05-15] MEDS: ATORVASTATIN 40 MG TAB PO SCH (09:16)
[2024-05-15] MEDS: METOPROLOL SUCC 25MG EXT REL TAB PO SCH (09:16)
[2024-05-15] MEDS: FINASTERIDE 5 MG TAB PO SCH (09:16)
[2024-05-15] MEDS: PANTOprazole 40 MG TAB PO SCH (09:16)
[2024-05-15] MEDS: CHOLECALCIFEROL 25 MCG (1000 UNITS) TAB PO SCH (09:17)
[2024-05-15] MEDS: ASPIRIN 81 MG ECTAB PO SCH (09:17)
--- NOTE | 2024-05-15 11:27 | Electrocardiogram Report ---
Test Reason : Blood Pressure : */* mmHG Vent. Rate : 63 BPM Atrial Rate : 63 BPM P-R Int : 230 ms QRS Dur : 164 ms QT Int : 488 ms P-R-T Axes : 62 -35 136 degrees QTcB Int : 499 ms Sinus rhythm with 1st degree A-V block with occasional Premature ventricular complexes Left axis deviation Left bundle branch block Abnormal ECG When compared with ECG of 01-Feb-2022 12:44, Premature ventricular complexes are now Present Confirmed by Tiago Nguyen ([id number]) on 05/15/2024 11:26:47 AM Referred By: Cristo Baptiste Confirmed By: Tiago Nguyen
--- NOTE | 2024-05-15 12:55 | Psychiatric Consultation ---
Date of Consultation May 15, 2024 Impression / Recommendations Impression 88-year-old male who has a significant past medical history of CAD with hx of stent to LAD, HTN, HLD, PAF, ischemic cardiomyopathy, LBBB, PVD, AAA with hx of repair in 2016, prediabetes, GERD, ESRD, lumbar spinal stenosis and hypothyroidism who presents to ED with family at bedside due to confusion. Psychiatry consulted for recent confusion, aggression, ?depression. Presentation concerning for mild depression, anxiety, mild cognitive impairment. Does not meet full criteria for MDD or Dementia. Pt is a poor historian and appears to be minimizing recent concerns. Concern patient has lower score on cog nitive testing due to anxious ruminations impacting attention and concentration. Irritability and anger may be presenting symptom of depression. Changes in mood may be related to loss of function, escalating health issues, life changes, friend's . Possible recent nightly delirium due to advancing kidney disease, grief over loss of friend in the setting of anxious and depressed mood and may account for recent aggression. Would recommend to secure all firearms in the home, especially given family h/o of suicide attempt at late age due to depression and loss of independence. Recommenced patient to engage in outpatient psychotherapy. May benefit from SSRI antidepressant if patient is willing - Would start Lexapro 5mg HS. Overall, I spent a total of 80 minutes with this case including review of chart records, nursing report, review of lab work, direct evaluation of the patient at bedside, counseling the patient, discussion of the patient with the hospitalist provider, discussion with the psychiatric liaison during clinical rounds, gathering collateral, cognitive testing and documentation in the electronic health record. (1) Mild cognitive impairment: (2) Depression, unspecified: Psych History Identifying Data 88-year-old male who has a significant past medical history of CAD with hx of stent to LAD, HTN, HLD, PAF, ischemic cardiomyopathy, LBBB, PVD, AAA with hx of repair in 2016, prediabetes, GERD, ESRD, lumbar spinal stenosis and hypothyroidism who presents to ED with family at bedside due to confusion. Psychiatry consulted for recent confusion, aggression, ?depression. Chief Complaint Confusion History of Present Illness Patient alert and oriented to self, place, year, month, situation. patient reports having a faint memory of what he said to his . Reports not wanting to hurt her and loves her. Complains of worsening nightmares over the last year. Denies any changes in staying asleep and reports having a good appetite. Enjoys watching sports on TV. Says that he lost interest in fishing and hiking because he is no longer able to physically engage in those activities. [place] ago and this was difficult. Currently not driving because his doctor said not to due to worsening vision. Says he does not fight with his family and they have a good relationship. Denies having history of depression. Says that his father was depressed after a myocardial infarction and subsequent loss of independence. Friend recently and was bedridden prior. They shared many good memories and would build rifles together. He denies having any recent memory impairments or worsening of mood. Manages his medications in a pillbox. Completed a [facility] cognitive assessment with a score of 19 out of 30. Major deficits with item registration and recall, only able to recall 1 item. patient appeared preoccupied during the questions and had difficulty with registration. concern for mild cognitive impairment. Collateral from family gathered by nurse liaison indicates recent loss of interest, increased irritability in the morning, anger, mood lability all persisting for the last week. Complains of forgetfulness over the last 2 monthsforgetting appointments or plans. Threatened recently and patient does not remember details. No history of past depression in patient. Able to engage in IADLs and ADLs. Patient and live together. 2 daughters live close by. Father committed suicide with self-inflicted gunshot wound. Allergies Allergy/AdvReac Type Severity Reaction Status Date / Time No Known Allergies Allergy Verified 04/16/24 11:09 Home Medications Medication Instructions Recorded Confirmed Type aspirin 81 mg tablet,delayed 81 mg PO QAM 02/20/19 05/14/24 History release levothyroxine 25 mcg tablet 25 mcg PO QAM 02/20/19 05/14/24 History nitroglycerin 0.4 mg sublingual 0.4 mg sublingual UD PRN Chest Pain 02/20/19 05/14/24 History tablet (Nitrostat) tamsulosin 0.4 mg capsule 0.4 mg PO QAM 02/20/19 05/14/24 History metoprolol succinate 25 mg 25 mg PO QAM 07/26/19 05/14/24 History tablet,extended release 24 hr (Toprol XL) omeprazole 20 mg capsule,delayed 20 mg PO QAM 03/14/21 05/14/24 History release polyethylene glycol 3350 17 gram 17 g PO QAM PRN Constipation 04/16/24 05/14/24 History oral powder packet (Miralax) atorvastatin 80 mg tablet 80 mg PO DAILY 05/14/24 05/14/24 History cholecalciferol (vitamin D3) 25 25 mcg PO DAILY 05/14/24 05/14/24 History mcg (1,000 unit) tablet (Vitamin D3) finasteride 5 mg tablet 5 mg PO DAILY 05/14/24 05/14/24 History furosemide 80 mg tablet 80 mg PO DAILY 05/14/24 05/14/24 History Patient History Medical History Osteoarthritis Chronic back pain CKD (chronic kidney disease) stage 4, GFR 15-29 ml/min follows with Dr. Collins GERD (gastroesophageal reflux disease) Hypothyroidism Prediabetes Macular degeneration HLD (hyperlipidemia) Myocardial infarction 1987 Surgical History Hx laparoscopic cholecystectomy (01/13/22) Laparoscopic cholecystectomy with lysis of adhesions. Dr. Gann 01/13/2022 History of colonoscopy History of AAA (abdominal aortic aneurysm) repair 2015 H/O heart artery stent x 1 History of cardiac catheterization 1987 - [place] - stent History of appendectomy Family History Other No family history of adverse response to anesthesia No significant family history Social History Smoking Status: Former smoker Tobacco Type: Cigarettes Second Hand Exposure: No; Do You Dip or Chew Tobacco: No; Hx Alcohol Use: No Hx Substance Use: No Preferred Language: Macanese Communication Ability: Effective Visual Impairment: Limited Hearing Ability: Normal Advertising Account Representative Required: No Beliefs That Will Affect Care: None marital status: Current Living Situation: Spouse and Family Other Information That Helps Us Care for You: No Feels Safe at Home: Yes Safety Concerns: Feels Safe At This Time Assistive Devices: Cane, Glasses and Walker Physical Exam Mental Examination: Appearance: Well Groomed Eye Contact: Maintains Eye Contact Motor Behavior: Unremarkable Speech: Normal Mood: Euthymic, Calm and Anxious (at times) Affect: Congruent Thought Process: Intact and Linear Thought Content: Intact Hallucinations: None Insight: Fair (to limited) Judgement: Fair (to limited) Vital Signs (Past 24 Hours): Last Vital Signs Temp 36.5 C 05/15/24 11:28 Pulse 107 H 05/15/24 11:28 Resp 20 05/15/24 11:28 BP 109/62 05/15/24 11:28 Pulse Ox 98 05/15/24 11:28 O2 Del Method Room Air 05/15/24 11:28 Results & Data (PSY) Medications Administered Acetaminophen (Acetaminophen 325 Mg Tab) 650 mg PO Q4H PRN PRN Reason: Pain or Fever Stop: 06/13/24 19:55 Last Admin: 05/15/24 09:18 Dose: 650 mg Documented By: Admin: 05/14/24 23:41 Dose: 650 mg Documented By: MARK Aspirin (Aspirin 81 Mg Ectab) [facility] Stop: 06/14/24 08:59 Last Admin: 05/15/24 09:17 Dose: 81 mg Documented By: MICHAELA Atorvastatin Calcium (Atorvastatin 40 Mg Tab) 80 mg PO DAILY ALEXANDER Stop: 06/14/24 08:59 Last Admin: 05/15/24 09:16 Dose: 80 mg Documented By: MICHAELA Finasteride (Finasteride 5 Mg Tab) 5 mg PO DAILY ALEXANDER Stop: 06/14/24 08:59 Last Admin: 05/15/24 09:16 Dose: 5 mg Documented By: MICHAELA Heparin Sodium (Porcine) (Heparin Sod 5,000 Unit/0.5 Ml Vial) 5,000 units SQ Q8 ALEXANDER Stop: 06/13/24 21:59 Last Admin: 05/15/24 05:38 Dose: Not Given Documented By: Admin: 05/14/24 22:40 Dose: 5,000 units Documented By: WILMA Levothyroxine Sodium (Levothyroxine Sodium 25 Mcg Tablet) 25 mcg PO DAILYBB [facility] Stop: 06/14/24 06:29 Last Admin: 05/15/24 05:38 Dose: 25 mcg Documented By: MARK Metoprolol Succinate (Metoprolol Succ 25mg Ext Rel Tab) 25 mg PO QAM [facility] Stop: 06/14/24 08:59 Last Admin: 05/15/24 09:16 Dose: 25 mg Documented By: MICHAELA Pantoprazole Sodium (Pantoprazole 40 Mg Tab) 40 mg PO QAM [facility] Stop: 06/14/24 08:59 Last Admin: 05/15/24 09:16 Dose: 40 mg Documented By: MICHAELA Tamsulosin HCl (Tamsulosin Hcl 0.4 Mg Cap) 0.4 mg PO QAM [facility] Stop: 06/14/24 08:59 Last Admin: 05/15/24 09:16 Dose: 0.4 mg Documented By: MICHAELA Vitamin D (Cholecalciferol 25 Mcg (1000 Units) Tab) 25 mcg PO DAILY [facility] Stop: 06/14/24 08:59 Last Admin: 05/15/24 09:17 Dose: 25 mcg Documented By: MICHAELA [place] [address] IN/OBS CONSULT LVL 5,80M Patient Type New Medical Decision Making High Complexity Diagnoses Mild cognitive impairment G31.84 Depression, unspecified F32.A
--- NOTE | 2024-05-15 13:22 | Hospitalist Progress Note ---
Date of Service May 15, 2024 Assessment & Plan (1) Threatening behavior: (2) Acute worsening of stage 4 chronic kidney disease: (3) Coronary artery disease: (4) PAF (paroxysmal atrial fibrillation): (5) Hypothyroidism: Plan Patient is an 88 yr male with H/O past medical history of CAD with hx of stent to LAD, HTN, HLD, PAF, ischemic cardiomyopathy, LBBB, PVD, AAA with hx of repair in 2016, prediabetes, GERD, ESRD, lumbar spinal stenosis and hypothyroidism who presents to ED with family at bedside due to confusion. Pt threatened today that he was going to hurt her, he recalls events and states, "I'd never want to hurt her." Family reports increased confusion over last 2 months with simple daily activities as well as more angry behavior. Family reports passing of good family friend 1 week ago as well as loss of independence that comes with age, no formal dx of dementia Transient aggressive Behavior DD: Due to stress, Mild Cognitive Impairment, Renal impairment --CT head:No acute intracranial abnormality. Atrophy and microvascular ischemic changes. Pleasant and oriented currently Avoid sedative medications Check VBG, ammonia, B12 levels Reorient frequently to minimize delirium Appreciate psychiatry input May need follow-up with neurology as outpatient Acute worsening of stage IV/V chronic kidney disease Follows Dr. Whatley , baseline Cr 3 Hold Lasix for now Received IV fluids Check renal ultrasound Bladder scan as needed to monitor for urinary retention Monitor renal function Avoid nephrotoxic agents as able Other chronic conditions: CAD w/ hx of PA and stent in 98: continue asa, statin metoprolol, lasix on hold HTN: bp stable continue home meds HLD: continue statin AAA s/p Repair BPH: Continue home medications Hypothyroidism: Normal TSH. Continue levothyroxine DVT Px: SQ heparin Code Status DNR/DNI Admission and Anticipated Discharge Date Admission Date: May 14, 2024 Subjective Patient is seen and examined at bedside Reports having poor sleep overnight Offers no complaints this morning Denies any chest pain, dyspnea, nausea, vomiting, abdominal pain, dizziness Renal function worsening Review of Systems Review of Systems: All systems reviewed & are unremarkable except as noted in Subjective Physical Exam Physical Exam: Physical Exam: Vitals signs as noted above General Appearance:Moderately built and nourished, no apparent distress, elderly Head: normocephalic, Atraumatic Eyes: normal inspection, EOMI Neck: supple, Trachea midline Respiratory/Chest: Normal breath sounds, CTA, No accessory muscle use Cardiovascular: S1, S2, No murmur Abdomen/GI:Soft, Non tender, Bowel sounds present Extremities/Musculoskeletal:normal inspection, no edema Neurologic/Psych:AAOX3, grossly no focal neurological deficits Skin: normal color, warm Results & Data Results & Data Vital Signs (Past 12 Hours) Vital Signs Temp Pulse Pulse Resp BP Pulse Ox O2 Del Method 05/15/24 11:28 36.5 C 107 H 20 109/62 98 Room Air 05/15/24 08:17 36.8 C 61 20 111/67 97 Room Air 05/15/24 07:30 63 05/15/24 03:09 36.4 C L 64 16 120/60 97 Room Air Laboratory Results Short CBC 05/14/24 05/15/24 Range/Units 14:10 05:57 WBC 7.63 5.47 (4.8-10.8) K/ul Hgb 10.5 L 8.9 L (14.0-18.0) g/dl Hct 31.3 L 27.7 L (42.0-52.0) % Plt Count 179 153 (130-400) K/uL BMP 05/14/24 05/15/24 14:10 05:57 Sodium 137 141 Potassium 4.1 3.8 Chloride 103 110 H Carbon Dioxide 24 22 BUN 62 H 58 H Creatinine 4.42 H 4.31 H Glucose 107 H 93 Calcium 9.3 8.7 Cardiac Enzymes 05/14/24 Range/Units 14:10 Total Creatine Kinase 95 (30-223) U/L Liver Function 05/14/24 05/15/24 Range/Units 14:10 05:57 Total Bilirubin 0.4 0.5 (0.2-1.0) mg/dl AST 25 19 (13-39) U/L ALT 30 22 (7-52) U/L Alkaline Phosphatase 87 68 (34-104) U/L Albumin 4.3 3.4 (3.4-5.0) gm/dl Urine 05/14/24 Range/Units 14:10 Urine Color Yellow Urine Appearance Clear (Clear) Urine pH 6.0 (4.5-7.5) Ur Specific [place] 1.008 (1.000-1.030) Urine Protein 1+ H (Negative) Urine Glucose (UA) Negative (Negative) (3) Coronary artery disease Associated angina: without angina Coronary Disease-Associated Artery/Lesion type: [place] artery [place] vs. transplanted heart: [place] heart Qualified Code(s): I25.10 - Atherosclerotic heart disease of [place] coronary artery without angina pectoris
--- NOTE | 2024-05-15 14:45 | Ultrasound Report ---
RENAL ULTRASOUND HISTORY: Acute kidney injury MO COMPARISON: CT 02/01/2022 FINDINGS: Right kidney: 9.2 cm. No hydronephrosis. Chronic cortical thinning with increased parenchymal echogen icity. Left kidney: 9.3 cm. No hydronephrosis. Exophytic 5 mm hypodensity of the inferior pole left kidney, likely a cyst. Chronic cortical thinning with increased parenchymal echogenicity. Bladder: Wall thickening with regulation. The bilateral ureteral jets were identified. Prostatomegaly. IMPRESSION: 1. No renal calculi or hydronephrosis. 2. Prostatomegaly with chronic outlet obstruction. ACT 112: Negative or not required by law. Electronically signed by: Darien Alfredo M.D. 05/15/2024 2:42 PM
[2024-05-16 08:35] LABS: HCO3 VBG 22 mmol/L; Oxygen Saturation VBG 76.7 %; PCO2 VBG 38 mmHg (38-50); PO2 VBG 41 mmHg; pH VBG 7.37 (7.36-7.41)
[2024-05-16 08:39] LABS: Hematocrit (blood only) 29.4 % (42.0-52.0); Hemoglobin 9.9 g/dl (14.0-18.0)
[2024-05-16 08:57] LABS: BUN Creatinine Ratio 13.7 (10-20); Calcium 9.3 mg/dl (8.6-10.3); Creatinine Clr Calc Pharmacy 12.1 ml/min; Est GFR (African American) 14.4 ml/min; Est GFR (Non-African American) 12.4 ml/min
[2024-05-16 11:12] VITALS: BP 138/74; RESP 16; TEMP 97.7; O2SAT 96
--- NOTE | 2024-05-16 11:44 | Hospitalist Progress Note ---
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 Pt threatened today that he was going to hurt her, he recalls events and states, "I'd never want to hurt her." Family reports increased confusion over last 2 months with simple daily activities as well as more angry behavior. Family reports passing of good family friend 1 week ago as well as loss of independence that comes with age, no formal dx of dementia Transient aggressive Behavior Likely depression/Anxiety, mild cognitive impairment --CT head:No acute intracranial abnormality. Atrophy and microvascular ischemic changes. Pleasant and oriented currently Avoid sedative medications VBG, ammonia, B12 levels: Normal Reorient frequently to minimize delirium Appreciate psychiatry input May need follow-up with neurology as outpatient Will start on Lexapro 5 mg at bedtime Acute worsening of stage IV/V chronic kidney disease Follows Dr. Whatley , baseline Cr 4 -Renal USD:No renal calculi or hydronephrosis. Prostatomegaly with chronic outlet obstruction. Received IV fluids Appreciate nephrology input Bladder scan as needed to monitor for urinary retention Monitor renal function Avoid nephrotoxic agents as able Will advised to follow-up with nephrology on discharge Other chronic conditions: CAD w/ hx of LA and stent in 98: continue asa, statin metoprolol, lasix on hold HTN: bp stable continue home meds HLD: continue statin AAA s/p Repair BPH: Continue home medications Hypothyroidism: Normal TSH. Continue levothyroxine DVT Px: SQ heparin Code Status DNR/DNI Disposition Home Admission and Anticipated Discharge Date Admission Date: May 14, 2024 Subjective Patient is seen and examined at bedside Doing well today No new complaints Updated patient's over the phone Denies any chest pain, dyspnea, nausea, vomiting, abdominal pain, dizziness Had PT eval Plan to discharge home today Review of Systems Review of Systems: All systems reviewed & are unremarkable except as noted in Subjective Physical Exam Physical Exam: Physical Exam: Vitals signs as noted above General Appearance:Moderately built and nourished, no apparent distress, elderly Head: normocephalic, Atraumatic Eyes: normal inspection, EOMI Neck: supple, Trachea midline Respiratory/Chest: Normal breath sounds, CTA, No accessory muscle use Cardiovascular: S1, S2, No murmur Abdomen/GI:Soft, Non tender, Bowel sounds present Extremities/Musculoskeletal:normal inspection, no edema Neurologic/Psych:AAOX3, grossly no focal neurological deficits Skin: normal color, warm Results & Data Results & Data Vital Signs (Past 12 Hours) Vital Signs Temp Pulse Pulse Resp BP Pulse Ox O2 Del Method 05/16/24 11:10 36.5 C 69 16 138/74 96 Room Air 05/16/24 10:49 61 05/16/24 07:10 36.4 C L 65 18 129/69 97 Room Air 05/16/24 03:20 36.6 C 75 18 153/72 H 97 Room Air Laboratory Results Short CBC 05/16/24 Range/Units 08:21 Hgb 9.9 L (14.0-18.0) g/dl Hct 29.4 L (42.0-52.0) % BMP 05/16/24 08:21 Sodium 141 Potassium 4.0 Chloride 110 H Carbon Dioxide 23 BUN 55 H Creatinine 4.01 H D Glucose 110 H Calcium 9.3 (3) Coronary artery disease Coronary Disease-Associated Artery/Lesion type: [place] artery [place] vs. transplanted heart: [place] heart Associated angina: without angina Qualified Code(s): I25.10 - Atherosclerotic heart disease of [place] coronary artery without angina pectoris
--- NOTE | 2024-05-16 12:00 | Discharge Summary ---
Date of Service May 16, 2024 Admission HPI Per Admitting Provider This is a 88-year-old male who has a significant past medical history of CAD with hx of stent to LAD, HTN, HLD, PAF, ischemic cardiomyopathy, LBBB, PVD, AAA with hx of repair in 2016, prediabetes, GERD, ESRD, lumbar spinal stenosis and hypothyroidism who presents to ED with family at bedside due to confusion. Initial history was obtained while patient was out of room to CT scan. reports she was sleeping in this morning patient woke up threatening to harm her. 2 daughters and are at bedside who also help elicit history. states that he has been more angry for [place] in the morning and she feels he is depressed. Over the last 2 months she also notes that he has been more confused and not remembering things like a date which he normally would. The patient's son has been living with them and according to family this also upsets him and he makes comments like, "I want him gone." Family also reports a very good family friend 1 week ago and he has been getting nightmares. Family reports no other focal deficit at time of threat. Pt states he was brought in today b/c he was threatening to harm his and he would never want to do that. He vaguely recalls the events today. He is unsure if he was confused. He denies recent illness, "other than dealing with my worsening kidneys." He denies f/c/s, chest pain, sob, n/v/d, abd pain, change in bowel or urinary habits. He has been urinating more with the addition of the water pill. He feels his appetite has been okay but taste has been off. He is drinking fluids ok and taking his pills correctly. He denies any current SI or HI. He does feel he could be depressed at times, but states, "that's life." In ED pt remained hemodynamically stable. Head CT was w/o any acute change. He did have elevation in his renal fxn from baseline of ~ 3 to 4.48. He received 500ml of IVF in ED. Admission Exam Per Admitting Provider Constitutional: WD/WN, vitals as above, NAD, sitting up in bed, pleasant, conversing easily Head: Normocephalic, Atraumatic Eyes: PERRL, conjunctivae normal, anicteric sclerae ENMT: external ear and nose normal, oropharynx normal Neck: trachea midline, no thyromegaly normal visual inspection Respiratory: normal respiratory effort, lungs clear to auscultation, no wheeze, rales, rhonchi. Normal insp/exp effort, no accessory muscle use Cardiovascular: RRR, no murmur, no edema Vessels: no JVD or carotid bruit Chest: normal inspection of chest Abdomen: normal bowel sounds, soft, nontender, no hepatosplenomegaly Musculoskeletal: no cyanosis or clubbing, extremities motor strength 5/5 Skin: no rashes, warm and dry normal turgor Neurologic: PERRL, EOMI, accommodation nl, no face palsy, no dysarthria CN's II-XI intact bilaterally and moves all extremities Psychiatric: A+Ox3 to basics, he did not remember the former president or his street address, euthymic affect Lymphatic: no cervical or axillary lymphadenopathy : deferred Principal Diagnosis Transient aggressive Behavior MO on CKD IV/V Discharge Data Allergies Allergy/AdvReac Type Severity Reaction Status Date / Time No Known Allergies Allergy Verified 04/16/24 11:09 Consultations 05/14/24 15:57 ED Decision to Admit Stat 05/14/24 17:32 Consult Psychiatry Routine 05/14/24 19:56 Consult Nephrology Routine Procedures Performed Laboratory Results WBC 5.47 K/ul (4.8-10.8) 05/15/24 05:57 RBC 3.01 M/uL (4.70-6.10) L 05/15/24 05:57 Hgb 9.9 g/dl (14.0-18.0) L 05/16/24 08:21 Hct 29.4 % (42.0-52.0) L 05/16/24 08:21 MCV 92.0 fL (80.0-100.0) 05/15/24 05:57 MCH 29.6 pg (25.0-34.0) 05/15/24 05:57 MCHC 32.1 g/dL (32.0-36.0) 05/15/24 05:57 RDW Std Deviation 47.7 fL (36.4-46.3) H 05/15/24 05:57 RDW Coeff of [place] 14.1 % (11.5-14.5) 05/15/24 05:57 Plt Count 153 K/uL (130-400) 05/15/24 05:57 MPV 10.7 fL (9.4-12.4) 05/15/24 05:57 Immature Gran % (Auto) 0.7 % 05/15/24 05:57 Neut % (Auto) 61.9 % 05/15/24 05:57 Lymph % (Auto) 22.9 % 05/15/24 05:57 [place] % (Auto) 12.8 % 05/15/24 05:57 Eos % (Auto) 1.5 % 05/15/24 05:57 Baso % (Auto) 0.2 % 05/15/24 05:57 Neut # (Auto) 3.39 K/uL (1.40-6.50) 05/15/24 05:57 Lymph # (Auto) 1.25 K/uL (1.20-3.40) 05/15/24 05:57 [place] # (Auto) 0.70 K/uL (0.11-0.59) H 05/15/24 05:57 Eos # (Auto) 0.08 K/uL (0.00-0.50) 05/15/24 05:57 Baso # (Auto) 0.01 K/uL (0.00-0.20) 05/15/24 05:57 Immature Gran # (Auto) 0.04 K/uL (0.01-0.20) 05/15/24 05:57 VBG pH 7.37 (7.36-7.41) 05/16/24 08:26 VBG pCO2 38 mmHg (38-50) 05/16/24 08:26 VBG pO2 41 mmHg 05/16/24 08:26 VBG HCO3 22 mmol/L 05/16/24 08:26 VBG O2 Saturation 76.7 % 05/16/24 08:26 VBG Base Excess -3.0 mEq/L 05/16/24 08:26 Sodium 141 mmol/L (136-145) 05/16/24 08:21 Potassium 4.0 mmol/L (3.5-5.1) 05/16/24 08:21 Chloride 110 mmol/L (98-107) H 05/16/24 08:21 Carbon Dioxide 23 mmol/L (21-32) 05/16/24 08:21 Anion Gap 8 (3-11) 05/16/24 08:21 BUN 55 mg/dl (6-23) H 05/16/24 08:21 Creatinine 4.01 mg/dl (0.6-1.4) H D 05/16/24 08:21 Est Cr Clr Drug Dosing 12.1 ml/min 05/16/24 08:21 Est GFR ( Amer) 14.4 ml/min 05/16/24 08:21 Est GFR (Non-Af Amer) 12.4 ml/min 05/16/24 08:21 BUN/Creatinine Ratio 13.7 (10-20) 05/16/24 08:21 Glucose 110 mg/dl (70-99(Fasting)) H 05/16/24 08:21 Calcium 9.3 mg/dl (8.6-10.3) 05/16/24 08:21 Phosphorus 3.9 mg/dl (2.5-4.9) 05/15/24 05:57 Magnesium 2.0 mg/dl (1.7-2.4) 05/16/24 08:21 Total Bilirubin 0.5 mg/dl (0.2-1.0) 05/15/24 05:57 AST 19 U/L (13-39) 05/15/24 05:57 ALT 22 U/L (7-52) 05/15/24 05:57 Alkaline Phosphatase 68 U/L (34-104) 05/15/24 05:57 Ammonia 20.0 umol/L (18-72) 05/16/24 08:26 Total Creatine Kinase 95 U/L (30-223) 05/14/24 14:10 Total Protein 5.9 gm/dl (6.0-8.3) L 05/15/24 05:57 Albumin 3.4 gm/dl (3.4-5.0) 05/15/24 05:57 Globulin 2.5 gm/dl (2.5-4.0) 05/15/24 05:57 Albumin/Globulin Ratio 1.4 (0.9-2) 05/15/24 05:57 Vitamin B12 532 pg/ml (180-914) 05/16/24 08:21 TSH 2.195 uIu/ml (0.300-4.500) 05/14/24 14:10 Urine Color Yellow 05/14/24 14:10 Urine Appearance Clear (Clear) 05/14/24 14:10 Urine pH 6.0 (4.5-7.5) 05/14/24 14:10 Ur Specific [place] 1.008 (1.000-1.030) 05/14/24 14:10 Urine Protein 1+ (Negative) H 05/14/24 14:10 Urine Glucose (UA) Negative (Negative) 05/14/24 14:10 Urine Ketones Negative (Negative) 05/14/24 14:10 Urine Blood 1+ (Negative) H 05/14/24 14:10 Urine Nitrite Negative (Negative) 05/14/24 14:10 Urine Bilirubin Negative (Negative) 05/14/24 14:10 Urine Urobilinogen Negative (Negative) 05/14/24 14:10 Ur Leukocyte Esterase Negative (Negative) 05/14/24 14:10 Urine WBC (Auto) 0-5 /hpf (0-5) 05/14/24 14:10 Urine RBC (Auto) 6-10 /hpf (0-2) H 05/14/24 14:10 U Hyaline Cast (Auto) 0-2 /lpf (0-2) 05/14/24 14:10 U Epithel Cells (Auto) 0-2 /hpf (0-2) 05/14/24 14:10 Urine Bacteria (Auto) None Seen (None Seen) 05/14/24 14:10 Ur Random Creatinine 26.8 mg/dl 05/14/24 16:55 U Random Total Protein 33.5 mg/dl (0-11.9) H 05/14/24 16:55 Protein/Creatinin Ratio 1.3 (0-0.2) H 05/14/24 16:[address] 05/14/24 16:[address] DOSE: 625.8 mGy.cm HISTORY: confusion TECHNIQUE: Multiaxial CT images of the head were performed without the use of intravenous contrast. Automated exposure control was utilized for this study. A dose lowering technique was utilized adhering to the principles of ALARA. Comparison: Head CT 02/21/2019. Findings: The paranasal sinuses and mastoid air cells are clear. The calvarium and skull base are intact. There is no mass, hematoma, midline shift, acute infarct. White matter hypodensity is nonspecific but suggestive of microvascular ischemic change. The ventricles and sulci demonstrate mild age-related involutional changes. Impression: No acute intracranial abnormality. Atrophy and microvascular ischemic changes. ACT 112: Negative or not required by law. Electronically signed by: Sunny Chavez M.D. 05/14/2024 4:52 PM Renal Ultrasound 05/15/24 13:51 RENAL ULTRASOUND HISTORY: Acute kidney injury [place] COMPARISON: CT 02/01/2022 FINDINGS: Right kidney: 9.2 cm. No hydronephrosis. Chronic cortical thinning with increased parenchymal echogenicity. Left kidney: 9.3 cm. No hydronephrosis. Exophytic 5 mm hypodensity of the infe rior pole left kidney, likely a cyst. Chronic cortical thinning with increased parenchymal echogenicity. Bladder: Wall thickening with regulation. The bilateral ureteral jets were identified. Prostatomegaly. IMPRESSION: 1. No renal calculi or hydronephrosis. 2. Prostatomegaly with chronic outlet obstruction. ACT 112: Negative or not required by law. Electronically signed by: Darien Alfredo M.D. 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 Pt threatened today that he was going to hurt her, he recalls events and states, "I'd never want to hurt her." Family reports increased confusion over last 2 months with simple daily activities as well as more angry behavior. Family reports passing of good family friend 1 week ago as well as loss of independence that comes with age, no formal dx of dementia Transient aggressive Behavior Likely depression/Anxiety, mild cognitive impairment --CT head:No acute intracranial abnormality. Atrophy and microvascular ischemic changes. Pleasant and oriented currently Avoid sedative medications VBG, ammonia, B12 levels: Normal Reorient frequently to minimize delirium Appreciate psychiatry input May need follow-up with neurology as outpatient Will start on Lexapro 5 mg at bedtime Acute worsening of stage IV/V chronic kidney disease Follows Dr. Whatley , baseline Cr 4 -Renal USD:No renal calculi or hydronephrosis. Prostatomegaly with chronic outlet obstruction. Received IV fluids Appreciate nephrology input Bladder scan as needed to monitor for urinary retention Monitor renal function Avoid nephrotoxic agents as able Will advised to follow-up with nephrology on discharge Other chronic conditions: CAD w/ hx of PR and stent in 98: continue asa, statin metoprolol, lasix on hold HTN: bp stable continue home meds HLD: continue statin AAA s/p Repair BPH: Continue home medications Hypothyroidism: Normal TSH. Continue levothyroxine DVT Px: SQ heparin Code Status DNR/DNI Disposition Home Total Time Total Time Spent Total Time Spent (In Minutes): 45 minutes Discharge Plan Discharge Items Patient Disposition: Home - Self-Care Reason For Visit: mo Discharge Diagnosis: Transient aggressive Behavior MO on CKD IV/V Activity: Per Instructions section Exercise/Sports: Gradually increase as tolerated Non-emergency contact: Primary Care Provider and Street Light Inspector Call non-emergency contact if: you have any medication questions, your symptoms worsen, your pain is concerning for you and you have a fever Follow-up/Referrals: Julianna Jones DO [Primary Care Provider] - Diet: Heart Healthy Addtl Attending Provider Instructions: Follow-up with your primary care physician in 1 week Follow-up with your director stage Dr. Whatley in 2-4 weeks Consider following with a psychiatrist as needed Seek immediate medical attention if your symptoms reoccur or worsen Please take all medications as instructed on discharge list below. Please call if you have any questions or problems. You can reach a [facility] hospitalist on duty at [facility] 24 hours a day by calling [phone] Pending Studies at Discharge: No Stand-Alone Forms: [facility], Smoking Cessation Medications and DC Order Prescriptions: New escitalopram oxalate 5 mg tablet 5 mg PO HS Qty: 30 1RF Continued aspirin 81 mg tablet,delayed release (DR/EC) 81 mg PO QAM levothyroxine 25 mcg tablet 25 mcg PO QAM tamsulosin 0.4 mg Capsule 0.4 mg PO QAM nitroglycerin [Nitrostat] 0.4 mg Tablet, Sublingual 0.4 mg sublingual UD PRN (Reason: Chest Pain) metoprolol succinate [Toprol XL] 25 mg Tablet Extended Release 24 Hr 25 mg PO QAM omeprazole 20 mg Capsule,Delayed Release(Dr/Ec) 20 mg PO QAM polyethylene glycol 3350 [Miralax] 17 gram powder in packet 17 g PO QAM PRN (Reason: Constipation) atorvastatin 80 mg Tablet 80 mg PO DAILY finasteride 5 mg Tablet 5 mg PO DAILY cholecalciferol (vitamin D3) [Vitamin D3] 25 mcg (1,000 unit) Tablet 25 mcg PO DAILY furosemide 80 mg tablet 80 mg PO DAILY Discharge Orders: Discharge Order (Routine); Ordered 05/16/24 Ordered By: Sourav Adams Admission Data Admit Date/Time: 05/14/24 17:15 Attending Provider: Sourav Adams Admit Provider: Kary Almeida Primary Care Provider: Julianna Jones Other Providers: Lisbeth Marie; Attila Banegas; Reagan Pederson Jr; Nicole More; Elly Rowe; Aguilar Norman; Kary Almeida; Kaur Quiñones
[2024-05-16 12:05] VITALS: PULSE 96
[2024-05-16] MEDS ORDERED: ESCITALOPRAM OXALATE 10 MG TAB PO SCH (21:00)
== END 2024-05-16 12:42 | disposition home or self-care (01) | DRG 881 ==
LOC: ED 13:21 → SUATTDRO 17:15 → EDINP 17:15 → 2N 23:31

== ENCOUNTER 2024-06-28 21:24 | Inpatient (IN) ==
--- NOTE | 2024-06-28 23:09 | Emergency Department Note ---
History of Present Illness General Chief complaint: Trauma Stated complaint: FALL, HIP PAIN Time Seen by Provider: 06/28/24 21:58 History of Present Illness Provider complaint: Right hip pain Onset (ago): hour(s) 1 Location: upper extremity, lower extremity and right Radiation: non-radiation Severity: severe Maximum Pain Intensity: 9 Quality: + stabbing, + aching and + dull Relieved By: + none Exacerbated By: + none Associated symptoms: no chest pain, no cough, no fever/chills, no headaches, no nausea/vomiting or no shortness of breath 88-year-old male presents emergency department status post slip and fall reporting right hip pain. Patient reports that he slipped on a wet tile and landed on his right hip. He denies any blood thinner usage. He denies hitting his head. He reports no headache neck pain chest pain or abdominal pain. He reports pain in his right hip and right elbow. Home Medications Medication Instructions Recorded Confirmed Type aspirin 81 mg tablet,delayed 81 mg PO QAM 02/20/19 06/28/24 History release levothyroxine 25 mcg tablet 25 mcg PO QAM 02/20/19 06/28/24 History nitroglycerin 0.4 mg sublingual 0.4 mg sublingual UD PRN Chest Pain 02/20/19 06/28/24 History tablet (Nitrostat) tamsulosin 0.4 mg capsule 0.4 mg PO QAM 02/20/19 06/28/24 History metoprolol succinate 25 mg 12.5 mg PO QAM 07/26/19 06/28/24 History tablet,extended release 24 hr (Toprol XL) omeprazole 20 mg capsule,delayed 20 mg PO QAM 03/14/21 06/28/24 History release polyethylene glycol 3350 17 gram 17 g PO QAM PRN Constipation 04/16/24 06/28/24 History oral powder packet (Miralax) atorvastatin 80 mg tablet 80 mg PO DAILY 05/14/24 06/28/24 History cholecalciferol (vitamin D3) 25 25 mcg PO DAILY 05/14/24 06/28/24 History mcg (1,000 unit) tablet (Vitamin D3) finasteride 5 mg tablet 5 mg PO DAILY 05/14/24 06/28/24 History furosemide 80 mg tablet 80 mg PO DAILY 05/14/24 06/28/24 History escitalopram oxalate 5 mg tablet 5 mg PO HS #30 tabs 05/16/24 06/28/24 Rx acetaminophen 500 mg tablet 1,000 mg PO BID PRN Pain 06/28/24 06/28/24 History cyanocobalamin (vitamin B-12) 500 500 mcg PO DAILY 06/28/24 06/28/24 History mcg tablet (Vitamin B-12) lutein 20 mg capsule 20 mg PO DAILY 06/28/24 06/28/24 History peg 400-propylene glycol (PF) 0.4 1 drp ophthalmic (eye) DAILY 06/28/24 06/28/24 History %-0.3 % eye drops in a dropperette (Systane (PF)) Allergies Allergy/AdvReac Type Severity Reaction Status Date / Time No Known Allergies Allergy Verified 04/16/24 11:09 Past Med/Surg History Problem List (Updated 06/29/24 @ 00:01 by Ender Alex MD) Fracture, humerus closed (Acute) Femoral neck fracture (Acute) Depression, unspecified Mild cognitive impairment Agitation (Acute) Anemia (Acute) MO (acute kidney injury) (Acute) Acute worsening of stage 4 chronic kidney disease Threatening behavior Generalized weakness (Acute) Ambulatory dysfunction (Acute) Acute UTI (urinary tract infection) (Acute) CKD (chronic kidney disease) (Acute) Postoperative hematoma Elevated troponin DVT prophylaxis Postoperative upper abdominal pain Anemia UTI (urinary tract infection) Postoperative urinary retention PAF (paroxysmal atrial fibrillation) Status post laparoscopic cholecystectomy Chest pain, midsternal (Acute) Acute cholecystitis Constipation Abdominal pain Atypical chest pain Encounter for pre-operative examination Substernal chest pain (Acute) Ambulatory dysfunction Sinusitis, acute Elevated troponin Epigastric pain (Acute) Substernal chest pain (Acute) Fecal impaction (Acute) CKD (chronic kidney disease) stage 4, 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 Marmolejo Medical History CKD (chronic kidney disease) stage 5, GFR less than 15 ml/min Osteoarthritis Chronic back pain GERD (gastroesophageal reflux disease) Hypothyroidism Prediabetes Macular degeneration HLD (hyperlipidemia) Myocardial infarction 1987 Surgical History Hx laparoscopic cholecystectomy (01/13/22) Laparoscopic cholecystectomy with lysis of adhesions. Dr. Gann 01/13/2022 History of colonoscopy History of AAA (abdominal aortic aneurysm) repair 2016 H/O heart artery stent x 1 History of cardiac catheterization 1987 - stent History of appendectomy Family History Other No family history of adverse response to anesthesia No significant family history Social History Smoking Status: Former smoker Tobacco Type: Cigarettes Second Hand Exposure: No; Do You Dip or Chew Tobacco: No; Hx Alcohol Use: No Hx Substance Use: No Preferred Language: Swedish Communication Ability: Effective Visual Impairment: Limited Hearing Ability: Normal Commission Auditor Required: No Beliefs That Will Affect Care: None marital status: Current Living Situation: Spouse and Family Feels Safe at Home: Yes Assistive Devices: Cane, Glasses and Walker Physical Exam Vital Signs Vital Signs - 24 hr 06/28/24 21:30 06/28/24 21:32 06/28/24 21:36 Temperature 36.4 C L Temperature Source Oral Pulse Rate 71 71 Pulse Rate [Apical] 66 Pulse Rhythm Regular Pulse Rhythm [Apical] Regular Pulse Strength Normal Pulse Strength [Apical] Normal Respiratory Rate 14 16 Respiratory Effort / Characteristics Non-Labored Spontaneous Non-Labored Spontaneous Respiratory Depth Normal Normal Respiratory Pattern Regular Regular Blood Pressure 112/74 Blood Pressure [Left Arm] Blood Pressure Mean 86 Blood Pressure Mean [Left Arm] Blood Pressure Position Sitting Blood Pressure Position [Left Arm] Pulse Oximetry 95 95 Oxygen Delivery Method Room Air Room Air Sepsis Recent Fever Within 48 Hours No Sepsis New/Unexplained Change in Mental Status No Sepsis Action Taken by Nursing No Action Required 06/28/24 22:19 06/28/24 22:19 06/28/24 22:23 Temperature Temperature Source Pulse Rate 72 Pulse Rate [Apical] 73 Pulse Rhythm Pulse Rhythm [Apical] Regular Pulse Strength Pulse Strength [Apical] Normal Respiratory Rate 16 16 Respiratory Effort / Characteristics Non-Labored Spontaneous Respiratory Depth Normal Respiratory Pattern Regular Blood Pressure 148/83 H Blood Pressure [Left Arm] 148/83 H Blood Pressure Mean Blood Pressure Mean [Left Arm] 104 Blood Pressure Position Blood Pressure Position [Left Arm] Sitting Pulse Oximetry 95 96 95 Oxygen Delivery Method Room Air Room Air Room Air Sepsis Recent Fever Within 48 Hours Sepsis New/Unexplained Change in Mental Status Sepsis Action Taken by Nursing 06/28/24 23:12 06/28/24 23:30 Temperature Temperature Source Pulse Rate Pulse Rate [Apical] 67 66 Pulse Rhythm Pulse Rhythm [Apical] Pulse Strength Pulse Strength [Apical] Respiratory Rate 14 14 Respiratory Effort / Characteristics Non-Labored Non-Labored Respiratory Depth Normal Normal Respiratory Pattern Regular Regular Blood Pressure Blood Pressure [Left Arm] 156/75 H 135/77 Blood Pressure Mean Blood Pressure Mean [Left Arm] 102 96 Blood Pressure Position Blood Pressure Position [Left Arm] Pulse Oximetry 96 95 Oxygen Delivery Method Room Air Room Air Sepsis Recent Fever Within 48 Hours Sepsis New/Unexplained Change in Mental Status Sepsis Action Taken by Nursing Physical Exam GENERAL: He is oriented to person, place, and time. He appears well-developed and well-nourished. He does not appear distressed. HENT: Exam performed. - Head: Normocephalic and atraumatic. - Right Ear: External ear normal. No mastoid erythema - Left Ear: External ear normal. No mastoid erythema - Mouth/Throat: The oropharynx is clear and moist. No trismus in the jaw. No dental abscesses or uvula swelling. No oropharyngeal exudate or tonsillar abscesses. EYES: Conjunctivae and EOM are normal. Pupils are equal, round, and reactive to light. Right eye exhibits no discharge. Left eye exhibits no discharge. No scleral icterus. NECK: Normal range of motion. Neck supple. No JVD present. No spinous process tenderness present. CV: Normal rate, regular rhythm, normal heart sounds and intact distal pulses. There is no peripheral edema. Palpable radial pulses bue. PULM/CHEST: Effort normal and breath sounds normal. No respiratory distress. No stridor. He has no wheezes. He has no rales. - Chest Wall: He exhibits no tenderness. No crepitus bilaterally. ABD: The abdomen is soft. He has no distension. No mass is present. There is no tenderness. There is no rebound, no guarding. MUSC/SKEL: Pain on palpation of the right hip. Right lower extremity is shortened and externally rotated. Palpable DP and PT pulses bilateral lower extremities. Right upper extremity: No pain on palpation of the elbow. Full range of motion of the elbow. Full range of motion of the wrist. No pain on palpation of the wrist. Compartments of the upper extremity are soft. Ecchymosis over the elbow. Motor and sensation intact in the median radial and ulnar nerve distribution. Palpable radial and ulnar pulses. NEURO: Motor and sensation grossly intact. SKIN: Ecchymosis over the right elbow. Course Course 2157: The patient was evaluated in room B12. A complete history and physical exam was performed Cardiac monitoring: An order was placed for continuous cardiac monitoring. The monitor shows a rate of 70 with sinus rhythm interpreted by me 2354: Vital signs stable. Imaging shows right femoral neck fracture as well as a right possible medial epicondyle fracture. Discussed case with Dr. Lal on-call orthopedics who agrees that the patient should be placed in a splint and then he is asking for CT of the elbow without contrast be performed. Patient will be admitted to the medicine team. Splint was placed by the psychology tech. Patient not reporting any pain in his upper extremity. After the splint was placed the patient's cap refills less than 2 seconds and his sensation was intact. Patient's labs are unremarkable, creatinine is at baseline. Administered Medications Morphine Sulfate (Morphine Sulfate 4 Mg/Ml 1 Ml Carp\Vial) 4 mg IV Q1H PRN PRN Reason: Severe Pain (Rating 7,8,9,10) Stop: 07/12/24 22:18 Last Admin: 06/28/24 23:12 Dose: 4 mg Documented By: SABINA Medical Decision Making Laboratory Data Attestation: I reviewed the patient's lab results. 06/28/24 22:40 06/28/24 22:40 Lab Results 06/28/24 06/28/24 06/28/24 Range/Units 22:35 22:40 23:28 WBC 7.92 (4.8-10.8) K/ul RBC 3.49 L (4.70-6.10) M/uL Hgb 10.6 L (14.0-18.0) g/dl Hct 32.3 L (42.0-52.0) % MCV 92.6 (80.0-100.0) fL MCH 30.4 (25.0-34.0) pg MCHC 32.8 (32.0-36.0) g/dL RDW Std Deviation 45.9 (36.4-46.3) fL RDW Coeff of Collins 13.5 (11.5-14.5) % Plt Count 166 (130-400) K/uL MPV 10.9 (9.4-12.4) fL Immature Gran % (Auto) 0.5 % Neut % (Auto) 81.9 % Lymph % (Auto) 8.5 % [place] % (Auto) 8.2 % Eos % (Auto) 0.8 % Baso % (Auto) 0.1 % Neut # (Auto) 6.49 (1.40-6.50) K/uL Lymph # (Auto) 0.67 L (1.20-3.40) K/uL [place] # (Auto) 0.65 H (0.11-0.59) K/uL Eos # (Auto) 0.06 (0.00-0.50) K/uL Baso # (Auto) 0.01 (0.00-0.20) K/uL Immature Gran # (Auto) 0.04 (0.01-0.20) K/uL PT 11.0 (9.0-12.0) Seconds INR 1.0 (0.9-1.1) APTT 24 (21-31) Seconds PTT Ratio 0.9 Sodium 139 (136-145) mmol/L Potassium 3.7 (3.5-5.1) mmol/L Chloride 105 (98-107) mmol/L Carbon Dioxide 25 (21-32) mmol/L Anion Gap 9 (3-11) BUN 60 H (6-23) mg/dl Creatinine 4.14 H (0.6-1.4) mg/dl Est Cr Clr Drug Dosing 11.3 ml/min eGFR 13.08 BUN/Creatinine Ratio 14.5 (10-20) Glucose 121 H (70-99(Fasting)) mg/dl Calcium 9.0 (8.6-10.3) mg/dl Total Bilirubin 0.4 (0.2-1.0) mg/dl AST 20 (13-39) U/L ALT 18 (7-52) U/L Alkaline Phosphatase 89 (34-104) U/L Total Protein 6.9 (6.0-8.3) gm/dl Albumin 3.9 (3.4-5.0) gm/dl Globulin 3.0 (2.5-4.0) gm/dl Albumin/Globulin Ratio 1.3 (0.9-2) Urine Color Yellow Urine Appearance Clear (Clear) Urine pH 6.0 (4.5-7.5) Ur Specific Adin 1.012 (1.000-1.030) Urine Protein 1+ H (Negative) Urine Glucose (UA) Negative (Negative) Urine Ketones Negative (Negative) Urine Blood 2+ H (Negative) Urine Nitrite Negative (Negative) Urine Bilirubin Negative (Negative) Urine Urobilinogen Negative (Negative) Ur Leukocyte Esterase Negative (Negative) Urine WBC (Auto) 0-5 (0-5) /hpf Urine RBC (Auto) >20 H (0-2) /hpf U Hyaline Cast (Auto) 0-2 (0-2) /lpf U Epithel Cells (Auto) 0-2 (0-2) /hpf Urine Bacteria (Auto) None Seen (None Seen) Blood Type AB Negative Antibody Screen NEGATIVE Imaging Data Attestation: I personally reviewed and interpreted this imaging study as follows: My Impression: Right hip: Right hip fracture Chest x-ray: Chest x-ray negative. Airway clear. No pneumothorax. No consolidation. No cardiomegaly or cephalization.. No free air under the diaphragm. No fractures of the skeletal structures. Right elbow: Medial supracondylar fracture. Radiologist's Impression: XR Chest, 1 View CLINICAL HISTORY: Reason for exam: fall trauma. TECHNIQUE: Frontal view of the chest. COMPARISON: Chest x-ray 02/01/22. FINDINGS: Lungs: Minimal blunting left costophrenic angle, possible mild atelectasis or effusion. No consolidation. Pleural space: No pneumothorax. Heart: No cardiomegaly. Mediastinum: Unremarkable. Bones/Soft Tissues: No definite displaced fracture. IMPRESSION: 1. Minimal blunting left costophrenic angle, nonspecific, cannot rule out minimal effusion and/or atelectasis. Radiologist: Jina Fitch M.D. Electronically Signed: 06/28/24 23:10 EXAM: XR Pelvis, 1 or 2 Views CLINICAL HISTORY: Reason for exam: fall trauma. TECHNIQUE: Frontal view of the pelvis. COMPARISON: No relevant prior studies available. FINDINGS: Bones/joints: Foreshortening of the right femoral neck, probable impacted fracture. No other fracture. No dislocation. Soft tissues: Extensive arteriosclerosis and bilateral iliac stents. IMPRESSION: 1. Suspect impacted fracture right femoral neck. Radiologist: Jina Fitch M.D. Electronically Signed: 06/28/24 23:12 EXAM: XR Right Elbow Complete, 3 or More Views CLINICAL HISTORY: Reason for exam: fall trauma. TECHNIQUE: Frontal, lateral and oblique views of the right elbow. COMPARISON: No relevant prior studies available. FINDINGS: Bones/joints: Linear lucency in the medial epicondyle distal humerus, seen on 1 view, possible nondisplaced fracture. No other or displaced fracture. No dislocation. Soft tissues: Unremarkable. No joint effusion. IMPRESSION: 1. Possible nondisplaced fracture medial epicondyle distal humerus. Radiologist: Jina Fitch M.D. Electronically Signed: 06/28/24 23:15 ECG Data Attestation: I personally reviewed and interpreted this ECG as follows: Additional Comments: Sinus arrhythmia with a rate of 66. KS 236 QRS 166 QTc 492. Left bundle branch block present. Sgarbossa negative. PVCs present. No significant change from the EKG done in April 2024. [facility] Narrative 2158: The patient was evaluated in room B12. A complete history and physical exam was performed Cardiac monitoring: An order was placed for continuous cardiac monitoring. The monitor shows a rate of 70 with sinus rhythm interpreted by me 2354: Vital signs stable. Imaging shows right femoral neck fracture as well as a right possible medial epicondyle fracture. Discussed case with Dr. Lal on-call orthopedics who agrees that the patient should be placed in a splint and then he is asking for CT of the elbow without contrast be performed. Patient will be admitted to the medicine team. Splint was placed by the psychology tech. Patient not reporting any pain in his upper extremity. After the splint was placed the patient's cap refills less than 2 seconds and his sensation was intact. Patient's labs are unremarkable, creatinine is at baseline. Impression & Plan Femoral neck fracture, Fracture, humerus closed Discharge Plan Visit Data Chief Complaint: Trauma Stated Complaint: FALL, HIP PAIN ED Provider: Ender Alex Discharge Problem: Femoral neck fracture, Fracture, humerus closed Patient Disposition: Admitted As Inpatient Forms [facility] Prescriptions Prescriptions: No Action aspirin 81 mg tablet,delayed release (DR/EC) 81 mg PO QAM levothyroxine 25 mcg tablet 25 mcg PO QAM tamsulosin 0.4 mg Capsule 0.4 mg PO QAM nitroglycerin [Nitrostat] 0.4 mg Tablet, Sublingual 0.4 mg sublingual UD PRN (Reason: Chest Pain) metoprolol succinate [Toprol XL] 25 mg Tablet Extended Release 24 Hr 12.5 mg PO QAM omeprazole 20 mg Capsule,Delayed Release(Dr/Ec) 20 mg PO QAM polyethylene glycol 3350 [Miralax] 17 gram powder in packet 17 g PO QAM PRN (Reason: Constipation) atorvastatin 80 mg Tablet 80 mg PO DAILY finasteride 5 mg Tablet 5 mg PO DAILY cholecalciferol (vitamin D3) [Vitamin D3] 25 mcg (1,000 unit) Tablet 25 mcg PO DAILY furosemide 80 mg tablet 80 mg PO DAILY escitalopram oxalate 5 mg tablet 5 mg PO HS Qty: 30 1RF acetaminophen 500 mg Tablet 1,000 mg PO BID PRN (Reason: Pain) cyanocobalamin (vitamin B-12) [Vitamin B-12] 500 mcg Tablet 500 mcg PO DAILY Systane (PF) 0.4-0.3 % Dropperette 1 drp ophthalmic (eye) DAILY Rx Instructions: INSTILL ONE DROP INTO BOTH EYES EVERY DAY FOR AMD lutein 20 mg Capsule 20 mg PO DAILY Rx Instructions: give with meal/snack Referrals Referrals: Julianna Jones DO [Primary Care Provider] - Discharge Problem: Femoral neck fracture Qualifiers: Encounter type: initial encounter Fracture type: closed Laterality: right Q ualified Code(s): S72.001A - Fracture of unspecified part of neck of right femur, initial encounter for closed fracture Fracture, humerus closed Qualifiers: Encounter type: initial encounter Humerus Location: medial epicondyle Fracture alignment: nondisplaced Laterality: right
[2024-06-28 23:10] LABS: Albumin Globulin Ratio 1.3 (0.9-2); Albumin Level 3.9 gm/dl (3.4-5.0); BUN Creatinine Ratio 14.5 (10-20); Basophils # (auto) 0.01 K/uL (0.00-0.20); Basophils % (auto) 0.1 %; Bilirubin,Total 0.4 mg/dl (0.2-1.0); Creatinine Clr Calc Pharmacy 11.3 ml/min; Eosinophils # (auto) 0.06 K/uL (0.00-0.50); Eosinophils % (auto) 0.8 %; Hematocrit (blood only) 32.3 % (42.0-52.0); Hemoglobin 10.6 g/dl (14.0-18.0); Immature Granulocytes # (auto) 0.04 K/uL (0.01-0.20); Immature Granulocytes % (auto) 0.5 %; Lymphocytes # (auto) 0.67 K/uL (1.20-3.40); Lymphocytes % (auto) 8.5 %; Mean Corpuscular Hemoglobin 30.4 pg (25.0-34.0); Mean Corpuscular Hgb Conc 32.8 g/dL (32.0-36.0); Mean Corpuscular Volume 92.6 fL (80.0-100.0); Mean Platelet Volume 10.9 fL (9.4-12.4); Monocytes # (auto) 0.65 K/uL (0.11-0.59); Monocytes % (auto) 8.2 %; Neutrophils # (auto) 6.49 K/uL (1.40-6.50); Neutrophils % (auto) 81.9 %; Platelet Count 166 K/uL (130-400); Potassium 3.7 mmol/L (3.5-5.1); RDW Coefficient of Variation 13.5 % (11.5-14.5); RDW Standard Deviation 45.9 fL (36.4-46.3); Red Blood Count 3.49 M/uL (4.70-6.10); Total Protein 6.9 gm/dl (6.0-8.3); White Blood Count 7.92 K/ul (4.8-10.8)
[2024-06-28] MEDS: MoRPHine SULFATE 4 MG/ML 1 ML CARP\\VIAL IV PRN (23:12)
[2024-06-28 23:42] LABS: Appearance Urine Clear (Clear); Bacteria Urine Automated None Seen (None Seen); Bilirubin Urine Negative (Negative); Blood Urine 2+ (Negative); Cast Urine Automated 0-2 /lpf (0-2); Color Urine Yellow; Epithelial Cell Urine Auto 0-2 /hpf (0-2); Glucose Urine UA Negative (Negative); Ketones Urine Negative (Negative); Leukocyte Esterase Urine Negative (Negative); Nitrite Urine Negative (Negative); Protein Urine 1+ (Negative); RBC Urine Automated >20 /hpf (0-2); Specific Gravity Urine 1.012 (1.000-1.030); Urobilinogen Urine Negative (Negative); WBC Urine Automated 0-5 /hpf (0-5)
[2024-06-28 23:47] LABS: Partial Thromboplastin Ratio 0.9; Partial Thromboplastin Time 24 Seconds (21-31)
[2024-06-29] MEDS: MoRPHine SULFATE 2 MG/ML CARP IV PRN (00:40)
[2024-06-29] MEDS ORDERED: HYDROmorphone INJ 0.5 MG/0.5 ML SYR IV PRN (00:47)
[2024-06-29] MEDS ORDERED: PROMETHAZINE 6.25 MG/50.25 ML BAG IV PRN (00:47)
--- NOTE | 2024-06-29 00:55 | History & Physical Report ---
Date of Service June 29, 2024 Assessment & Plan (1) Femoral neck fracture: Plan: Traumatic right femoral neck fracture Traumatic right humeral fracture chronic systolic heart failure (EF 35 to 40%, TTE 2020), patient euvolemic hx CAD status post stent, stable cardiac symptoms as per outpatient [facility] cardio visit January 2024 chronic LBBB PVD/AAA status post surgery hypertension, stable hyperlipidemia, on statin Rx CRI, creatinine at baseline chronic anemia, hemoglobin at baseline prediabetes, hemoglobin A1c of 5.9 last year hypothyroidism, euthyroid as of TSH 2 months ago past tobacco abuse Admit to [facility] Orthopedics consult Re: Right femoral fracture, right humeral fracture (ED provider already in touch with Dr. Lal who recommends surgery for hip fracture.) High risk for cardiac complications resulting from prospective procedure as per revised Cardiac Risk Index (RCRI) if surgery recommended by Orthopedics and patient/family agreeable to attendant procedural benefits and risks: 1. High-risk type of surgery (examples include vascular and any open intraperitoneal or intrathoracic procedures). No 2. History of ischemic heart disease (history of myocardial infarction or positive exercise test, current compliant of chest pain considered to be secondary to myocardial ischemia, use of nitrate therapy, or ECG with pathological Q waves; do not count prior coronary revascularization procedure unless one of the other criteria for ischemic heart disease is present). Yes 3. History of heart failure. Yes 4. History of cerebrovascular disease. No 5. Diabetes mellitus requiring treatment with insulin. No 6. Preoperative serum creatinine >2.0. Yes Pt has revised cardiac index score of 3 points. (Class IV Risk.) 15% % 30-day risk of , MA, or cardiac arrest. Resume home aspirin for secondary CAD prevention once H&H stable given RUE traumatic bleed. DVT prophylaxis. SCDs re: possible surgery DNR Patient requesting updates from providers. Ms. Bob Valencia, contact #[phone]. Text document was generated using [employer] voice recognition software. It may contain grammatical or spelling errors. Kindly contact undersigned for clarification of any documentation item in ques tion. History of Present Illness Chief Complaint: Fall, right hip pain Primary Care Provider: Julianna Jones DO History obtained from patient, family, and records. Medical history significant for chronic systolic heart failure (EF 35 to 40%, TTE 2021), CAD status post stent, chronic LBBB, PVD, AAA status post surgery, hypertension, hyperlipidemia, CRI (baseline creatinine 4), chronic anemia (baseline hemoglobin 10-11), prediabetes, hypothyroidism, BPH, past tobacco abuse. Last confinement April 2024 for transient aggressive behavior, ARF on CKD. Patient slipped on wet tile at home causing him to fall down. Achy right hip pain and right elbow pain. Bleeding wound on the right elbow. No head trauma, LOC, chest pain, SOB. Patient brought to ER for evaluation. 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 Allergies Allergy/AdvReac Type Severity Reaction Status Date / Time No Known Allergies Allergy Verified 04/16/24 11:09 Home Medications Medication Instructions Recorded Confirmed Type aspirin 81 mg tablet,delayed 81 mg PO QAM 02/20/19 06/28/24 History release levothyroxine 25 mcg tablet 25 mcg PO QAM 02/20/19 06/28/24 History nitroglycerin 0.4 mg sublingual 0.4 mg sublingual UD PRN Chest Pain 02/20/19 06/28/24 History tablet (Nitrostat) tamsulosin 0.4 mg capsule 0.4 mg PO QAM 02/20/19 06/28/24 History metoprolol succinate 25 mg 12.5 mg PO QAM 07/26/19 06/28/24 History tablet,extended release 24 hr (Toprol XL) omeprazole 20 mg capsule,delayed 20 mg PO QAM 03/14/21 06/28/24 History release polyethylene glycol 3350 17 gram 17 g PO QAM PRN Constipation 04/16/24 06/28/24 History oral powder packet (Miralax) atorvastatin 80 mg tablet 80 mg PO DAILY 05/14/24 06/28/24 History cholecalciferol (vitamin D3) 25 25 mcg PO DAILY 05/14/24 06/28/24 History mcg (1,000 unit) tablet (Vitamin D3) finasteride 5 mg tablet 5 mg PO DAILY 05/14/24 06/28/24 History furosemide 80 mg tablet 80 mg PO DAILY 05/14/24 06/28/24 History escitalopram oxalate 5 mg tablet 5 mg PO HS #30 tabs 05/16/24 06/28/24 Rx acetaminophen 500 mg tablet 1,000 mg PO BID PRN Pain 06/28/24 06/28/24 History cyanocobalamin (vitamin B-12) 500 500 mcg PO DAILY 06/28/24 06/28/24 History mcg tablet (Vitamin B-12) lutein 20 mg capsule 20 mg PO DAILY 06/28/24 06/28/24 History peg 400-propylene glycol (PF) 0.4 1 drp ophthalmic (eye) DAILY 06/28/24 06/28/24 History %-0.3 % eye drops in a dropperette (Systane (PF)) Past Med/Surg History Problem List (Updated 06/29/24 @ 00:01 by Enedr Alex MD) Fracture, humerus closed (Acute) Femoral neck fracture (Acute) Depression, unspecified Mild cognitive impairment Agitation (Acute) Anemia (Acute) MO (acute kidney injury) (Acute) Acute worsening of stage 4 chronic kidney disease Threatening behavior Generalized weakness (Acute) Ambulatory dysfunction (Acute) Acute UTI (urinary tract infection) (Acute) CKD (chronic kidney disease) (Acute) Postoperative hematoma Elevated troponin DVT prophylaxis Postoperative upper abdominal pain Anemia UTI (urinary tract infection) Postoperative urinary retention PAF (paroxysmal atrial fibrillation) Status post laparoscopic cholecystectomy Chest pain, midsternal (Acute) Acute cholecystitis Constipation Abdominal pain Atypical chest pain Encounter for pre-operative examination Substernal chest pain (Acute) Ambulatory dysfunction Sinusitis, acute Elevated troponin Epigastric pain (Acute) Substernal chest pain (Acute) Fecal impaction (Acute) CKD (chronic kidney disease) stage 4, 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 Marmolejo Medical History CKD (chronic kidney disease) stage 5, GFR less than 15 ml/min Osteoarthritis Chronic back pain GERD (gastroesophageal reflux disease) Hypothyroidism Prediabetes Macular degeneration HLD (hyperlipidemia) Myocardial infarction 1987 Surgical History Hx laparoscopic cholecystectomy (01/13/22) Laparoscopic cholecystectomy with lysis of adhesions. Dr. Gann 01/13/2022 History of colonoscopy History of AAA (abdominal aortic aneurysm) repair 2016 H/O heart artery stent x 1 History of cardiac catheterization 1987 MA - stent History of appendectomy Family History Other No family history of adverse response to anesthesia No significant family history Social History Smoking Status: Former smoker Tobacco Type: Cigarettes Second Hand Exposure: No; Do You Dip or Chew Tobacco: No; Hx Alcohol Use: No Hx Substance Use: No Preferred Language: Nigerian Communication Ability: Effective Visual Impairment: Limited Hearing Ability: Normal Mother Tester Required: No Beliefs That Will Affect Care: None marital status: Current Living Situation: Spouse and Other Current Living Situation Comment: son Other Information That Helps Us Care for You: No Feels Safe at Home: Yes Safety Concerns: Feels Safe At This Time Assistive Devices: Cane, Glasses and Walker Review of Systems Review of Systems: As per HPI, all other systems reviewed and negative Physical Exam Physical Exam: GENERAL: Slightly uncomfortable, no respiratory distress SKIN: Pallor, warm HEENT: Alopecia, bespectacled, pale palpebral conjunctivae, no ptosis, dry buccal mucosa NECK : Supple, no tenderness CHEST : CTA, no tenderness HEART : RRR, no obvious murmurs ABDOMEN: no distention, nontender EXTREMITIES : Sling RUE, right hip tenderness NEUROLOGIC : Coherent, no facial asymmetry, no other gross focality Results & Data Results & Data Vital Signs (Past 12 Hours) Vital Signs Temp Pulse Pulse Resp BP BP Pulse Ox 06/28/24 23:30 66 14 135/77 95 06/28/24 23:12 67 14 156/75 H 96 06/28/24 22:23 95 06/28/24 22:19 73 16 148/83 H 96 06/28/24 22:19 72 16 148/83 H 95 06/28/24 21:36 66 16 95 06/28/24 21:32 36.4 C L 71 14 112/74 95 06/28/24 21:30 71 O2 Del Method 06/28/24 23:30 Room Air 06/28/24 23:12 Room Air 06/28/24 22:23 Room Air 06/28/24 22:19 Room Air 06/28/24 22:19 Room Air 06/28/24 21:36 Room Air 06/28/24 21:32 Room Air 06/28/24 21:30 Laboratory Results Laboratory Results WBC 7.92 K/ul (4.8-10.8) 06/28/24 22:40 RBC 3.49 M/uL (4.70-6.10) L 06/28/24 22:40 Hgb 10.6 g/dl (14.0-18.0) L 06/28/24 22:40 Hct 32.3 % (42.0-52.0) L 06/28/24 22:40 MCV 92.6 fL (80.0-100.0) 06/28/24 22:40 MCH 30.4 pg (25.0-34.0) 06/28/24 22:40 MCHC 32.8 g/dL (32.0-36.0) 06/28/24 22:40 RDW Std Deviation 45.9 fL (36.4-46.3) 06/28/24 22:40 RDW Coeff of Collins 13.5 % (11.5-14.5) 06/28/24 22:40 Plt Count 166 K/uL (130-400) 06/28/24 22:40 MPV 10.9 fL (9.4-12.4) 06/28/24 22:40 Immature Gran % (Auto) 0.5 % 06/28/24 22:40 Neut % (Auto) 81.9 % 06/28/24 22:40 Lymph % (Auto) 8.5 % 06/28/24 22:40 Person % (Auto) 8.2 % 06/28/24 22:40 Eos % (Auto) 0.8 % 06/28/24 22:40 Baso % (Auto) 0.1 % 06/28/24 22:40 Neut # (Auto) 6.49 K/uL (1.40-6.50) 06/28/24 22:40 Lymph # (Auto) 0.67 K/uL (1.20-3.40) L 06/28/24 22:40 Person # (Auto) 0.65 K/uL (0.11-0.59) H 06/28/24 22:40 Eos # (Auto) 0.06 K/uL (0.00-0.50) 06/28/24 22:40 Baso # (Auto) 0.01 K/uL (0.00-0.20) 06/28/24 22:40 Immature Gran # (Auto) 0.04 K/uL (0.01-0.20) 06/28/24 22:40 PT 11.0 Seconds (9.0-12.0) 06/28/24 22:40 INR 1.0 (0.9-1.1) 06/28/24 22:40 APTT 24 Seconds (21-31) 06/28/24 22:40 PTT Ratio 0.9 06/28/24 22:40 Sodium 139 mmol/L (136-145) 06/28/24 22:40 Potassium 3.7 mmol/L (3.5-5.1) 06/28/24 22:40 Chloride 105 mmol/L (98-107) 06/28/24 22:40 Carbon Dioxide 25 mmol/L (21-32) 06/28/24 22:40 Anion Gap 9 (3-11) 06/28/24 22:40 BUN 60 mg/dl (6-23) H 06/28/24 22:40 Creatinine 4.14 mg/dl (0.6-1.4) H 06/28/24 22:40 Est Cr Clr Drug Dosing 11.3 ml/min 06/28/24 22:40 eGFR 13.08 06/28/24 22:40 BUN/Creatinine Ratio 14.5 (10-20) 06/28/24 22:40 Glucose 121 mg/dl (70-99(Fasting)) H 06/28/24 22:40 Calcium 9.0 mg/dl (8.6-10.3) 06/28/24 22:40 Total Bilirubin 0.4 mg/dl (0.2-1.0) 06/28/24 22:40 AST 20 U/L (13-39) 06/28/24 22:40 ALT 18 U/L (7-52) 06/28/24 22:40 Alkaline Phosphatase 89 U/L (34-104) 06/28/24 22:40 Total Protein 6.9 gm/dl (6.0-8.3) 06/28/24 22:40 Albumin 3.9 gm/dl (3.4-5.0) 06/28/24 22:40 Globulin 3.0 gm/dl (2.5-4.0) 06/28/24 22:40 Albumin/Globulin Ratio 1.3 (0.9-2) 06/28/24 22:40 Urine Color Yellow 06/28/24 23:28 Urine Appearance Clear (Clear) 06/28/24 23:28 Urine pH 6.0 (4.5-7.5) 06/28/24 23:28 Ur Specific Boykins 1.012 (1.000-1.030) 06/28/24 23:28 Urine Protein 1+ (Negative) H 06/28/24 23:28 Urine Glucose (UA) Negative (Negative) 06/28/24 23:28 Urine Ketones Negative (Negative) 06/28/24 23: Urine Blood 2+ (Negative) H 06/28/24 23:28 Urine Nitrite Negative (Negative) 06/28/24 23: Urine Bilirubin Negative (Negative) 06/28/24 23:28 Urine Urobilinogen Negative (Negative) 06/28/24 23:28 Ur Leukocyte Esterase Negative (Negative) 06/28/24 23:28 Urine WBC (Auto) 0-5 /hpf (0-5) 06/28/24 23:28 Urine RBC (Auto) >20 /hpf (0-2) H 06/28/24 23:28 U Hyaline Cast (Auto) 0-2 /lpf (0-2) 06/28/24 23:28 U Epithel Cells (Auto) 0-2 /hpf (0-2) 06/28/24 23:28 Urine Bacteria (Auto) None Seen (None Seen) 06/28/24 23:28 Blood Type AB Negative 06/28/24 22:35 Antibody Screen NEGATIVE 06/28/24 22:35 XR Chest, 1 View CLINICAL HISTORY: Reason for exam: fall trauma. TECHNIQUE: Frontal view of the chest. COMPARISON: Chest x-ray 02/01/22. FINDINGS: Lungs: Minimal blunting left costophrenic angle, possible mild atelectasis or effusion. No consolidation. Pleural space: No pneumothorax. Heart: No cardiomegaly. Mediastinum: Unremarkable. Bones/Soft Tissues: No definite displaced fracture. IMPRESSION: 1. Minimal blunting left costophrenic angle, nonspecific, cannot rule out minimal effusion and/or atelectasis. Radiologist: Jina Fitch M.D. Electronically Signed: 06/28/24 23:10 XR Pelvis, 1 or 2 Views CLINICAL HISTORY: Reason for exam: fall trauma. TECHNIQUE: Frontal view of the pelvis. COMPARISON: No relevant prior studies available. FINDINGS: Bones/joints: Foreshortening of the right femoral neck, probable impacted fracture. No other fracture. No dislocation. Soft tissues: Extensive arteriosclerosis and bilateral iliac stents. IMPRESSION: 1. Suspect impacted fracture right femoral neck. Radiologist: Jina Fitch M.D. Electronically Signed: 06/28/24 23:12 XR Right Elbow Complete, 3 or More Views CLINICAL HISTORY: Reason for exam: fall trauma. TECHNIQUE: Frontal, lateral and oblique views of the right elbow. COMPARISON: No relevant prior studies available. FINDINGS: Bones/joints: Linear lucency in the medial epicondyle distal humerus, seen on 1 view, possible nondisplaced fracture. No other or displaced fracture. No dislocation. Soft tissues: Unremarkable. No joint effusion. IMPRESSION: 1. Possible nondisplaced fracture medial epicondyle distal humerus. Radiologist: Jina Fitch M.D. Electronically Signed: 06/28/24 23:[address] 1. Cortical irregularity is identified along the capitellum, raising the suspicion of avulsion fracture, and soft tissue and muscle edema is also seen at the lateral aspect, of the elbow joint MRI suggested for further evaluation. No Suspicion of fracture was identified in prior x-ray 2. Small density is also identified along the trochlea of the humerus, likely enthesopathy. Clinical correlation is suggested. 3. Mildly reduced radiocapitellar and ulnohumeral joint spaces, Likely due to degenerative changes. No such changes seen prior xray Diagnostic Findings EKG as per my interpretation : Rate 65, NSR, LAD, LAFB, LBBB, occasional PVCs (1) Femoral neck fracture Encounter type: initial encounter Fracture type: closed Laterality: right Qualified Code(s): S72.001A - Fracture of unspecified part of neck of right femur, initial encounter for closed fracture
[2024-06-29] MEDS ORDERED: NALOXONE HCL 0.4 MG/1 ML VIAL/CARP IV PRN (00:57)
[2024-06-29] MEDS ORDERED: bisacodyL 10 MG SUPP PR PRN (00:57)
[2024-06-29 01:08] LABS: Magnesium 1.9 mg/dl (1.7-2.4)
[2024-06-29] MEDS: METOPROLOL SUCC 25MG EXT REL TAB PO SCH (05:52)
[2024-06-29] MEDS: MAGNESIUM SULFATE / D5W 1 GM/100 ML BAG IV ONE (05:53)
[2024-06-29] MEDS: SODIUM CHLORIDE 0.9% 1,000 ML IV ONE (06:08)
[2024-06-29] MEDS: LEVOTHYROXINE SODIUM 25 MCG TABLET PO SCH (06:25)
--- NOTE | 2024-06-29 07:09 | CT Scan Report ---
EXAM: CT elbow RT wo con CLINICAL HISTORY: rt elbow fx INPATIENT TECHNIQUE: Thin axial CT of the right elbow joint without contrast was performed with coronal and sagittal reconstructions. One of the following dose reduction techniques were utilized for this exam: Automated exposure control, adjustment of the mA and/or kV according to patient size, and use of iterative reconstruction. COMPARISON: Prior x-ray dated 06/13/2021 was reviewed FINDINGS: Bones. Normal alignment of the distal humerus, radius, and ulna. Cortical irregularity is identified in the capitellum. Small density is also identified along the trochlea of the humerus Normal bone density. Joints. Mildly reduced radiocapitellar and ulnohumeral joint spaces Soft Tissues: Soft tissue and muscle edema is identified at the lateral aspect of the elbow joint. Overlying cast application is seen IMPRESSION: 1. Cortical irregularity is identified along the capitellum, raising the suspicion of avulsion fracture, and soft tissue and muscle edema is also seen at the lateral aspect, of the elbow joint MRI suggested for further evaluation. No Suspicion of fracture was identified in prior x-ray 2. Small density is also identified along the trochlea of the humerus, likely enthesopathy. Clinical correlation is suggested. 3. Mildly reduced radiocapitellar and ulnohumeral joint spaces, Likely due to degenerative changes. No such changes seen prior xray Electronically signed by Aneta Galvez 06-29-2024 02:32 AM
[2024-06-29 07:29] LABS: Basophils # (auto) 0.02 K/uL (0.00-0.20); Basophils % (auto) 0.2 %; Eosinophils # (auto) 0.02 K/uL (0.00-0.50); Eosinophils % (auto) 0.2 %; Hematocrit (blood only) 29.5 % (42.0-52.0); Hemoglobin 9.3 g/dl (14.0-18.0); Immature Granulocytes # (auto) 0.07 K/uL (0.01-0.20); Immature Granulocytes % (auto) 0.5 %; Lymphocytes # (auto) 0.46 K/uL (1.20-3.40); Lymphocytes % (auto) 3.5 %; Mean Corpuscular Hemoglobin 30.3 pg (25.0-34.0); Mean Corpuscular Hgb Conc 31.5 g/dL (32.0-36.0); Mean Corpuscular Volume 96.1 fL (80.0-100.0); Mean Platelet Volume 10.8 fL (9.4-12.4); Monocytes # (auto) 1.31 K/uL (0.11-0.59); Monocytes % (auto) 9.9 %; Neutrophils # (auto) 11.31 K/uL (1.40-6.50); Neutrophils % (auto) 85.7 %; Platelet Count 126 K/uL (130-400); RDW Coefficient of Variation 13.3 % (11.5-14.5); RDW Standard Deviation 46.9 fL (36.4-46.3); Red Blood Count 3.07 M/uL (4.70-6.10); White Blood Count 13.19 K/ul (4.8-10.8)
[2024-06-29 07:46] LABS: Calcium 8.8 mg/dl (8.6-10.3); Potassium 3.8 mmol/L (3.5-5.1)
[2024-06-29 07:51] LABS: BUN Creatinine Ratio 15.9 (10-20); Creatinine Clr Calc Pharmacy 12.2 ml/min
[2024-06-29] MEDS: PANTOprazole 40 MG TAB PO SCH (09:03)
[2024-06-29] MEDS: FINASTERIDE 5 MG TAB PO SCH (09:03)
[2024-06-29] MEDS: ATORVASTATIN 40 MG TAB PO SCH (09:03)
[2024-06-29] MEDS: TAMSULOSIN HCL 0.4 MG CAP PO SCH (09:03)
[2024-06-29] MEDS: CYANOCOBALAMIN (B-12) 500 MCG TABLET PO SCH (09:03)
--- NOTE | 2024-06-29 09:37 | Orthopedic Consultation ---
Date of Consultation June 29, 2024 Assessment & Plan (1) Femoral neck fracture: Options of care were discussed with the patient as well as his . Risks and benefits of surgery were reviewed by Dr. Lal at the bedside. Patient was also evaluated by Dr. Zamorano hospitalist and the risks and benefits of surgery were reviewed from a medical standpoint as well. Patient and clearly understand risk and benefit of surgery and patient would like to proceed with surgery to regain baseline function. He will be taken to the OR this afternoon for right hemiarthroplasty. Consent form reviewed and signed by patient and Dr. Lal. (2) Fracture, humerus closed: Patient currently without any decreased range of motion or tenderness. Wound was cleansed by myself and splint was reapplied for now. Will review further after surgery with Dr. Lal. History of Present Illness Attending Physician: Iqra Zamorano MD History of Present Illness This is a right hand dominant 88 year old male with past medical history coronary artery disease, CHF, CKD, hypertension, who presented to the emergency department last night after slipping and falling in the kitchen. He remembers the events. He did not hit his head. He had some mild elbow pain on the right and significant pain in his right hip. He was unable to walk. He was brought to the emergency department and found to have a hip fracture as well as abnormal elbow imaging for which a CT was obtained. His elbow was splinted. Patient currently denies any numbness or tingling in his fingers or toes. He has not had any prior injuries or surgeries to the right hip or right elbow. Patient lives with his and ambulates with a cane and a walker. He is generally able to function by himself with activities of daily living. He does not take any blood thinners. Patient denies any history of MRSA. No history of DVT or PE. He does not have any metal allergy. Allergies Allergy/AdvReac Type Severity Reaction Status Date / Time No Known Allergies Allergy Verified 04/16/24 11:09 Home Medications Medication Instructions Recorded Confirmed Type aspirin 81 mg tablet,delayed 81 mg PO QAM 02/20/19 06/28/24 History release levothyroxine 25 mcg tablet 25 mcg PO QAM 02/20/19 06/28/24 History nitroglycerin 0.4 mg sublingual 0.4 mg sublingual UD PRN Chest Pain 02/20/19 06/28/24 History tablet (Nitrostat) tamsulosin 0.4 mg capsule 0.4 mg PO QAM 02/20/19 06/28/24 History metoprolol succinate 25 mg 12.5 mg PO QAM 07/26/19 06/28/24 History tablet,extended release 24 hr (Toprol XL) omeprazole 20 mg capsule,delayed 20 mg PO QAM 03/14/21 06/28/24 History release polyethylene glycol 3350 17 gram 17 g PO QAM PRN Constipation 04/16/24 06/28/24 History oral powder packet (Miralax) atorvastatin 80 mg tablet 80 mg PO DAILY 05/14/24 06/28/24 History cholecalciferol (vitamin D3) 25 25 mcg PO DAILY 05/14/24 06/28/24 History mcg (1,000 unit) tablet (Vitamin D3) finasteride 5 mg tablet 5 mg PO DAILY 05/14/24 06/28/24 History furosemide 80 mg tablet 80 mg PO DAILY 05/14/24 06/28/24 History escitalopram oxalate 5 mg tablet 5 mg PO HS #30 tabs 05/16/24 06/28/24 Rx acetaminophen 500 mg tablet 1,000 mg PO BID PRN Pain 06/28/24 06/28/24 History cyanocobalamin (vitamin B-12) 500 500 mcg PO DAILY 06/28/24 06/28/24 History mcg tablet (Vitamin B-12) lutein 20 mg capsule 20 mg PO DAILY 06/28/24 06/28/24 History peg 400-propylene glycol (PF) 0.4 1 drp ophthalmic (eye) DAILY 06/28/24 06/28/24 History %-0.3 % eye drops in a dropperette (Systane (PF)) Patient History Medical History CKD (chronic kidney disease) stage 5, GFR less than 15 ml/min Osteoarthritis Chronic back pain GERD (gastroesophageal reflux disease) Hypothyroidism Prediabetes Macular degeneration HLD (hyperlipidemia) Myocardial infarction 1987 Surgical History Hx laparoscopic cholecystectomy (01/13/22) Laparoscopic cholecystectomy with lysis of adhesions. Dr. Gann 01/13/2022 History of colonoscopy History of AAA (abdominal aortic aneurysm) repair 2015 H/O heart artery stent x 1 History of cardiac catheterization 1987 - stent History of appendectomy Family History Other No family history of adverse response to anesthesia No significant family history Social History Smoking Status: Former smoker Tobacco Type: Cigarettes Second Hand Exposure: No; Do You Dip or Chew Tobacco: No; Hx Alcohol Use: No Hx Substance Use: No Preferred Language: Argentine Communication Ability: Effective Visual Impairment: Limited Hearing Ability: Normal Open Die Inspector Required: No Beliefs That Will Affect Care: None marital status: Current Living Situation: Spouse and Other Current Living Situation Comment: son Other Information That Helps Us Care for You: No Feels Safe at Home: Yes Safety Concerns: Feels Safe At This Time Assistive Devices: Cane, Glasses and Walker Physical Exam Constitutional: Well-developed, well-nourished, resting comfortably sitting in bed. Pleasant. Cardiovascular: Left DP pulse 1+. Right DP and PT pulses present on doppler Musculoskeletal: Moves left upper and left lower extremities at all joints without pain or difficulty. Right upper extremity: Ortho-Glass splint initially in place. This was removed. Small puncture wound noted to the lateral aspect of the elbow with a surrounding area of ecchymosis. No active hemorrhage was noted. No surrounding erythema. No significant soft tissue swelling is appreciated. There is full range of motion in the elbow without eliciting any pain. There is no tenderness about the elbow. Range of motion of the wrist is full with flexion and extension. Thumb extension intact 5 out of 5. Strength 5 out of 5 with finger spread resisting abduction. Able to move all fingers without difficulty. Right lower extremity: Reproducible tenderness over the lateral hip. There is no ecchymosis or swelling present. There is no tenderness in the buttock, tissue is soft. Unable to perform a straight leg raise. Ankle plantarflexion, dorsiflexion, inversion, and eversion 5 out of 5. Moves all toes. Neurologic: No sensory deficits in bilateral upper or lower extremities to light touch. Alert and oriented to person and situation. Psychiatric: Normal Results & Data Vital Signs (Past 12 Hours) Vital Signs Temp Pulse Pulse Pulse Resp BP BP 06/29/24 09:01 57 L 137/65 06/29/24 07:42 98.2 F 55 L 17 132/71 06/29/24 05:51 59 L 144/68 H 06/29/24 02:00 06/29/24 02:00 97.7 F 69 18 160/61 H 06/29/24 01:52 97.7 F 69 18 160/61 H 06/29/24 00:00 06/29/24 00:00 63 14 131/57 L 06/28/24 23:30 66 14 135/77 06/28/24 23:12 67 14 156/75 H 06/28/24 22:23 06/28/24 22:19 73 16 148/83 H 06/28/24 22:19 72 16 148/83 H 06/28/24 21:36 66 16 Pulse Ox O2 Del Method O2 Flow Rate 06/29/24 09:01 06/29/24 07:42 99 Nasal Cannula 2 06/29/24 05:51 06/29/24 02:00 Nasal Cannula 2 06/29/24 02:00 100 Nasal Cannula 2 06/29/24 01:52 100 Nasal Cannula 2 06/29/24 00:00 100 Nasal Cannula 2 06/29/24 00:00 100 Nasal Cannula 2 06/28/24 23:30 95 Room Air 06/28/24 23:12 96 Room Air 06/28/24 22:23 95 Room Air 06/28/24 22:19 96 Room Air 06/28/24 22:19 95 Room Air 06/28/24 21:36 95 Room Air (1) Femoral neck fracture Encounter type: initial encounter Fracture type: closed Laterality: right Qualified Code(s): S72.001A - Fracture of unspecified part of neck of right femur, initial encounter for closed fracture (2) Fracture, humerus closed Encounter type: initial encounter Fracture alignment: nondisplaced Humerus Location: medial epicondyle Laterality: right
--- NOTE | 2024-06-29 09:38 | Anesthesiology Consultation ---
Date of Service June 29, 2024 Assessment & Plan (1) Encounter for pre-operative examination: Chart Review Chart Review: Acceptable Risk for Surgery and Patient NOT seen in Pre Admission Testing Consults Requested none History Surgery Operation Date: 06/29/24 07:00 Proposed Procedures p Right Bipolar Hemiarthroplasty - Aleksander Lal MD Height/Weight Height: 5 ft 7 in Weight: 71.8 kg Allergies Allergy/AdvReac Type Severity Reaction Status Date / Time No Known Allergies Allergy Verified 04/16/24 11:09 Medications Home Medications Medication Instructions Recorded Confirmed Last Taken aspirin 81 mg tablet,delayed 81 mg PO QAM 02/20/19 06/28/24 02/01/22 release levothyroxine 25 mcg tablet 25 mcg PO QAM 02/20/19 06/28/24 02/01/22 nitroglycerin 0.4 mg sublingual 0.4 mg sublingual UD PRN Chest Pain 02/20/19 06/28/24 Unknown tablet (Nitrostat) tamsulosin 0.4 mg capsule 0.4 mg PO QAM 02/20/19 06/28/24 02/01/22 metoprolol succinate 25 mg 12.5 mg PO QAM 07/26/19 06/28/24 02/01/22 tablet,extended release 24 hr (Toprol XL) omeprazole 20 mg capsule,delayed 20 mg PO QAM 03/14/21 06/28/24 02/01/22 release polyethylene glycol 3350 17 gram 17 g PO QAM PRN Constipation 04/16/24 06/28/24 Unknown oral powder packet (Miralax) atorvastatin 80 mg tablet 80 mg PO DAILY 05/14/24 06/28/24 Unknown cholecalciferol (vitamin D3) 25 25 mcg PO DAILY 05/14/24 06/28/24 Unknown mcg (1,000 unit) tablet (Vitamin D3) finasteride 5 mg tablet 5 mg PO DAILY 05/14/24 06/28/24 Unknown furosemide 80 mg tablet 80 mg PO DAILY 05/14/24 06/28/24 Unknown escitalopram oxalate 5 mg tablet 5 mg PO HS #30 tabs 05/16/24 06/28/24 Unknown acetaminophen 500 mg tablet 1,000 mg PO BID PRN Pain 06/28/24 06/28/24 Unknown cyanocobalamin (vitamin B-12) 500 500 mcg PO DAILY 06/28/24 06/28/24 Unknown mcg tablet (Vitamin B-12) lutein 20 mg capsule 20 mg PO DAILY 06/28/24 06/28/24 Unknown peg 400-propylene glycol (PF) 0.4 1 drp ophthalmic (eye) DAILY 06/28/24 06/28/24 Unknown %-0.3 % eye drops in a dropperette (Systane (PF)) Active Medications Generic Name Dose Route Start Last Admin Trade Name Freq PRN Reason Stop Dose Admin Atorvastatin Calcium 80 mg 06/29/24 09:00 06/29/24 09:03 Atorvastatin 40 Mg Tab PO 07/29/24 08:59 80 mg DAILY ALEXANDER Administration Cyanocobalamin 500 mcg 06/29/24 09:00 06/29/24 09:03 Cyanocobalamin (B-12) 500 Mcg Tablet PO 07/29/24 08:59 500 mcg DAILY ALEXANDER Administration Finasteride 5 mg 06/29/24 09:00 06/29/24 09:03 Finasteride 5 Mg Tab PO 07/29/24 08:59 5 mg DAILY ALEXANDER Administration Sodium Chloride 1,000 mls @ 50 mls/hr 06/29/24 05:38 06/29/24 08:15 Nss IV 06/30/24 01:37 Infused .Q20H ONE Infusion Levothyroxine Sodium 25 mcg 06/29/24 06:30 06/29/24 06:25 Levothyroxine Sodium 25 Mcg Tablet PO 07/29/24 06:29 25 mcg DAILYBB ALEXANDER Administration Metoprolol Succinate 12.5 mg 06/29/24 05:10 06/29/24 05:52 Metoprolol Succ 25mg Ext Rel Tab PO 07/29/24 05:09 Not Given QAM ALEXANDER Pantoprazole Sodium 40 mg 06/29/24 09:00 06/29/24 09:03 Pantoprazole 40 Mg Tab PO 07/29/24 08:59 40 mg QAM ALEXANDER Administration Tamsulosin HCl 0.4 mg 06/29/24 09:00 06/29/24 09:03 Tamsulosin Hcl 0.4 Mg Cap PO 07/29/24 08:59 0.4 mg QAM ALEXANDER Administration Past Medical History Medical History CKD (chronic kidney disease) stage 5, GFR less than 15 ml/min Osteoarthritis Chronic back pain GERD (gastroesophageal reflux disease) Hypothyroidism Prediabetes Macular degeneration HLD (hyperlipidemia) Myocardial infarction 1987 Past Family History Family History Other No family history of adverse response to anesthesia No significant family history Past Surgical History Surgical History Hx laparoscopic cholecystectomy (01/13/22) Laparoscopic cholecystectomy with lysis of adhesions. Dr. Gann 01/13/2022 History of colonoscopy History of AAA (abdominal aortic aneurysm) repair 2015 H/O heart artery stent x 1 History of cardiac catheterization 1987 - - stent History of appendectomy Social History Smoking Status: Former smoker Do You Dip or Chew Tobacco: No Hx Alcohol Use: No Alcohol type: wine alcohol intake frequency: holidays/special occasions only Hx Substance Use: No substance use type: does not use Physical Exam Vital Signs Last Vital Signs Temp 98.2 F 06/29/24 07:42 Pulse 57 L 06/29/24 09:01 Resp 17 06/29/24 07:42 BP 137/65 06/29/24 09:01 Pulse Ox 99 06/29/24 07:42 O2 Del Method Nasal Cannula 06/29/24 07:42 O2 Flow Rate 2 06/29/24 07:42 Testing Laboratory Results 06/29/24 07:05 06/29/24 07:05 PT 11.0 Seconds (9.0-12.0) 06/28/24 22:40 INR 1.0 (0.9-1.1) 06/28/24 22:40 APTT 24 Seconds (21-31) 06/28/24 22:40 Urine Color Yellow 06/28/24 23:28 Urine Appearance Clear (Clear) 06/28/24 23:28 Urine pH 6.0 (4.5-7.5) 06/28/24 23:28 Ur Specific Stamps 1.012 (1.000-1.030) 06/28/24 23:28 Urine Protein 1+ (Negative) H 06/28/24 23:28 Urine Glucose (UA) Negative (Negative) 06/28/24 23:28 Urine Ketones Negative (Negative) 06/28/24 23:28 Urine Nitrite Negative (Negative) 06/28/24 23:28 Ur Leukocyte Esterase Negative (Negative) 06/28/24 23:28 Urine WBC (Auto) 0-5 /hpf (0-5) 06/28/24 23:28 Urine RBC (Auto) >20 /hpf (0-2) H 06/28/24 23:28 U Hyaline Cast (Auto) 0-2 /lpf (0-2) 06/28/24 23:28 U Epithel Cells (Auto) 0-2 /hpf (0-2) 06/28/24 23:28 Urine Bacteria (Auto) None Seen (None Seen) 06/28/24 23:28 Blood Type AB Negative 06/28/24 22:35 Antibody Screen NEGATIVE 06/28/24 22:35 Electrocardiogram Date: 06/28/24 Findings: + NSR @ (1st degree AV block) and + LBBB
--- OUTSIDE RECORDS SUMMARY | 2024-06-29 09:38 | External Medical Summary | Summary of Care ---
Author Name Unknown Organization [facility] Address [address] [place] [address] Phone [phone] Care Team Providers Care Psychological Operations Officer Name Role Phone Julianna Jones Primary Care Provider + [phone] Reason for Visit * Reason Onset Date Comments Medication Refill 06/28/2024 Encounter Details Date Type Department Care Team (Late st Contact Info) Description 06/28/2024 Refill Nephrology, [facility] [address] [place] [address] Reza Whatley MD [address] [facility] [place] [address] Allergies No known active allergiesdocumented as of this encounter (statuses as of 06/28/2024) Medications Medication Sig Dispensed Refills Start Date End Date Status ASPIRIN EC 81 MG PO TBECIndications:Coron venus atherosclerosis of [place] coronary artery Take 1 Tablet by mouth [...] MG Sublingual Tablet Sublingual (Nitrostat)Indication s:Atherosclerosis of [place] coronary artery of [place] heart without angina pectoris Place 1 Tablet (0.4 mg) under the tongue as needed for Pain, Chest. May repeat 3 times. If chest pain continues, call 911. 25 Tablet 11 07/05/2022 Active Metoprolol Succinate ER 25 MG Oral Tablet Extended Release 24 Hour (Toprol XL)Indications:Athero sclerosis of [place] coronary artery of [place] heart without angina pectoris,HTN, goal below 130/80 [...] the morning. 30 Tablet 5 01/05/2024 Active Escitalopram Oxalate 5 MG Oral Tablet (Lexapro)Indications: BERNARDA (generalized anxiety disorder),Irritabilit y Take 1 Tablet by mouth every evening. 100 Tablet 1 05/21/2024 Active documented as of this encounter (statuses as of 06/28/2024) Active Problems Problem Noted Date Diagnosed Date [...] osteoarthritis 05/16/2002 Overview: Ankles, hands Atherosclerosis of [place] co ronary artery of [place] heart without angina pectoris 05/07/2002 documented as of this encounter (statuses as of 06/28/2024) Resolved Problems Problem Noted Date Diagnosed Date [...] as of this encounter (statuses as of 06/28/2024) Immunizations Name Administration Dates Next Due COVID-19 mRNA, LNP-s, No Pre serve, 2-Dose Series (Moderna) 10/20/2020,09/22/2020 COVID-19, MRNA-LNP, PF, 30 M CG/0.3 mL, 12 YRS AND ABOVE, IM (PFIZER-Comirnaty) 05/21/2024,01/30/2024 COVID-19, MRNA-LNP, PF, 50 M CG/0.5 mL, 12 YRS AND ABOVE, IM (MODERNA-Spikevax) 08/07/2023 COVID-19, mRNA, LNP-s, PF, B ooster, 100mcg/0.5mg (Moderna) 06/25/2021 Pneumococcal Conjugate Vacc, 13 Valent (Prevnar) 04/22/2016 Pneumococcal Conjugate Vacci ne, 20-valent ([id number]) 03/21/2023 RSV Vac., Recomb, Adjuvant, PF,0.5 Ml (Arexvy) 09/17/2023 Seasonal Influenza Vac., MDV , IM, 0.5 mL (Fluzone) 05/28/2014,06/07/2013,05/14/2012,2010,06/27/2010,05/30/2009,06/07/2008,1 ,05/27/2006 Seasonal Influenza, High Dos e, Trivalent, PF, IM (Fluzone HD) 05/08/2024 Seasonal Influenza, PF, 6 M & above, IM , (FluLaval or Fluzone) 05/13/2020,05/19/2018,06/07/2017 Seasonal Influenza, Quadriva lent Hd (Fluzone Hd) 05/10/2023,05/11/2022,05/12/2021 Seasonal Influenza, Quadriva lent, No Preserve, IM 06/03/2016,06/17/2015 Seasonal Influenza, Trivalen t, Adjuvanted, 65+ YRS, [...] encounter Miscellaneous Notes * Telephone Encounter - Nano Pedraza aegis operations specialist - 06/28/2024 9:57 AM EST Patients [facility] calling for a refill on Furosemide. This was last prescribed by Nephrology. Transfer to specialty refill line. Thank you, Nano Pedraza Rooter Operator [facility] 06/28/2024,9:58 AM documented in this encounter Plan of Treatment Upcoming Encounters Date Type Department Care Team (Late st Contact Info) Description 07/01/2024 10:00 AM EST Office Visit Family Practice [address] [place] [address] [address] [facility], [place] [address] Julianna Jones DO [address] [place] [address] 07/26/2024 11:00 AM EST Office Visit Cardiology, [facility] [address] [place] [address] Vanessa Jauregui PA-C [address] [facility] [place] [address] 09/16/2024 2:00 PM EST Office Visit Nephrology, [facility] [address] [place] [address] Reza Whatley MD [address] [place] [address] 04/26/2025 11:45 AM EDT Office Visit Urology, [facility] [address] [place] [address] Kai Ponce MD [address] [place] [address] Health Maintenance Due Date Last Done Comments Adult Wellness Visit 03/06/2021 03/06/2020 HbA1c 09/10/2024 09/10/2023, 10/24, 07/05/2022, Additional history exists TSH 09/10/2024 09/10/2023, 10/24, 12/17/2021, Additional history exists Depression Screening 01/29/2025 01/30/2024, 05/19/20 18 DTap/Tdap Vaccines (3 - Td or Tdap) 07/02/2033 07/02/2023, 03/03/2013, 04/18/2005, Additional history exists RETIRED - COLONOSCOPY-EVERY 5 YRS AGES 18-100 Discontinued 07/10/2015, 07/10/2015 Zoster Vaccines Completed 03/07/2020, 08/26, 12/23/2012, Additional history exists Pneumococcal Vaccine: 65+ Years Completed 03/21/2023, 04/22/2016, 04/08/2000 Influenza Vaccine (FLU shot) Completed 05/08/2024, 05/08/2024, 05/10/2023, Additional history exists COVID-19 Vaccine Completed 05/21/2024, 02/2024, 08/07/2023, Additional history exists Albumin/Creatinine Ratio Discontinued 024, 12/24/2023, 09/10/2023, Additional history exists Nephrology Referral Discontinued 06/08/2024 HPV (Gardasil) Vaccine Aged Out No lo nger eligible based on patient's age to complete this topic Hepatitis B Vaccine Aged Out No longe r eligible based on patient's age to complete this topic MENINGOCOCCAL (MENACTRA/MENVEO) Aged Out No longer eligible based on patient's age to complete this topic documented as of this encounter Medical Devices Implanted Type Area Sheeter Machine Operator Device Identifier Shelf Expiration Date Model / Serial / Lot Graft Aaa Bif [id number] - [id number] Implanted:Qty: 1 on 06/18/2016 by Bill Georges [place] [facility] [place] Abdomen [employer] : VASCULAR 04/10/2018 [id number] / [id number] / Limb Contralat [id number] - [id number] Implanted:Qty: 1 on 06/18/2016 by Bill Georges MD [place] [facility] [place]: Abdomen [employer] : VASCULAR 02/23/2017 [id number] / [id number] / Limb Contralat [id number] - [id number] Implanted:Qty: 1 on 06/18/2016 by Bill Georges MD [place] [facility] [place]: Abdomen [employer] : VASCULAR 05/20/2018 [id number] / [id number] / documented as of this encounter Advance Directives Documents on File Type Date Recorded Patient Discharge Rn Expl anation Advance Directives and Living Will 12/26/2022 ADVANCE DIRECTIVE / LIVING WILL Power of Cooker Tender 12/26/2022 POWER OF A TTORNEY DURABLE HEALTH [...] Care Power of Attorn ey Care Teams Psychological Operations Officer Relationship Specialty Start Date End Date Julianna Jones DO [address] [place] [address] PCP - General Family Medicine 03/16/24 documented as of this encounter
--- OUTSIDE RECORDS SUMMARY | 2024-06-29 09:38 | External Medical Summary | Summary of Care ---
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)*; Kidney disease with fluid retention; CKD, patient preferred treatment modality non-dialysis conservative care; Essential hypertension with goal blood pressure less than 140/90; History of acute renal failure; Abnormal urine sediment Allergies No known active allergiesdocumented as of this encounter (statuses as of 06/27/2024) Medications Medication Sig Dispensed Refills Start Date End Date Status ASPIRIN EC 81 MG PO TBECIndications:Coron venus atherosclerosis of [place] coronary artery Take 1 Tablet by mouth [...] MG Sublingual Tablet Sublingual (Nitrostat)Indication s:Atherosclerosis of [place] coronary artery of [place] heart without angina pectoris Place 1 Tablet (0.4 mg) under the tongue as needed for Pain, Chest. May repeat 3 times. If chest pain continues, call 911. 25 Tablet 11 07/05/2022 Active Metoprolol Succinate ER 25 MG Oral Tablet Extended Release 24 Hour (Toprol XL)Indications:Athero sclerosis of [place] coronary artery of [place] heart without angina pectoris,HTN, goal below 130/80 [...] as of this encounter (statuses as of 06/27/2024) Active Problems Problem Noted Date Diagnosed Date [...] osteoarthritis 05/16/2002 Overview: Ankles, hands Atherosclerosis of [place] co ronary artery of [place] heart without angina pectoris 05/07/2002 documented as of this encounter (statuses as of 06/27/2024) Resolved Problems Problem Noted Date Diagnosed Date [...] as of this encounter (statuses as of 06/27/2024) Immunizations Name Administration Dates Next Due COVID-19 [...] (Prevnar) 04/22/2016 Pneumococcal Conjugate Vacci ne, 20-valent ([id number]) 03/21/2023 RSV Vac., Recomb, Adjuvant, PF,0.5 Ml [...] Smoking Tobacco: Former Pipe Smokeless Tobacco: Never Tobacco Cessation:Counseling Given: Not Answered Comments:Quit smoking 1997 Alcohol Use Standard Drinks/Week [...] on file documented as of this encounter Last Filed Vital Signs Vital Sign Reading Time Taken Comments Blood Pressure 132/49 06/08/2024 9:22 AM EDT Pulse 60 06/08/2024 9:22 AM EDT Temperature 36.2 C (97.1 F) 06/08/2024 9:22 AM ED T Respiratory Rate 18 06/08/2024 9:22 AM EDT Oxygen Saturation 94% 06/08/2024 9:22 AM EDT Inhaled Oxygen Concentration - - Weight 71.7 kg (158 lb) 06/08/2024 9:22 AM EDT Height - - Body Mass Index 27.55 05/21/2024 1:29 PM EDT documented in this encounter Functional Status Functional Status Response [...] No 06/18/2016 documented as of this encounter Patient Instructions * Patient Instructions* Kaur Quiñones MD - 06/08/2024 10:28 AM EDT -no medication changes today -labs today > blood and urine -avoid medicines like aleve, advil, ibuprofen, aspirin more than 81 mg daily and other NSAIDS whichare not good for kidney patients. Take only tylenol (acetaminophen) up to 2000 mg daily as needed for pain or as directed by your primary care provider. -keep August appt w/ Dr Whatley documented in this encounter Progress Notes * Kaur Quiñones MD - 06/08/2024 10:09 AM EDT NEPHROLOGY CLINIC NOTE Nephrology, John Sotelo [address] [facility] [address] 06/08/2024, 10:09 AM Patient Name: Theo Valencia BACKGROUND: 88 year old male presents for hospital d/c appt after [facility] obs for transient aggressivebehavior and MO on CKD 4/5 from 05/14/24-05/16. 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 S/p AAA Surgery and w/ PVD, L spine stenosis. No childhood renal disease, COPD or cancers. NSAID No Renal Stone No Herbal Medication No Urinary Complaints -frequency with nocturia TODAY 06/08/2024: doing ok since hostpial stay. Acc by today. Saw pcp and vascular. Appetite low most of time but varies. Not eating much meat; likes cold drinks; eats ice cream. Drinks chocolate milk, OJ; 1 ensure daily. Food that appeals to him is less and less and this is worsening. Walks ok; low energy mostly though. No N , no sob. Uses walker most of time now. Can't walk through grocery store. Sleeping better now; no more outburtsts. To bed at 11 and up at 6 or 630. Sleeping a fair amount during day as well. D/c summary and neph c/s reviewed >> p/w creat 4.5; started on escitalopram at d/c. No changes to lasix or BB doses; creat improved some during stay and new proteinuria > 1 gm noted. Conservative measures for ESRD reinforced REVIEW OF SYSTEMS: No F/C, unintended wt loss or gain; energy level very low and sleeps a lot and appetite acceptable No palpitations, angina, orthopnea, mild/minimal LE edema No cough, wheeze, or dyspnea No N/V/D/C/abd pain No dysuria, hematuria, nocturia >2X; no new/worrisome voiding sx No presyncopal or orthostatic symptoms; no falls Current Outpatient Medications Medication Sig Dispense Refill ASPIRIN EC 81 MG PO TBEC Take 1 Tablet by mouth in the morning. 100 Tab 3 levothyroxine (LEVOXYL) 25 MCG Tablet Take 1 Tab by mouth daily. (at least 30 min prior to breakfast or other meds) 30 Tab 6 tamsulosin (FLOMAX) 0.4 MG Capsule Take 1 Cap by mouth daily. 30 Cap 5 polyethylene glycol 3350 (MIRALAX) 255 gram powder Take 17 g by mouth as needed for Constipation. Dissolve one heaping tablespoon in 8 ounces of water or juice. (Patient taking differently: Take 17 gby mouth as needed for Constipation. Dissolve one heaping tablespoon in 8 ounces of water or juice. Takes every other day) 1 Bottle 2 Polyethyl Glycol-Propyl Glycol 0.4-0.3 % Ophthalmic Solution INSTILL ONE DROP IN BOTH EYES EVERY DAY FOR AMD Lutein 20 MG Oral Tablet Take 1 Capsule by mouth in the morning. Atorvastatin Calcium 80 MG Oral Tablet (Lipitor) Take 1 Tablet (80 mg) by mouth in the morning. 30 Tablet 11 Metoprolol Succinate ER 25 MG Oral Tablet Extended Release 24 Hour (Toprol XL) One half tablet by mouth daily 45 Tablet 3 Acetaminophen 500 MG Oral Capsule Take 2 Capsules by mouth 2 times a day. Finasteride 5 MG Oral Tablet (Proscar) Take 1 Tablet by mouth in the morning. 90 Tablet 3 Furosemide 80 MG Oral Tablet (Lasix) Take 1 Tablet by mouth in the morning. 30 Tablet 5 Escitalopram Oxalate 5 MG Oral Tablet (Lexapro) Take 1 Tablet by mouth every evening. 100 Tablet 1 cholecalciferol, VIT D3, (VITAMIN D3) 1000 UNITS Tablet Take 1 Tablet by mouth in the morning. (Patient not taking: Reported on 06/08/2024) omeprazole (PRILOSEC) 20 MG CPDR Take 1 Cap by mouth daily. 1 hour before the first meal of the day30 Cap 5 Cyanocobalamin 500 MCG Oral Tablet Take 1 Tablet by mouth every other day. In morning (Patient not taking: Reported on 03/24/2024) Nitroglycerin 0.4 MG Sublingual Tablet Sublingual (Nitrostat) Place 1 Tablet (0.4 mg) under the tongue as needed for Pain, Chest. May repeat 3 times. If chest pain continues, call 911. 25 Tablet 11 No current facility-administered medications for this visit. Review of patient's allergies indicates: No Known Allergies PHYSICAL EXAMINATION: BP Readings from Last 6 Encounters: 06/08/24 132/49 06/02/24 118/64 05/21/24 122/68 03/24/24 133/66 01/30/24 124/64 01/27/24 144/76 Wt Readings from Last 6 Encounters: 06/08/24 71.7 kg (158 lb) 06/02/24 71.6 kg (157 lb 12.8 oz) 05/21/24 71.4 kg (157 lb 4.8 oz) 03/24/24 70.6 kg (155 lb 11.2 oz) 01/30/24 69.1 kg (152 lb 4.8 oz) 01/27/24 68.2 kg (150 lb 4 oz) Pulse Readings from Last 6 Encounters: 06/08/24 60 06/02/24 62 05/21/24 64 03/24/24 66 01/30/24 71 01/27/24 72 NAD, oriented x 3, ambulatory w/ walker RRR w/o g/r; SM; apart from trace ankle no edema CTAB w/ reduced air mvt No cyanosis or clubbing No rash No tremor, focal or global weakness; fluent though limited speech, fair historian LABS: Recent Labs Units 06/08/24 1047 01/20/24 1114 12/24/23 0902 09/10/23 0000 06/05/23 1207 SODIUM - [facility] mmol/L 142 141 142 -- 139 POTASSIUM - [facility] mmol/L 4.2 4.1 4.1 4.2 4.2 CHLORIDE - [facility] mmol/L 105 102 108* -- 106 CO2 - [facility] mmol/L 24 23 21* -- 22 ESTIMATED GLOMERULAR FILTRATION RATE - [facility] mL/min 12* 14* 13* 15.1 15* BUN - [facility] mg/dL 59* 53* 50* -- 51* CREATININE - [facility] mg/dL 4.4* 4.0* 4.1* 4.0* 3.8* Recent Labs Units 12/24/23 0902 09/10/23 0000 05/29/23 1437 11/15/22 1129 HGB g/dL 9.6* 10.1* 10.2* 10.8* TRANSFERRIN SATURATION PERCENT - [facility] % 21 -- -- -- Recent Labs Units 06/08/24 1047 01/20/24 1114 12/24/23 0902 06/05/23 1207 05/29/23 1437 CALCIUM - [facility] mg/dL 9.5 9.8 9.6 9.4 9.5 PHOSPHORUS - [facility] mg/dL -- 3.9 3.9 4.0 3.4 25-HYDROXY VITAMIN D - [facility] ng/mL -- -- 63 -- 76 PTH - [facility] pg/mL -- -- 91* -- 72* Recent Labs Units 09/10/23 0000 11/15/22 1129 07/05/22 1546 HEMOGLOBIN A1C - [facility] % -- 5.9* 5.8* HEMOGLOBIN, [id number] LAB % 5.9 -- -- Recent Labs Units 06/08/24 1047 12/24/23 0903 06/05/23 1207 ALBUMIN / CREATININE RATIO, URINE - [facility] mg/g Creat 117* 160* -- PROTEIN/ CREATININE RATIO, URINE - [facility] mg/g -- -- 645* Recent Labs Units 06/08/24 1047 06/05/23 1207 11/15/22 1118 CLARITY, URINE - [facility] Clear -- Clear GLUCOSE, URINE - [facility] mg/dL 100* -- 100* BILIRUBIN, URINE - [facility] Negative -- Negative KETONE, URINE - [facility] mg/dL Negative -- Negative SPECIFIC GRAVITY, URINE - [facility] 1.015 -- 1.015 BLOOD, URINE - [facility] Moderate* -- Moderate* PH, URINE - [facility] Units 6.0 -- 5.5 PROTEIN, URINE - [facility] mg/dL 100* -- 100* PROTEIN, RANDOM URINE - [facility] mg/dL -- 71 -- UROBILINOGEN, URINE - [facility] mg/dL 0.2 -- 0.2 NITRITE, URINE - [facility] Negative -- Negative ESTERASE, URINE - [facility] Negative -- Negative BACTERIA, URINE - [facility] /HPF 0-25 -- 0-25 WBC, URINE - [facility] /HPF 0-2 -- 0-2 RBC, URINE - [facility] /HPF 6-9* -- 20-29* ASSESSMENT AND PLAN: 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 | For: clinic visit w/ | Check-out note: Keep August appt w/ Dr Whatley To lab Progressive CKD5/ESRD for conservative measures. Creatinine had been at a baseline of for but is now running more in the low to mid 4s. Chemistries remain acceptable. Repeat albuminuria assay down to117, more consistent with prior values -continue Urology care to ensure obstruction does not contribute to renal failure; appears well managed currently -conservative mgt reiterated today - pt/family agree -appears relatively well > fatigue may be a symptom of the advancing renal disease. No comments about anemia during the hospital stay but if hemoglobin remains low could consider anemia clinic forsymptom relief Blood pressure target is higher despite albuminuria because of dementia status and walker dependence -continue Lasix and Toprol current doses Patient Instructions -no medication changes today -labs today > blood and urine -avoid medicines like aleve, advil, ibuprofen, aspirin more than 81 mg daily and other NSAIDS whichare not good for kidney patients. Take only tylenol (acetaminophen) up to 2000 mg daily as needed for pain or as directed by your primary care provider. -keep August appt w/ Dr Whatley I spent a total of 40-54 minutes (exact time 40 mins) on the date of service in preparation, delivery, and documentation of the care provided to Theo Valencia excluding any time spent in the performance of separately billed services or time spent by another provider/QHP. Kaur Quiñones MD Nephrology, [address] [place] [address] CC: REF: JULIANNA EVANS [address] [place] [address] (office) [phone] (fax) PCP: JULIANNA EVANS [address] [place] [address] [phone] This chart was completed in part utilizing Custom[employer] Speech Voice Recognition Software. Randomword insertions, pronoun errors, and incomplete sentences are an occasional consequence of this system due to software limitations, and ambient noise. Any questions or concerns about the content, text, or information contained within the body of this dictation should be directly addressed to the provider for clarification. documented in this encounter Nursing Notes * Daphne Gonzalez RN - 06/08/2024 9:24 AM EDT Hospital follow up today. present in room for visit. documented in this encounter Miscellaneous Notes * Result Encounter Note - Kaur Quiñones MD - 06/10/2024 12:36 PM EDT Kidney labs stable/at the worse end of his overall poor function on blood testing; continue same. Dr Chacorta [place] documented in this encounter Plan of Treatment Upcoming Encounters Date Type Department Care Team (Late st Contact Info) Description 07/01/2024 10:00 AM EST Office Visit Family Practice [address] [place] [address] [facility] [place] [address] Julianna Evans DO 293 [facility] [place] [address] 07/26/2024 11:00 AM EST Office Visit Cardiology, [facility] [address] [place] [address] Vanessa Jauregui, WARD [facility] [place] [address] 09/16/2024 2:00 PM EST Office Visit Nephrology, [facility] [place] [address] Reza Whatley MD 200 [facility] [place] [address] 04/26/2025 11:45 AM EDT Office Visit Urology, [facility] 132 [facility] [place] [address] Kai Ponce MD [address] [place] [...] this encounter Medical Devices Implanted Type Area Cardiac Technologist Device Identifier Shelf Expiration Date Model / Serial / Lot Graft Aaa Bif [id number] - [id number] Implanted:Qty: 1 on 06/18/2016 by Bill Georges MD at [place] [facility] N/A: Abdomen [employer] : VASCULAR 04/10/2018 [id number] / [id number] / Limb Contralat [id number] - [id number] Implanted:Qty: 1 on 06/18/2016 by Bill Georges MD at [place] [facility] N/A: Abdomen [employer] : VASCULAR 02/23/2017 [id number] / [id number] / Limb Contralat [id number] - [id number] Implanted:Qty: 1 on 06/18/2016 by Bill Georges MD at [place] [facility] N/A: Abdomen [employer] : VASCULAR 05/20/2018 [id number] / [id number] / documented as of this encounter Procedures Procedure Name Priority Date/Time Associated Diagnosis Comments BASIC METABOLIC PANEL Routine 06/08/2024 10:47 AM EDT History of acute renal failure URINALYSIS WITH MICROSCOPIC EXAM Routine 06/08/2024 10:47 AM EDT History of acute renal failure Abnormal urine sediment ALBUMIN / CREATININE RATIO, URINE Routine 06/08/2024 10:47 AM EDT History of acute renal failure Abnormal urine sediment documented in this encounter Results * (ABNORMAL) BASIC METABOLIC PANEL (06/08/2024 10:47 AM EDT) BUN 59(H) 6 - 20 mg/dL 06/08/2024 12:37 PM EDT [place] [address] CREATININE 4.4(H) 0.6 - 1.2 mg/dL 06/08/2024 12:37 PM EDT [place] [address] EGFR 12(L) >=60 mL/min 06/08/2024 12:[address] PM EDT [address] Comment:eGFR is calculated b ased on the CKD-EPI 2020 equation. SODIUM 142 135 - 146 mmol/L 06/08/2024 12:37 PM EDT [address] POTASSIUM 4.2 3.5 - 5.1 mmol/L 06/08/2024 12:[address]T [address] CHLORIDE 105 98 - 107 mmol/L 06/08/2024 12:[address]T [address] CO2 24 22 - 32 mmol/L 06/08/2024 12:37 PM EDT [facility] 56 ANION GAP 13 7 - 15 mmol/L 06/08/2024 12:[address]T [address] GLUCOSE 110 70 - 120 mg/dL 06/08/2024 12:37 PM EDT [address] CALCIUM 9.5 8.4 - 10.2 mg/dL 06/08/2024 12:37 PM EDT [facility] 56 Blood Venous blood specimen / Unknown Venipuncture / Unknown 06/08/2024 10:47 AM EDT 06/08/2024 10:47 AM EDT Kaur Quiñones MD LAB BLOOD ORDERAB LES [facility] [address] [place], [place] [id number] * (ABNORMAL) URINALYSIS WITH MICROSCOPIC EXAM (06/08/2024 10:47 AM EDT) Color, Urine Yellow Light Yellow, Yellow, Dark Yellow 06/08/2024 11:[address] Clarity, Urine Clear Clear 06/08/2024 11:[address] Glucose, Urine 100(A) Negative mg/dL 06/08/2024 11:[address] Bilirubin, Urine Negative Negative 06/08/2024 11:[address] Ketone, Urine Negative Negative mg/dL 06/08/2024 11:[address] Specific [place], Urine 1.015 1.003 - 1.030 06/08/2024 11:[address] Blood, Urine Moderate(A) Negative 06/08/2024 11:[address] pH, Urine 6.0 5.0 - 7.5 Units 06/08/2024 11:[address] Protein, Urine 100(A) Negative mg/dL 06/08/2024 11:[address] Urobilinogen, Urine 0.2 0.2, 1.0 mg/dL 06/08/2024 11:[address] Nitrite, Urine Negative Negative 06/08/2024 11:[address] Esterase, Urine Negative Negative 06/08/2024 11:[address] RBC, Urine 6-9(A) 0 - 2 /HPF 06/08/2024 11:[address] WBC, Urine 0-2 0 - 2 /HPF 06/08/2024 11:[address] Bacteria, Urine 0-25 0 - 25 /HPF 06/08/2024 11:[address] Urine Urine specimen obtained by clean catch procedure / Unknown Non-blood Collection / Unknown 06/08/2024 10:47 AM EDT 06/08/2024 10:47 AM EDT Kaur Quiñones MD LAB URINE ORDERAB LES [facility] [address] [place] [address] * (ABNORMAL) ALBUMIN / CREATININE RATIO, URINE (06/08/2024 10:47 AM EDT) Albumin, Random Urine 9.00 mg/dL 06/08/2024 7:44 PM EDT [facility] Creatinine, Random Urine 77 mg/dL 06/08/2024 7:44 PM EDT [facility] Albumin / Creatinine Ratio, Urine 117(H) <30 mg/g Creat 06/08/2024 7:44 PM EDT [facility] Urine Urine specimen obtained by clean catch procedure / Unknown Non-blood Collection / Unknown 06/08/2024 10:47 AM EDT 06/08/2024 10:47 AM EDT Narrative [facility] - 06/08/2024 7:44 PM EDT Normal: <30 mg/g creatinine High: 30-300 mg/g creatinine Very High: >300 mg/g creatinine Nephrotic: >2200 mg/g creatinine Kaur Quiñones MD LAB URINE ORDERAB LES [facility] [address] [place] [address] documented in this encounter Visit Diagnoses Diagnosis 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)- Primary Kidney disease with fluid retention Unspecified disorder of kidney and ureter CKD, patient preferred treatment modality non-dialysis conservative care Essential hypertension with goal blood pressure less than 140/90 History of acute renal failure Personal history of other disorder of urinary system Abnormal urine sediment Other nonspecific finding on examination of urine documented in this encounter Advance Directives Documents on File Type Date Recorded 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
--- OUTSIDE RECORDS SUMMARY | 2024-06-29 09:38 | External Medical Summary ---
Author Name Unknown Address Unknown Organization [id number]:[facility] [place] [address] [place] [address] Laboratory Report Ordering Provider Test Date Status JACE MCNAMARA 06/08/2024 10:47:53 Final Normal: <30 mg/g creatinine< br/>High: 30-300 mg/g creatinine
Very High: >300 mg/g creatinine
Nephrotic: >2200 mg/g creatinine Observation Date Value Abnormality Reference (Units ) Status Albumin, Urine 06/08/2024 10:47:53 9.00 (mg/dL) Final Creatinine, Urine 06/08/2024 10:47:53 77 (mg/dL) Final Albumin/Creatinine [Mass Ratio] in Urine 06/08/2024 10:47:53 117 Above high normal <30 (mg/g Creat) Final Performing Location [facility] [place] [address] [place] [address]
--- OUTSIDE RECORDS SUMMARY | 2024-06-29 09:38 | External Medical Summary ---
Author Name Unknown Address Unknown Organization K09:[facility] [place] [address] Laboratory Report Ordering Provider Test Date Status JACE MCNAMARA 06/08/2024 10:47:53 Final Observation Date Value Abnormality Reference (Units ) Status Color of Urine by Auto 06/08/2024 10:47:53 Yellow Light Yellow, Yellow, Dark Yellow Final Clarity, Urine 06/08/2024 10:47:53 Clear Clear Final Glucose [Mass/volume] in Urine by Automated test strip 06/08/2024 10:47:53 100 Abnormal Negative (mg/dL) Final Bilirubin.total [Presence] in Urine by Automated test strip 06/08/2024 10:47:53 Negative Negative Final Ketones [Mass/volume] in Urine by Automated test strip 06/08/2024 10:47:53 Negative Negative (mg/dL) Final Specific gravity, Urine 06/08/2024 10:47:53 1.015 1.003-1.030 Final Hemoglobin [Presence] in Urine by Automated test strip 06/08/2024 10:47:53 Moderate Abnormal Negative Final pH, Urine 06/08/2024 10:47:53 6.0 5.0-7.5 (Units) Final Protein [Mass/volume] in Urine by Automated test strip 06/08/2024 10:47:53 100 Abnormal Negative (mg/dL) Final Urobilinogen [Mass/volume] in Urine by Automated test strip 06/08/2024 10:47:53 0.2 0.2, 1.0 (mg/dL) Final Nitrite [Presence] in Urine by Automated test strip 06/08/2024 10:47:53 Negative Negative Final Leukocyte esterase [Presence] in Urine by Automated test strip 06/08/2024 10:47:53 Negative Negative Final RBC, Urine 06/08/2024 10:47:53 6-9 Abnormal 0-2 (/HPF) Final WBC, Urine 06/08/2024 10:47:53 0-2 0-2 (/HPF) Final Bacteria [#/area] in Urine sediment by Microscopy high power field 06/08/2024 10:47:53 0-25 0-25 (/HPF) Final Performing Location [facility] [address] [place] [address]
--- OUTSIDE RECORDS SUMMARY | 2024-06-29 09:38 | External Medical Summary | Summary of Care ---
Author Name Unknown Organization [facility] Address [address] [place] [address] Phone [phone] Care Team Providers Care Quality Assurance Engineer Name Role Phone Julianna Jones DO Primary Care Provider + [phone] Reason for Visit * Reason Onset Date Comments STAIR AAA 06/06/2024 Encounter Details Date Type Department Care Team (Late st Contact Info) Description 06/06/2024 Telephone STAIR AAA [address], [place] [id number] Program, Stair [address] [place] [address] STAIR AAA Allergies No known active allergiesdocumented as of this encounter (statuses as of 06/06/2024) Medications Medication Sig Dispensed Refills Start Date End Date Status ASPIRIN EC 81 MG PO TBECIndications:Coron venus atherosclerosis of ambler coronary artery Take 1 Tablet by mouth [...] MG Sublingual Tablet Sublingual (Nitrostat)Indication s: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 May repeat 3 times. If chest pain continues, call 911. 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 05/07/2002 documented as of this encounter (statuses as of 06/06/2024) Resolved Problems Problem Noted Date Diagnosed Date [...] as of this encounter (statuses as of 06/06/2024) Immunizations Name Administration Dates Next Due COVID-19 mRNA, LNP-s, No Pre serve, 2-Dose Series (Moderna) 10/20/2020,09/22/2020 COVID-19, MRNA-LNP, 23-24, P F, 30 MCG/0.3 mL, 12 YRS AND ABOVE, IM (PFIZER-Comirnaty) 01/30/2024 COVID-19, MRNA-LNP, 23-24, P F, 50 MCG/0.5 mL, 12 YRS AND ABOVE, IM (MODERNA-Spikevax) 08/07/2023 COVID-19, MRNA-LNP, 24-25, P R, 30MCG/0.3ML, IM, 12YRS AND ABOVE (Pfizer-Comirnaty) 05/21/2024 COVID-19, mRNA, LNP-s, PF, B ooster, 100mcg/0.5mg (Moderna) 06/25/2021 Pneumococcal Conjugate Vacc, 13 Valent (Prevnar) 04/22/2016 Pneumococcal Conjugate Vacci ne, 20-valent ([id number]) 03/21/2023 RSV Vac., Recomb, Adjuvant, PF,0.5 Ml [...] No 10/03/2023 Does the household have a [facility] source of income? (Household - for ages [...] encounter Miscellaneous Notes * Telephone Encounter - Saumya Pearson LPN - 06/06/2024 8:29 AM EDT AAA - Clinical Summary Name: Theo Valencia Age: [age] year old AAA Review: Follow-up Follow-up Encounter Provider: Galileo Rey MD Patient Identified by: NLP Report Imaging Interpretation: Duplex Type of Result: SP EVAR AAA Care Plan Imaging Recommendation: Aortic Duplex - details below Details: in 1 year AAA Care Plan Visit Recommendation: Return visit in Vascular Surgery Details: in 1 year Next steps: No action needed at this time. Patient was seen by vascular surgery last week. Next clinic visit with testing prior is due in one year. Will continue to track. Time spent: 10 minutes Saumya Pearson LPN Coordinator STAIR (System to Track Abnormalities of Importance Reliably) [facility] AORTIC DUPLEX EVAL-COMPLETE 05/28/2024 Narrative VASCULAR LAB RESULTS DATE OF EXAMINATION: 05/28/24 INDICATION: S/P EVAR This is an interpretation of an exam performed at [facility]. PHYSICIAN REPORT: AORTIC STENT GRAFT DUPLEX EXAMINATION Immediately before proceeding with the vascular lab procedure reported below, the identity of the patient, the correct exam and the correct procedural site were identified. Color flow Doppler and spectral analysis techniques were applied during this ultrasound image examination. The proximal aorta is unidentified due to overlying bowel gas.. The aortic graft located in the mid-aorta is patent with a velocity of 41.2 cm/sec and a maximum aortic aneurysm sac diameter of 5.6 cm by 5.6 cm. The distal aorta patent with a velocity of 46.5 cm/sec and a maximum aortic aneurysm sac diameter of 4.2 cm by 4.2 cm. The right iliac graft limb is patent with a velocity of 32.8 cm/sec at the distal stent. The maximum diameter of the right limb is 2.0 cm by 2.0 cm. The right external iliac artery has a velocity of 197.8 cm/sec with a triphasic waveform. The left iliac graft limb is patent with a velocity of 96.1 cm/sec at the distal stent. The maximum diameter of the left limb is 1.8 cm by 1.8 cm. The left external iliac artery has a velocity of 153.6 cm/sec with a triphasic waveform. The aneurysm sac has a maximum transverse dimension of 5.6 cm by 5.6 cm. The aneurysm sac has no color flow within its lumen. CONCLUSIONS: 5.6 cm by 5.6 cm aortic aneurysm sac surrounding an abdominal aortic stent graft. Patent abdominal aortic stent graft and stent graft limbs. No evidence of endoleak by color flow duplex in the aneurysm sac. documented in this encounter Plan of Treatment Upcoming Encounters Date Type Department Care Team (Late st Contact Info) Description 06/08/2024 9:20 AM EDT Office Visit NephrologyJohn [address] [place], [place] [address] Kaur Quiñones MD [address] [place], [place] [address] 07/01/2024 10:00 AM EST Office Visit Family Practice [facility] [address] [place] [address] Julianna Jones DO 293 [facility], [place] [address] 07/26/2024 11:00 AM EST Office Visit Cardiology, [facility] [address] [place] [address] Vanessa Jauregui PA-C [address] [place] [address] 09/16/2024 2:00 PM EST Office Visit Nephrology, [facility] [address] [facility] [address] [place] [address] Reza Whatley MD 200 [facility] [place] [address] 04/26/2025 11:45 AM EDT Office Visit Urology, [facility] [address] [place] [address] Kai Ponce MD [address] [facility] [place] [address] Health Maintenance Due Date Last Done Comments [...] 03/24/2024 Influenza Vaccine (FLU shot) Completed 05/08/2024, 05/08/2024, 05/10/2023, Additional history exists COVID-19 Vaccine Completed 05/21/2024, 02/2024, 01/30/2024, Additional history exists HPV (Gardasil) Vaccine Aged Out No lo nger eligible based on patient's age to complete this topic Hepatitis B Vaccine Aged Out No longe r eligible based on patient's age to complete this topic MENINGOCOCCAL (MENACTRA/MENVEO) Aged Out No longer eligible based on patient's age to complete this topic documented as of this encounter Medical Devices Implanted Type Area Aggregate Conveyor Operator Device Identifier Shelf Expiration Date Model / Serial / Lot Graft Aaa Bif [id number] - [id number] Implanted:Qty: 1 on 06/18/2016 [place] [facility] [place] Abdomen [employer] : VASCULAR 04/10/2018 [id number] [id number] / [id number] / Limb Contralat [id number] - [id number] Implanted:Qty: 1 on 06/18/2016 by [place] [facility] [place]: Abdomen [employer] : VASCULAR 02/23/2017 [id number] 24E / [id number] / Limb Contralat [id number] - [id number] Implanted:Qty: 1 on 06/18/2016 by [place] [facility] [place]: Abdomen [employer] : VASCULAR 05/20/2018 [id number] / [id number] / documented as of this encounter Advance Directives Documents on File Type Date Recorded Patient Shoe Laster Expl anation Advance Directives and Living Will 12/26/2022 ADVANCE DIRECTIVE / LIVING WILL Power of Spa Consultant 12/26/2022 POWER OF A TTORNEY DURABLE HEALTH [...] Relationship Healthcare Agent Relationshi p Communication Zaira Erik Adult Child First Alternate Health Care Agent Bob Nelida Erik Spouse Health Care Power of Attorn ey Care Teams Quality Assurance Engineer Relationship Specialty Start Date End Date Julianna Jones DO [address] [place] [address] PCP - General Family Medicine 03/16/24 documented as of this encounter
--- OUTSIDE RECORDS SUMMARY | 2024-06-29 09:38 | External Medical Summary ---
Author Name Unknown Address Unknown Organization K09:[facility] [place] [address] Laboratory Report Ordering Provider Test Date Status JACE MCNAMARA 06/08/2024 10:47:53 Final Observation Date Value Abnormality Reference (Units ) Status BUN 06/08/2024 10:47:53 59 Above high normal 6-20 (mg/dL) Final Creatinine 06/08/2024 10:47:53 4.4 Above high normal 0.6-1.2 (mg/dL) Final Glomerular filtration rate/1.73 sq M.predicted [Volume Rate/Area] in Serum, Plasma or Blood by Creatinine-based formula (CKD-EPI) 06/08/2024 10:47:53 12 Below low normal >=60 (mL/min) Final eGFR is calculated based on the CKD-EPI 2020 equation. Sodium 06/08/2024 10:47:53 142 135-146 (m mol/L) Final Potassium 06/08/2024 10:47:53 4.2 3.5-5.1 (m mol/L) Final Cl 06/08/2024 10:47:53 105 98-107 (mm ol/L) Final CO2 06/08/2024 10:47:53 24 22-32 (mmo l/L) Final Anion gap 06/08/2024 10:47:53 13 7-15 (mmol /L) Final Glucose 06/08/2024 10:47:53 110 70-120 (mg /dL) Final Calcium 06/08/2024 10:47:53 9.5 8.4-10.2 ( mg/dL) Final Performing Location [facility] [place] [address]
--- OUTSIDE RECORDS SUMMARY | 2024-06-29 09:38 | External Medical Summary | Summary of Care ---
Author Name Unknown Organization [facility] Address [address] [place] [address] Phone [phone] Care Team Providers Care Mica Splitter Name Role Phone Julianna Jones DO Primary Care Provider + [phone] Reason for Visit * Reason Comments Outpatient Testing Encounter Details Date Type Department Care Team (Late st Contact Info) Description 06/08/2024 10:40 AM EDT Laboratory Laboratory [facility] [place] [address] [place] [id number] [place], [address] [place] [address] Arrived Allergies No known active allergiesdocumented as of this encounter (statuses as of 06/08/2024) Medications Medication Sig Dispensed Refills Start Date End Date Status ASPIRIN EC 81 MG PO TBECIndications:Coron venus atherosclerosis of salam[place] coronary artery Take 1 Tablet by mouth [...] MG Sublingual Tablet Sublingual (Nitrostat)Indication s:Atherosclerosis of salamatof coronary artery of salamatof heart without angina pectoris Place 1 Tablet (0.4 mg) under the tongue as needed for Pain, Chest. May repeat 3 times. If chest pain continues, call 911. 25 Tablet 11 07/05/2022 Active Metoprolol Succinate ER 25 MG Oral Tablet Extended Release 24 Hour (Toprol XL)Indications:Athero sclerosis of [place]am[place] coronary artery of [place]am[place] heart without angina pectoris,HTN, goal below 130/80 [...] as of this encounter (statuses as of 06/08/2024) Active Problems Problem Noted Date Diagnosed Date [...] osteoarthritis 05/16/2002 Overview: Ankles, hands Atherosclerosis of salamatof co ronary artery of salamatof heart without angina pectoris 05/07/2002 documented as of this encounter (statuses as of 06/08/2024) Resolved Problems Problem Noted Date Diagnosed Date [...] as of this encounter (statuses as of 06/08/2024) Immunizations Name Administration Dates Next Due COVID-19 [...] (Prevnar) 04/22/2016 Pneumococcal Conjugate Vacci ne, 20-valent ([id number]) 03/21/2023 RSV Vac., Recomb, Adjuvant, PF,0.5 Ml [...] AM EST Office Visit Family Practice 65 [facility] [address] [place] [address] Julianna Jones DO [address] [place] [address] 07/26/2024 11:00 AM EST Office Visit [facility], [facility] [address] Vanessa Jauregui PA-C 132 [place] [address] 09/16/2024 2:00 PM EST Office Visit Nephrology, [facility] [address] [place] [address] Reza Whatley MD [address] [place] [address] 04/26/2025 11:45 AM EDT Office Visit Urology, [facility] [address] [place] [address] Kai Ponce MD [address] [place] [address] Health Maintenance Due Date Last Done Comments [...] Discontinued 024, 09/10/2023, 04/03/2022, Additional history exists Influenza Vaccine (FLU shot) Completed 05/08/2024, 05/08/2024, 05/10/2023, Additional history exists COVID-19 Vaccine Completed 05/21/2024, 02/2024, 01/30/2024, Additional history exists Nephrology Referral Discontinued 06/08/2024 [...] this encounter Medical Devices Implanted Type Area Contract Clerk Device Identifier Shelf Expiration Date Model / Serial / Lot Graft Aaa Bif [id number] - [id number] Implanted:Qty: 1 on 06/18/2016 by Bill Georges MD at [place] [facility] [place]/A: Abdomen [employer] : VASCULAR 04/10/2018 [id number] / [id number] / Limb Contralat [id number] - [id number] Implanted:Qty: 1 on 06/18/2016 by Bill Georges MD at [place] [facility] [place] N/A: Abdomen [employer] : VASCULAR 02/23/2017 [id number] / [id number] / Limb Contralat [id number] - [id number] Implanted:Qty: 1 on 06/18/2016 by Bill Georges MD at [place] [facility] [place] N/A: Abdomen [employer] : VASCULAR 05/20/2018 [id number] / [id number] / documented as of this encounter Advance Directives Documents on File Type Date Recorded Patient Director Physical Expl anation Advance Directives and Living Will 12/26/2022 ADVANCE DIRECTIVE / LIVING WILL Power of Bogger Operator 12/26/2022 POWER OF A TTORNEY DURABLE HEALTH [...] Care Power of Attorn ey Care Teams Mica Splitter Relationship Specialty Start Date End Date Julianna Jones DO 293 [facility], [place] [address] PCP - General Family Medicine 03/16/24 documented as of this encounter
--- OUTSIDE RECORDS SUMMARY | 2024-06-29 09:39 | External Medical Summary | Summary of Care ---
Author Name Unknown Organization [facility] Address [address] [place] [address] Phone [phone] Care Team Providers Care Extruder Operator Multiple Name Role Phone Julianna Jones DO Primary Care Provider [phone] Reason for Visit * Reason Comments Hospital Follow-Up Encounter Details Date Type Department Care Team (Late st Contact Info) Description 05/21/2024 1:00 PM EDT Office Visit Family Practice [address] [facility] [address] [place] [address] Julianna Jones DO [address] [place] [address] Hospital discharge follow-up*; Altered mental status, unspecified altered mental status type; 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 100 Tab 3 10/10/2014 Active cholecalciferol, VIT D3, (VITAMIN D3) 1000 UNITS TabletIndications:Vi tamin D deficiency Take 1 Tablet by mouth in the morning. 10/19/2015 Active levothyroxine (LEVOXYL) 25 MCG TabletIndications:Hy pothyroidism, unspecified type Take 1 Tab by mouth daily. (at least 30 min prior to breakfast or other meds) 30 Tab 6 04/22/2016 Active tamsulosin (FLOMAX) 0.4 MG Capsule Take 1 Cap by mouth daily. 30 Cap 5 07/04/2016 Active omeprazole (PRILOSEC) 20 MG CPDRIndications:Casa roesophageal reflux disease without esophagitis Take 1 Cap by mouth daily. 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 30 Tablet 11 07/05/2022 Active Nitroglycerin 0.4 MG Sublingual Tablet Sublingual (Nitrostat)Indicatio ns:Atherosclerosis of conf[place] gosh[place] coronary artery of conf[place] heart without angina pectoris Place 1 Tablet (0.4 mg) under the tongue as needed for Pain, Chest. May repeat 3 times. If chest pain continues, call 911. 25 Tablet 11 07/05/2022 Active Metoprolol Succinate ER 25 MG Oral Tablet Extended Release 24 Hour (Toprol XL)Indications:Ather osclerosis of conf[place] coronary artery of [place] heart without angina pectoris,HTN, goal below 130/80 One half tablet by mouth daily 45 Tablet 3 07/24/2022 Active Acetaminophen 500 MG Oral Capsule Take 2 Capsules by mouth 2 times a day. Active Finasteride 5 MG Oral Tablet (Proscar) Take 1 Tablet by mouth in the morning. 90 Tablet 3 10/08/2023 Active Furosemide 80 MG Oral Tablet (Lasix)Indications:K idney disease with fluid retention Take 1 Tablet by mouth in the morning. 30 Tablet 5 01/05/2024 Active Escitalopram Oxalate 5 MG Oral Tablet (Lexapro)Indications :BERNARDA (generalized anxiety disorder),Irritabili ty Take 1 Tablet by mouth every evening. 100 Tablet 1 05/21/2024 Active Escitalopram Oxalate 5 MG Oral Tablet (Lexapro) Take 1 Tablet by mouth every evening. 05/16/2024 05/21/20 24 Discontinu ed(Refill) documented as of this encounter (statuses as of 05/21/2024) Active Problems Problem Noted Date Diagnosed Date [...] osteoarthritis 05/16/2002 Overview: Ankles, hands Atherosclerosis of conf[place] co ronary artery of conf[place] heart without angina pectoris 05/07/2002 documented as of this encounter (statuses as of 05/21/2024) Resolved Problems Problem Noted Date Diagnosed Date Resolved Date Benign hypertension with CKD (chronic kidney disease) stage V 11/15/2022 03/17/2023 Abdominal aortic aneurysm (A AA) without rupture 11/15/2022 03/03/2023 Kidney disease, chronic, sta ge IV (GFR 15-29 ml/min) 04/24/2020 07/06/2020 Hypertensive heart and kidne y disease with chronic systolic congestive heart failure and stage 4 chronic kidney disease 07/28/2019 Overview: Duplicate. Benign hypertension with chr onic [...] as of this encounter (statuses as of 05/21/2024) Immunizations Name Administration Dates Next Due COVID-19 [...] (Prevnar) 04/22/2016 Pneumococcal Conjugate Vacci ne, 20-valent ([id number]) 03/21/2023 Pneumococcal Polysaccharide PPV23 (Pneumovax) 04/08/2000 RSV [...] Pipe Smokeless Tobacco: Never Tobacco Cessation:Counseling Given: Yes Comments:Quit smoking 1997 Alcohol Use Standard Drinks/Week [...] Sign Reading Time Taken Comments Blood Pressure 122/68 05/21/2024 1:29 PM EDT Pulse 64 05/21/2024 1:29 PM EDT Temperature 36.1 C (97 F) 05/21/2024 1:29 PM EDT Respiratory Rate 14 05/21/2024 1:29 PM EDT Oxygen Saturation 98% 05/21/2024 1:29 PM EDT Inhaled Oxygen Concentration - - Weight 71.4 kg (157 lb 4.8 oz) 05/21/2024 1:29 P M EDT Height 161.3 cm (5' 3.5") 05/21/2024 1:29 PM EDT Body Mass Index 27.43 05/21/2024 1:29 PM EDT documented in this [...] No 06/18/2016 documented as of this encounter Progress Notes * Alicia Villanueva LPN - 05/21/2024 2:07 PM EDT Pre-Administration Time Out Procedure Performed: Yes Patient Identified (Ask Name/Date of ): Yes Does the patient have a fever greater than 101 degrees today? No Patient allergic to latex? No Has the patient ever fainted after receiving an injection? No VFC Stock: No Immunization(s) verified: Yes, Immunization Name: COVID, VIS Sheet(s) given: Yes Verified Side and Site: Yes Verified Shot(s) with Parent(s)/Patient: Yes * Julianna Jones DO - 05/21/2024 1:28 PM EDT SUBJECTIVE: Chief Complaint Patient presents with Hospital Follow-Up HPI: Theo Valencia is a 88 year old male who presents today for hospital follow-up. Pt was admitted to [facility] on 05/14 with change in mental status and threatening behavior. Work-up negative with exception of worsening renal function. He was seen by psychiatry and started on lexapro 5mg. He was given gentle IV hydration. He was discharged to home on 05/16/24. Pt notes that he is doing ok. He states that he remembers being threatening to his and then things were "dee". notes that he has not been happy since the move to [place]. He has beenincreasingly irritable. She notes that he does not seem motivated to do anything. The threatening behavior was new. Pt agrees that he does not want to live here. He feels he had to give up all his hunting and fishing hobbies. notes most of these things he cannot do because of health issues, not the move. She notes she is taking over paying bills and doing those things. He feels the coordination to write is not good any longer. He had reported nightmares to his . Both feel that the Lexapro is well tolerated and has made a difference for him. They feel he is doing well. 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 100 Tab 3 cholecalciferol, VIT D3, (VITAMIN D3) 1000 UNITS Tablet Take 1 Tablet by mouth in the morning. levothyroxine (LEVOXYL) 25 MCG Tablet Take 1 Tab by mouth daily. (at least 30 min prior to breakfast or other meds) 30 Tab 6 tamsulosin (FLOMAX) 0.4 MG Capsule Take 1 Cap by mouth daily. 30 Cap 5 omeprazole (PRILOSEC) 20 MG CPDR Take 1 Cap by mouth daily. 1 hour before the first meal of the day30 Cap 5 polyethylene glycol 3350 (MIRALAX) 255 [...] mouth in the morning. 30 Tablet 11 Nitroglycerin 0.4 MG Sublingual Tablet Sublingual (Nitrostat) Place 1 Tablet (0.4 mg) under the tongue as needed for Pain, Chest. May repeat 3 times. If chest pain continues, call 911. 25 Tablet 11 Metoprolol Succinate ER 25 MG [...] Take 1 Tablet by mouth every evening. Cyanocobalamin 500 MCG Oral Tablet Take 1 Tablet by mouth every other day. In morning (Patient not taking: Reported on 03/24/2024) No current facility-administered medications for this visit. Past Medical History: Diagnosis Date AAA (abdominal aortic aneurysm) (HCC) Acute OH, anterior wall (HCC) 05/01/1998 AWMI (received TPA) Angina pectoris (HCC) 04/21/2017 BPH (benign prostatic hyperplasia) Calcaneal spur right Chronic sinusitis Generalized osteoarthritis HTN, goal below 130/80 Hyperlipidemia LDL goal < 70 Percutaneous transluminal coronary angioplasty status 05/03/1998 PTCA/stent LAD Pneumonia, organism unspecified(486) 1969 Prediabetes 02/16/2019 Rabies exposure 1993 rabid skunk bite Past Surgical History: Procedure Laterality Date CARDIAC CATH-CARDIOLOGY ONLY COLONOSCOPY 08/25/2005 TAP x 1 COLONOSCOPY 10/23/2010 Normal COLONOSCOPY, DIAGNOSTIC (RECTUM) 07/10/2015 adeno polyp, 5 yr recall, COLONOSCOPY FLEXIBLE PROXIMAL DIAGNOSTIC performed by Yannick Maria MD at [facility] CORONARY ARTERY DILATION, BALLOON 08/25/1997 PTCA/Stent LAD, EF 35% ENDOVASC ABDO REPR W/BI DEVICE N/A 06/18/2016 ENDOVASCULAR REPAIR ABDOMINAL AORTIC ANEURYSM BIF PROS 1 LIMB performed by Bill Georges MD at [place] [facility] ENDOVASC EXTEND PROSTH, INIT Right 06/18/2016 ENDOVASCULAR PROXIMAL OR DISTAL EXTENSION PROSTHESIS INITIAL performed by Valentina Noland [facility] INTRODUCTION OF CATHETER, AORTA Bilateral 06/18/2016 CATHETER PLACEMENT, AORTA performed by Bill Georges MD at [facility] IR ENDOVASCULAR REPAIR AAA N/A 06/18/2016 ENDOVASCULAR REPAIR ABDOMINAL AORTA performed by Bill Georges MD at [facility] IR ENDOVASCULAR REPAIR AAA EXT PROSTHESIS -TECH ONLY Right 06/18/2016 ABDOMINAL ANEURYSM ENDOVASCULAR REPAIR EXTENSION PROSTHESIS performed by Bill Georges MD at [place] [facility] LENS EXTRACTION, PARS PLANA Left 03/26/2021 S/P 23G PPV/MP/SF6 20% for FTMH OS OPEN FEMORAL ARTERY EXPOSURE FOR ENDOVASCULAR PROSTHESIS, UNILAT Bilateral 06/18/2016 OPEN FEMORAL ARTERY EXPOSURE FOR ENDOVASCULAR PROSTHESIS performed by Bill Georges MD at [place] [facility] OTHER ACT 112 signed, 03/08/2021 REMOVAL OF APPENDIX REMOVAL OF TONSILS, UNDER AGE 12 Tonsils Removal,<12 Y/O REPAIR INITIAL INGUINAL HERNIA REDUCIBLE AGE 4 OR MORE STRESS TEST 06/02/2008 Nuclear test - EF 54% at rest, post-stress 49%. Evidence of previous anteroseptal and distal anterior OH. No ischemia. Review of patient's allergies indicates: No Known Allergies Family History Problem Relation Name Age of Onset Other (Macular degeneration) Mother Other (suicide) Father Other (CABG) Father Stroke Grandfather (Maternal) ? Heart Disorder Uncle (Unspecified) OH Alcohol and Other Disorders Associated Uncle (Unspecified) Other (AAA) Uncle (Unspecified) No Past Hx Other denies any skin disease or melanoma Family Status Relation Status Mo at age 91 OLD AGE Fa at age 70'S HRT SURGERY/SUICIDE MGFA (Not Specified) UNCLE (Not Specified) UNCLE (Not Specified) UNCLE (Not Specified) Other (Not Specified) Clay Alive Clay Alive Social History Tobacco Use Smoking status: Former Types: Pipe Smokeless tobacco: Never Tobacco comments: Quit smoking 1997 Substance Use Topics Alcohol use: Not Currently Alcohol/week: 1.7 standard drinks of alcohol Types: 1 12 oz of beer, 1 Mixed drink(s) containing 1.5 shots of alcohol per week Comment: occasional Vaping/E-Cigarette Use Vaping/E-Cigarette Use Never User Vaping/E-Cigarette Substances Vaping/E-Cigarette Devices REVIEW OF SYSTEMS: Review of Systems Constitutional: Negative for chills, fatigue, fever and unexpected weight change. Respiratory: Negative for cough, chest tightness, shortness of breath and wheezing. Cardiovascular: Negative for chest pain, palpitations and leg swelling. Gastrointestinal: Negative for abdominal pain, constipation, diarrhea, nausea and vomiting. Musculoskeletal: Negative for arthralgias, gait problem and joint swelling. Skin: Negative for color change, pallor and rash. Psychiatric/Behavioral: As per HPI OBJECTIVE: BP 122/68 (BP Site: Left Arm, BP Position: Sitting, BP Cuff Size: Regular) | Pulse 64 | Temp 36.1 C (97 F) (Tympanic) | Resp 14 | Ht 1.613 m (5' 3.5") | Wt 71.4 kg (157 lb 4.8 oz) | SpO2 98% | BMI 27.43 kg/m | BSA 1.79 m PHYSICAL EXAM: Physical Exam Constitutional: General: He is not in acute distress. Appearance: He is well-developed. Cardiovascular: Rate and Rhythm: Normal rate and regular rhythm. Heart sounds: Normal heart sounds. No murmur heard. No friction rub. No gallop. Pulmonary: Effort: Pulmonary effort is normal. No respiratory distress. Breath sounds: Normal breath sounds. No wheezing or rales. Abdominal: General: Bowel sounds are normal. There is no distension. Palpations: Abdomen is soft. Tenderness: There is no abdominal tenderness. There is no guarding. Musculoskeletal: General: No tenderness or deformity. Normal range of motion. Skin: General: Skin is warm and dry. Coloration: Skin is not pale. Findings: No erythema or rash. Neurological: Mental Status: He is alert and oriented to person, place, and time. ASSESSMENT/PLAN: (Z09) Hospital discharge follow-up (primary encounter diagnosis) (R41.82) Altered mental status, unspecified altered mental status type Plan: DISCH MED RECON CUR MED LIS, MINI-MENTAL QUESTIONNAIRE SCAN (MMSE) OP MMSE today . Pt generally much improved. Has nephrology f/u in 2 weeks. Reviewed creatinine atdischarge and was essentially at baseline. Reviewed nephrology note. Keep appt as scheduled. Call with any issues. 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 (F41.1) BERNARDA (generalized anxiety disorder) (R45.4) Irritability Plan: Escitalopram Oxalate 5 MG Oral Tablet (Lexapro) Pt will remain on lexapro. Reviewed psychiatry recommendations. Seems to have helped quite a bit. Hold off on neuropsych testing. Discussed with when to give us a call. (Z23) Need for COVID-19 vaccine Plan: COVID-19, MRNA-LNP, PF, 24-25, 30MCG/0.3ML, IM, 12YRS AND ABOVE (PFIZER) Vaccine given. See admin record. Follow-up: 2 months Total time today including reviewing chart before the visit, pertinent labs, imaging reports, face to face time, and documentation time was 47 minutes. Julianna Jones DO documented in this encounter Nursing Notes * Alicia Villanueva LPN - 05/21/2024 2:02 PM EDT Mini Mental exam today: Score 24/30 * Alicia Villanueva LPN - 05/21/2024 1:24 PM EDT Patient here for hospital discharge follow up visit. Pt reports he was hospitalized at [facility], stateshe got mean and threatened his . States he would never hurt her. Now on Lexapro. reports she thinks the lexapro is helping; less anxiety, no more nightmares. documented in this encounter Plan of Treatment Upcoming Encounters Date Type Department Care Team (Late st Contact Info) Description 05/28/2024 9:30 AM EDT Imaging Vascular Lab, [facility], [place] [address] [facility] [place] [address] 05/31/2024 3:00 PM EDT Office Visit Family Practice [address] [place] [facility] [phone] [facility] [address] [facility] [address] 06/02/2024 12:10 PM EDT Office Visit Vascular Surgery, [facility] [address] [facility] [place] [address] Galileo Rey MD [address] [place] [address] 06/08/2024 9:20 AM EDT Office Visit Nephrology, [facility] [address] [facility] [place] [address] Kaur Quiñones MD [address] [place] [address] 07/01/2024 10:00 AM EST Office Visit Family Practice 65 [facility], [place] [address] [place] [address] Julianna Jones DO [address] [place] [address] 07/26/2024 11:00 AM EST Office Visit Cardiology, [facility] [address] [place] [address] Vanessa Jauregui PA-C [address] [place] [address] 09/16/2024 2:00 PM EST Office Visit Nephrology, [facility] [address] [place] [address] Reza Whatley MD [address] [facility] [place] [address] 04/26/2025 11:45 AM EDT Office Visit Urology, [facility] [address] [place] [address] Kai Ponce MD [address] [place] [address] Health Maintenance Due Date Last Done Comments Adult Wellness Visit 03/06/2021 03/06/2020 HbA1c 09/10/2024 09/10/2023, 03/11/2022, 07/05/2022, Additional history exists TSH 09/10/2024 09/10/2023, [...] Completed 05/08/2024, 05/10/2023, 05/11/2022, Additional history exists COVID-19 Vaccine Completed 05/21/2024, [...] this encounter Medical Devices Implanted Type Area Check Out Cashier Device Identifier Shelf Expiration Date Model / Serial / Lot Graft Aaa Bif [id number] - [id number] Implanted:Qty: 1 on 06/18/2016 by Bill Georges MD at [place] [facility] N/A: Abdomen [employer] : VASCULAR 04/10/2018 [id number] / [id number] / Limb Contralat [id number] - [id number] Implanted:Qty: 1 on 06/18/2016 by Bill Georges MD at [facility] N/A: Abdomen [employer] : VASCULAR 02/23/2017 [id number] / [id number] / Limb Contralat [id number] - [id number] Implanted:Qty: 1 on 06/18/2016 by Bill Georges MD at [facility] N/A: Abdomen [employer] : VASCULAR 05/20/2018 [id number] / [id number] / documented as of this encounter Procedures Procedure Name Priority Date/Time Associated Diagnosis Comments MINI-MENTAL QUESTIONNAIRE SCAN (MMSE) OP Routine 05/21/2024 Altered mental status, unspecified altered mental status type documented in this encounter Results * MINI-MENTAL QUESTIONNAIRE SCAN (MMSE) OP (05/21/2024) 05/21/2024 Narrative Alicia Villanueva LPN - 05/21/2024 Julianna Jones DO OTHER documented in this encounter Visit Diagnoses Diagnosis Hospital discharge follow-up- Primary Other follow-up examination Altered mental status, unspecified altered mental status type 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) BERNARDA (generalized anxiety disorder) Generalized anxiety disorder Irritability Need for COVID-19 vaccine documented in this encounter Advance Directives Documents on File Type Date Recorded Patient Community Music Therapist Expl anation Advance Directives and Living Will 12/26/2022 ADVANCE DIRECTIVE / LIVING WILL Power of Army Senior Officer 12/26/2022 POWER OF A TTORNEY [facility] * Full Code (Latest Code [...] Care Power of Attorn ey Care Teams Extruder Operator Multiple Relationship Specialty Start Date End Date Julianna Jones DO [address] [place], [place] [address]t [place] [address] PCP - General Family Medicine 03/16/24 documented as of this encounter
--- OUTSIDE RECORDS SUMMARY | 2024-06-29 09:39 | External Medical Summary | Summary of Care ---
Author Name Unknown Organization [facility] Address [address] [place] [address] Phone [phone] Care Team Providers Care Numerical Control Drill Press Operator Name Role Phone Julianna Jones DO Primary Care Provider [phone] Reason for Visit * Reason Onset Date Comments Hospital Follow-Up 05/17/202405/17 Encounter Details Date Type Department Care Team (Late st Contact Info) Description 05/17/2024 Telephone Family Practice [address], [place] [address] [place] [address] Julianna Jones DO [address] [place], [place] [id number] Hospital Follow-Up (05/17) Allergies No known active allergiesdocumented as of this encounter (statuses as of 05/18/2024) Medications Medication Sig Dispensed Refills Start Date End Date Status ASPIRIN EC 81 MG PO TBECIndications:Coron [place] atherosclerosis of [place] coronary artery Take 1 Tablet by mouth [...] MG Sublingual Tablet Sublingual (Nitrostat)Indication s:Atherosclerosis of [place] coronary artery of [place] heart without angina pectoris Place 1 Tablet (0.4 mg) under the tongue as needed for Pain, Chest. May repeat 3 times. If chest pain continues, call 911. 25 Tablet 11 07/05/2022 Active Metoprolol Succinate ER 25 MG Oral Tablet Extended Release 24 Hour (Toprol XL)Indications:Athero sclerosis of [place] coronary artery of [place] heart without angina pectoris,HTN, goal below 130/80 [...] as of this encounter (statuses as of 05/18/2024) Active Problems Problem Noted Date Diagnosed Date [...] osteoarthritis 05/16/2002 Overview: Ankles, hands Atherosclerosis of [place] co ronary artery of [place] heart without angina pectoris 05/07/2002 documented as of this encounter (statuses as of 05/18/2024) Resolved Problems Problem Noted Date Diagnosed Date [...] as of this encounter (statuses as of 05/18/2024) Immunizations Name Administration Dates Next Due COVID-19 [...] (Prevnar) 04/22/2016 Pneumococcal Conjugate Vacci ne, 20-valent ([id number]) 03/21/2023 Pneumococcal Polysaccharide PPV23 (Pneumovax) 04/08/2000 RSV [...] Telephone Encounter - Fatemeh Watts RN - 05/18/2024 12:09 PM EDT Phone visit for post hospital d/c [facility]-admitted to [facility] for transient aggressive behavior and MO onCKD IV/V Dates of stay: 05/14-05/16/24 Current Concerns/Problems: Spoke with pt's , Bob. No concerns-states he seems to be doing muchbetter. Is to follow with nephrology in 2-4 weeks-has appt but not until August-told to call to see if can get sooner appt-told to let them know he was discharged from hospital and was told to follow up in 2-4 weeks. States the escitalopram seems to be helping CV/PULM: Reports: Denies problems Appetite: Denies problems Sleep: Denies problems Elimination: Denies problems Pain: Denies Wound: Denies Mobility: No restrictions D/C Instructions received and understood? Yes R/X Obtained: Yes Post hospital appt scheduled: Yes Other Services/Equipment Coordinated: N/A Patient Education: To call if having any problems or concerns and to call nephrology for sooner appt. CM needs: Message sent to CM as I reinforced how to reach [address] triage after hours, weekends and holidays by calling clinic phone # * Telephone Encounter - Fatemeh Watts RN - 05/17/2024 1:40 PM EDT Phone visit for post hospital d/c [facility]CO-admitted to [facility] for transient aggressive behavior and MO onCKD IV/V Dates of stay: 05/14-05/16/24 Call to pt-no answer-message left to call back at [phone]. documented in this encounter Plan of Treatment Upcoming Encounters Date Type Department Care Team (Late st Contact Info) Description 05/21/2024 1:00 PM EDT Office Visit Family Practice 65 [facility] [address] [place] [address] Julianna Jones, 293 [place] [address] 05/21/2024 1:00 PM EDT Nurse Only Family Practice 65 [facility] [address] [place] [address] College, Nurse Fam Prac [address] [place] [address] 05/28/2024 9:30 AM EDT Imaging Vascular Lab, [facility] 2nd Floor, [place] [address] [place] [address] 05/31/2024 3:00 PM EDT Office Visit Family Practice 65 [facility] [address] [place] [address] Julianna Jones, [address] [place] [address] 06/02/2024 12:10 PM EDT Office Visit Vascular Surgery, [facility] [address] [place] [address] Galileo Rey MD [address] [place] [address] 07/26/2024 11:00 AM EST Office Visit Cardiology, [facility] [place] [address] Vanessa Jauregui PA-C [address] [place] [address] 09/16/2024 2:00 PM EST Office Visit Nephrology, [facility] [address] [facility] [place] [address] Reza Whatley MD 200 [facility] [place] [address] 04/26/2025 11:45 AM EDT Office Visit Urology, [facility] [address] [place] [address] Kai Ponce MD [address] [facility] [place] [address] Health Maintenance Due Date Last Done Comments [...] this encounter Medical Devices Implanted Type Area Provider Network Manager Device Identifier Shelf Expiration Date Model / Serial / Lot Graft Aaa Bif [id number] - [id number] Implanted:Qty: 1 on 06/18/2016 [place] [facility] Abdomen [employer] : VASCULAR 04/10/2018 [id number] [id number] / [id number] / Limb Contralat [id number] - [id number] Implanted:Qty: 1 on 06/18/2016 by Bill Georg[place] [facility]: Abdomen [employer] : VASCULAR 02/23/2017 [id number] 24E / [id number] / Limb Contralat [id number] - [id number] Implanted:Qty: 1 on 06/18/2016 by Bill Georges [place] [facility] [place]: Abdomen [employer] : VASCULAR 05/20/2018 [id number] [id number] / [id number] / documented as of this encounter Advance Directives Documents on File Type Date Recorded Patient Construction Crew Member Expl anation Advance Directives and Living Will 12/26/2022 ADVANCE DIRECTIVE / LIVING WILL Power of Material Expeditor 12/26/2022 POWER OF A TTORNEY DURABLE HEALTH [...] Care Power of Attorn ey Care Teams Numerical Control Drill Press Operator Relationship Specialty Start Date End Date Julianna Jones DO [address] [place] [address] PCP - General Family Medicine 03/16/24 documented as of this encounter
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
--- OUTSIDE RECORDS SUMMARY | 2024-06-29 09:39 | External Medical Summary | Summary of Care ---
Author Name Unknown Organization [facility] Address [address] [place] [address] Phone [phone] Care Team Providers Care Help Desk Intern Name Role Phone Julianna Jones Primary Care Provider + [phone] Reason for Visit * Reason Comments Follow Up Encounter Details Date Type Department Care Team (Late st Contact Info) Description 06/02/2024 12:10 PM EDT Office Visit Vascular Surgery, [facility] [address] [place] [address] Galileo Rey MD [address] [place] [address] S/P AAA repair*; Infrarenal abdominal aortic aneurysm (AAA) without rupture (HCC); Carotid stenosis, non-symptomatic, bilateral; Dyslipidemia, goal LDL below 70; HTN, goal below 130/80 Allergies No known active allergiesdocumented as of this encounter (statuses as of 06/02/2024) Medications Medication Sig Dispensed Refills Start Date End Date Status ASPIRIN EC 81 MG PO TBECIndications:Coron venus atherosclerosis of [place] coronary artery Take 1 Tablet by mouth [...] MG Sublingual Tablet Sublingual (Nitrostat)Indication s:Atherosclerosis of [place] coronary artery of [place] heart without angina pectoris Place 1 Tablet (0.4 mg) under the tongue as needed for Pain, Chest. May repeat 3 times. If chest pain continues, call 911. 25 Tablet 11 07/05/2022 Active Metoprolol Succinate ER 25 MG Oral Tablet Extended Release 24 Hour (Toprol XL)Indications:Athero sclerosis of [place] coronary artery of [place] heart without angina pectoris,HTN, goal below 130/80 [...] as of this encounter (statuses as of 06/02/2024) Active Problems Problem Noted Date Diagnosed Date [...] osteoarthritis 05/16/2002 Overview: Ankles, hands Atherosclerosis of [place] co ronary artery of [place] heart without angina pectoris 05/07/2002 documented as of this encounter (statuses as of 06/02/2024) Resolved Problems Problem Noted Date Diagnosed Date [...] as of this encounter (statuses as of 06/02/2024) Immunizations Name Administration Dates Next Due COVID-19 [...] (Prevnar) 04/22/2016 Pneumococcal Conjugate Vacci ne, 20-valent ([id number]) 03/21/2023 RSV Vac., Recomb, Adjuvant, PF,0.5 Ml [...] Pipe Smokeless Tobacco: Never Tobacco Cessation:Counseling Given: No Comments:Quit smoking 1997 Alcohol Use Standard Drinks/Week [...] Sign Reading Time Taken Comments Blood Pressure 118/64 06/02/2024 12:10 PM EDT Pulse 62 06/02/2024 12:10 PM EDT Temperature 36.1 C (96.9 F) 06/02/2024 1 2:10 PM EDT Respiratory Rate - - Oxygen Saturation - - Inhaled Oxygen Concentration - - Weight 71.6 kg (157 lb 12.8 oz) 024 12:10 PM EDT Height - - Body Mass Index 27.51 05/21/2024 1:29 PM EDT documented in this [...] as of this encounter Progress Notes * Adonis Charlton PA-C - 06/02/2024 12:10 PM EDT Date of Service: 06/02/24 12:18 PM Theo Valencia is a 88 year old male. Referring Physician: Mika Hemphill DO Chief Complaint: Mr. Guardado returns to clinic for routine surveillance of 2016 EVAR Followed in past for carotid disease. Has had progressive renal insuff over last yr Creat upto 4.0, GFR 14, CKD IV Follows with Nephrology in [place], Dr. Whatley Patient is adverse to HD Had recent [facility] stay due to agitation, unknown etiology Discharged on Lexapro Doing OK Here today with his , Bob. Will be 63 yrs in Dec HPI: Patient is a pleasant reformed smoker who was evaluated by Dr. Whatley for CKD, when a AAA wasincidentally identified. He was referred to Vascular Surgery. CTA demonstrated a 6.2 cm AAA. He underwent endovascular repair of abdominal aortic aneurysm with Medtronic Endurant stent graft, ipsilateral (right) distal endoprosthesis placement and bilateral femoral artery exposure by Dr. Georges 06/18/2016. Uncle had a AAA. ABDOMINAL AORTIC ANEURYSM: Denies any symptoms related to EVAR. Patient's chronic low back pain is unchanged. Patient denies new abdominal pain, flank pain and back pain. Current Outpatient Medications Medication Sig Dispense Refill [...] 1 Capsule by mouth in the morning. Nitroglycerin 0.4 MG Sublingual Tablet Sublingual (Nitrostat) [...] by mouth every evening. 100 Tablet 1 Cyanocobalamin 500 MCG Oral Tablet Take 1 Tablet by mouth every other day. In morning (Patient not taking: Reported on 03/24/2024) Atorvastatin Calcium 80 MG Oral Tablet (Lipitor) Take 1 Tablet (80 mg) by mouth in the morning. 30 Tablet 11 No current facility-administered medications for this visit. Review of patient's allergies indicates: No Known Allergies Patient Active Problem List Diagnosis Atherosclerosis of [place] coronary artery of [place] heart without angina pectoris Old myocardial infarct [...] (HCC) Ischemic cardiomyopathy HTN, goal below 130/80 Past Medical History: Diagnosis Date AAA (abdominal aortic aneurysm) (HCC) Acute RI, anterior wall (HCC) 05/01/1998 AWMI (received TPA) [...] performed by Yannick Maria MD at ENDOSCOPY [facility] CORONARY ARTERY DILATION, BALLOON 08/25/1997 PTCA/Stent LAD, EF 35% ENDOVASC ABDO REPR W/BI DEVICE N/A 06/18/2016 ENDOVASCULAR REPAIR ABDOMINAL AORTIC ANEURYSM BIF PROS 1 LIMB performed by Bill Georges MD at [facility] ENDOVASC EXTEND PROSTH, INIT Right 06/18/2016 ENDOVASCULAR PROXIMAL OR DISTAL EXTENSION PROSTHESIS INITIAL [facility] INTRODUCTION OF CATHETER, AORTA Bilateral 06/18/2016 CATHETER PLACEMENT, AORTA performed by Bill Georges MD at [facility] IR ENDOVASCULAR REPAIR AAA N/A 06/18/2016 ENDOVASCULAR REPAIR ABDOMINAL AORTA performed by Bill Georges MD at [facility] IR ENDOVASCULAR REPAIR AAA EXT PROSTHESIS -TECH ONLY Right 06/18/2016 ABDOMINAL ANEURYSM ENDOVASCULAR REPAIR EXTENSION PROSTHESIS performed by Bill Georges MD at [facility] LENS EXTRACTION, PARS PLANA Left 03/26/2021 S/P 23G PPV/MP/SF6 20% for [facility] OS OPEN FEMORAL ARTERY EXPOSURE FOR ENDOVASCULAR PROSTHESIS, UNILAT Bilateral 06/18/2016 OPEN FEMORAL ARTERY EXPOSURE FOR ENDOVASCULAR PROSTHESIS performed by Bill Georges MD at [facility] OTHER ACT 112 signed, 03/08/2021 REMOVAL OF APPENDIX REMOVAL OF TONSILS, UNDER AGE 12 Tonsils Removal,<12 Y/O REPAIR INITIAL INGUINAL HERNIA REDUCIBLE AGE 5 OR MORE STRESS TEST 06/02/2008 Nuclear test - EF 54% at rest, post-stress 49%. Evidence of previous anteroseptal and distal anterior RI. No ischemia. Family History Problem Relation Name Age of Onset Other (Macular degeneration) Mother Other (suicide) Father Other (CABG) Father Stroke Grandfather (Maternal) ? 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 Tobacco Use Smoking status: Former Types: Pipe Smokeless tobacco: Never Tobacco comments: Quit smoking 1997 Vaping Use Vaping status: Never Used Substance and Sexual Activity Alcohol use: Not Currently Alcohol/week: 1.7 standard drinks of alcohol Types: 1 12 oz of beer, 1 Mixed drink(s) containing 1.5 shots of alcohol per week Comment: occasional Drug use: No Sexual activity: Yes Partners: Female Other Topics Concern Not on file Social History Narrative had RI Social Determinants of Health Financial Resource Strain: Low Risk (10/03/2023) Financial Resource Strain Do you have any trouble paying for your medications, or do you think you might in the future? (Adult - for ages 18 years and over): No Does your family have trouble paying for medicine? (Household - for ages 0-17 years): Not on file Food Insecurity: No Food Insecurity (10/03/2023) Food Insecurity Do you need food for this week? (Adult - for ages 18 years and over): No Are you able to get enough food for your family? (Household - for ages 0-17 years): Not on file Does your family need food this week? (Household - for ages 0-17 years): Not on file Do you always have enough food for your family? (Household - for ages 0-17 years): Not on file Transportation Needs: No Transportation Needs (10/03/2023) Transportation Needs Do you have trouble getting a ride to medical visits or work? (Adult - for ages 18 years and over):Never True Does your family have a hard time getting a ride to doctors visits? (Household - for ages 0-17 years): Not on file Has lack of transportation kept you from medical appointments, meetings, work, or from getting things needed for daily living? Check all that apply. (Adult - for ages 18 years and over): Not on file Do you (or your family) have trouble finding or paying for a ride (transportation)? (Household - for ages 0-17 years): Not on file Social Connections: Socially Integrated (10/03/2023) Social Connections How often do you feel lonely or isolated from those around you? (Adult - for ages 18 years and over): Never Housing Stability: Low Risk (10/03/2023) Housing Stability Do you currently live in a nursing home or have no steady place to sleep at night? (Adult - for ages 18 years and over): No Do you think you are at risk of becoming homeless? (Adult - for ages 18 years and over): No Does your family worry about paying for your home or becoming homeless? (Household - for ages 0-17 years): Not on file Are you homeless or worried that you might be in the future? (Adult - for ages 18 years and over): Not on file Are you (or your family) homeless or worried that you might be in the future? (Household - for ages0-17 years): Not on file REVIEW OF SYSTEMS: Constitutional: Denies fever/chills. Eyes: Denies amaurosis fugax. Cardiovascular: Denies chest pain, denies CHF, coronary stent in Respiratory: Denies shortness of breath. Gastrointestinal: Denies melena, Genitourinary: Denies hematuria. Musculoskeletal: Reports chronic low back pain. Skin: Denies ulcers. Neurological: Denies TIA, denies CVA. Uses cane when in the home, walker with longer distances. Endocrine: Denies DM. GENERAL MULTI-SYSTEM PHYSICAL EXAM: VITAL SIGNS: BP 118/64 (BP Site: Left Arm, BP Position: Sitting, BP Cuff Size: Regular) | Pulse 62 | Temp 36.1 C (96.9 F) (Tympanic) | Wt 71.6 kg (157 lb 12.8 oz) | BMI 27.51 kg/m | BSA 1.79 m GENERAL MULTI-SYSTEM PHYSICAL EXAM: GENERAL: Normal grooming habits, no acute distress and appears stated age. NECK: No masses. RESPIRATORY: Respiratory effort normal and lungs CTA. CARDIOVASCULAR: RRR, no heart murmur, BLE edema GASTROINTESTINAL: no tenderness, protuberant, and abdominal aorta not palpable LYMPHATIC: Inguinal nodes normal. SKIN: No ulcers, no rash, no induration and no dependent rubor. PSYCHIATRIC: Orientation to time, place and person normal and recent and remote memory normal. EYES: Conjunctivae normal. NEUROLOGIC: CN and motor function grossly intact. PULSE SCALE: Carotid Right:----Bruit: No Left:----Bruit: No Radial Right: 3 Left: 3 Femoral Right: 2 Left: 2 Popliteal Right: 2 Left: 2 Dorsalis Pedis Right: 0 Left: 1 Posterior Tibial Right: 2 Left: 2 PULSE SCALE: 4=Aneurysmal; 3=Normal; 2=Diminished; 1=Barely Palpable; 0=Absent DIAGNOSTIC STUDIES: 05/28/24 Abd Aortic Duplex: 5.6 cm AAA sac, patent stent/limbs, no endoleak The above diagnostic images were directly visualized and independently interpreted by me on 05/25/24with results as above 05/16/23 Carotid Duplex MONA 164/22 and LICA 179/32. 05/16/23; Location of Study: [facility]; Modality: duplex; AAA measures 5.1 cm in greatest transversedimension. No endoleak. 05/01/22 Aortic Duplex: 5.0 cm aneurysmal sac, no endoleak noted, patent graft, limbs, and patent EIAs 05/01/22 Carotid Duplex MONA 163/20, LICA 170/29 05/30/21: Aortic duplex: 5.2 cm residual aneurysmal sac, no endoleak noted. 05/30/21: Carotid duplex: MONA 157/19, LICA 151/33 04/09/19: Aortic duplex: 5.5 cm residual AAA. 04/09/19: Carotid duplex: MONA 128/18, LICA 126/29. 03/24/18; Location of Study: [facility]; Modality: duplex; AAA measures 5.5 x 5.4 cm in greatest transverse dimension. No endoleak. 03/24/18 BLE Duplex No femoral or popliteal aneurysms. 03/03/17: CTA: 6 x 5.2 cm residual AAA sac. No obvious endoleak. 07/02/16; Location of Study: [facility]; Modality: CT; AAA measures 6.2 cm in greatest transverse dimension. No overt endoleak. 05/31/16; Location of Study: [facility]; Modality: CT; AAA measures 6.2 cm in greatest transverse dimension. LABS Creatinine Results: Lab Results Component Value Date/Time CREATININE - [facility] 4.0 (H) 01/20/2024 11:14 AM CREATININE - [facility] 4.1 (H) 12/24/2023 09:02 AM CREATININE - [facility] 4.0 (A) 09/10/2023 12:00 AM CREATININE - [facility] 3.8 (H) 06/05/2023 12:07 PM CREATININE - [facility] 2.9 (H) 07/07/2020 10:49 AM CREATININE - [facility] 2.8 (H) 04/17/2020 09:02 AM CREATININE - [facility] 2.2 (H) 07/28/2019 10:31 AM CREATININE POCT - [facility] 1.5 (H) 03/03/2017 09:50 AM CREATININE POCT - [facility] 1.5 (H) 07/15/2016 08:36 AM CREATININE POCT - [facility] 1.6 (H) 05/31/2016 01:08 PM CREATININE, RANDOM URINE - [facility] 91 12/24/2023 09:03 AM CREATININE, RANDOM URINE - [facility] 110 06/05/2023 12:07 PM CREATININE, RANDOM URINE - [facility] 98 04/03/2022 03:30 PM CREATININE, RANDOM URINE - [facility] 98 04/03/2022 03:30 PM CREATININE, RANDOM URINE - [facility] 109 04/17/2020 09:15 AM CREATININE, RANDOM URINE - [facility] 143 04/30/2019 02:35 PM CREATININE, RANDOM URINE - [facility] 117 05/19/2018 10:18 AM Lab Results Component Value Date/Time LDL (CALCULATED)-OUTSIDE LAB 61 09/10/2023 12:00 AM LDL CHOLESTEROL (CALCULATED) - [facility] 76 05/19/2018 10:15 AM LDL CHOLESTEROL (DIRECT MEASURE) - [facility] 65 04/10/2015 07:02 AM LDL CHOLESTEROL (DIRECT MEASURE) - [facility] NOT APPLICABLE 04/10/2015 07:02 AM LDL CHOLESTEROL-OUTSIDE LAB 72 08/27/2012 12:00 AM Hemoglobin Results: Lab Results Component Value Date/Time HGB 9.6 (L) 12/24/2023 09:02 AM HGB 10.1 (A) 09/10/2023 12:00 AM HGB 10.2 (L) 05/29/2023 02:37 PM HGB 10.8 (L) 11/15/2022 11:29 AM HGB 11.4 (L) 07/07/2020 10:49 AM HGB 11.1 (L) 04/17/2020 09:02 AM HGB 10.5 (A) 07/26/2019 12:00 AM HGB 11.5 (L) 04/30/2019 02:28 PM Hemoglobin AIC Results: Lab Results Component Value Date/Time HEMOGLOBIN A1C - [facility] 5.9 (H) 11/15/2022 11:29 AM HEMOGLOBIN A1C - [facility] 5.8 (H) 07/05/2022 03:46 PM HEMOGLOBIN A1C - [facility] 5.8 (H) 06/27/2021 04:59 PM HEMOGLOBIN A1C - [facility] 5.9 (H) 04/17/2020 09:02 AM HEMOGLOBIN A1C - [facility] 5.9 (H) 05/24/2019 11:47 AM HEMOGLOBIN A1C - [facility] 6.1 (H) 05/19/2018 10:15 AM The above clinical lab tests were reviewed by me on 06/02/24 IMPRESSIONS: S/P EVAR of 6.2 cm AAA with Medtronic Endurantt, ipsilateral (right) distal endoprosthesis placement, and b/l fem artery exposure by Dr. Georges 06/18/16. +family h/o AAA (uncle). CAD, h/o PCI in the 1990s. HTN. Dyslipidemia. Reformed smoker, since the . Prediabetes. CKD IV, follows with Dr. Whatley Hypothyroidism. Obesity BPH. Chronic low back pain with BLE weakness R>L. Anemia. PLAN: The patient was counseled regarding the pathophysiology and natural history of abdominal aortic aneurysms, as well as the signs of rupture and the need to initiate emergency medical attention in thatsituation. No endoleak on recent duplex. Size of AAA sac has varied since placement of EVAR The patient was counseled regarding the pathophysiology and natural history of carotid disease, as well as the symptoms of CVA/TIA/amaurosis fugax. Carotid duplex has consistently revealed stenosis < 50%. Given that, along with pt's age, we will not do routine surveillance Continue daily ASA 81 mg for antiplatelet therapy Continue daily 80 mg Atorvastatin for management of dyslipidemia and pleiotropic effects. F/U with Dr. Rey in 1 year at [facility] Will need repeat aortic duplex at [facility] 1 week prior toclinic visit. The patient was seen and examined with MD Adonis Lizama PA-C I have reviewed the advanced practitioner documentation and agree. I saw and evaluated the patient on date of service referenced in note and have performed the following medically appropriate historyand/or exam: Mr. Valencia is an 88 yo male I follow for AAA s/p EVAR, and asymptomatic carotid disease. EVAR of 6.2 cm AAA with Medtronic Endurantt, ipsilateral (right) distal endoprosthesis placement, and b/l fem artery exposure by Dr. Georges 06/18/2016. 05/28/24 Abd Aortic Duplex: 5.6 cm AAA sac, patent stent/limbs, no endoleak CKD IV, no interest in HD. Continue 81 mg ASA and 80 mg Atorvastatin. F/U 1 year with aortic duplex. Galileo Rey MD Vascular Surgeon Department of Vascular Surgery [facility] documented in this encounter Plan of Treatment Upcoming Encounters Date Type Department Care Team (Late st Contact Info) Description 06/08/2024 9:20 AM EDT Office Visit Nephrology, [address] [place] [address] Kaur Quiñones MD [address] [facility] [place], [place] [address] 07/01/2024 10:00 AM EST Office Visit Family Practice [address] [facility] [place] [address] [place] [address] Julianna Jones DO [address] [place] [address] 07/26/2024 11:00 AM EST Office Visit Cardiology, [facility] [address] [place] [address] Vanessa Jauregui PA-C [address] [place] [address] 09/16/2024 2:00 PM EST Office Visit Nephrology, [facility] [address] [facility] [place] [address] Reza Whatley MD [address] [facility] [place] [address] 04/26/2025 11:45 AM EDT Office Visit Urology, [facility] [address] [place] [address] Kai Ponce MD [address] [place] [id number] Scheduled Orders Name Type Priority Associated Diagnoses Orde r Schedule VASC AORTIC DUPLEX EVAL-COMPLETE Medical Imaging Routine S/P AAA repair Infrarenal abdominal aortic aneurysm (AAA) without rupture (HCC) Ordered: 06/02/2024 Health Maintenance Due Date Last Done Comments [...] this encounter Medical Devices Implanted Type Area Venereal Disease Control Head Device Identifier Shelf Expiration Date Model / Serial / Lot Graft Aaa Bif [id number] - [id number] Implanted:Qty: 1 on 06/18/2016 by Bill Georges MD at [facility] N/A: Abdomen MEDTRONIC : VASCULAR 04/10/2018 [id number] / [id number] / Limb Contralat [id number] - [id number] Implanted:Qty: 1 on 06/18/2016 by Bill Georges MD at [facility] N/A: Abdomen [employer]IC : VASCULAR 02/23/2017 [id number] / [id number] / Limb Contralat [id number] - [id number] Implanted:Qty: 1 on 06/18/2016 by Bill Georges MD at [facility] N/A: Abdomen [employer] : VASCULAR 05/20/2018 [id number] / [id number] / documented as of this encounter Visit Diagnoses Diagnosis S/P AAA repair- Primary Other postprocedural status Infrarenal abdominal aortic aneurysm (AAA) without rupture (HCC) Carotid stenosis, non-symptomatic, bilateral Dyslipidemia, goal LDL below 70 Other and unspecified hyperlipidemia HTN, goal below 130/80 Unspecified essential hypertension documented in this encounter Advance Directives Documents on File Type Date Recorded Patient Gizzard Peeler Expl anation Advance Directives and Living Will 12/26/2022 ADVANCE DIRECTIVE / LIVING WILL Power of Bottling Supervisor 12/26/2022 POWER OF A TTORNEY DURABLE HEALTH [...] Care Power of Attorn ey Care Teams Help Desk Intern Relationship Specialty Start Date End Date Julianna Jones DO [address] [place] [address] PCP - General Family Medicine 03/16/24 documented as of this encounter"
--- OUTSIDE RECORDS SUMMARY | 2024-06-29 09:39 | External Medical Summary | Summary of Care ---
Author Name Unknown Organization [facility] Address [address] [place] [address] Phone [phone] Care Team Providers Care Administration Physician Name Role Phone Julianna Jones DO Primary Care Provider Reason for Visit * Reason Onset Date Comments Medication Question 06/03/2024 notes Encounter Details Date Type Department Care Team (Late st Contact Info) Description 06/03/2024 Telephone Family Practice 65 [facility] [place] [address] [place] [phone] Julianna Jones DO 293 [place], [place] [id number] Medication Question (notes) Allergies No known active allergiesdocumented as of this encounter (statuses as of 06/03/2024) Medications Medication Sig Dispensed Refills Start Date End Date Status ASPIRIN EC 81 MG PO TBECIndications:Coron venus atherosclerosis of [place] coronary artery Take 1 Tablet by mouth [...] MG Sublingual Tablet Sublingual (Nitrostat)Indication s:Atherosclerosis of [place] coronary artery of [place] heart without angina pectoris Place 1 Tablet (0.4 mg) under the tongue as needed for Pain, Chest. May repeat 3 times. If chest pain continues, call 911. 25 Tablet 11 07/05/2022 Active Metoprolol Succinate ER 25 MG Oral Tablet Extended Release 24 Hour (Toprol XL)Indications:Athero sclerosis of [place] coronary artery of [place] heart without angina pectoris,HTN, goal below 130/80 [...] as of this encounter (statuses as of 06/03/2024) Active Problems Problem Noted Date Diagnosed Date [...] osteoarthritis 05/16/2002 Overview: Ankles, hands Atherosclerosis of [place] co ronary artery of [place] heart without angina pectoris 05/07/2002 documented as of this encounter (statuses as of 06/03/2024) Resolved Problems Problem Noted Date Diagnosed Date [...] Overview: Colonoscopy 10/2010: normal - consider repeat 2016 but he will be 80 colonoscopy 2006 [...] as of this encounter (statuses as of 06/03/2024) Immunizations Name Administration Dates Next Due COVID-19 [...] (Prevnar) 04/22/2016 Pneumococcal Conjugate Vacci ne, 20-valent (Slurnph35) 03/21/2023 RSV Vac., Recomb, Adjuvant, PF,0.5 Ml [...] and older)(Boostrix) 07/02/2023,05/2013 Varicella Zoster Vaccine (Adult) 12/23/2012,0201/2013 Zoster Vaccine Recombinant (Shingrix) 03/07/2020 ,09/16/2019 documented [...] encounter Miscellaneous Notes * Telephone Encounter - Coby Tim OSA - 06/03/2024 1:13 PM EDT Escitalopram Oxalate Wanted notes from visit Pharmacy [phone] Notes sent documented in this encounter Plan of Treatment Upcoming Encounters Date Type Department Care Team (Late st Contact Info) Description 06/08/2024 9:20 AM EDT Office Visit Nephrology, [facility] [address] [place] [address] Kaur Quiñones MD [address] [place], [place] [address] 07/01/2024 10:00 AM EST Office Visit Family Practice 65 [facility] [place] 293 [place] [address] Julianna Jones DO 293 [place] [address] 07/26/2024 11:00 AM EST Office Visit Cardiology, [facility] 132 [facility] [place] [address] Vanessa Jauregui PA-C [address] [place] [address] 09/16/2024 2:00 PM EST Office Visit Nephrology, [facility] 200 [facility] [place] [address] Reza Whatley MD 200 [facility] [place] [address] 04/26/2025 11:45 AM EDT Office Visit Urology, [facility] [address] [place] [address] Kai Ponce MD [address] [place] [address] Health Maintenance Due Date Last Done Comments [...] this encounter Medical Devices Implanted Type Area Cashier Ticket Selling Device Identifier Shelf Expiration Date Model / Serial / Lot Graft Aaa Bif [id number] - [id number] Implanted:Qty: 1 on 06/18/2016 [place] [facility] [place] Abdomen MEDTR[employer] : VASCULAR 04/10/2018 [id number] 66E / [id number] / Limb Contralat [id number] - [id number] Implanted:Qty: 1 on 06/18/2016 by Bill Georg[place] [facility] [place]: Abdomen [employer] : VASCULAR 02/23/2017 [id number] 24E / [id number] / Limb Contralat [id number] - [id number] Implanted:Qty: 1 on 06/18/2016 by Bill Georges MD [place] [facility] [place]: Abdomen [employer] : VASCULAR 05/20/2018 [id number] / [id number] / documented as of this encounter Advance Directives Documents on File Type Date Recorded Patient Barker Peeler Expl anation Advance Directives and Living Will 12/26/2022 ADVANCE DIRECTIVE / LIVING WILL Power of Shellfish Weigher 12/26/2022 POWER OF A TTORNEY DURABLE HEALTH [...] Agents on File Name Relationship Healthcare Agent [facility] Communication Zaira Valencia Adult Child First Alternate Health Care Agent Bob Valencia Spouse Health Care Power of Attorn ey Care Teams Administration Physician Relationship Specialty Start Date End Date Julianna Jones DO [address] [place] [address] PCP - General Family Medicine 03/16/24 documented as of this encounter
--- OUTSIDE RECORDS SUMMARY | 2024-06-29 09:39 | External Medical Summary | Summary of Care ---
Author Name Unknown Organization [facility] Address [address] [place] [address] Phone [phone] Care Team Providers Care It Support Technician Name Role Phone Julianna Jones Primary Care Provider [phone] Reason for Visit * Reason Comments Hospital Follow-Up Encounter Details Date Type Department Care Team (Late st Contact Info) Description 05/21/2024 1:00 PM EDT Nurse Only Family Practice 65 [facility] [address] [place] [address] College, Nurse [facility] Prac [address] [address] Hospital Follow-Up Allergies No known active allergiesdocumented as of this encounter (statuses as of 05/21/2024) Medications Medication Sig Dispensed Refills Start Date End Date Status ASPIRIN EC 81 MG PO TBECIndications:Coron venus atherosclerosis of [place] coronary artery Take 1 Tablet by mouth [...] MG Sublingual Tablet Sublingual (Nitrostat)Indication s:Atherosclerosis of [place] coronary artery of [place] heart without angina pectoris Place 1 Tablet (0.4 mg) under the tongue as needed for Pain, Chest. May repeat 3 times. If chest pain continues, call 911. 25 Tablet 11 07/05/2022 Active Metoprolol Succinate ER 25 MG Oral Tablet Extended Release 24 Hour (Toprol XL)Indications:Athero sclerosis of [place] coronary artery of [place] heart without angina pectoris,HTN, goal below 130/80 [...] osteoarthritis 05/16/2002 Overview: Ankles, hands Atherosclerosis of [place] co ronary artery of [place] heart without angina pectoris 05/07/2002 documented as [...] 11/25/2007 11/08/2019 Overview: Followed by Dr. Chi Borajs. Kidney disease, chronic, sta ge III (GFR [...] (Prevnar) 04/22/2016 Pneumococcal Conjugate Vacci ne, 20-valent ([id number]) 03/21/2023 RSV Vac., Recomb, Adjuvant, PF,0.5 Ml [...] Frequency of Alcohol Consumption 2-4 times a fri th 03/06/2020 Average Number of Drinks 1 [...] No 06/18/2016 documented as of this encounter Nursing Notes * Alicia Villanueva LPN - 05/21/2024 2:15 PM EDT [facility] med rec completed - see other encounter this date. documented in this encounter Plan of Treatment Upcoming Encounters Date Type Department Care Team (Late st Contact Info) Description 05/28/2024 9:30 AM EDT Imaging Vascular Lab, [facility] 2nd [facility] 132 [facility] [place] [address] 05/31/2024 3:00 PM EDT Office Visit Family Practice [address] [place] [address] [place] [address] Julianna Jones DO 293 [facility], [place] [address] 06/02/2024 12:10 PM EDT Office Visit Vascular Surgery, [facility] 132 [facility] [place] [address] Galileo Rey MD [address] [place] [address] 06/08/2024 9:20 AM EDT Office [address]phrology, [address] [address] Kaur Quiñones MD 200 [facility] [place] [address] 07/01/2024 10:00 AM EST Office Visit Family Practice 65 [facility] [place] 293 [place] [address] Julianna Jones DO 293 [place] [address] 07/26/2024 11:00 AM EST Office Visit Cardiology, [facility] [place] [address] Vanessa Jauregui PA-C 132 [facility] [place] [address] 09/16/2024 2:00 PM EST Office Visit Nephrology, [facility] 200 [facility] [place] [address] Reza Whatley MD 200 [facility] [place] [address] 04/26/2025 11:45 AM EDT Office Visit Urology, [facility] 132 [facility] [place] [address] Kai Ponce MD 27 [place] [address] Health Maintenance Due Date Last Done Comments [...] this encounter Medical Devices Implanted Type Area Ore Fielder Device Identifier Shelf Expiration Date Model / Serial / Lot Graft Aaa Bif [id number] - [id number] Implanted:Qty: 1 on 06/18/2016 by [place] [facility] [place]: Abdomen MED[employer] : VASCULAR 04/10/2018 [id number] 66E / [id number] / Limb Contralat [id number] - [id number] Implanted:Qty: 1 on 06/18/2016 by Bill Georges MD [place] [facility] [place]: Abdomen MED[employer] : VASCULAR 02/23/2017 [id number] 24E / [id number] / Limb Contralat [id number] - [id number] Implanted:Qty: 1 on 06/18/2016 by Bill Georges MD [place] [facility] [place]: Abdomen MEDTR[employer] : VASCULAR 05/20/2018 [id number] 2E / [id number] / documented as of this encounter Advance Directives Documents on File Type Date Recorded Patient Receiving Associate Store Expl anation Advance Directives and Living Will 12/26/2022 ADVANCE DIRECTIVE / LIVING WILL Power of Manager Managed Care 12/26/2022 POWER OF A TTORNEY DURABLE HEALTH [...] Care Power of Attorn ey Care Teams It Support Technician Relationship Specialty Start Date End Date Julianna Jones DO [address] [place] [address] PCP - General Family Medicine 03/16/24 documented as of this encounter
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
--- OUTSIDE RECORDS SUMMARY | 2024-06-29 09:40 | External Medical Summary | Summary of Care ---
Author Name Unknown Organization [facility] Address [address] [place] [address] Phone [phone] Care Team Providers Care Customer Support Consultant Name Role Phone Julianna Jones DO Primary Care Provider [phone] Reason for Visit * Reason Onset Date Comments Hospital Follow-Up 05/17/202405/17 Encounter Details Date Type Department Care Team (Late st Contact Info) Description 05/17/2024 Telephone Family Practice [address], [place] [address] [place] [address] Julianna Jones DO 293 [place], [place] [id number] Hospital Follow-Up (05/17) Allergies No known active allergiesdocumented as of this encounter (statuses as of 05/18/2024) Medications Medication Sig Dispensed Refills Start Date End Date Status ASPIRIN EC 81 MG PO TBECIndications:Coron venus atherosclerosis of [place] coronary artery Take 1 Tablet by mouth [...] MG Sublingual Tablet Sublingual (Nitrostat)Indication s:Atherosclerosis of [place] coronary artery of [place] heart without angina pectoris Place 1 Tablet (0.4 mg) under the tongue as needed for Pain, Chest. May repeat 3 times. If chest pain continues, call 911. 25 Tablet 11 07/05/2022 Active Metoprolol Succinate ER 25 MG Oral Tablet Extended Release 24 Hour (Toprol XL)Indications:Athero sclerosis of [place] coronary artery of [place] heart without angina pectoris,HTN, goal below 130/80 [...] osteoarthritis 05/16/2002 Overview: Ankles, hands Atherosclerosis of [place] co ronary artery of [place] heart without angina pectoris 05/07/2002 documented as [...] (Prevnar) 04/22/2016 Pneumococcal Conjugate Vacci ne, 20-valent ([id number]) 03/21/2023 Pneumococcal Polysaccharide PPV23 (Pneumovax) 04/08/2000 RSV [...] for post hospital d/c [facility]-admitted to [facility] for transient aggressive behavior and MO onCKD [...] for post hospital d/c [facility]-admitted to [facility] for transient aggressive behavior and MO onCKD IV/V Dates of stay: 05/14-05/16/24 Call to pt-no answer-message left to call back at [phone]. documented in this encounter Plan of Treatment Upcoming Encounters Date Type Department Care Team (Late st Contact Info) Description 05/21/2024 1:00 PM EDT Office Visit Family Practice 65 [facility] 293 [place] [address] Julianna Jones, 293 [facility] [place] [address] 05/21/2024 1:00 PM EDT Nurse Only Family Practice 65 [facility] 293 [place] [address] College, Nurse Fam Prac [address] [place] [address] 05/28/2024 9:30 AM EDT Imaging Vascular Lab, [facility] 2nd Floor, [place] 132 [facility] [place] [address] 05/31/2024 3:00 PM EDT Office Visit Family Practice 65 [facility] 293 [place] [address] Julianna Jones, 293 [facility] [place] [address] 06/02/2024 12:10 PM EDT Office Visit Vascular Surgery, [facility] 132 [place] [address] Galileo Rey MD [address] [place] [address] 07/26/2024 11:00 AM EST Office Visit Cardiology, [facility] 132 [facility] [place] [address] Vanessa Jauregui PA-C [address] [place] [address] 09/16/2024 2:00 PM EST Office Visit Nephrology, [facility] 200 [facility] [place] [address] Reza Whatley MD 200 [facility] [place] [address] 04/26/2025 11:45 AM EDT Office Visit Urology, [facility] [address] [place] [address] Kai Ponce MD 27 [facility] [place] [address] Health Maintenance Due Date Last Done Comments [...] this encounter Medical Devices Implanted Type Area Rapid Transit Operator Device Identifier Shelf Expiration Date Model / Serial / Lot Graft Aaa Bif [id number] - [id number] Implanted:Qty: 1 on 06/18/2016 [place] [facility] [place]domen MED[employer] : VASCULAR 04/10/2018 [id number] 66E / [id number] / Limb Contralat [id number] - [id number] Implanted:Qty: 1 on 06/18/2016 by [place] [facility] [place] Abdomen MED[employer] : VASCULAR 02/23/2017 [id number] 24E / [id number] / Limb Contralat [id number] - [id number] Implanted:Qty: 1 on 06/18/2016 by [place] Georg[place] [facility] [place] Abdomen MED[employer] : VASCULAR 05/20/2018 [id number] 2E / [id number] / documented as of this encounter Advance Directives Documents on File Type Date Recorded Patient Shredder/Granulator Operator Expl anation Advance Directives and Living Will 12/26/2022 ADVANCE DIRECTIVE / LIVING WILL Power of Chief Operator Reformer 12/26/2022 POWER OF A TTORNEY DURABLE HEALTH [...] Care Power of Attorn ey Care Teams Customer Support Consultant Relationship Specialty Start Date End Date Julianna Jones DO [address] [place] [address] PCP - General Family Medicine 03/16/24 documented as of this encounter
--- OUTSIDE RECORDS SUMMARY | 2024-06-29 09:40 | External Medical Summary | Summary of Care ---
Author Name Unknown Organization [facility] Address [address] [place] [address] Phone [phone] Care Team Providers Care Hearing Therapist Name Role Phone Julianna Jones Primary Care Provider + [phone] Encounter Details Date Type Department Care Team (Late st Contact Info) Description 05/17/2024 Population Health External Data Unspecified Department Allergies No known active allergiesdocumented as of this encounter (statuses as of 05/17/2024) Medications Medication Sig Dispensed Refills Start Date End Date Status ASPIRIN EC 81 MG PO TBECIndications:Coron venus atherosclerosis of [place] coronary artery Take 1 Tablet by mouth [...] Sublingual Tablet Sublingual (Nitrostat)Indication s:Atherosclerosis of [place] coronary artery of [place] heart without angina pectoris Place 1 Tablet (0.4 mg) under the tongue as needed for Pain, Chest. May repeat 3 times. If chest pain continues, call 911. 25 Tablet 11 07/05/2022 Active Metoprolol Succinate ER 25 MG Oral Tablet Extended Release 24 Hour (Toprol XL)Indications:Athero sclerosis of [place] coronary artery of [place] heart without angina pectoris,HTN, goal below 130/80 [...] as of this encounter (statuses as of 05/17/2024) Active Problems Problem Noted Date Diagnosed Date [...] 05/16/2002 Overview: Ankles, hands Atherosclerosis of [place] co ronary artery of [place] heart without angina pectoris 05/07/2002 documented as of this encounter (statuses as of 05/17/2024) Resolved Problems Problem Noted Date Diagnosed Date [...] LAD 11/25/2007 11/08/2019 Overview: Followed by Dr. Mireles Duplicate. Kidney disease, chronic, sta ge III (GFR [...] as of this encounter (statuses as of 05/17/2024) Immunizations Name Administration Dates Next Due COVID-19 [...] (Prevnar) 04/22/2016 Pneumococcal Conjugate Vacci ne, 20-valent ([id number]) 03/21/2023 RSV Vac., Recomb, Adjuvant, PF,0.5 Ml [...] 05/28/2024 9:30 AM EDT Imaging Vascular Lab, [facility] 2nd Floor, [place] [address] [facility] [address] 05/31/2024 3:00 PM EDT Office Visit Family Practice [address], [place] [address] [place] [place] [address] Julianna Jones, [address] [place] [address] 06/02/2024 12:10 PM EDT Office Visit Vascular Surgery, [facility] [address] [place] [address] Galileo Rey MD [address] [place] [address] 07/26/2024 11:00 AM EST Office Visit Cardiology, [facility] [address] [place] [address] Vanessa Jauregui PA-C [address] [facility] [address] 09/16/2024 2:00 PM EST Office Visit Nephrology, [facility] [address] [place], [place] [address] Reza Whatley MD [address] [place] [address] 04/26/2025 11:45 AM EDT Office Visit Urology, [facility] [address] [place] [address] Kai Ponce MD [address] [place] [address] Health Maintenance Due Date Last Done Comments [...] this encounter Medical Devices Implanted Type Area Geriatric Nurse Practitioner Device Identifier Shelf Expiration Date Model / Serial / Lot Graft Aaa Bif [id number] - [id number] Implanted:Qty: 1 on 06/18/2016 by Bill Georges MD at OR [facility] N/A: Abdomen [employer] : VASCULAR 04/10/2018 [id number] / [id number] / Limb Contralat [id number] - [id number] Implanted:Qty: 1 on 06/18/2016 by Bill Georges MD at OR [facility] N/A: Abdomen [employer] : VASCULAR 02/23/2017 [id number] / [id number] / Limb Contralat [id number] - [id number] Implanted:Qty: 1 on 06/18/2016 by Bill Georges MD at OR [facility] N/A: Abdomen [employer] : VASCULAR 05/20/2018 [id number] / [id number] / documented as of this encounter Advance Directives Documents on File Type Date Recorded Patient Manager Software Development Expl anation Advance Directives and Living Will 12/26/2022 ADVANCE DIRECTIVE / LIVING WILL Power of Library Paraprofessional 12/26/2022 POWER OF A TTORNEY DURABLE HEALTH [...] Care Power of Attorn ey Care Teams Hearing Therapist Relationship Specialty Start Date End Date Julianna Jones DO [address] [place] [address] PCP - General Family Medicine 03/16/24 documented as of this encounter
[2024-06-29] MEDS ORDERED: ONDANSETRON INJ 2 MG/ML 2 ML VIAL ONE (10:14)
[2024-06-29] MEDS ORDERED: fentaNYL citrate PF 100 MCG/2 ML VIAL ONE (10:14)
[2024-06-29] MEDS ORDERED: LIDOCAINE 2% 2 ML VIAL/AMP(20MG/ML) INFIL ONE (10:14)
[2024-06-29] MEDS ORDERED: PROPOFOL IV EMULSION 10 MG/ML 20 ML VIAL IV ONE (10:14)
[2024-06-29] MEDS ORDERED: DEXAMETHASONE SOD INJ 4 MG/ML VIAL ONE ×2 (10:14→13:57)
--- NOTE | 2024-06-29 10:55 | Communication Note ---
Date of Service: June 29, 2024 Patient seen and examined at bedside. 88-year-old man with PMH of chronic systolic heart failure [EF 35 to 40%, TTE 2020], CAD status post stent, chronic LBBB, PVD, AAA status post surgery, HTN, HLD, CKD [baseline creatinine around 4], chronic anemia [baseline hemoglobin 10- 11], prediabetes, hypothyroidism, BPH, past tobacco abuse presented to the ED after fall/right hip and right elbow pain. Of note, patient slipped on wet tile at home causing him to fall down. He denied head trauma, LOC, chest pain, shortness of breath. Patient denies any flulike illness/febrile illness prior to arrival. Patient denies any shortness of breath with his activity prior to arrival, he moves around using walker. He is being managed for the following: Mechanical fall Traumatic right femoral neck fracture Concern ofr traumatic right humeral fracture per XR Patient comes in with fall, and has right hip and right elbow pain. Admitting imagings: CXR- minimal blunting of left costophrenic angle, nonspecific. X-ray pelvis: Impacted fracture right femoral neck. X-ray right elbow: Possible nondisplaced fracture medial epicondyle distal humerus. CT right elbow: No suspicion of fracture was identified noted in prior x-ray. Elbow joint MRI recommended. Patient with past history of PR and stent, history of heart failure, elevated creatinine putting him RCRI at 3 points [class IV risk]15% 30-day risks of , PR or cardiac arrest. Patient with no active chest pain or shortness of breath. patient had moderate risk for much hip needed surgery. Pros and cons of surgery to be discussed by ortho team w/ family. Patient's and patient was explained the risks of delirium after surgery. Traumatic right elbow, orthopedic surgery evaluated, plan to keep immobilized and reassess. For OR today for right hip. Pain management/bowel regimen, PT/OT, resume home aspirin as soon as bleeding risks deemed minimal after surgery by orthopedics. DVT prophylaxis per orthopedics. Resume diet after the sx. Other chronic medical conditions: Continue with/resume home meds as and when able. Chronic systolic heart failure (EF 35 to 40%, TTE 2020), patient euvolemic hx CAD status post stent, stable cardiac symptoms as per outpatient [facility] cardio visit January 2024 chronic LBBB PVD/AAA status post surgery hypertension, stable hyperlipidemia, on statin Rx CRI, creatinine at baseline chronic anemia, hemoglobin at baseline prediabetes, hemoglobin A1c of 5.9 last year hypothyroidism, euthyroid as of TSH 2 months ago past tobacco abuse DVT prophylaxis. SCDs re: possible surgery DNR Patient Ms. Bob Valencia, contact #[phone]. Updated at bedside. Text document was generated using [employer] voice recognition software. It may contain grammatical or spelling errors. Kindly contact undersigned for clarification of any documentation item in question. On exam, patient on room air, NAD, RLE externally rotated and shortened. For detailed information on the patient, refer to today's H&P note.
--- NOTE | 2024-06-29 11:47 | Orthopedic Progress Note ---
Date of Service June 29, 2024 Assessment & Plan (1) Femoral neck fracture: Plan: Patient seen and evaluated. For further details refer to Tino's dictation. Patient fell last evening bumped his right elbow. X-ray suggest possible medial epicondyle fracture but the CT scan was negative. The exam is benign and will keep him immobilized and reassess. Pain in the right hip. Could not ambulate. History of severe kidney disease but not on dialysis and does not take steroids. Examination reveals positive logroll. Hip is shortened and externally rotated with pain to palpation over the right hip area. Otherwise nontender without swelling. DP and PT pulses are positive Doppler with intact sensation and 5 out of 5 ankle and toe plantarflexion dorsiflexion and eversion strength on the right. Radiographs of the hip show a displaced femoral neck fracture on the right. Operative and nonoperative management is discussed. I recommend surgery and they agreed to proceed. An informed consent was obtained and signed by his . Done in the presence of their daughter. Plan for a right hip hemiarthroplasty cemented. Treatment options risks benefits rehab recovery discussed. TXA. Preop antibiotics. He has no history of bleeding or blood clots metal allergies or MRSA infections.Labs noted. Admission and Anticipated Discharge Date Admission Date: June 29, 2024 (1) Femoral neck fracture Encounter type: initial encounter Fracture type: closed Laterality: right Qualified Code(s): S72.001A - Fracture of unspecified part of neck of right femur, initial encounter for closed fracture
[2024-06-29] MEDS: TRANEXAMIC ACID / 0.7% NACL 1000MG/100ML BAG IV ONE (11:55)
[2024-06-29] MEDS: ceFAZolin 2000MG 2,000 MG/15 ML SYR IV ONE (11:55)
[2024-06-29] MEDS: TRANEXAMIC ACID 100 MG/ML 10 ML VIAL IV SCH (11:55)
[2024-06-29] MEDS: VANCOMYCIN HCL 1000MG/20ML VIAL ONE (13:30)
[2024-06-29] MEDS ORDERED: ceFAZolin 330 MG/ML 1 GM VIAL ONE (13:57)
[2024-06-29] MEDS: THROMBIN 5000 UNITS KIT ONE (13:59)
--- NOTE | 2024-06-29 14:19 | Electrocardiogram Report ---
Test Reason : Blood Pressure : */* mmHG Vent. Rate : 66 BPM Atrial Rate : 66 BPM P-R Int : 236 ms QRS Dur : 166 ms QT Int : 470 ms P-R-T Axes : 107 -48 146 degrees QTcB Int : 492 ms Sinus rhythm with 1st degree A-V block with occasional Premature ventricular complexes Left axis deviation Left bundle branch block Abnormal ECG When compared with ECG of 14-May-2024 17:14, T wave inversion more evident in Lateral leads Confirmed by Tiago Nguyen ([id number]) on 06/29/2024 2:18:55 PM Referred By: REFERRED SELF Confirmed By: Tiago Nguyen
[2024-06-29] MEDS ORDERED: ROCURONIUM BROMIDE 10 MG/ML 5 ML VIAL IV ONE (14:30)
[2024-06-29] MEDS ORDERED: SUGAMMADEX SODIUM 200 MG/2 ML VIAL IV ONE (14:31)
[2024-06-29] MEDS ORDERED: ePHEDrine sulfate 50 MG/5 ML SYR ONE (14:32)
[2024-06-29] MEDS ORDERED: PHENYLEPHRINE 100MCG/ML 5ML SYR ONE (14:32)
--- NOTE | 2024-06-29 15:13 | Operative Report ---
Post Operative Report Pre & Post Diagnosis Operation Date: 06/29/24 07:00 Pre-Op Diagnosis: Right Femoral Neck Fracture Post-Op Diagnosis: Right Femoral Neck Fracture I identified the patient and participated in the time-out.: Yes Procedure Operation Date: 06/29/24 07:00 Actual Procedures p Right Hip Bipolar Hemiarthroplasty, Cemented(Right) - Aleksander Lal MD Surgeon Aleksander Lal MD Merchandise Processor Cait Lucas physicians accountant assistant no resident or fellow available Estimated Blood Loss 50 Findings Consistent with Post-Op Diagnosis Specimens Right femoral head Anesthesia Type General Complications none Disposition Accompanied Patient To Recovery: No Disposition: Recovery Room Indications Theo is 88. He fell last evening and sustained a right femoral neck fracture. I have met with he and his family and we talked about treatment options risks and benefits and they have elected to proceed with surgery. The patient is awake and alert. Description of Procedure Informed consent. Patient identified. He identified the procedure site as the right hip. I marked with my initials. A preoperative surgical Timeout performed. Preop dose of antibiotics given. Taken to the OR where he was anesthetized. He was then positioned decubitus with the right side up. Axillary roll inserted. Bony prominences inspected and padded. The Stolberg positioner was utilized. The right hip was scrubbed then prepped and draped in the usual sterile fashion. The right leg was shortened and externally rotated compared to the opposite side. DVT prophylaxis intraoperatively with foot pumps. Postop early mobility mechanical devices and probably Eliquis. Posterior approach to the hip was made. The skin was incised. Electrocautery was utilized to the subcutaneous tissues. The iliotibial band and gluteal fascia were divided in line with the incision and the Charnley retractor was inserted. The greater trochanteric bursa was excised. The short external rotators were elevated off the proximal femur. The gluteus minimus was elevated. The external rotators were tagged for later repair. A capsulotomy was performed pealing a posteriorly for later repair. A femoral neck fracture was identified which was comminuted in nature. The femoral head was easily removed and sized to a 48. The acetabulum and labrum were unremarkable. The 48 trial fit well. There was comminution of the femoral neck and medially this extended down towards the calcar area. I made a femoral neck cut just under 1 fingerbreadth above the lesser trochanter. I did not see any further split but I went ahead and applied a Ai Biomet cable and tightened to the recommended minimum which was 70. This was carefully passed on to the bone circumferentially and tighte alesia with the broach in place. Broaching began at 7 and proceeded up to 9. The cable was applied and I broached up to 10 with good fit fill and rotational stability. Trialing was performed which showed the regular head neck gave laxity whereas the high offset with 0 improve stability substantially. The canal was prepped by pulsatile lavage and drying with suction and then thrombin. The canal was restricted and the size 9 stem was then inserted. This was done after retrograde fill of the canal and pressurization. Broaching and insertion of the implant were done in 20 to 30 degrees of anteversion which was essentially physiologic. 1 bag of vancomycin was placed into the cement. 1 g total. Another gram was placed half deep and half superficial wound closure. Extraneous cement was removed. Implant held in position. Lateralized until the cemented hardened. I then trialed again selected the +6 neck length which gave a negative shock in full extension mid position relatively equal leg lengths and good stability at 90 degrees. The hip could be internally rotated 45 degrees at neutral and almost out for an ad adduction. The final components were impacted the head liner and shell. Vancomycin powder was applied. The joint capsule and short external rotators were repaired back to the hip abductor mechanism and greater trochanter with stitches through the bone. #1 Ethibond. Pulsatile irrigation was performed throughout surgical procedures. I then closed the gluteal fascia and iliotibial band with running and interrupted #1 Vicryl in the skin layers with 0 and 2-0 Vicryl. Antwon on the skin. I saw sterile dressing Xeroform 4 x 4's ABD and foam tape. Hip abduction pillow. Patient awakened from anesthesia difficulty and taken to the recovery in stable condition. The resected femoral head was sent for specimen. Counts were correct. Blood loss is estimated to be 50 cc. At the conclusion the operation spoke the patient's family informed of my findings. He may weight-bear as tolerated. Total hip precautions. Check postop x-rays. Will start DVT prophylaxis morning after operation. The components inserted were the Ai fracture stem size 9 with +6 neck length and a 48 shell. High offset. Distal symmetrical Eiser. I attest to the content of the Intraoperative Record and any orders documented therein. Any exceptions are noted below.
--- NOTE | 2024-06-29 15:14 | Operative Report ---
Post Operative Report Pre & Post Diagnosis Operation Date: 06/29/24 07:00 Pre-Op Diagnosis: Right Femoral Neck Fracture Post-Op Diagnosis: Right Femoral Neck Fracture I identified the patient and participated in the time-out.: Yes Procedure Operation Date: 06/29/24 07:00 Actual Procedures p Right Hip Bipolar Hemiarthroplasty, Cemented(Right) - Aleksander Lal MD Surgeon Aleksander Lal M.D. Advertising Display Rotator Cait Lucas PA-C; no fellow or resident available Estimated Blood Loss 50 Findings Consistent with Post-Op Diagnosis Specimens femoral head Drains None Anesthesia Type General Description of Procedure Patient was taken to the operating room, placed under general anesthesia. Positioned on the right lateral decubitus position. Time out performed. Given 2 gm IV ancef and 1 gm IV TXA preoperatively. Patient was prepped and draped in routine sterile fashion. I was present for the second half of the case, for trialing, implantation of cerclage wire, implants and cementing. I assisted with irrigation, closure and dressings as well. Please see Dr. Lal's operative report for further details. Patient was awakened and taken to the recovery room in stable condition. I attest to the content of the Intraoperative Record and any orders documented therein. Any exceptions are noted below.
--- NOTE | 2024-06-29 15:55 | Anesthesiology Progress Note ---
Date of Service June 29, 2024 Anesthesia Post Procedure Vital Signs Vital Signs: Temp Pulse Pulse Pulse Resp BP BP 06/29/24 15:45 66 19 137/52 L 06/29/24 15:35 36.6 C 65 16 147/58 H 06/29/24 15:25 67 14 149/56 H 06/29/24 15:15 64 20 147/58 H 06/29/24 15:05 68 19 152/47 H 06/29/24 14:59 36.1 C L 66 16 159/50 H 06/29/24 10:05 36.6 C 58 L 20 135/56 L 06/29/24 09:01 57 L 137/65 06/29/24 07:42 36.8 C 55 L 17 132/71 06/29/24 05:51 59 L 144/68 H 06/29/24 02:00 06/29/24 02:00 36.5 C 69 18 160/61 H 06/29/24 01:52 36.5 C 69 18 160/61 H 06/29/24 00:00 06/29/24 00:00 63 14 131/57 L 06/28/24 23:30 66 14 135/77 06/28/24 23:12 67 14 156/75 H 06/28/24 22:23 06/28/24 22:19 73 16 148/83 H 06/28/24 22:19 72 16 148/83 H 06/28/24 21:36 66 16 06/28/24 21:32 36.4 C L 71 14 112/74 06/28/24 21:30 71 Pulse Ox O2 Del Method O2 Flow Rate 06/29/24 15:45 98 Nasal Cannula 2 06/29/24 15:35 98 Nasal Cannula 2 06/29/24 15:25 96 Nasal Cannula 2 06/29/24 15:15 100 Oxymask 4 06/29/24 15:05 100 Oxymask 9 06/29/24 14:59 99 Oxymask 9 06/29/24 10:05 94 Room Air 06/29/24 09:01 06/29/24 07:42 99 Nasal Cannula 2 06/29/24 05:51 06/29/24 02:00 Nasal Cannula 2 06/29/24 02:00 100 Nasal Cannula 2 06/29/24 01:52 100 Nasal Cannula 2 06/29/24 00:00 100 Nasal Cannula 2 06/29/24 00:00 100 Nasal Cannula 2 06/28/24 23:30 95 Room Air 06/28/24 23:12 96 Room Air 06/28/24 22:23 95 Room Air 06/28/24 22:19 96 Room Air 06/28/24 22:19 95 Room Air 06/28/24 21:36 95 Room Air 06/28/24 21:32 95 Room Air 06/28/24 21:30 Pain Intensity Right Hip: Pain Intensity: 5 Transfer of Care Handoff Completed per policy Notes Mental Status: alert / awake / arousable Patient Amnestic to Procedure: Yes Nausea / Vomiting: adequately controlled Pain: adequately controlled Airway Patency, RR, SpO2: stable & adequate BP & HR: stable & adequate Hydration State: stable & adequate Anesthetic Complications: no major complications apparent and Pt Satisfied with anesthetic care
--- NOTE | 2024-06-29 16:12 | XRay Report ---
INDICATION: Pain TECHNIQUE: 2 views of the right hip were obtained. COMPARISON: None FINDINGS: No displaced acute osseous process is identified. Postsurgical changes of right hip arthroplasty with components in anatomic alignment. Expected postsurgical changes of the soft tissues. Extensive vascular calcifications. Overlying skin nikkie. IMPRESSION: Postsurgical changes of right hip arthroplasty with components in anatomic alignment. Expected postsurgical changes of the soft tissues. Electronically signed by Genaro Suresh 06-29-2024 4:12 PM
--- NOTE | 2024-06-29 16:17 | Orthopedic Progress Note ---
Date of Service June 29, 2024 Assessment & Plan (1) Femoral neck fracture: Plan: Stable postop. Pain control. Likely confused secondary to the stress of surgery at [facility]. Will check a.m. labs. Start blood thinner in the morning. PT and OT as able. He may weight-bear as tolerated. Total hip precautions. A routine course of postop IV antibiotics. I reviewed his CT scan reformatted images of the right elbow. I do not see any evidence of fracture. Will continue with the splint for now. Will avoid weightbearing on the right elbow and will reexamine at a more appropriate time. (2) Fracture, humerus closed: Admission and Anticipated Discharge Date Admission Date: June 29, 2024 Subjective Patient is resting comfortably in bed. Spoke with his nurse and the anesthesiologist. He has been mildly confused but following commands. He offers no complaint of pain Physical Exam Physical Exam: Capillary refills less than 2 seconds he reports sensation intact. He has 5 out of 5 ankle and toe plantarflexion dorsiflexion and eversion strength. Abduction pillow in place. The nurse will Doppler his pulses. Results & Data Vital Signs (Past 12 Hours) Vital Signs Temp Pulse Pulse Resp BP Pulse Ox O2 Del Method 06/29/24 15:45 66 19 137/52 L 98 Nasal Cannula 06/29/24 15:35 36.6 C 65 16 147/58 H 98 Nasal Cannula 06/29/24 15:25 67 14 149/56 H 96 Nasal Cannula 06/29/24 15:15 64 20 147/58 H 100 Oxymask 06/29/24 15:05 68 19 152/47 H 100 Oxymask 06/29/24 14:59 36.1 C L 66 16 159/50 H 99 Oxymask 06/29/24 10:05 36.6 C 58 L 20 135/56 L 94 Room Air 06/29/24 09:01 57 L 137/65 06/29/24 07:42 36.8 C 55 L 17 132/71 99 Nasal Cannula 06/29/24 05:51 59 L 144/68 H O2 Flow Rate 06/29/24 15:45 2 06/29/24 15:35 2 06/29/24 15:25 2 06/29/24 15:15 4 06/29/24 15:05 9 06/29/24 14:59 9 06/29/24 10:05 11/05/24 09:01 06/29/24 07:42 2 06/29/24 05:51 Diagnostic Findings Radiographs are reviewed postoperatively and show a concentric reduction of the hemiarthroplasty. Good cement technique. There is a cerclage wire in place and no evidence of complication or fracture. (1) Femoral neck fracture Encounter type: initial encounter Fracture type: closed Laterality: right Qualified Code(s): S72.001A - Fracture of unspecified part of neck of right femur, initial encounter for closed fracture (2) Fracture, humerus closed Encounter type: initial encounter Fracture alignment: nondisplaced Humerus Location: medial epicondyle Laterality: right
--- NOTE | 2024-06-29 17:07 | XRay Report ---
Exam(s): XR CXR 1 VIEW EXAM: XR Chest, 1 View CLINICAL HISTORY: Reason for exam: fall trauma. TECHNIQUE: Frontal view of the chest. COMPARISON: Chest x-ray 02/01/22. FINDINGS: Lungs: Minimal blunting left costophrenic angle, possible mild atelectasis or effusion. No consolidation. Pleural space: No pneumothorax. Heart: No cardiomegaly. Mediastinum: Unremarkable. Bones/Soft Tissues: No definite displaced fracture. IMPRESSION: 1. Minimal blunting left costophrenic angle, nonspecific, cannot rule out minimal effusion and/or atelectasis. Electronically signed by: Jina Fitch M.D. 06/28/24 23:10 PM
--- NOTE | 2024-06-29 17:07 | XRay Report ---
Exam(s): XR PELVIS EXAM: XR Pelvis, 1 or 2 Views CLINICAL HISTORY: Reason for exam: fall trauma. TECHNIQUE: Frontal view of the pelvis. COMPARISON: No relevant prior studies available. FINDINGS: Bones/joints: Foreshortening of the right femoral neck, probable impacted fracture. No other fracture. No dislocation. Soft tissues: Extensive arteriosclerosis and bilateral iliac stents. IMPRESSION: 1. Suspect impacted fracture right femoral neck. Electronically signed by: Jina Fitch M.D. 06/28/24 23:12 PM
--- NOTE | 2024-06-29 17:09 | XRay Report ---
Exam(s): XR RIGHT ELBOW EXAM: XR Right Elbow Complete, 3 or More Views CLINICAL HISTORY: Reason for exam: fall trauma. TECHNIQUE: Frontal, lateral and oblique views of the right elbow. COMPARISON: No relevant prior studies available. FINDINGS: Bones/joints: Linear lucency in the medial epicondyle distal humerus, seen on 1 view, possible nondisplaced fracture. No other or displaced fracture. No dislocation. Soft tissues: Unremarkable. No joint effusion. IMPRESSION: 1. Possible nondisplaced fracture medial epicondyle distal humerus. Electronically signed by: Jina Fitch M.D. 06/28/24 23:15 PM
[2024-06-29] MEDS: TRANEXAMIC ACID / 0.7% NACL 1,000 MG/100 ML BAG IV ONE (20:58)
[2024-06-29] MEDS: ESCITALOPRAM OXALATE 10 MG TAB PO SCH (21:02)
[2024-06-29] MEDS: ACETAMINOPHEN 325 MG TAB PO PRN (21:03)
[2024-06-29] MEDS: DOCUSATE SODIUM 100 MG CAP PO SCH (21:03)
[2024-06-29] MEDS: ceFAZolin 1000MG 1,000 MG/7.5 ML SYR IV SCH (21:12)
[2024-06-29] MEDS: oxyCODONE HCL IR 5 MG TAB (IMMEDIATE RELEASE) PO PRN (23:13)
[2024-06-30 07:40] LABS: BUN Creatinine Ratio 14.5 (10-20); Basophils # (auto) 0.01 K/uL (0.00-0.20); Basophils % (auto) 0.1 %; Calcium 8.8 mg/dl (8.6-10.3); Creatinine Clr Calc Pharmacy 11.7 ml/min; Hemoglobin 8.9 g/dl (14.0-18.0); Immature Granulocytes # (auto) 0.08 K/uL (0.01-0.20); Immature Granulocytes % (auto) 0.4 %; Lymphocytes # (auto) 0.36 K/uL (1.20-3.40); Magnesium 2.1 mg/dl (1.7-2.4); Mean Corpuscular Hemoglobin 30.3 pg (25.0-34.0); Mean Corpuscular Volume 91.8 fL (80.0-100.0); Mean Platelet Volume 11.4 fL (9.4-12.4); Monocytes # (auto) 2.03 K/uL (0.11-0.59); Monocytes % (auto) 11.3 %; Neutrophils % (auto) 86.2 %; Phosphorus 4.7 mg/dl (2.5-4.9); Platelet Count 139 K/uL (130-400); Potassium 3.8 mmol/L (3.5-5.1); RDW Coefficient of Variation 13.6 % (11.5-14.5); RDW Standard Deviation 46.2 fL (36.4-46.3); Red Blood Count 2.94 M/uL (4.70-6.10); White Blood Count 17.98 K/ul (4.8-10.8)
[2024-06-30] MEDS: APIXABAN 2.5 MG TAB PO SCH (09:08)
--- NOTE | 2024-06-30 11:22 | Orthopedic Progress Note ---
Date of Service June 30, 2024 Assessment & Plan (1) Femoral neck fracture: Plan: Patient doing as well as expected today postop day 1. He is receiving acetaminophen for pain control. Additional pain medication had been held due to his mild confusion yesterday and overnight though this seems to have cleared this morning. Labs show leukocytosis at 17.98, likely secondary to surgery. Stable CKD. Vitamin D is normal at 82.4. Hemoglobin 8.9 secondary to surgery. Continue with ice. Posterior hip precautions. Abduction pillow when in bed. Reviewed this with patient and nursing. Eliquis 2.5 mg twice daily started today. Dressing change tomorrow 07/01/2024. Physical therapy/Occupational Therapy. Per PT they recommended rehab. health manager met with patient and and are coordinating. Weightbearing as tolerated with platform walker. Will review with Dr. Lal (2) Fracture, humerus closed: Plan: Ortho-Glass splint was left in place today as it had been removed yesterday for examination. Dr. Lal had reviewed the CT and did not see any obvious fractures so we will address this afternoon. He can remove the sling as needed. Admission and Anticipated Discharge Date Admission Date: June 29, 2024 Subjective Patient postop day 1 s/p right hip bipolar hemiarthroplasty, cemented with Dr. Lal. He is seen sitting in a chair in his room this morning. Patient endorses a moderate amount of discomfort in his right hip. He has no pain in his right elbow. He states that he was able to stand up on his second attempt with physical therapy. He denies any chest pain or shortness of breath. No fevers or chills. He denies any numbness or tingling in his toes or fingers. He is able to move his toes and his fingers. Physical Exam Constitutional: Resting comfortably sitting upright in a chair in no acute distress. Pleasant. Respiratory: In no respiratory distress. Cardiovascular: Right DP pulse signal present with doppler per nursing Musculoskeletal: Right upper extremity: Ortho-Glass splint in place. Strength 5+ with wrist extension, thumb extension, thumb opposition to little finger, and finger spread with resisted adduction. Right lower extremity: Dressing is in place over the right hip. Trace old appearing ecchymosis noted superior to the dressing. Buttock is mildly tender, tissue is soft. Able to perform full active knee extension. Strength 5+ with ankle plantarflexion, dorsiflexion, eversion, and inversion. Moves all toes. Neurologic: No sensory deficits in bilateral upper or lower extremities to light touch Psychiatric: No obvious confusion noted Results & Data Vital Signs (Past 12 Hours) Vital Signs Temp Pulse Resp BP Pulse Ox O2 Del Method 06/30/24 11:11 97.7 F 82 16 114/68 93 Room Air 06/30/24 09:00 78 20 140/62 94 Room Air 06/30/24 07:16 98.6 F 78 16 119/64 93 Room Air 06/30/24 03:40 98.1 F 84 18 127/65 94 Room Air Laboratory Results 06/30/24 06/29/24 06:51 11:19 WBC 17.98 H RBC 2.94 L Hgb 8.9 L Hct 27.0 L MCV 91.8 MCH 30.3 MCHC 33.0 RDW Std Deviation 46.2 RDW Coeff of Collins 13.6 Plt Count 139 MPV 11.4 Immature Gran % (Auto) 0.4 Neut % (Auto) 86.2 Lymph % (Auto) 2.0 [place] % (Auto) 11.3 Eos % (Auto) 0.0 Baso % (Auto) 0.1 Neut # (Auto) 15.50 H Lymph # (Auto) 0.36 L [place] # (Auto) 2.03 H Eos # (Auto) 0.00 Baso # (Auto) 0.01 Immature Gran # (Auto) 0.08 Sodium 139 Potassium 3.8 Chloride 105 Carbon Dioxide 22 Anion Gap 12 H BUN 58 H Creatinine 3.99 H Est Cr Clr Drug Dosing 11.7 eGFR 13.67 BUN/Creatinine Ratio 14.5 Glucose 167 H Calcium 8.8 Phosphorus 4.7 Magnesium 2.1 25-OH Vitamin D Total 82.4 Blood Type Recheck AB Negative Diagnostic Findings Hip X-Ray 06/29/24 15:07 INDICATION: Pain TECHNIQUE: 2 views of the right hip were obtained. COMPARISON: None FINDINGS: No displaced acute osseous process is identified. Postsurgical changes of right hip arthroplasty with components in anatomic alignment. Expected postsurgical changes of the soft tissues. Extensive vascular calcifications. Overlying skin nikkie. IMPRESSION: Postsurgical changes of right hip arthroplasty with components in anatomic alignment. Expected postsurgical changes of the soft tissues. Electronically signed by Genaro Suresh 06-29-2024 4:12 PM (1) Femoral neck fracture Encounter type: initial encounter Fracture type: closed Laterality: right Qualified Code(s): S72.001A - Fracture of unspecified part of neck of right femur, initial encounter for closed fracture (2) Fracture, humerus closed Encounter type: initial encounter Fracture alignment: nondisplaced Humerus Location: medial epicondyle Laterality: right
[2024-06-30] MEDS: ACETAMINOPHEN 325 MG TAB PO SCH (12:03)
--- NOTE | 2024-06-30 17:19 | Hospitalist Progress Note ---
Date of Service June 30, 2024 Assessment & Plan (1) Femoral neck fracture: Plan: 88-year-old man with PMH of chronic systolic heart failure [EF 35 to 40%, TTE 2020], CAD status post stent, chronic LBBB, PVD, AAA status post surgery, HTN, HLD, CKD [baseline creatinine around 4], chronic anemia [baseline hemoglobin 10- 11], prediabetes, hypothyroidism, BPH, past tobacco abuse presented to the ED after fall/right hip and right elbow pain. Of note, patient slipped on wet tile at home causing him to fall down. He denied head trauma, LOC, chest pain, shortness of breath. Mechanical fall Traumatic right femoral neck fracture s/p Right Hip bipolar arthroplasty on 06/29 Concern for traumatic right humeral fracture per XR- ruled out as per Orthopedics Patient comes in with fall, and has right hip and right elbow pain. Admitting imagings: CXR- minimal blunting of left costophrenic angle, nonspecific. X-ray pelvis: Impacted fracture right femoral neck. X-ray right elbow: Possible nondisplaced fracture medial epicondyle distal humerus. CT right elbow: No suspicion of fracture was identified noted in prior x-ray. Pain management/bowel regimen; scheduled tylenol. PT/OT, Eliquis for dvt prophylaxis for next 35 days Possible dc to rehab in next few days Other chronic medical conditions: Continue with/resume home meds as and when able. Chronic systolic heart failure (EF 35 to 40%, TTE 2020), patient euvolemic hx CAD status post stent, stable cardiac symptoms as per outpatient [facility] cardio visit January 2024 chronic LBBB PVD/AAA status post surgery hypertension, stable hyperlipidemia, on statin Rx CRI, creatinine at baseline chronic anemia, hemoglobin at baseline prediabetes, hemoglobin A1c of 5.9 last year hypothyroidism, euthyroid as of TSH 2 months ago past tobacco abuse DVT prophylaxis. eliquis DNR Please note the above document was generated using voice recognition software. It may contain grammatical, syntax or spelling errors. Any formal questions or concerns about the content, text or information contained within the body of this dictation should be directly addressed to the provider for clarification Admission and Anticipated Discharge Date Admission Date: June 29, 2024 Subjective Patient seen and examined at bedside. He is comfortable; not in distress He reports minimal pain and discomfort No significant events overnight Review of Systems Review of Systems: All systems reviewed & are unremarkable except as noted in Subjective Physical Exam Physical Exam: Constitutional: Awake, oriented to self and place. Chestno wheeze, rales, rhonchi. Normal insp/exp effort, no accessory muscle use Cardiovascular: RRR, no murmur, no edema Vessels: no JVD or carotid bruit Chest: normal inspection of chest Abdomen: normal bowel sounds, soft, nontender, no hepatosplenomegaly Musculoskeletal: Dressing in right hip intact; no soakage. Neurologic: PERRL, EOMI, accommodation nl, no face palsy, no dysarthria CN's II- XI intact bilaterally and moves all extremities Results & Data Results & Data Vital Signs (Past 12 Hours) Vital Signs Temp Pulse Resp BP Pulse Ox O2 Del Method 06/30/24 15:35 37.2 C 74 18 118/53 L 93 Room Air 06/30/24 11:11 36.5 C 82 16 114/68 93 Room Air 06/30/24 09:00 78 20 140/62 94 Room Air 06/30/24 07:16 37 C 78 16 119/64 93 Room Air (1) Femoral neck fracture Encounter type: initial encounter Fracture type: closed Laterality: right Qualified Code(s): S72.001A - Fracture of unspecified part of neck of right femur, initial encounter for closed fracture
[2024-07-01 07:38] LABS: Hematocrit (blood only) 24.1 % (42.0-52.0); Mean Corpuscular Hemoglobin 30.5 pg (25.0-34.0); Mean Corpuscular Hgb Conc 33.2 g/dL (32.0-36.0); Mean Platelet Volume 11.6 fL (9.4-12.4); Platelet Count 132 K/uL (130-400); RDW Coefficient of Variation 13.5 % (11.5-14.5); RDW Standard Deviation 45.5 fL (36.4-46.3); Red Blood Count 2.62 M/uL (4.70-6.10); White Blood Count 14.05 K/ul (4.8-10.8)
[2024-07-01 08:00] LABS: BUN Creatinine Ratio 15.7 (10-20); Calcium 8.9 mg/dl (8.6-10.3); Creatinine Clr Calc Pharmacy 10.2 ml/min; Magnesium 2.2 mg/dl (1.7-2.4); Phosphorus 4.1 mg/dl (2.5-4.9); Potassium 3.7 mmol/L (3.5-5.1)
[2024-07-01] MEDS: SODIUM CHLORIDE 0.9% 1,000 ML IV SCH (09:41)
[2024-07-01 12:02] LABS: Urine Potassium 39.8 mmol/L
[2024-07-01 12:52] LABS: Appearance Urine Clear (Clear); Bacteria Urine Automated None Seen (None Seen); Bilirubin Urine Negative (Negative); Blood Urine 3+ (Negative); Color Urine Yellow; Glucose Urine UA Negative (Negative); Granular Casts Urine Present /lpf (None Prsent); Ketones Urine Negative (Negative); Leukocyte Esterase Urine Trace (Negative); Nitrite Urine Negative (Negative); Protein Urine 2+ (Negative); RBC Urine Automated >20 /hpf (0-2); Specific Gravity Urine 1.015 (1.000-1.030); Urobilinogen Urine Negative (Negative); pH Urine 5.5 (4.5-7.5)
--- NOTE | 2024-07-01 14:41 | Hospitalist Progress Note ---
Date of Service July 01, 2024 Assessment & Plan (1) Fall: (2) Femoral neck fracture: (3) Faiqx-nd-smcinmj kidney injury: (4) Acute on chronic anemia: Plan Theo Valencia is an 88y/o M with PMHx significant for dyslipidemia, acquired hypothyroidism, prediabetes, 1st degree AV block, CAD s/p stenting, chronic systolic heart failure [EF = 35-39%, TTE 06/2021], history of AR/ischemic cardiomyopathy, chronic LBBB, peripheral vascular disease, bilateral carotid artery stenosis, chronic anemia [baseline Hgb ~9-11], paroxysmal atrial fibrillation, AAA s/p surgery, HTN, GERD, constipation, CKD stage V/chronic renal insufficiency [baseline Cr ~4.0-4.4], BPH, tobacco use disorder and generalized osteoarthritis who presented to the ED via EMS on 06/29/2024 with right hip and right elbow pain after sustaining a fall. Right Hip Fracture S/P Mechanical Fall, Confusion: Admitting labwork/UA/CXR/EKG were all reviewed and unremarkable. Admitting Imaging Pelvis XR --> Suspected impacted right femoral neck fracture. R Elbow XR --> Possible nondisplaced fracture of the medial epicondyle distal humerus. R Elbow CT --> No evidence of any fractures as previously suspected on the R elbow XR. Orthopedic surgery onboard - Dr. Lal did not see any evidence of fracture on the patient's right elbow CT. R arm in an Ortho-Glass splint and sling. Patient underwent R hip bipolar hemiarthroplasty on 06/29/[address] Lal. Continue PT/OT. CM working on getting him placement. Authorization approved for [facility] but no beds available yet. Eliquis x 35 days for DVT prophylaxis. Patient with some intermittent episodes of confusion. Continue scheduled Tylenol. Judicious narcotic use in the setting of confusion, delirium precautions in place. MO on Progressive CKD Stage V/ESRD: Patient noted to have an MO with Cr of 4.59 today. Baseline Cr ~4.0-4.4 per chart review. Suspect due to relative hypotensive and poor oral intake, likely prerenal etiology. Currently producing urine, Hayes catheter in place; will defer additional lab/imaging diagnostic pending fluid resuscitation w/ 1L of gentle NSS.Avoid nephrotoxic medications when able. Monitor renal function closely and renally dose medications when able. Hold home Lasix for now and reassess volume status tomorrow. Patient follows closely with both Dr. Reza Whatley/Dr. Kaur Quiñones at [facility]. CKD stage 5 from combination HTN, atherosclerosis and age per recent documentation --> "Non-proteinuric type and slowly progressive for last few years." Patient has been managed conservatively without dialysis intervention per his request. If his Cr fails to improve with fluid resuscitation, will need to consult nephrology. Acute on Chronic Anemia: Hgb 8.0 today, baseline Cr ~9-11 per chart review. Likely dilutional component contributing as well. Monitor H/H and transfuse blood products PRN. Other Chronic Medical Conditions: BPH/anxiety/hypothyroidism/HTN/GERD/HLD --> Can continue home medications for these specific conditions. ASA on hold while on Eliquis. DVT Prophylaxis: On Eliquis, continue. Will need to be on Eliquis 2.5mg BID for a total of 35 days. Code Status: DNR/DNI - No Resuscitation PCP: Julianna Jones DO Disposition: Admitted in Med/Surg - Rehab placement pending, CM involved. Patient seen in collaboration with Dr. Hayes. Please see addendum. I spent a total of 50 minutes coordinating, documenting, and providing care for this patient excluding time spent in the performance of separately billed services. This included personally reviewing all current laboratories and imaging studies, medical reconciliation, outpatient chart review and discussion with specialists. This chart was completed in part utilizing Speech Voice Recognition Software. Grammatical errors, random word insertions, pronoun errors, and incomplete sentences are an occasional consequence of this system due to software limitations, ambient noise, and hardware issues. Any formal questions or concerns about the content, text, or information contained within the body of this dictation should be directly addressed to the provider for clarification. Admission and Anticipated Discharge Date Admission Date: June 29, 2024 Supervising Physician Co-Signing Physician Notes Patient seen and examined at bedside. Patient appears to be slightly tired compared to yesterday His creatinine is slightly high compared to baseline Plan to give some IV fluids Possible DC in a.m. I have reviewed the advanced practitioner's documentation, and I agree with, and take responsibility for the plan of care I spent a total of 20 minutes coordinating, documenting, and providing care for this patient excluding time spent in the performance of separately billed services. All of the aforementioned completed while collaborating with the assigned advanced practitioner for a full treatment plan Subjective Patient resting comfortably in bed this morning. Reports his right hip pain is under control at the moment. Nursing staff mentions he has been somewhat confused but was working well with PT/OT this morning. Denies any pain in his right arm. No chest pain or SOB. He has not had a bowel movement yet. He ate some of his breakfast this morning. Mentions that he slept very well last night. Review of Systems Review of Systems: At least ten systems reviewed and negative, except as noted in the subjective section. Physical Exam Physical Exam: General: NAD, lying in bed, sleepy, episodes of brief confusion but converses appropriately with direct questioning, A+Ox3. HEENT: Normocephalic, atraumatic. Conjunctivae normal, anicteric sclerae. External ear and nose normal, oropharynx a little dry. Respiratory: Normal respiratory effort, lungs clear to auscultation, no wheeze, rales, rhonchi. No accessory muscle use. Cardiovascular: Regular rate, rhythm, no murmur, normal peripheral pulses, no BLE edema. Vessels: No JVD. Abdomen/GI: Normal bowel sounds, soft, nontender, no hepatosplenomegaly. Extremities/Musculoskeletal: No cyanosis or clubbing, R hip dressing intact/dry, R arm in a sling. Neurologic: No focal deficits, CN's II-XI not formally tested but appear grossly intact bilaterally. Skin: No rashes, normal color, warm/dry. Has some bruising/evidence of healing skin tears on his BUE. Results & Data Results & Data Vital Signs (Past 12 Hours) Vital Signs Temp Pulse Resp BP Pulse Ox O2 Del Method 07/01/24 14:24 36.4 C L 93 H 17 111/68 94 Room Air 07/01/24 08:10 70 18 108/60 94 Room Air 07/01/24 07:50 Room Air 07/01/24 07:24 36.6 C 75 16 121/66 92 Room Air Laboratory Results Short CBC 07/01/24 Range/Units 05:53 WBC 14.05 H (4.8-10.8) K/ul Hgb 8.0 L (14.0-18.0) g/dl Hct 24.1 L (42.0-52.0) % Plt Count 132 (130-400) K/uL BMP 07/01/24 05:53 Sodium 136 Potassium 3.7 Chloride 102 Carbon Dioxide 22 BUN 72 H Creatinine 4.59 H* D Glucose 128 H Calcium 8.9 Urine 07/01/24 Range/Units Unknown Urine Color Yellow Urine Appearance Clear (Clear) Urine pH 5.5 (4.5-7.5) Ur Specific [place] 1.015 (1.000-1.030) Urine Protein 2+ H (Negative) Urine Glucose (UA) Negative (Negative) (1) Fall Encounter type: initial encounter Qualified Code(s): W19.XXXA - Unspecified fall, initial encounter (2) Femoral neck fracture Encounter type: initial encounter Fracture type: closed Laterality: right Qualified Code(s): S72.001A - Fracture of unspecified part of neck of right femur, initial encounter for closed fracture (3) Tlwer-ej-yucrzxo kidney injury Acute renal failure type: unspecified Chronic kidney disease stage: stage 5, not on chronic dialysis Qualified Code(s): N17.9 - Acute kidney failure, unspecified; N18.5 - Chronic kidney disease, stage 5
--- NOTE | 2024-07-01 16:42 | Orthopedic Progress Note ---
Date of Service July 01, 2024 Assessment & Plan (1) Femoral neck fracture: Plan: Patient doing as well as expected today postop day 2. He is receiving acetaminophen for pain control. Confusion from yesterday seems to be improved. Continue with ice As needed right hip. Elevate right lower extremity as needed for pain and swelling. Abduction pillow when in bed. Standard pillow or abduction pillow between knees when out of bed. Dressing changed today. Keep Incision covered at all times. Reinforce or redress as needed. Eliquis 2.5 mg twice daily started today. Dr. Lal present for today's visit. PT and OT as ordered. May be out of bed, weight-bear as tolerated on the right leg and right elbow. No longer needs the platform walker. Walker assistance at all times. Posterior hip precautions at all times. Elevate heels off of bed. Waffle boots were applied today. Will continue to follow. Follow-up with Dr. Lal approximately 2 weeks after surgery. (2) Contusion of elbow, right: Plan: Patient has normal strength, normal range of motion and no pain of the right elbow today. Will plan to discontinue the long-arm splint of the right upper extremity. He can use his right arm for all normal daily activities. He can use his walker and weight-bear as tolerated. Ice and elevate as needed. This was explained to the nurse. Admission and Anticipated Discharge Date Admission Date: June 29, 2024 Subjective Patient resting in bed. States he was sitting up in his chair and took a few steps this morning with physical therapy. Denies any significant pain when at rest. Denies any pain in his right arm. His splint is currently at his [facility]. There is a an IV in the antecubital fossa of his right elbow. Nurse states that last night he was taking the splint off so the night nurse removed it. He has been using his arm normally. Denies any pain in the elbow or arm. Denies any pain in his right hip. Abduction pillow is in place. Physical Exam Musculoskeletal: Exam of his right lower extremity: His incision is clean, dry and intact. Retained nikkie. Mild ecchymosis along the mid to distal aspect of the incision. No underlying seroma or fluctuance. No active drainage. Mild bloody drainage on the dressings. No distal edema. Distal pulses are 1+. Full ankle range of motion with normal strength. Calf is supple and nontender. Abduction pillow is in place and readjusted. No effusion to the right knee. New dressings were reapplied to the right hip incision. Exam of his right upper extremity: He has full active range of motion of the elbow with flexion and extension, pronation and supination. Nontender over any bony prominences throughout the right elbow forearm or hand. Does have some ecchymosis on the dorsum of his hand and his elbow area. There is no edema in the upper extremity. Active strength is 5/5. Distal pulses are 1+. Sensation is normal throughout the right upper extremity. Results & Data Vital Signs (Past 12 Hours) Vital Signs Temp Pulse Resp BP Pulse Ox O2 Del Method 07/01/24 14:24 36.4 C L 93 H 17 111/68 94 Room Air 07/01/24 08:10 70 18 108/60 94 Room Air 07/01/24 07:50 Room Air 07/01/24 07:24 36.6 C 75 16 121/66 92 Room Air Laboratory Results 07/01/24 07/01/24 Range/Units Unknown 05:53 WBC 14.05 H (4.8-10.8) K/ul RBC 2.62 L (4.70-6.10) M/uL Hgb 8.0 L (14.0-18.0) g/dl Hct 24.1 L (42.0-52.0) % MCV 92.0 (80.0-100.0) fL MCH 30.5 (25.0-34.0) pg MCHC 33.2 (32.0-36.0) g/dL RDW Std Deviation 45.5 (36.4-46.3) fL RDW Coeff of [place] 13.5 (11.5-14.5) % Plt Count 132 (130-400) K/uL MPV 11.6 (9.4-12.4) fL Sodium 136 (136-145) mmol/L Potassium 3.7 (3.5-5.1) mmol/L Chloride 102 (98-107) mmol/L Carbon Dioxide 22 (21-32) mmol/L Anion Gap 12 H (3-11) BUN 72 H (6-23) mg/dl Creatinine 4.59 H* D (0.6-1.4) mg/dl Est Cr Clr Drug Dosing 10.2 ml/min eGFR 11.56 BUN/Creatinine Ratio 15.7 (10-20) Glucose 128 H (70-99(Fasting)) mg/dl Calcium 8.9 (8.6-10.3) mg/dl Phosphorus 4.1 (2.5-4.9) mg/dl Magnesium 2.2 (1.7-2.4) mg/dl Urine Color Yellow Urine Appearance Clear (Clear) Urine pH 5.5 (4.5-7.5) Ur Specific [place] 1.015 (1.000-1.030) Urine Protein 2+ H (Negative) Urine Glucose (UA) Negative (Negative) Urine Ketones Negative (Negative) Urine Blood 3+ H (Negative) Urine Nitrite Negative (Negative) Urine Bilirubin Negative (Negative) Urine Urobilinogen Negative (Negative) Ur Leukocyte Esterase Trace H (Negative) Urine WBC (Auto) 11-20 H (0-5) /hpf Urine RBC (Auto) >20 H (0-2) /hpf U Hyaline Cast (Auto) 6-10 H (0-2) /lpf U Epithel Cells (Auto) 6-10 H (0-2) /hpf Urine Bacteria (Auto) None Seen (None Seen) Granular Casts Present A (None Prsent) /lpf Ur Random Creatinine 76.8 mg/dl Ur Random Sodium Cancelled Urine Sodium 25 mmol/L Urine Potassium 39.8 mmol/L Urine Chloride 18 mmol/L (1) Femoral neck fracture Encounter type: initial encounter Fracture type: closed Laterality: right Qualified Code(s): S72.001A - Fracture of unspecified part of neck of right femur, initial encounter for closed fracture
[2024-07-01] MEDS: POLYETHYLENE (MIRALAX) 17 GM PACK PO PRN (18:21)
[2024-07-02 07:07] LABS: Hematocrit (blood only) 19.7 % (42.0-52.0); Hemoglobin 6.8 g/dl (14.0-18.0); Mean Corpuscular Hemoglobin 30.6 pg (25.0-34.0); Mean Corpuscular Hgb Conc 34.5 g/dL (32.0-36.0); Mean Corpuscular Volume 88.7 fL (80.0-100.0); Mean Platelet Volume 11.5 fL (9.4-12.4); Platelet Count 140 K/uL (130-400); RDW Coefficient of Variation 13.3 % (11.5-14.5); RDW Standard Deviation 43.1 fL (36.4-46.3); Red Blood Count 2.22 M/uL (4.70-6.10); White Blood Count 9.84 K/ul (4.8-10.8)
[2024-07-02] MEDS ORDERED: SODIUM CHLORIDE 0.9% 50 ML IV PRN (07:29)
[2024-07-02] MEDS ORDERED: SODIUM CHLORIDE 0.9% 100 ML IV PRN (07:29)
[2024-07-02 07:30] LABS: BUN Creatinine Ratio 16.3 (10-20); Calcium 8.5 mg/dl (8.6-10.3); Creatinine Clr Calc Pharmacy 9.4 ml/min; Magnesium 2.2 mg/dl (1.7-2.4); Potassium 3.7 mmol/L (3.5-5.1)
--- NOTE | 2024-07-02 08:01 | Communication Note ---
Date of Service: July 02, 2024 Was made aware of the patient's critical hemoglobin value of 6.8 this morning via [employer]. Patient set to receive 1 unit of PRBCs. Patient also with a worsening MO with creatinine of 4.96 this morning. Nephrology consulted for further input/recommendations. Updated his , Bob, over the phone and she was agreeable with his treatment plan moving forward.
[2024-07-02] MEDS: diphenhydrAMINE 50 MG/ML VIAL IV ONE (08:58)
--- NOTE | 2024-07-02 09:20 | Hospitalist Progress Note ---
Date of Service July 02, 2024 Assessment & Plan (1) Fall: (2) Femoral neck fracture: (3) [id number] kidney injury: (4) Acute on chronic anemia: Plan Theo Valencia is an 88y/o M with PMHx significant for dyslipidemia, acquired hypothyroidism, prediabetes, 1st degree AV block, CAD s/p stenting, chronic systolic heart failure [EF = 35-39%, TTE 06/2021], history of SC/ischemic cardiomyopathy, chronic LBBB, peripheral vascular disease, bilateral carotid artery stenosis, chronic anemia [baseline Hgb ~9-11], paroxysmal atrial fibrillation, AAA s/p surgery, HTN, GERD, constipation, CKD stage V/chronic renal insufficiency [baseline Cr ~4.0-4.4], BPH, tobacco use disorder and generalized osteoarthritis who presented to the ED via EMS on 06/29/2024 with right hip and right elbow pain after sustaining a fall. Right Hip Fracture S/P Mechanical Fall, Confusion: Admitting labwork/UA/CXR/EKG were all reviewed and unremarkable. Admitting Imaging Pelvis XR --> Suspected impacted right femoral neck fracture. R Elbow XR --> Possible nondisplaced fracture of the medial epicondyle distal humerus. R Elbow CT --> No evidence of any fractures as previously suspected on the R elbow XR. Orthopedic surgery onboard - Dr. Lal did not see any evidence of fracture on the patient's right elbow CT. R arm splint/sling discontinued. Patient underwent R hip bipolar hemiarthroplasty on 06/29/[address] Lal. Continue PT/OT. CM working on getting him placement. Will need Eliquis x 35 days for DVT prophylaxis following surgery however it is currently on hold 2/2 wors ening anemia requiring transfusion. Patient with some intermittent episodes of confusion/disorientation. Continue scheduled Tylenol. Judicious narcotic use in the setting of confusion/disorientation, delirium precautions in place. MO on Progressive CKD Stage V/ESRD: MO noted yesterday with Cr of 4.59, Cr worsening to 4.96 today [baseline Cr ~4.0-4.4]. Suspect due to relative hypotensive and poor oral intake. Currently producing urine, Hayes catheter in place; s/p 1L NSS yesterday. Nephrology consulted for further recs/input. Continue to hold home Lasix for now. Avoid nephrotoxic medications when able. Monitor renal function closely and renally dose medications when able. Patient follows closely with both Dr. Reza Whatley/Dr. Kaur Quiñones at [facility]. CKD stage 5 from combination HTN, atherosclerosis and age per recent documentation --> "Non-proteinuric type and slowly progressive for last few years." Patient has been managed conservatively without dialysis intervention per his request. Acute on Chronic Anemia Requiring Transfusion: Hgb downtrended to 6.8 this morning, baseline Cr ~9-11 per chart review. 1 unit of PRBCs transfusing. Will repeat CBC approximately 1 hour after transfusion completes. Likely dilutional component contributing as well, s/p 1L NSS yesterday. Continue to closely monitor his Hgb. Eliquis on hold. Other Chronic Medical Conditions: BPH/anxiety/hypothyroidism/HTN/GERD/HLD --> Can continue home medications for these specific conditions. ASA on hold. DVT Prophylaxis: SCDs/TEDs for now, Eliquis now on hold 2/2 worsening anemia requiring transfusion. * Can likely resume his Eliquis tomorrow for DVT prophylaxis postoperatively if his Hgb improves. Code Status: DNR/DNI - No Resuscitation PCP: Julianna Jones DO Disposition: Admitted in Med/Surg - CM involved with arranging rehabilitation placement. Patient seen in collaboration with Dr. Hayes. Please see addendum. I spent a total of 50 minutes coordinating, documenting, and providing care for this patient excluding time spent in the performance of separately billed services. This included personally reviewing all current laboratories and imaging studies, medical reconciliation, outpatient chart review and discussion with specialists. This chart was completed in part utilizing Speech Voice Recognition Software. Grammatical errors, random word insertions, pronoun errors, and incomplete sentences are an occasional consequence of this system due to software limitations, ambient noise, and hardware issues. Any formal questions or concerns about the content, text, or information contained within the body of this dictation should be directly addressed to the provider for clarification. Admission and Anticipated Discharge Date Admission Date: June 29, 2024 Supervising Physician Co-Signing Physician Notes Patient seen and examined at bedside. He is awake, oriented to self and place. Creatinine continues to uptrend; Nephrology consulted 1 unit of packed RBCs given. Possible discharge in next few days if he continues to remain clinically stable I have reviewed the advanced practitioner's documentation, and I agree with, and take responsibility for the plan of care I spent a total of 20 minutes coordinating, documenting, and providing care for this patient excluding time spent in the performance of separately billed services. All of the aforementioned completed while collaborating with the assigned advanced practitioner for a full treatment plan Subjective Patient receiving 1 unit of PRBCs this morning due to a critical hemoglobin value of 6.8 this morning. He was sleepy when I entered the room and not very conversive as he had previously received some IV Benadryl prior to the transfusion beginning. He did report some mild neck and right heel pain. Mentions he slept "fine" last night. Nursing staff at bedside reports the patient was conversive this morning prior to receiving the Benadryl and ate his breakfast without issue. He takes a few sips of water here and there. Review of Systems Review of Systems: At least ten systems reviewed and negative, except as noted in the subjective section. Physical Exam Physical Exam: General: NAD, lying in bed, very sleepy but easily arousable with verbal/physical stimulation, A+O to direct questioning. HEENT: Normocephalic, atraumatic. Conjunctivae normal, anicteric sclerae. External ear and nose normal, oropharynx dry. Respiratory: Normal respiratory effort, lungs clear to auscultation, no wheeze, rales, rhonchi. No accessory muscle use. Cardiovascular: Regular rate, rhythm, no murmur, normal peripheral pulses, no BLE edema. Vessels: No JVD. Abdomen/GI: Normal bowel sounds, soft, nontender, no hepatosplenomegaly. Extremities/Musculoskeletal: No cyanosis or clubbing, R hip dressing intact/dry, R arm splint/sling off, both feet in waffle boots. Neurologic: No focal deficits, CN's II-XI not formally tested but appear grossly intact bilaterally. Skin: No rashes, normal color, warm/dry. Has some bruising/evidence of healing skin tears on his BUE, no open foot wounds. Results & Data Results & Data Vital Signs (Past 12 Hours) Vital Signs Temp Pulse Resp BP Pulse Ox O2 Del Method 07/02/24 07:50 36.7 C 80 18 118/63 94 Room Air Laboratory Results Short CBC 07/02/24 Range/Units 06:32 WBC 9.84 (4.8-10.8) K/ul Hgb 6.8 L* (14.0-18.0) g/dl Hct 19.7 L* (42.0-52.0) % Plt Count 140 (130-400) K/uL BMP 07/02/24 06:32 Sodium 136 Potassium 3.7 Chloride 105 Carbon Dioxide 22 BUN 81 H Creatinine 4.96 H* D Glucose 108 H Calcium 8.5 L Urine 07/01/24 Range/Units Unknown Urine Color Yellow Urine Appearance Clear (Clear) Urine pH 5.5 (4.5-7.5) Ur Specific [place] 1.015 (1.000-1.030) Urine Protein 2+ H (Negative) Urine Glucose (UA) Negative (Negative) (1) Fall Encounter type: initial encounter Qualified Code(s): W19.XXXA - Unspecified fall, initial encounter (2) Femoral neck fracture Encounter type: initial encounter Fracture type: closed Laterality: right Qualified Code(s): S72.001A - Fracture of unspecified part of neck of right femur, initial encounter for closed fracture (3) Qcyro-[id number] kidney injury Acute renal failure type: unspecified Chronic kidney disease stage: stage 5, not on chronic dialysis Qualified Code(s): N17.9 - Acute kidney failure, unspecified; N18.5 - Chronic kidney disease, stage 5
--- NOTE | 2024-07-02 09:34 | Orthopedic Progress Note ---
Date of Service July 02, 2024 Assessment & Plan (1) Femoral neck fracture: Plan: Patient doing as well as expected today postop day 3. He is receiving acetaminophen for pain control. Continue with ice As needed right hip. Elevate right lower extremity as needed for pain and swelling. Abduction pillow when in bed. Standard pillow or abduction pillow between knees when out of bed. Dressing changed today By nursing. Keep Incision covered at all times. Reinforce or redress as needed. Eliquis 2.5 mg twice daily started today. PT and OT as ordered. May be out of bed, weight-bear as tolerated on the right leg and right elbow. No longer needs the platform walker. Walker assistance at all times. Posterior hip precautions at all times. Elevate heels off of bed. Waffle boots are in place. Will continue to follow. Follow-up with Dr. Lal approximately 2 weeks after surgery. (2) Contusion of elbow, right: Plan: Patient has normal strength, normal range of motion and no pain of the right elbow today. Splint discontinued yesterday. He can use his right arm for all normal daily activities. He can use his walker and weight-bear as tolerated. Ice and elevate as needed. Admission and Anticipated Discharge Date Admission Date: June 29, 2024 Subjective This 88-year-old male is 3 days status post right hip hemiarthroplasty with Dr. Lal. Nurse at bedside states that she changed his dressing earlier today. She states that last night he was little disoriented and complained of being hot and feels that that may have attributed to him removing the dressing as well as his gown. Currently the Patient resting in bed Very pleasant and answers all questions clearly and effectively. Denies any significant pain when at rest. Denies any pain in his right arm. Patient has his abduction pillow in place. He denies any pain in his left forearm. He also denies chest pain, shortness of breath, fever, chills, sweats or numbness or tingling in any of his extremities. Review of Systems Review of Systems: All systems reviewed & are unremarkable except as noted in Subjective Physical Exam Physical Exam: Right lower extremity: Dressing is clean dry and intact. He has no tenderness circumferentially around the incision. I did unstrapped his abduction pillow to see if he could perform active straight leg raise test, however he was unable to do so. He was able to actively dorsi and plantarflex his foot and detect light sensation to touch over the pads of his digits. He tolerated light passive hip flexion to 60 degrees and only experiences slight twinge with light passive internal rotation and no discomfort with light passive external rotation. His calf is soft and supple nontender to palpation. He is neurovascularly intact in right lower extremity. Right upper extremity: He has full active range of motion of the elbow with flexion and extension, pronation and supination. Nontender over any bony prominences throughout the right elbow forearm or hand. Does have some ecchymosis on the dorsum of his hand and his elbow area. There is no edema in the upper extremity. Active strength is 5/5. Distal pulses are 1+. Sensation is normal throughout the right upper extremity. Results & Data Vital Signs (Past 12 Hours) Vital Signs Temp Pulse Resp BP Pulse Ox O2 Del Method 07/02/24 07:50 36.7 C 80 18 118/63 94 Room Air Diagnostic Findings Laboratory Results WBC 9.84 K/ul (4.8-10.8) 07/02/24 06:32 RBC 2.22 M/uL (4.70-6.10) L 07/02/24 06:32 Hgb 6.8 g/dl (14.0-18.0) L* 07/02/24 06:32 Hct 19.7 % (42.0-52.0) L* 07/02/24 06:32 MCV 88.7 fL (80.0-100.0) 07/02/24 06:32 MCH 30.6 pg (25.0-34.0) 07/02/24 06:32 MCHC 34.5 g/dL (32.0-36.0) 07/02/24 06:32 RDW Std Deviation 43.1 fL (36.4-46.3) 07/02/24 06:32 RDW Coeff of [place] 13.3 % (11.5-14.5) 07/02/24 06:32 Plt Count 140 K/uL (130-400) 07/02/24 06:32 MPV 11.5 fL (9.4-12.4) 07/02/24 06:32 Immature Gran % (Auto) 0.4 % 06/30/24 06:51 Neut % (Auto) 86.2 % 06/30/24 06:51 Lymph % (Auto) 2.0 % 06/30/24 06:51 [place] % (Auto) 11.3 % 06/30/24 06:51 Eos % (Auto) 0.0 % 06/30/24 06:51 Baso % (Auto) 0.1 % 06/30/24 06:51 Neut # (Auto) 15.50 K/uL (1.40-6.50) H 06/30/24 06:51 Lymph # (Auto) 0.36 K/uL (1.20-3.40) L 06/30/24 06:51 [place] # (Auto) 2.03 K/uL (0.11-0.59) H 06/30/24 06:51 Eos # (Auto) 0.00 K/uL (0.00-0.50) 06/30/24 06:51 Baso # (Auto) 0.01 K/uL (0.00-0.20) 06/30/24 06:51 Immature Gran # (Auto) 0.08 K/uL (0.01-0.20) 06/30/24 06:51 PT 11.0 Seconds (9.0-12.0) 06/28/24 22:40 INR 1.0 (0.9-1.1) 06/28/24 22:40 APTT 24 Seconds (21-31) 06/28/24 22:40 PTT Ratio 0.9 06/28/24 22:40 Sodium 136 mmol/L (136-145) 07/02/24 06:32 Potassium 3.7 mmol/L (3.5-5.1) 07/02/24 06:32 Chloride 105 mmol/L (98-107) 07/02/24 06:32 Carbon Dioxide 22 mmol/L (21-32) 07/02/24 06:32 Anion Gap 9 (3-11) 07/02/24 06:32 BUN 81 mg/dl (6-23) H 07/02/24 06:32 Creatinine 4.96 mg/dl (0.6-1.4) H* D 07/02/24 06:32 Est Cr Clr Drug Dosing 9.4 ml/min 07/02/24 06:32 eGFR 10.53 07/02/24 06:32 BUN/Creatinine Ratio 16.3 (10-20) 07/02/24 06:32 Glucose 108 mg/dl (70-99(Fasting)) H 07/02/24 06:32 Calcium 8.5 mg/dl (8.6-10.3) L 07/02/24 06:32 Phosphorus 4.0 mg/dl (2.5-4.9) 07/02/24 06:32 Magnesium 2.2 mg/dl (1.7-2.4) 07/02/24 06:32 Total Bilirubin 0.4 mg/dl (0.2-1.0) 06/28/24 22:40 AST 20 U/L (13-39) 06/28/24 22:40 ALT 18 U/L (7-52) 06/28/24 22:40 Alkaline Phosphatase 89 U/L (34-104) 06/28/24 22:40 Total Protein 6.9 gm/dl (6.0-8.3) 06/28/24 22:40 Albumin 3.9 gm/dl (3.4-5.0) 06/28/24 22:40 Globulin 3.0 gm/dl (2.5-4.0) 06/28/24 22:40 Albumin/Globulin Ratio 1.3 (0.9-2) 06/28/24 22:40 25-OH Vitamin D Total 82.4 ng/ml (30-100) 06/30/24 06:51 Urine Color Yellow 07/01/24 Unknown Urine Appearance Clear (Clear) 07/01/24 Unknown Urine pH 5.5 (4.5-7.5) 07/01/24 Unknown Ur Specific [place] 1.015 (1.000-1.030) 07/01/24 Unknown Urine Protein 2+ (Negative) H 07/01/24 Unknown Urine Glucose (UA) Negative (Negative) 07/01/24 Unknown Urine Ketones Negative (Negative) 07/01/24 Unknown Urine Blood 3+ (Negative) H 07/01/24 Unknown Urine Nitrite Negative (Negative) 07/01/24 Unknown Urine Bilirubin Negative (Negative) 07/01/24 Unknown Urine Urobilinogen Negative (Negative) 07/01/24 Unknown Ur Leukocyte Esterase Trace (Negative) H 07/01/24 Unknown Urine WBC (Auto) 11-20 /hpf (0-5) H 07/01/24 Unknown Urine RBC (Auto) >20 /hpf (0-2) H 07/01/24 Unknown U Hyaline Cast (Auto) 6-10 /lpf (0-2) H 07/01/24 Unknown U Epithel Cells (Auto) 6-10 /hpf (0-2) H 07/01/24 Unknown Urine Bacteria (Auto) None Seen (None Seen) 07/01/24 Unknown Granular Casts Present /lpf (None Prsent) A 07/01/24 Unknown Ur Random Creatinine 76.8 mg/dl 07/01/24 Unknown Ur Random Sodium Cancelled 07/01/24 Unknown Urine Sodium 25 mmol/L 07/01/24 Unknown Urine Potassium 39.8 mmol/L 07/01/24 Unknown Urine Chloride 18 mmol/L 07/01/24 Unknown Blood Type AB Negative 07/02/24 07:47 Blood Type Recheck AB Negative 06/29/24 11:19 Antibody Screen NEGATIVE 07/02/24 07:47 Crossmatch See Detail 07/02/24 07:47 Impressions Chest X-Ray 06/28/24 22:04 Exam(s): XR CXR 1 VIEW EXAM: XR Chest, 1 View CLINICAL HISTORY: Reason for exam: fall trauma. TECHNIQUE: Frontal view of the chest. COMPARISON: Chest x-ray 02/01/22. FINDINGS: Lungs: Minimal blunting left costophrenic angle, possible mild atelectasis or effusion. No consolidation. Pleural space: No pneumothorax. Heart: No cardiomegaly. Mediastinum: Unremarkable. Bones/Soft Tissues: No definite displaced fracture. IMPRESSION: 1. Minimal blunting left costophrenic angle, nonspecific, cannot rule out minimal effusion and/or atelectasis. Electronically signed by: Jina Fitch M.D. 06/28/24 23:10 PM Pelvis X-Ray 06/28/24 22:04 Exam(s): XR PELVIS EXAM: XR Pelvis, 1 or 2 Views CLINICAL HISTORY: Reason for exam: fall trauma. TECHNIQUE: Frontal view of the pelvis. COMPARISON: No relevant prior studies available. FINDINGS: Bones/joints: Foreshortening of the right femoral neck, probable impacted fracture. No other fracture. No dislocation. Soft tissues: Extensive arteriosclerosis and bilateral iliac stents. IMPRESSION: 1. Suspect impacted fracture right femoral neck. Electronically signed by: Jina Fitch M.D. 06/28/24 23:12 PM Elbow X-Ray 06/28/24 22:08 Exam(s): XR RIGHT ELBOW EXAM: XR Right Elbow Complete, 3 or More Views CLINICAL HISTORY: Reason for exam: fall trauma. TECHNIQUE: Frontal, lateral and oblique views of the right elbow. COMPARISON: No relevant prior studies available. FINDINGS: Bones/joints: Linear lucency in the medial epicondyle distal humerus, seen on 1 view, possible nondisplaced fracture. No other or displaced fracture. No dislocation. Soft tissues: Unremarkable. No joint effusion. IMPRESSION: 1. Possible nondisplaced fracture medial epicondyle distal humerus. Electronically signed by: Jina Fitch M.D. 06/28/24 23:[address] 06/28/24 23:41 EXAM: CT elbow RT wo con CLINICAL HISTORY: rt elbow fx INPATIENT TECHNIQUE: Thin axial CT of the right elbow joint without contrast was performed with coronal and sagittal reconstructions. One of the following dose reduction techniques were utilized for this exam: Automated exposure control, adjustment of the mA and/or kV according to patient size, and use of iterative reconstruction. COMPARISON: Prior x-ray dated 06/13/2021 was reviewed FINDINGS: Bones. Normal alignment of the distal humerus, radius, and ulna. Cortical irregularity is identified in the capitellum. Small density is also identified along the trochlea of the humerus Normal bone density. Joints. Mildly reduced radiocapitellar and ulnohumeral joint spaces Soft Tissues: Soft tissue and muscle edema is identified at the lateral aspect of the elbow joint. Overlying cast application is seen IMPRESSION: 1. Cortical irregularity is identified along the capitellum, raising the suspicion of avulsion fracture, and soft tissue and muscle edema is also seen at the lateral aspect, of the elbow joint MRI suggested for further evaluation. No Suspicion of fracture was identified in prior x-ray 2. Small density is also identified along the trochlea of the humerus, likely enthesopathy. Clinical correlation is suggested. 3. Mildly reduced radiocapitellar and ulnohumeral joint spaces, Likely due to degenerative changes. No such changes seen prior xray Electronically signed by Aneta Galvez 06-29-2024 02:32 AM Hip X-Ray 06/29/24 15:07 INDICATION: Pain TECHNIQUE: 2 views of the right hip were obtained. COMPARISON: None FINDINGS: No displaced acute osseous process is identified. Postsurgical changes of right hip arthroplasty with components in anatomic alignment. Expected postsurgical changes of the soft tissues. Extensive vascular calcifications. Overlying skin nikkie. IMPRESSION: Postsurgical changes of right hip arthroplasty with components in anatomic alignment. Expected postsurgical changes of the soft tissues. Electronically signed by Genaro Suresh 06-29-2024 4:12 PM (1) Femoral neck fracture Encounter type: initial encounter Fracture type: closed Laterality: right Qualified Code(s): S72.001A - Fracture of unspecified part of neck of right femur, initial encounter for closed fracture
--- NOTE | 2024-07-02 10:09 | Nephrology Consultation ---
Date of Consultation July 02, 2024 Assessment & Plan (1) Mxwaf-bi-dcnlvzn kidney injury: non oliguric MO on CKD5 for baseline creatinine 4.1-4.5. Presenting creatinine 4.1, w/ abrupt uptick on day of surgery up to 5 today. cause of worsening renal function likely multifactorial >> intercurrent illness/ physical stress of surgery +/- renal ischemia w/ anemia -daily BMP -reiterated goals of care > pt is for conservative management (2) Acute on chronic anemia: -for pRBC >>CXR 1-2 hrs after transfusion complete to monitor how he's handling volume had been under consideration but he is now charted as being on RA and will defer to AM > so ordered (3) ESRD (end stage renal disease): ESRD worsening acutely as above in background of progressive CKD History of Present Illness Reason for Consultation: MO on CKD 5 Requesting Physician: Dr Hayes Attending Physician: Nik Hayes MD History of Present Illness 88-year-old male whom I am asked to evaluate for acute kidney injury on CKD 5 was admitted June 29 for management of a right hip fracture after falling at home, s/p 06/29 hip hemiarthroplasty. Past medical history includes CAD s/p LAD stent, paroxysmal AF, ischemic cardiomyopathy, LBBB, HTN, PVD, AAA s/p 2016 repair, prediabetes, GERD, lumbar spinal stenosis, hypothyroidism, HL. His baseline creatinine in 2023 in [facility] is about 4 for a GFR of 14-15 or CKD 5; however in April/May his creatinine has run more in the mid 4's and has new 1 gm proteinuria, though historically with no proteinuria. He follows w/ Dr Whatley in CKD clinic and should his renal function worsen is for conservative management/no dialysis. He was here in late April for aggressive behavior and presented at that time with a creatinine of 4.5. At follow-up clinic visit, his creatinine remained at 4.4. His new baseline seems to be low to mid fours. His presenting creatinine on arrival here was 4.1 and stayed in this range until yesterday when it went up to 4.6, and up to 5 this morning. He presented with stable chronic anemia of 10.6 with hemoglobin gradually trending down to 6.8 this morning. He is currently receiving 1 unit pRBC. He has not had IV contrast or hemodynamic instability. His customary lasix of 80 mg daily was stopped at admission and he has been receiving NS at 50 mL hourly. He is overall 900 mL positive on the admission so far. When I saw him on late AM rounds he was fairly lethargic but did waken briefly to deny abdominal or musculoskeletal pain to me, to tell me no dypsnea, no nausea. He knows where he is and does reiterate to me when asked that he wants no dialysis should the need arise. Allergies Allergy/AdvReac Type Severity Reaction Status Date / Time No Known Allergies Allergy Verified 04/16/24 11:09 Home Medications Medication Instructions Recorded Confirmed Type aspirin 81 mg tablet,delayed 81 mg PO QAM 02/20/19 06/28/24 History release levothyroxine 25 mcg tablet 25 mcg PO QAM 02/20/19 06/28/24 History nitroglycerin 0.4 mg sublingual 0.4 mg sublingual UD PRN Chest Pain 02/20/19 06/28/24 History tablet (Nitrostat) tamsulosin 0.4 mg capsule 0.4 mg PO QAM 02/20/19 06/28/24 History metoprolol succinate 25 mg 12.5 mg PO QAM 07/26/19 06/28/24 History tablet,extended release 24 hr (Toprol XL) omeprazole 20 mg capsule,delayed 20 mg PO QAM 03/14/21 06/28/24 History release polyethylene glycol 3350 17 gram 17 g PO QAM PRN Constipation 04/16/24 06/28/24 History oral powder packet (Miralax) atorvastatin 80 mg tablet 80 mg PO DAILY 05/14/24 06/28/24 History cholecalciferol (vitamin D3) 25 25 mcg PO DAILY 05/14/24 06/28/24 History mcg (1,000 unit) tablet (Vitamin D3) finasteride 5 mg tablet 5 mg PO DAILY 05/14/24 06/28/24 History furosemide 80 mg tablet 80 mg PO DAILY 05/14/24 06/28/24 History escitalopram oxalate 5 mg tablet 5 mg PO HS #30 tabs 05/16/24 06/28/24 Rx acetaminophen 500 mg tablet 1,000 mg PO BID PRN Pain 06/28/24 06/28/24 History cyanocobalamin (vitamin B-12) 500 500 mcg PO DAILY 06/28/24 06/28/24 History mcg tablet (Vitamin B-12) lutein 20 mg capsule 20 mg PO DAILY 06/28/24 06/28/24 History peg 400-propylene glycol (PF) 0.4 1 drp ophthalmic (eye) DAILY 06/28/24 06/28/24 History %-0.3 % eye drops in a dropperette (Systane (PF)) Patient History Medical History CKD (chronic kidney disease) stage 5, GFR less than 15 ml/min Osteoarthritis Chronic back pain GERD (gastroesophageal reflux disease) Hypothyroidism Prediabetes Macular degeneration HLD (hyperlipidemia) Myocardial infarction 1987 Surgical History Hx laparoscopic cholecystectomy (01/13/22) Laparoscopic cholecystectomy with lysis of adhesions. Dr. Gann 01/13/2022 History of colonoscopy History of AAA (abdominal aortic aneurysm) repair 2015 H/O heart artery stent x 1 History of cardiac catheterization 1987 - [place] - stent History of appendectomy Family History Other No family history of adverse response to anesthesia No significant family history Social History Smoking Status: Former smoker Tobacco Type: Cigarettes Second Hand Exposure: No; Do You Dip or Chew Tobacco: No; Hx Alcohol Use: No Hx Substance Use: No Preferred Language: Indonesian Communication Ability: Effective Visual Impairment: Limited Hearing Ability: Normal Cast Associate Required: No Beliefs That Will Affect Care: None marital status: Current Living Situation: Spouse and Other Current Living Situation Comment: son Other Information That Helps Us Care for You: No Feels Safe at Home: Yes Safety Concerns: Feels Safe At This Time Assistive Devices: Cane and Walker Review of Systems 2 Review of Systems: All systems reviewed & are unremarkable except as noted in HPI & below Physical Exam 2 Constitutional: well developed and well nourished ENMT: Mouth: + dry oral mucous membranes Respiratory: normal respiratory effort Auscultation: + diminished lung sounds Cardiovascular: Rate/Rhythm: regular rate and regular rhythm Extremities: n o edema Gastrointestinal (Abdomen): Inspection/Auscultation: normal bowel sounds P ercussion/Palpation: abdomen soft; abdomen nontender Musculoskeletal: Extremities: strength 5/5 throughout Skin: no rashes, warm and dry Neurologic: mercado, fluent speech, no tremor Results & Data Vital Signs (Past 12 Hours) Vital Signs Temp Pulse Pulse Resp BP BP Pulse Ox 07/02/24 09:49 36.4 C L 77 16 107/59 L 96 07/02/24 09:33 36.4 C L 80 18 107/61 96 07/02/24 07:50 36.7 C 80 18 118/63 94 O2 Del Method 07/02/24 09:49 07/02/24 09:33 07/02/24 07:50 Room Air Laboratory Results 07/02/24 06:32 07/02/24 06:32 Diagnostic Findings cxr 1. Minimal blunting left costophrenic angle, nonspecific, cannot rule out minimal effusion and/or atelectasis. (1) Rtafr-pv-kyhxsef kidney injury Acute renal failure type: unspecified Chronic kidney disease stage: stage 5, not on chronic dialysis Qualified Code(s): N17.9 - Acute kidney failure, unspecified; N18.5 - Chronic kidney disease, stage 5
[2024-07-02 13:36] LABS: Hemoglobin 7.9 g/dl (14.0-18.0); Mean Corpuscular Hemoglobin 29.3 pg (25.0-34.0); Mean Corpuscular Hgb Conc 32.9 g/dL (32.0-36.0); Mean Corpuscular Volume 88.9 fL (80.0-100.0); Mean Platelet Volume 11.5 fL (9.4-12.4); Platelet Count 145 K/uL (130-400); RDW Coefficient of Variation 14.6 % (11.5-14.5); RDW Standard Deviation 47.8 fL (36.4-46.3); White Blood Count 9.21 K/ul (4.8-10.8)
[2024-07-03 06:52] LABS: Hemoglobin 8.3 g/dl (14.0-18.0); Mean Corpuscular Hemoglobin 29.4 pg (25.0-34.0); Mean Corpuscular Hgb Conc 33.2 g/dL (32.0-36.0); Mean Corpuscular Volume 88.7 fL (80.0-100.0); Mean Platelet Volume 10.9 fL (9.4-12.4); Platelet Count 164 K/uL (130-400); RDW Coefficient of Variation 15.3 % (11.5-14.5); Red Blood Count 2.82 M/uL (4.70-6.10); White Blood Count 9.69 K/ul (4.8-10.8)
[2024-07-03 07:21] LABS: BUN Creatinine Ratio 18.7 (10-20); Calcium 8.5 mg/dl (8.6-10.3); Creatinine Clr Calc Pharmacy 9.9 ml/min; Magnesium 2.2 mg/dl (1.7-2.4); Phosphorus 4.1 mg/dl (2.5-4.9)
--- NOTE | 2024-07-03 08:04 | Hospitalist Progress Note ---
Date of Service July 03, 2024 Assessment & Plan (1) Fall: (2) Femoral neck fracture: (3) Lpipq-br-iczvkzn kidney injury: (4) Acute on chronic anemia: Plan Theo Valencia is an 88y/o M with PMHx significant for dyslipidemia, acquired hypothyroidism, prediabetes, 1st degree AV block, CAD s/p stenting, chronic systolic heart failure [EF = 35-39%, TTE 06/2021], history of [place]/ischemic cardiomyopathy, chronic LBBB, peripheral vascular disease, bilateral carotid artery stenosis, chronic anemia [baseline Hgb ~9-11], paroxysmal atrial fibrillation, AAA s/p surgery, HTN, GERD, constipation, CKD stage V/chronic renal insufficiency [baseline Cr ~4.0-4.4], BPH, tobacco use disorder and generalized osteoarthritis who presented to the ED via EMS on 06/29/2024 with right hip and right elbow pain after sustaining a fall. Right Hip Fracture S/P Mechanical Fall, Confusion: Admitting Imaging Pelvis XR --> Suspected impacted right femoral neck fracture. R Elbow XR --> Possible nondisplaced fracture of the medial epicondyle distal humerus. R Elbow CT --> No evidence of any fractures as previously suspected on the R elbow XR. Ortho onboard - did not see any evidence of fracture on the patient's right elbow CT. R arm splint/sling discontinued. Patient underwent R hip bipolar hemiarthroplasty on 06/29/[address] Lal; POD #4. no evidence of fracture on right elbow CT Continue PT OT while case management continues to work on placement; suspect possible bed availability at [facility] tomorrow 07/04 Patient with previous episodes of confusion/disorientation; appears AAOx3 today. Continue scheduled Tylenol for pain control Be cautious of narcotic use in the setting of confusion or disorientation; no signs of delirium today Discussed with Ortho regarding anticoagulation postop; see below for anemia. MO on Progressive CKD Stage V/ESRD: MO noted yesterday with Cr of 4.59, Cr today 4.71 [baseline Cr ~4.0-4.4]. Suspect due to relative hypotensive and poor oral intake. Continues to produce urine, Hayes catheter in place; s/p 1L NSS yesterday. Nephrology consulted for further recs/input; appreciate insight. Continue to hold home Lasix for now. Avoid nephrotoxic medications when able. Monitor renal function closely and renally dose medications when able. Follows closely with both Dr. Reza Whatley/Dr. Kaur Quioñnes at [facility]. CKD stage 5 from combination HTN, atherosclerosis and age per recent documentation --> "Non-proteinuric type and slowly progressive for last few years." Patient has been managed conservatively without dialysis intervention per his request. Acute on Chronic Anemia Requiring Transfusion: Hgb downtrended to 6.8 on 07/02, baseline Cr ~9-11 per chart review. sp 1UPRBC. Likely dilutional component contributing as well, s/p 1L NSS yesterday. Monitor Hgb daily; no overt signs of bleeding Repeat Hgb this AM 8.3; restart Eliquis and trend hgb in AM Other Chronic Medical Conditions: BPH/anxiety/hypothyroidism/HTN/GERD/HLD --> Can continue home medications for these specific conditions. ASA on hold. DVT Prophylaxis: SCDs/TEDs for now, Eliquis restarted 07/04 Code Status: DNR/DNI PCP: Julianna Jones DO Disposition: Admitted in Med/Surg - CM involved with arranging rehabilitation placement; no bed at [facility] today Possibly tomorrow 07/04 I spent a total of 50 minutes coordinating, documenting, and providing care for this patient excluding time spent in the performance of separately billed services. This included personally reviewing all current laboratories and imaging studies, medical reconciliation, outpatient chart review and discussion with specialists. This chart was completed in part utilizing Speech Voice Recognition Software. Grammatical errors, random word insertions, pronoun errors, and incomplete sentences are an occasional consequence of this system due to software limitations, ambient noise, and hardware issues. Any formal questions or concerns about the content, text, or information contained within the body of this dictation should be directly addressed to the provider for clarification. Admission and Anticipated Discharge Date Admission Date: June 29, 2024 Supervising Physician Co-Signing Physician Notes Chart reviewed; discussed with over provider. Patient's creatinine slightly improved compared to yesterday; patient is making more urine. Patient is currently on Eliquis 2.5 mg twice daily for DVT prophylaxis; resumed Possible DC in next few days depending on placement. I have reviewed the advanced practitioner's documentation, and I agree with, and take responsibility for the plan of care Subjective Pt sitting in his hospital bed in no apparent distress. Just completed breakfast; completing nearly 100% of his tray. Pt denies fever, chills, LOPEZ, dizziness, chest pain, SOB, palpitations, N/V/D, abdominal pain or tenderness. Awaiting SNF for acute rehab; possible DC tomorrow pending bed availability at [facility] Updated pt at bedside Please sees A/P for further details. Review of Systems Review of Systems: Neuro: (-) Falls, trauma, slurred speech HEENT: (-) LOPEZ, dizziness, dysphagia, visual or auditory changes CV: (-) CP, palpitations, swelling Resp: (-) SOB GI: (-) appetite changes, N/V/D, bowel changes : (-) urinary changes Skin: (-) rashes Psych: (-) anxiety, depression Physical Exam Physical Exam: Neuro: AAOx4, PERRLA, no aphagia, memory changes, CNII-XII grossly intact HEENT: head normocephalic, moist mucus membranes CV: S1/S2, (-) M/G/R, (-) edema, cap refill < 3 seconds Resp: Lungs CTA in all feng. On RA GI: Abdomen S/NT/ND, Ax4 bowel sounds, (-) CVA tenderness Musculoskeletal: 5/5 B/L UE strength, 5/5 B/L LE strength. No gait disturbance Skin: (-) rashes , (-) erythema. Psych: euthymic mood Results & Data Results & Data Vital Signs (Past 12 Hours) Vital Signs Temp Pulse Resp BP Pulse Ox O2 Del Method 07/03/24 07:18 36.7 C 71 19 120/60 97 Room Air 07/02/24 21:12 36.7 C 65 14 110/54 L 97 Room Air Laboratory Results Short CBC 07/02/24 07/03/24 Range/Units 13:17 06:24 WBC 9.21 9.69 (4.8-10.8) K/ul Hgb 7.9 L 8.3 L (14.0-18.0) g/dl Hct 24.0 L 25.0 L (42.0-52.0) % Plt Count 145 164 (130-400) K/uL BMP 07/03/24 06:24 Sodium 137 Potassium 4.0 Chloride 106 Carbon Dioxide 22 BUN 88 H Creatinine 4.71 H* Glucose 113 H Calcium 8.5 L (1) Fall Encounter type: initial encounter Qualified Code(s): W19.XXXA - Unspecified fall, initial encounter (2) Femoral neck fracture Encounter type: initial encounter Fracture type: closed Laterality: right Qualified Code(s): S72.001A - Fracture of unspecified part of neck of right femur, initial encounter for closed fracture (3) Vjyet-df-uhtkpyt kidney injury Acute renal failure type: unspecified Chronic kidney disease stage: stage 5, not on chronic dialysis Qualified Code(s): N17.9 - Acute kidney failure, unspecified; N18.5 - Chronic kidney disease, stage 5
--- NOTE | 2024-07-03 08:15 | XRay Report ---
EXAM: XR chest 1V portable CLINICAL HISTORY: ESRD INPATIENT TECHNIQUE: X-ray image of the chest obtained in AP projection. COMPARISON: Prior X-ray dated 02/01/2022 for comparison. FINDINGS: Pulmonary Parenchyma: Mild reticular thickening/Taylor lines in both lower zones. Blunting of right CP angle is likely small pleural effusion/ thickening. Left CP angle clear. No evidence of consolidation, collapse, or focal opacities. No pulmonary nodules are identified. Heart and Mediastinum: Heart size appears enlarged. Right and left pulmonary arteries are prominent in caliber. No mediastinal widening or masses. No hilar or mediastinal lymphadenopathy. Bony Thorax: Spondylotic changes in thoracic spine. Subtle cortical breach along right humerus neck suspicious of fracture. Unchanged Bony thorax appears intact without fractures or deformities. Soft Tissues: Soft tissues overlying the chest wall are unremarkable. IMPRESSION: 1. Mild reticular thickening/Taylor lines in both lower zones. New finding. 2. Blunting of right CP angle is likely small pleural effusion/ thickening. New finding. 3. Cardiomegaly. Unchanged. Electronically signed by Aneta Galvez 07-03-2024 08:15 AM
[2024-07-04 06:28] LABS: Hematocrit (blood only) 24.2 % (42.0-52.0); Hemoglobin 8.2 g/dl (14.0-18.0); Mean Corpuscular Hemoglobin 29.5 pg (25.0-34.0); Mean Corpuscular Hgb Conc 33.9 g/dL (32.0-36.0); Mean Corpuscular Volume 87.1 fL (80.0-100.0); Mean Platelet Volume 10.9 fL (9.4-12.4); Platelet Count 180 K/uL (130-400); RDW Coefficient of Variation 14.6 % (11.5-14.5); RDW Standard Deviation 46.7 fL (36.4-46.3); Red Blood Count 2.78 M/uL (4.70-6.10); White Blood Count 8.59 K/ul (4.8-10.8)
[2024-07-04 06:46] LABS: Calcium 8.4 mg/dl (8.6-10.3); Potassium 4.2 mmol/L (3.5-5.1)
[2024-07-04 06:52] LABS: BUN Creatinine Ratio 20.5 (10-20); Creatinine Clr Calc Pharmacy 10.8 ml/min
[2024-07-04 08:51] VITALS: O2SAT 98
--- NOTE | 2024-07-04 11:15 | Discharge Summary ---
Date of Service July 04, 2024 Admission HPI Per Admitting Provider History obtained from patient, family, and records. Medical history significant for chronic systolic heart failure (EF 35 to 40%, TTE 2020), CAD status post stent, chronic LBBB, PVD, AAA status post surgery, hypertension, hyperlipidemia, CRI (baseline creatinine 4), chronic anemia (baseline hemoglobin 10-11), prediabetes, hypothyroidism, BPH, past tobacco abuse. Last confinement April 2024 for transient aggressive behavior, ARF on CKD. Patient slipped on wet tile at home causing him to fall down. Achy right hip pain and right elbow pain. Bleeding wound on the right elbow. No head trauma, LOC, chest pain, SOB. Patient brought to ER for evaluation. 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 Admission Exam Per Admitting Provider GENERAL: Slightly uncomfortable, no respiratory distress SKIN: Pallor, warm HEENT: Alopecia, bespectacled, pale palpebral conjunctivae, no ptosis, dry buccal mucosa NECK : Supple, no tenderness CHEST : CTA, no tenderness HEART : RRR, no obvious murmurs ABDOMEN: no distention, nontender EXTREMITIES : Sling RUE, right hip tenderness NEUROLOGIC : Coherent, no facial asymmetry, no other gross focality Principal Diagnosis right femoral fracture, ESRD, anemia Discharge Exam Neuro: AAOx4, PERRLA, no aphagia, memory changes, CNII-XII grossly intact HEENT: head normocephalic, moist mucus membranes CV: S1/S2, (-) M/G/R, (-) edema, cap refill < 3 seconds Resp: Lungs CTA in all feng. On RA GI: Abdomen S/NT/ND, Ax4 bowel sounds, (-) CVA tenderness Musculoskeletal: 5/5 B/L UE strength, 5/5 B/L LE strength. No gait disturbance Skin: (-) rashes , (-) erythema. Psych: euthymic mood Discharge Data Allergies Allergy/AdvReac Type Severity Reaction Status Date / Time No Known Allergies Allergy Verified 04/16/24 11:09 Consultations 06/28/24 22:20 Consult Orthopedic Surgery Routine 06/28/24 22:21 ED Decision to Admit Stat 07/02/24 07:59 Consult Nephrology Routine Procedures Performed Operation Date: 06/29/24 07:00 Actual Procedures p Right Hip Bipolar Hemiarthroplasty, Cemented(Right) - Aleksander Lal MD Ordered Studies 06/28/24 23:41 CT elbow RT wo con Stat Hospital Course (1) Fall: (2) Femoral neck fracture: (3) [id number] kidney injury: (4) Acute on chronic anemia: Cinda Valencia is an 88y/o M with PMHx significant for dyslipidemia, acquired hypothyroidism, prediabetes, 1st degree AV block, CAD s/p stenting, chronic systolic heart failure [EF = 35-39%, TTE 06/2021], history of [place]/ischemic cardiomyopathy, chronic LBBB, peripheral vascular disease, bilateral carotid artery stenosis, chronic anemia [baseline Hgb ~9-11], paroxysmal atrial fibrillation, AAA s/p surgery, HTN, GERD, constipation, CKD stage V/chronic renal insufficiency [baseline Cr ~4.0-4.4], BPH, tobacco use disorder and generalized osteoarthritis who presented to the ED via EMS on 06/29/2024 with right hip and right elbow pain after sustaining a fall. Right Hip Fracture S/P Mechanical Fall, Confusion: Admitting Imaging Pelvis XR --> Suspected impacted right femoral neck fracture. R Elbow XR --> Possible nondisplaced fracture of the medial epicondyle distal humerus. R Elbow CT --> No evidence of any fractures as previously suspected on the R elbow XR. Ortho has evaluated the patient and did not see any evidence of fracture on the patient's right elbow CT. R arm splint/sling discontinued. (See Ortho reccs below) Patient underwent R hip bipolar hemiarthroplasty on 06/29/[address] Lal; POD #4. no evidence of fracture on right elbow CT. Patient continues to receive scheduled Tylenol for pain control. He was experiencing some confusion during this admission which seems to have resolved. Recommend using caution with narcotic use in the setting of confusion or disorientation; no signs of delirium today upon discharge. This admission patient is noted to have MO in the setting of CKD, nearing end s tage. Suspect due to relative hypotensive and poor oral intake. Continues to produce urine, Hayes catheter in place and has received IV fluids while inpatient. Per Nephrology, non oliguric MO on CKD5 for baseline creatinine 4.1-4.5. Presenting creatinine 4.1, w/ abrupt uptick on day of surgery up to 5 today. cause of worsening renal function likely multifactorial >> intercurrent illness/ physical stress of surgery +/- renal ischemia w/ anemia Follows closely with both Dr. Reza Whatley/Dr. Kaur Quiñones at [facility]. CKD stage 5 from combination HTN, atherosclerosis and age per recent documentation --> "Non-proteinuric type and slowly progressive for last few years." Patient has been managed conservatively without dialysis intervention per his request. Conversation held with patient and his yesterday on 07/03 and they are both clear that they do not wish to persue hemodialysis. MO noted yesterday with Cr of 4.59, today 4.34 [baseline Cr ~4.0-4.4]. Nephrology has evaluated patient and made recommendations which are appreciated. Continue to hold home Lasix for now. Avoid nephrotoxic medications when able. Monitor renal function closely and renally dose medications when able. During this admission, he was noted to have acute on chronic anemia requiring transfusion. Hgb downtrended to 6.8 on 07/02, baseline Cr ~9-11 per chart review. sp 1UPRBC. Likely dilutional component contributing as well Eliquis was restarted on 07/04 and Hgb holding at 8.3. Patient stable as he nears discharge. Patient will continue to recover and receive treatment at [facility] for acute rehabilitation. This chart was completed in part utilizing Speech Voice Recognition Software. Grammatical errors, random word insertions, pronoun errors, and incomplete sentences are an occasional consequence of this system due to software limitations, ambient noise, and hardware issues. Any formal questions or concerns about the content, text, or information contained within the body of this dictation should be directly addressed to the provider for clarification. Total Time Total Time Spent Total Time Spent (In Minutes): I spent a total of 50 minutes coordinating, documenting, and providing care for this patient excluding time spent in the performance of separately billed services. This included personally reviewing all current laboratories and imaging studies, medical reconciliation, outpatient chart review and discussion with specialists. Discharge Plan Discharge Items Patient Disposition: Transfer Inpatient Rehab Fac Reason For Visit: R FEM FX Discharge Diagnosis: R femoral fracture, ESRD Activity: Per Instructions section Weightbearing: Right weightbearing Weightbearing Comment: with walker at all times. Non-emergency contact: Surgeon Call non-emergency contact if: you have any medication questions, your symptoms worsen, your pain is not controlled, your temperature is above 101, your wound has increased redness and your wound has increased drainage Follow-up/Referrals: Cait Lucas PA-C [[employer]] - 07/13/24 10:15 am Julianna Jones DO [Primary Care Provider] - Diet: Regular Addtl Attending Provider Instructions: Mr. Valencia is an 88 year old male was a H that is significant for dyslipidemia, acquired hypothyroidism, prediabetes, 1st degree AV block, CAD s/p stenting, chronic systolic heart failure [EF = 35-39%, TTE 06/2021], history of [place]/ischemic cardiomyopathy, chronic LBBB, peripheral vascular disease, bilateral carotid artery stenosis, chronic anemia [baseline Hgb ~9-11], paroxysmal atrial fibrillation, AAA s/p surgery, HTN, GERD, constipation, CKD stage V/chronic renal insufficiency [baseline Cr ~4.0-4.4], BPH, tobacco use disorder and generalized osteoarthritis who presented to the ED via EMS on 06/29/2024 with right hip and right elbow pain after sustaining a fall. Admitting Imaging revealed the following: Pelvis XR --> Suspected impacted right femoral neck fracture. R Elbow XR --> Possible nondisplaced fracture of the medial epicondyle distal humerus. R Elbow CT --> No evidence of any fractures as previously suspected on the R elbow XR. Ortho has evaluated the patient and did not see any evidence of fracture on the patient's right elbow CT. R arm splint/sling discontinued. (See Ortho reccs below) Patient underwent R hip bipolar hemiarthroplasty on 06/29/[address] Lal; POD #4. no evidence of fracture on right elbow CT. Patient continues to receive scheduled Tylenol for pain control. He was experiencing some confusion during this admission which seems to have resolved. Recommend using caution with narcotic use in the setting of confusion or disorientation; no signs of delirium today upon discharge. This admission patient is noted to have MO in the setting of CKD, nearing end stage. Suspect due to relative hypotensive and poor oral intake. Continues to produce urine, Hayes catheter in place and has received IV fluids while inpatient. Per Nephrology, non oliguric MO on CKD5 for baseline creatinine 4.1-4.5. Presenting creatinine 4.1, w/ abrupt uptick on day of surgery up to 5 today. cause of worsening renal function likely multifactorial >> intercurrent illness/ physical stress of surgery +/- renal ischemia w/ anemia Follows closely with both Dr. Reza Whatley/Dr. Kaur Quiñones at [facility]. CKD stage 5 from combination HTN, atherosclerosis and age per recent documentation --> "Non-proteinuric type and slowly progressive for last few years." Patient has been managed conservatively without dialysis intervention per his request. Conversation held with patient and his yesterday on 07/03 and they are both clear that they do not wish to persue hemodialysis. MO noted yesterday with Cr of 4.59, today 4.34 [baseline Cr ~4.0-4.4]. Nephrology has evaluated patient and made recommendations which are appreciated. Continue to hold home Lasix for now. Avoid nephrotoxic medications when able. Monitor renal function closely and renally dose medications when able. During this admission, he was noted to have acute on chronic anemia requiring transfusion. Hgb downtrended to 6.8 on 07/02, baseline Cr ~9-11 per chart review. sp 1UPRBC. Likely dilutional component contributing as well. Eliquis was restarted on 07/04 and Hgb holding at 8.3. Plan to repeat BMP in 3 days. Plan for trial of void in next 2 to 3 days after patient is more mobile. Will need DVT prophylaxis for 35 days with Eliquis. Seek medical attention if you have: * temperature above 101 * chest pain or trouble breathing * abdominal pain, nausea, vomiting * diarrhea, dark stools or bloody stools * any unanswered questions or concerns Call 911 if symptoms are severe. Please take good care of yourself. It has been a pleasure taking care of you. Please take care of yourself. If you have any questions regarding your recent hospitalization please contact [facility] and request [facility] @ [phone]. Addtl Mycology Teacher Provider Instructions: Orthopedic instructions: Eliquis 2.5 mg twice daily for 4 weeks after surgery. Weightbearing as tolerated using walker at all times. Physical therapy as ordered. Dressing instructions - Keep incision covered. May shower and get incision wet. Pat incision dry and redress. Posterior hip precautions At all times. Abduction pillow when In bed. Standard pillow between knees when out of bed in chair. Keep heels off of bed. Ice and elevate as needed for pain and swelling. May do full active range of motion of the right elbow as tolerated. May use right arm for light daily activities as tolerated. Follow-up with [facility] orthopedics at [phone] as scheduled. Call with any questions, concerns, increased pain, swelling, drainage from incision. Pending Studies at Discharge: No Stand-Alone Forms: My [facility] Skilled Items Patient informed of condition?: Yes DNR: Yes Discharge Level of Care: Acute rehab Communicable Disease: No Discharge Prognosis: Stable Lines: Peripheral IV Urinary Catheter: Yes Medications and DC Order Prescriptions: New Eliquis 2.5 mg Tablet 2.5 mg PO BID Qty: 14 0RF Continued aspirin 81 mg tablet,delayed release (DR/EC) 81 mg PO QAM levothyroxine 25 mcg tablet 25 mcg PO QAM tamsulosin 0.4 mg Capsule 0.4 mg PO QAM nitroglycerin [Nitrostat] 0.4 mg Tablet, Sublingual 0.4 mg sublingual UD PRN (Reason: Chest Pain) metoprolol succinate [Toprol XL] 25 mg Tablet Extended Release 24 Hr 12.5 mg PO QAM omeprazole 20 mg Capsule,Delayed Release(Dr/Ec) 20 mg PO QAM atorvastatin 80 mg Tablet 80 mg PO DAILY finasteride 5 mg Tablet 5 mg PO DAILY cholecalciferol (vitamin D3) [Vitamin D3] 25 mcg (1,000 unit) Tablet 25 mcg PO DAILY escitalopram oxalate 5 mg tablet 5 mg PO HS Qty: 30 1RF acetaminophen 500 mg Tablet 1,000 mg PO BID PRN (Reason: Pain) cyanocobalamin (vitamin B-12) [Vitamin B-12] 500 mcg Tablet 500 mcg PO DAILY Systane (PF) 0.4-0.3 % Dropperette 1 drp ophthalmic (eye) DAILY Rx Instructions: INSTILL ONE DROP INTO BOTH EYES EVERY DAY FOR AMD lutein 20 mg Capsule 20 mg PO DAILY Rx Instructions: give with meal/snack Held furosemide 80 mg tablet 80 mg PO DAILY Hold Instructions: Resume on 07/06/24. Reevaluate pending improvement back to baseline of creatinine No Action polyethylene glycol 3350 [Miralax] 17 gram powder in packet 17 g PO QAM PRN (Reason: Constipation) Discharge Orders: Discharge Order (Routine); Ordered 07/04/24 Ordered By: Vicky Larsen Admission Data Admit Date/Time: 06/29/24 00:56 Attending Provider: Nik Hayes Admit Provider: Bonifacio Jones Primary Care Provider: Julianna Jones Other Providers: Aleksander Lal; Bonifacio Jones; [facility]; [place]; Carolyn Pate at [place]; Kaur Quiñones Supervising Physician Co-Signing Physician Notes Patient seen and examined at bedside. He is sitting up on the bed eating lunch; he reports that he is comfortable. He denies fever, chills, chest pain, shortness of breath or pain at the surgical site Hayes is draining clear urine and his creatinine is downtrending [facility]. Plan to repeat BMP in 3 days. Plan for trial of void in next 2 to 3 days after patient is more mobile. Will need DVT prophylaxis for 35 days with Eliquis. Discussed with patient's at bedside; agreeable with the plan. I have reviewed the advanced practitioner's documentation, and I agree with, and take responsibility for the plan of care I spent a total of 20 minutes coordinating, documenting, and providing care for this patient excluding time spent in the performance of separately billed services. All of the aforementioned completed while collaborating with the assigned advanced practitioner for a full treatment plan
[2024-07-04 14:03] VITALS: BP 135/71; RESP 18; TEMP 98.1
[2024-07-04 20:00] VITALS: PULSE 80
== END 2024-07-04 20:00 | DRG 521 ==
LOC: ED 21:24 → SUATTDRO 06-29 00:56 → 3W 06-29 00:56